=== PATIENT | female | born 1960 | race Caucasian/White ===

== ENCOUNTER → 2019-01-04 13:39 | Outpatient (CLI) | payer OTHER, SELFPAY ==
--- NOTE | 2019-01-04 | DI.RAD.S_ITS ---
PROCEDURE: XR CHEST 2V INDICATIONS: hx of smoking, dyspnea, decreased bs rt TECHNIQUE: 2 views of the chest were acquired. COMPARISON: [facility], , CHEST 1 VIEW, 02/25/2016, 12:22. FINDINGS: Surgical changes and devices: None. Lungs and pleura: Lungs are hyperinflated. Scattered scarring/atelectasis.. No pleural effusions or pneumothorax. Mediastinum: Mediastinal contours are normal. Heart size is normal. Bones and chest wall: No suspicious bony abnormalities. Soft tissues appear unremarkable. IMPRESSION: Hyperinflated lungs in keeping with chronic obstructive physiology. No acute disease. Dictated by: Jairo Torres M.D. on 01/04/2019 at 16:06 Approved by: Jairo Torres M.D. on 01/04/2019 at 16:07
[2019-01-04 14:38] LABS: Urine Amphetamines Negative (Negative); Urine Cocaine Negative (Negative); Urine Morphine/Opi cutoff 2000 Negative (Negative); Urine Tetrahydrocannabinol Negative (Negative)
[2019-01-04 14:39] LABS: Urine Barbiturates Negative (Negative); Urine Benzodiazepines Negative (Negative); Urine MDMA Negative (Negative); Urine Methadone Negative (Negative); Urine Methamphetamines Negative (Negative); Urine Oxycodone Negative (Negative); Urine Phencyclidine Negative (Negative); Urine Tricyclic Antidepressant Negative (Negative)
== END ==
PROVIDERS: PCP Physician Assistant; Visit Provider Internal Medicine
DX: R91.8 Other nonspecific abnormal finding of lung field (principal); R06.00 Dyspnea, unspecified; G89.4 Chronic pain syndrome; Z87.891 Personal history of nicotine dependence
CPT/HCPCS: 71046; 80305

== ENCOUNTER → 2019-03-15 14:36 | Outpatient (CLI) | payer OTHER, SELFPAY ==
--- NOTE | 2019-03-15 | DI.ECHO.S_ITS ---
[place] +---------+ Hospital +---------+ : : [address] : : [place], [place] : : : : [id number] : : : : Phone: [phone]+ Echocardiogram Report + + :Name: JOSÉ MANUEL LEVI Study Date: 03/15/2019 Height: 65 in : :[facility] Weight: 114 lb : : Gender: Female BSA: 1.6 m2 : :: 1960 Age: 58 yrs BP: 140/86 mmHg: :Reason For Study: DYSPNEA : : Performed By: Francisco J Daley : :Referring: CHANDNI BERRY : + + Interpretation Summary Normal sinus rhythm. Normal LV size, wall thickness, wall motion and LV systolic function. EF is 60-65%. Normal chamber sizes. No significant valvular abnormalities. No prior study available for comparison. Procedure: A two-dimensional transthoracic echocardiogram with color flow and Doppler was performed. The study quality was technically adequate. Images from the parasternal window were difficult to obtain and are suboptimal in quality. There is no prior echocardiogram noted for this patient. The patient was in normal sinus rhythm during the exam. Left Ventricle: The left ventricle is normal in size. There is normal left ventricular wall thickness. The ejection fraction is estimated to be 60-65%. There are no focal wall motion abnormalities. Diastolic function could not be accurately assessed due to contradictory data. Right Ventricle: The right ventricle is normal in size and function. Atria: Both atria are normal in size. The interatrial septum is intact with no evidence for an atrial septal defect. Mitral Valve: The mitral valve is normal in structure and function. There is trace mitral regurgitation. Aortic Valve: The aortic valve is trileaflet. No aortic regurgitation is present. Tricuspid Valve: The tricuspid valve is normal in structure and function. There is trace tricuspid regurgitation. The right ventricular systolic pressure is estimated to be at least 24 mmHg based on an estimated right atrial pressure of 3 mm Hg. Pulmonic Valve: The pulmonic valve is not well visualized. There is trace pulmonic regurgitation. Great Vessels: The aortic root is normal size. The dimensions of the ascending aorta are normal. The pulmonary artery is normal size. Pericardium/ Pleura There is no pericardial effusion. There is no pleural effusion. MMode/2D Measurements & Calculations LVIDd: 3.2 cm LVOT diam: 2.0 cm LVIDs: 2.2 cm Ao root diam: 3.2 cm FS: 29.4 % Aortic Jxn: 2.3 cm EPSS: 0.17 cm asc Aorta Diam: 3.1 cm IVSd: 0.75 cm Ao Arch Diam (Prox Trans): 2.8 cm LVPWd: 0.82 cm LV yeager. diameter/BSA (cm/m^2): 2.0 LV sys. diameter/BSA (cm/m^2): 1.4 LA dimension: 3.2 cm RA long axis: 3.9 cm LA A2 area: 17.9 cm2 RA area: 11.0 cm2 LA A4 area: 16.7 cm2 RA vol: 26.0 ml LA length (vol): 4.7 cm RA : 16.7 ml/m2 LA vol: 53.5 ml IVC diam: 1.9 cm LA vol index: 34.4 ml/m2 Doppler Measurements & Calculations Ao V2 max: 134.3 cm/sec LVOT Max Will: 116.7 cm/sec Ao V2 mean: 104.3 cm/sec LV V1 max P.4 mmHg Ao max P.2 mmHg LV V1 VTI: 24.6 cm Ao mean P.6 mmHg JAY(I,D): 2.7 cm2 Ao V2 VTI: 30.1 cm JAY(V,D): 2.8 cm2 sev ratio: 0.82 JAY indexed to BSA (cm^2/m^2): 1.7 MV E max will: 85.6 cm/sec TR max will: 227.4 cm/sec MV A max will: 66.2 cm/sec TR max P.7 mmHg MV E/A: 1.3 PA V2 max: 82.2 cm/sec Med Peak E' Will: 5.7 cm/sec PA V2 mean: 59.4 cm/sec E/E' med: 15.1 PA mean P.5 mmHg Lat Peak E' Will: 9.0 cm/sec PA pr(Accel): 36.6 mmHg E/E' lat: 9.5 PA Accel Time: 0.11 sec E/e' average: 12.3 MV dec time: 0.15 sec SV(LVOT): 80.5 ml Electronically signed by: Vee Patel M.D. on Reading Physician:03/15/2019 10:21 PM
== END ==
PROVIDERS: PCP Internal Medicine; Visit Provider Internal Medicine
DX: R06.09 Other forms of dyspnea (principal)
CPT/HCPCS: 93306

== ENCOUNTER → 2020-06-25 19:19 | Outpatient (ROUT) | payer OTHER, SELFPAY ==
[2020-06-25 20:09] LABS: Add Manual Diff / Slide Review NO; Basophils Absolute Auto 100 /uL (0-100); Basophils Percent Auto 0.8 % (0-2); Eosinophils Absolute Auto 100 /uL (0-450); Eosinophils Percent Auto 1.2 % (2-4); Hemoglobin 14.7 g/dL (12.0-16.0); Lymphocytes Absolute Auto 1400 /uL (1100-4500); Lymphocytes Percent Auto 16.9 % (25-40); Mean Corpuscular HGB Conc 33.5 % (30-36); Mean Corpuscular Hemoglobin 33.1 PG (26-34); Mean Corpuscular Volume 98.8 fL (80-100); Monocytes Absolute Auto 700 /uL (0-900); Monocytes Percent Auto 8.1 % (3-14); Neutrophils Absolute Auto 6000 /uL (1500-7000); Platelet Count 352 X10^3/uL (150-400); Red Blood Cell Count 4.45 X10^6/uL (4.0-5.2); Red Cell Distribution Width 13.1 % (11.6-14.8); White Blood Cell Count 8.3 X10^3/uL (4.5-11.0)
[2020-06-25 20:17] LABS: HEMOLYSIS < 15 (0-50); Iron 75 ug/dL (37-170)
[2020-06-25 20:21] LABS: Alanine Aminotransferase 28 IU/L (<35); Albumin 4.5 g/dL (3.5-5.0); Albumin Globulin Ratio 1.2 (1.0-2.8); Alkaline Phosphatase 93 U/L (38-126); Aspartate Aminotransferase 36 IU/L (14-36); BUN Creatinine Ratio 43.8 (6-22); Bilirubin Total 0.4 mg/dL (0.2-1.3); Blood Urea Nitrogen 28 mg/dL (7-17); Calcium 9.9 mg/dL (8.4-10.2); Carbon Dioxide 31 mmol/L (22-32); Chloride 105 mmol/L (98-107); Cholesterol 238 mg/dL (140-199); Estimated Glomerular Filt Rate > 60.0 mL/min (>60); Globulin 3.8 g/dL (1.7-4.1); Glucose 96 mg/dL (80-110); HEMOLYSIS < 15 (0-50); Potassium 4.3 mmol/L (3.4-5.1); Sodium 140 mmol/L (137-145); Total Protein 8.3 g/dL (6.3-8.2); Triglycerides 60 mg/dL (35-150)
[2020-06-25 20:30] LABS: HDL Cholesterol 121 mg/dL (40-60); LDL Cholesterol Calculated 105 mg/dL (<100); Percent Iron Saturation 20 % (15-50); Total Iron Binding Capacity 369 ug/dL (265-497); Transferrin 285 mg/dL (206-381)
[2020-06-25 20:54] LABS: Ferritin 70 ng/mL (11-264)
[2020-06-26 14:48] LABS: Vitamin D 25 Hydroxy (D3) 38.3 ng/mL (30.0-100.0)
== END ==
PROVIDERS: PCP Internal Medicine; Visit Provider Physician Assistant
DX: I10 Essential (primary) hypertension (principal); J44.9 Chronic obstructive pulmonary disease, unspecified; F11.90 Opioid use, unspecified, uncomplicated; K51.90 Ulcerative colitis, unspecified, without complications; G47.00 Insomnia, unspecified; D50.9 Iron deficiency anemia, unspecified; E78.2 Mixed hyperlipidemia; E55.9 Vitamin D deficiency, unspecified
CPT/HCPCS: 80053; 80061; 82306; 82728; 83540; 83550; 85025

== ENCOUNTER 2020-11-30 12:24 | Emergency (ER) | payer OTHER, SELFPAY ==
[2020-11-30] VITALS (95 sets, daily range): BP systolic 75–114; BP diastolic 50–69; PULSE 73–98; RESP 10–39; TEMP 36.6–37; O2SAT 80–100
--- NOTE | 2020-11-30 12:46 | DI.RAD.S_ITS ---
PROCEDURE: XR CHEST 1V INDICATIONS: suspected sepsis TECHNIQUE: One view of the chest was acquired. COMPARISON: [facility], CR, CHEST 1 VIEW, 02/25/2016, 12:22. [facility], CT, CHEST ANGIO-PE, 05/10/2011, 20:50. [facility], CR, XR CHEST 2V, 01/04/2019, 13:59. FINDINGS: Surgical changes and devices: None. Lungs and pleura: Lungs are hyperinflated and lucent, consistent with emphysema. Lungs are clear. No pleural effusions or pneumothorax. Mediastinum: Mediastinal contours appear normal. Heart size is normal. Bones and chest wall: No suspicious bony lesions. Overlying soft tissues appear unremarkable. IMPRESSION: No acute cardiopulmonary disease. Emphysema. Dictated by: Heather Garvey M.D. on 11/30/2020 at 13:13 Approved by: Heather Garvey M.D. on 11/30/2020 at 13:15
--- NOTE | 2020-11-30 12:53 | ED.FEVER ---
HPI - Fever General Chief Complaint: Fever Stated Complaint: Fever, Confussion Time Seen by Provider: 11/30/20 12:47 Source: patient and family Mode of arrival: Ambulatory Limitations: altered mental status History of Present Illness HPI Narrative: Patient is a 60-year-old female with history of emphysema, congestive heart failure, hypertension presenting today with increased generalized weakness and fever although afebrile in the emergency department. She has had a slow decline over the last 1 week. She thinks she may have a UTI she states that she does not urinate enough at work. She denies frequency or urgency. She denies any flank pain nausea or vomiting. states that she has had increased confusion and is babbling. She states that she drinks alcohol about 4 glasses of wine daily but has not had anything to drink in 7 days. He denies any prior history of seizures or withdrawal. She found to be hypoxic and hypotensive. She denies any chest pain or shortness of breath. Not sure why we are so concerned with her oxygen level. She states she was a smoker about half 1 and half packs per day for a number of years but has not smoked for about 5. Related Data Home Medications Medication Instructions Recorded Confirmed Trusopt 2 EYE-BOTH DAILY 11/30/20 amlodipine 5 mg tablet 5 mg PO BID 11/30/20 11/30/20 aspirin 81 mg tablet,delayed 81 mg PO DAILY 11/30/20 11/30/20 release bupropion HCl 150 mg tablet,12 hr 150 mg PO BID 11/30/20 11/30/20 sustained-release buspirone 5 mg tablet 5 mg PO DAILY 11/30/20 11/30/20 metoprolol tartrate 25 mg tablet 25 mg PO DAILY 11/30/20 11/30/20 olanzapine 5 mg tablet 5 mg PO BEDTIME 11/30/20 11/30/20 Allergies Allergy/AdvReac Type Severity Reaction Status Date / Time No Known Drug Allergies Allergy Verified 11/30/20 14:49 Review of Systems Review of Systems Narrative: GENERAL: Generalized weakness, fever, fatigue HEENT: Denies sinus pain, ear pain, sore throat, difficulty swallowing, neck pain RESPIRATORY: Denies dyspnea, cough, wheezing, hemoptysis, sputum. CARDIOVASCULAR: Denies chest pain, palpitations, orthopnea, edema GASTROINTESTINAL: Denies nausea, vomiting, abdominal pain, diarrhea, constipation, melena. : See HPI MUSCULOSKELETAL: Denies weakness, joint pain, or bony pain SKIN: No rash, no erythema, no pruritus NEUROLOGIC: Denies weakness, dizziness, headache, numbness, change in speech, confusion PSYCHIATRIC: No concerning psychosocial issues. 12 point review of systems is negative except for those stated above and HPI Patient History Social History Smoking Status: Former smoker Smoking Status: Former smoker alcohol intake frequency: 3 or more drinks per day Substance Use Type: does not use Exam Initial Vital Signs Initial Vital Signs: Vital Signs Temperature 98.6 F 11/30/20 12:35 Pulse Rate 98 H 11/30/20 12:35 Respiratory Rate 24 11/30/20 12:35 Blood Pressure 95/52 L 11/30/20 12:35 Pulse Oximetry 80 L 11/30/20 12:35 GENERAL: Well-appearing 60-year-old female and in no acute distress. HEENT: Head atraumatic,EOMI, pupils reactive, face symmetric, moist mucous membranes CARDIOVASCULAR: Regular rate and rhythm without murmurs, rubs or gallops. RESPIRATORY: Breath sounds equal bilaterally. No wheezing rales. Speaks with out difficulty ABDOMEN: Soft, nontender. Normoactive bowel sounds all 4 quadrants. No guarding or rebound. : No CVA tenderness EXTREMITIES: Normal range of motion, no clubbing or edema. Neurovascularly intact NEUROLOGICAL: Alert and oriented x4.Normal gait and speech. Cranial nerves II through XII grossly intact. Conference Assistant strength equal bilaterally SKIN: Warm, dry, no laceration, no petechiae, no rashes or lesions. Course Orders Ordered: Discontinued Medications Sodium Chloride (Normal Saline 0.9%) 1,000 mls @ 1,000 mls/hr IV BOLUS ONE Stop: 11/30/20 13:45 Last Infusion: 11/30/20 14:34 Dose: 0 mls/hr Documented by: Admin: 11/30/20 12:55 Dose: 1,000 mls/hr Documented by: CLARISSE Ceftriaxone Sodium 1,000 mg/ (Sodium Chloride) 100 mls @ 200 mls/hr IV NOW ONE Stop: 11/30/20 13:43 Last Infusion: 11/30/20 15:16 Dose: 0 mls/hr Documented by: Admin: 11/30/20 14:39 Dose: 200 mls/hr Documented by: MARTHA Sodium Chloride (Normal Saline 0.9%) 1,000 mls @ 1,000 mls/hr IV BOLUS ONE Stop: 11/30/20 15:23 Last Infusion: 11/30/20 15:59 Dose: 0 mls/hr Documented by: Admin: 11/30/20 14:39 Dose: 1,000 mls/hr Documented by: MARTHA Sodium Chloride (Normal Saline 0.9%) 1,000 mls @ 150 mls/hr IV CONT DOROTHY Last Infusion: 11/30/20 23:25 Dose: 0 mls/hr Documented by: Admin: 11/30/20 16:04 Dose: 150 mls/hr Documented by: OJ Piperacillin Sod/Tazobactam (Sod 4.5 gm/ Sodium Chloride) 100 mls @ 200 mls/hr IV NOW ONE Stop: 11/30/20 16:22 Last Infusion: 11/30/20 17:26 Dose: 0 mls/hr Documented by: Admin: 11/30/20 16:37 Dose: 200 mls/hr Documented by: OJ Norepinephrine Bitartrate 4 mg (/ Dextrose) 254 mls @ 30.48 mls/hr IV TITRATE DOROTHY; Protocol Last Admin: 11/30/20 17:41 Dose: Not Given Documented by: HERIBERTO Sodium Chloride (Normal Saline 0.9%) 1,000 mls @ 1,000 mls/hr IV BOLUS ONE Stop: 11/30/20 18:39 Last Infusion: 11/30/20 18:39 Dose: 0 mls/hr Documented by: Admin: 11/30/20 17:50 Dose: 1,000 mls/hr Documented by: OJ Vital Signs Vital signs: Vital Signs - 8 hr 11/30/20 12:35 11/30/20 12:40 11/30/20 12:41 Temperature 98.6 F Pulse Rate 98 H 73 86 Respiratory Rate 24 39 H Blood Pressure 95/52 L 95/52 L Pulse Oximetry 80 L 83 L 80 L 11/30/20 12:45 11/30/20 13:00 11/30/20 13:15 Temperature Pulse Rate 84 79 79 Respiratory Rate 18 12 20 Blood Pressure 101/61 94/62 Pulse Oximetry 99 94 94 11/30/20 13:30 11/30/20 13:45 11/30/20 14:00 Temperature Pulse Rate 79 80 81 Respiratory Rate 21 14 18 Blood Pressure 90/60 92/61 Pulse Oximetry 91 93 92 11/30/20 14:01 11/30/20 14:11 11/30/20 14:15 Temperature Pulse Rate 82 86 Respiratory Rate 19 20 Blood Pressure 83/63 L 93/64 Pulse Oximetry 83 L 97 99 11/30/20 14:44 11/30/20 14:45 11/30/20 14:47 Temperature Pulse Rate 83 82 81 Respiratory Rate 14 15 Blood Pressure 84/57 L 83/55 L 82/54 L Pulse Oximetry 95 98 100 11/30/20 14:50 11/30/20 14:55 11/30/20 15:00 Temperature Pulse Rate 82 81 81 Respiratory Rate 10 L 11 L 11 L Blood Pressure 84/54 L 82/54 L 88/55 L Pulse Oximetry 100 100 100 11/30/20 15:05 11/30/20 15:10 11/30/20 15:15 Temperature Pulse Rate 81 80 81 Respiratory Rate 11 L 13 14 Blood Pressure 85/52 L 87/55 L 88/56 L Pulse Oximetry 100 100 100 11/30/20 15:16 11/30/20 15:20 11/30/20 15:25 Temperature Pulse Rate 80 80 80 Respiratory Rate 18 21 20 Blood Pressure 87/59 L 90/60 89/50 L Pulse Oximetry 100 100 100 11/30/20 15:30 11/30/20 15:31 11/30/20 15:35 Temperature Pulse Rate 81 81 80 Respiratory Rate 17 17 19 Blood Pressure 89/54 L 84/58 L Pulse Oximetry 100 100 100 11/30/20 15:45 11/30/20 15:46 11/30/20 15:50 Temperature Pulse Rate 82 82 82 Respiratory Rate 16 17 22 Blood Pressure 80/55 L 81/53 L Pulse Oximetry 99 99 98 11/30/20 15:55 11/30/20 16:00 11/30/20 16:05 Temperature Pulse Rate 80 80 86 Respiratory Rate 18 17 17 Blood Pressure 94/57 L 92/59 L 90/55 L Pulse Oximetry 100 99 98 11/30/20 16:09 11/30/20 16:11 11/30/20 16:15 Temperature Pulse Rate 86 87 84 Respiratory Rate 18 29 H 36 H Blood Pressure 92/60 86/66 L Pulse Oximetry 97 11/30/20 16:21 11/30/20 16:25 11/30/20 16:30 Temperature Pulse Rate 84 83 83 Respiratory Rate 20 25 H 23 Blood Pressure 86/61 L 95/69 Pulse Oximetry 89 L 94 95 11/30/20 16:40 11/30/20 16:45 11/30/20 16:50 Temperature Pulse Rate 80 80 79 Respiratory Rate 24 16 22 Blood Pressure 86/51 L 80/51 L 75/53 L Pulse Oximetry 96 96 96 11/30/20 16:55 11/30/20 17:00 11/30/20 17:05 Temperature Pulse Rate 76 79 81 Respiratory Rate 14 23 21 Blood Pressure 82/57 L 90/58 L 94/60 Pulse Oximetry 97 96 96 11/30/20 17:10 11/30/20 17:15 11/30/20 17:20 Temperature Pulse Rate 80 87 83 Respiratory Rate 25 H 35 H 32 H Blood Pressure 90/58 L 89/57 L 90/56 L Pulse Oximetry 97 95 94 11/30/20 17:25 11/30/20 17:30 11/30/20 17:35 Temperature Pulse Rate 83 82 82 Respiratory Rate 18 17 20 Blood Pressure 89/52 L 86/53 L 86/56 L Pulse Oximetry 95 95 96 11/30/20 17:40 11/30/20 17:45 11/30/20 17:50 Temperature Pulse Rate 82 84 80 Respiratory Rate 19 28 H 20 Blood Pressure 89/55 L 88/50 L 88/52 L Pulse Oximetry 95 96 95 11/30/20 17:55 11/30/20 18:00 11/30/20 18:05 Temperature Pulse Rate 80 78 77 Respiratory Rate 15 12 11 L Blood Pressure 81/50 L 85/54 L 88/56 L Pulse Oximetry 96 96 96 11/30/20 18:10 11/30/20 18:15 11/30/20 18:20 Temperature Pulse Rate 76 77 77 Respiratory Rate 17 13 14 Blood Pressure 86/56 L 88/57 L 86/56 L Pulse Oximetry 96 96 97 11/30/20 18:25 11/30/20 18:30 11/30/20 18:35 Temperature Pulse Rate 75 77 78 Respiratory Rate 14 17 22 Blood Pressure 86/57 L 87/58 L 89/56 L Pulse Oximetry 97 97 97 11/30/20 18:41 11/30/20 18:45 11/30/20 18:50 Temperature Pulse Rate 85 80 80 Respiratory Rate 29 H 25 H 37 H Blood Pressure 101/58 L 91/52 L 94/58 L Pulse Oximetry 95 96 87 L 11/30/20 18:55 11/30/20 19:00 11/30/20 19:05 Temperature Pulse Rate 73 74 76 Respiratory Rate 13 14 20 Blood Pressure 97/62 97/62 106/65 Pulse Oximetry 94 93 93 11/30/20 19:10 11/30/20 19:15 11/30/20 19:20 Temperature Pulse Rate 76 75 77 Respiratory Rate 20 19 12 Blood Pressure 106/64 102/65 96/63 Pulse Oximetry 92 92 93 11/30/20 19:25 11/30/20 19:30 11/30/20 19:35 Temperature Pulse Rate 76 78 77 Respiratory Rate 12 17 14 Blood Pressure 94/66 91/63 95/66 Pulse Oximetry 93 92 91 11/30/20 19:40 11/30/20 19:46 11/30/20 19:51 Temperature 97.8 F Pulse Rate 79 81 78 Respiratory Rate 20 39 H 25 H Blood Pressure 101/65 86/61 L 99/61 Pulse Oximetry 92 90 L 91 MDM - Fever Lab Data Result diagrams: 11/30/20 12:45 11/30/20 12:45 Labs: Lab Results 11/30/20 11/30/20 11/30/20 Range/Units 12:04 12:40 12:45 WBC 16.1 H (4.5-11.0) X10^3/uL RBC 3.59 L (4.0-5.2) X10^6/uL Hgb 11.5 L (12.0-16.0) g/dL Hct 34.6 L (36-46) % MCV 96.5 (80-100) fL MCH 32.0 (26-34) PG MCHC 33.2 (30-36) % RDW 13.0 (11.6-14.8) % Plt Count 743 H (150-400) X10^3/uL Neut % (Auto) Not Reportable Lymph % (Auto) Not Reportable [place] % (Auto) Not Reportable Eos % (Auto) Not Reportable Baso % (Auto) Not Reportable Lymph # (Auto) Not Reportable [place] # (Auto) Not Reportable Baso # (Auto) Not Reportable Total Counted 100 Seg Neutrophils % 78.0 H (38-70) % Band Neutrophils % 4.0 (3-7) % Lymphocytes % (Manual) 8.0 L (25-45) % Monocytes % (Manual) 5.0 (2-11) % Eosinophils % (Manual) 2.0 (2-4) % Metamyelocytes % 3.0 H (-0) % Neutrophils # (Manual) 02612 H (4892-4308) /uL RBC Morphology Normal morphology Sodium (137-145) mmol/L Potassium (3.4-5.1) mmol/L Chloride (98-107) mmol/L Carbon Dioxide (22-32) mmol/L BUN (7-17) mg/dL Creatinine (0.52-1.04) mg/dL Estimated GFR (>60) mL/min BUN/Creatinine Ratio (6-22) Glucose (80-110) mg/dL Lactate (0.7-2.1) mmol/L Calcium (8.4-10.2) mg/dL Total Bilirubin (0.2-1.3) mg/dL AST (14-36) IU/L ALT (<35) IU/L Alkaline Phosphatase (38-126) U/L Total Creatine Kinase (30-135) U/L CK-MB (CK-2) CK-MB (CK-2) Rel Index Troponin I (0.01-0.034) ng/mL NT-Pro-B Natriuret Pep (<125) pg/mL Total Protein (6.3-8.2) g/dL Albumin (3.5-5.0) g/dL Globulin (1.7-4.1) g/dL Albumin/Globulin Ratio (1.0-2.8) Lipase (23-300) U/L Procalcitonin (<0.5) ng/mL Urine Color Yellow Urine Appearance Slightly cloudy Urine pH 5.0 (4.5-8.0) Ur Specific [place] >=1.030 H (1.000-1.035) Urine Protein Trace H (Negative) Urine Glucose (UA) Negative (Negative) g/dL Urine Ketones Negative (NEGATIVE) Urine Occult Blood Trace-intact (Negative) Urine Nitrate Negative (Negative) Urine Bilirubin Negative (NEGATIVE) Urine Urobilinogen 0.2 (0.2) E.U./dL Ur Leukocyte Esterase 1+ H (NEGATIVE) Urine RBC 0-1/hpf (0-5/HPF) Urine WBC 10-30/hpf H (0-5/HPF) Ur Squamous Epith Cells 0-1 /hpf (0-5/HPF) Amorphous Sediment 1+ Urine Bacteria Moderate (10-30) H (None) Urine Mucus 1+ H (Negative) Ur Culture Indicated? Specimen cultured U Opiates 300ng/mL cut Negative (Negative) Ur Oxycodone Screen Positive H (Negative) Urine Methadone Screen Negative (Negative) Ur Barbiturates Screen Negative (Negative) U Tricyclic Antidepress Negative (Negative) Ur Phencyclidine Scrn Negative (Negative) Ur Amphetamines Screen Negative (Negative) U Methamphetamines Scrn Negative (Negative) Ur MDMA Scrn (Ecstasy) Negative (Negative) U Benzodiazepines Scrn Negative (Negative) Urine Cocaine Screen Negative (Negative) U Marijuana (THC) Screen Negative (Negative) Ethyl Alcohol ( - 10) mg/dL SARS-CoV-2 (PCR) (Negative) 11/30/20 11/30/20 11/30/20 Range/Units 12:45 12:45 12:45 WBC (4.5-11.0) X10^3/uL RBC (4.0-5.2) X10^6/uL Hgb (12.0-16.0) g/dL Hct (36-46) % MCV (80-100) fL MCH (26-34) PG MCHC (30-36) % RDW (11.6-14.8) % Plt Count (150-400) X10^3/uL Neut % (Auto) Lymph % (Auto) [place] % (Auto) Eos % (Auto) Baso % (Auto) Lymph # (Auto) [place] # (Auto) Baso # (Auto) Total Counted Seg Neutrophils % (38-70) % Band Neutrophils % (3-7) % Lymphocytes % (Manual) (25-45) % Monocytes % (Manual) (2-11) % Eosinophils % (Manual) (2-4) % Metamyelocytes % (-0) % Neutrophils # (Manual) (2015-9201) /uL RBC Morphology Sodium 132 L (137-145) mmol/L Potassium 4.0 (3.4-5.1) mmol/L Chloride 95 L (98-107) mmol/L Carbon Dioxide 29 (22-32) mmol/L BUN 46 H (7-17) mg/dL Creatinine 1.64 H (0.52-1.04) mg/dL Estimated GFR 31.8 L (>60) mL/min BUN/Creatinine Ratio 28.0 H (6-22) Glucose 99 (80-110) mg/dL Lactate 1.3 (0.7-2.1) mmol/L Calcium 9.2 (8.4-10.2) mg/dL Total Bilirubin 0.5 (0.2-1.3) mg/dL AST 33 (14-36) IU/L ALT 22 (<35) IU/L Alkaline Phosphatase 123 (38-126) U/L Total Creatine Kinase (30-135) U/L CK-MB (CK-2) CK-MB (CK-2) Rel Index Troponin I (0.01-0.034) ng/mL NT-Pro-B Natriuret Pep (<125) pg/mL Total Protein 7.6 (6.3-8.2) g/dL Albumin 3.6 (3.5-5.0) g/dL Globulin 4.0 (1.7-4.1) g/dL Albumin/Globulin Ratio 0.9 L (1.0-2.8) Lipase 17 L (23-300) U/L Procalcitonin 0.41 (<0.5) ng/mL Urine Color Urine Appearance Urine pH (4.5-8.0) Ur Specific [place] (1.000-1.035) Urine Protein (Negative) Urine Glucose (UA) (Negative) g/dL Urine Ketones (NEGATIVE) Urine Occult Blood (Negative) Urine Nitrate (Negative) Urine Bilirubin (NEGATIVE) Urine Urobilinogen (0.2) E.U./dL Ur Leukocyte Esterase (NEGATIVE) Urine RBC (0-5/HPF) Urine WBC (0-5/HPF) Ur Squamous Epith Cells (0-5/HPF) Amorphous Sediment Urine Bacteria (None) Urine Mucus (Negative) Ur Culture Indicated? U Opiates 300ng/mL cut (Negative) Ur Oxycodone Screen (Negative) Urine Methadone Screen (Negative) Ur Barbiturates Screen (Negative) U Tricyclic Antidepress (Negative) Ur Phencyclidine Scrn (Negative) Ur Amphetamines Screen (Negative) U Methamphetamines Scrn (Negative) Ur MDMA Scrn (Ecstasy) (Negative) U Benzodiazepines Scrn (Negative) Urine Cocaine Screen (Negative) U Marijuana (THC) Screen (Negative) Ethyl Alcohol ( - 10) mg/dL SARS-CoV-2 (PCR) Negative (Negative) 11/30/20 11/30/20 11/30/20 Range/Units 12:45 12:46 12:54 WBC (4.5-11.0) X10^3/uL RBC (4.0-5.2) X10^6/uL Hgb (12.0-16.0) g/dL Hct (36-46) % MCV (80-100) fL MCH (26-34) PG MCHC (30-36) % RDW (11.6-14.8) % Plt Count (150-400) X10^3/uL Neut % (Auto) Lymph % (Auto) [place] % (Auto) Eos % (Auto) Baso % (Auto) Lymph # (Auto) [place] # (Auto) Baso # (Auto) Total Counted Seg Neutrophils % (38-70) % Band Neutrophils % (3-7) % Lymphocytes % (Manual) (25-45) % Monocytes % (Manual) (2-11) % Eosinophils % (Manual) (2-4) % Metamyelocytes % (-0) % Neutrophils # (Manual) (5757-3647) /uL RBC Morphology Sodium (137-145) mmol/L Potassium (3.4-5.1) mmol/L Chloride (98-107) mmol/L Carbon Dioxide (22-32) mmol/L BUN (7-17) mg/dL Creatinine (0.52-1.04) mg/dL Estimated GFR (>60) mL/min BUN/Creatinine Ratio (6-22) Glucose (80-110) mg/dL Lactate (0.7-2.1) mmol/L Calcium (8.4-10.2) mg/dL Total Bilirubin (0.2-1.3) mg/dL AST (14-36) IU/L ALT (<35) IU/L Alkaline Phosphatase (38-126) U/L Total Creatine Kinase (30-135) U/L CK-MB (CK-2) CK-MB (CK-2) Rel Index Troponin I (0.01-0.034) ng/mL NT-Pro-B Natriuret Pep 1050 H (<125) pg/mL Total Protein (6.3-8.2) g/dL Albumin (3.5-5.0) g/dL Globulin (1.7-4.1) g/dL Albumin/Globulin Ratio (1.0-2.8) Lipase (23-300) U/L Procalcitonin (<0.5) ng/mL Urine Color Urine Appearance Urine pH (4.5-8.0) Ur Specific [place] (1.000-1.035) Urine Protein (Negative) Urine Glucose (UA) (Negative) g/dL Urine Ketones (NEGATIVE) Urine Occult Blood (Negative) Urine Nitrate (Negative) Urine Bilirubin (NEGATIVE) Urine Urobilinogen (0.2) E.U./dL Ur Leukocyte Esterase (NEGATIVE) Urine RBC (0-5/HPF) Urine WBC (0-5/HPF) Ur Squamous Epith Cells (0-5/HPF) Amorphous Sediment Urine Bacteria (None) Urine Mucus (Negative) Ur Culture Indicated? U Opiates 300ng/mL cut (Negative) Ur Oxycodone Screen (Negative) Urine Methadone Screen (Negative) Ur Barbiturates Screen (Negative) U Tricyclic Antidepress (Negative) Ur Phencyclidine Scrn (Negative) Ur Amphetamines Screen (Negative) U Methamphetamines Scrn (Negative) Ur MDMA Scrn (Ecstasy) (Negative) U Benzodiazepines Scrn (Negative) Urine Cocaine Screen (Negative) U Marijuana (THC) Screen (Negative) Ethyl Alcohol < 10 ( - 10) mg/dL SARS-CoV-2 (PCR) Negative (Negative) 11/30/20 11/30/20 Range/Units 12:54 16:09 WBC (4.5-11.0) X10^3/uL RBC (4.0-5.2) X10^6/uL Hgb (12.0-16.0) g/dL Hct (36-46) % MCV (80-100) fL MCH (26-34) PG MCHC (30-36) % RDW (11.6-14.8) % Plt Count (150-400) X10^3/uL Neut % (Auto) Lymph % (Auto) [place] % (Auto) Eos % (Auto) Baso % (Auto) Lymph # (Auto) [place] # (Auto) Baso # (Auto) Total Counted Seg Neutrophils % (38-70) % Band Neutrophils % (3-7) % Lymphocytes % (Manual) (25-45) % Monocytes % (Manual) (2-11) % Eosinophils % (Manual) (2-4) % Metamyelocytes % (-0) % Neutrophils # (Manual) (9405-9981) /uL RBC Morphology Sodium (137-145) mmol/L Potassium (3.4-5.1) mmol/L Chloride (98-107) mmol/L Carbon Dioxide (22-32) mmol/L BUN (7-17) mg/dL Creatinine (0.52-1.04) mg/dL Estimated GFR (>60) mL/min BUN/Creatinine Ratio (6-22) Glucose (80-110) mg/dL Lactate 0.8 (0.7-2.1) mmol/L Calcium (8.4-10.2) mg/dL Total Bilirubin (0.2-1.3) mg/dL AST (14-36) IU/L ALT (<35) IU/L Alkaline Phosphatase (38-126) U/L Total Creatine Kinase 57 (30-135) U/L CK-MB (CK-2) TNP CK-MB (CK-2) Rel Index TNP Troponin I < 0.012 (0.01-0.034) ng/mL NT-Pro-B Natriuret Pep (<125) pg/mL Total Protein (6.3-8.2) g/dL Albumin (3.5-5.0) g/dL Globulin (1.7-4.1) g/dL Albumin/Globulin Ratio (1.0-2.8) Lipase (23-300) U/L Procalcitonin (<0.5) ng/mL Urine Color Urine Appearance Urine pH (4.5-8.0) Ur Specific [place] (1.000-1.035) Urine Protein (Negative) Urine Glucose (UA) (Negative) g/dL Urine Ketones (NEGATIVE) Urine Occult Blood (Negative) Urine Nitrate (Negative) Urine Bilirubin (NEGATIVE) Urine Urobilinogen (0.2) E.U./dL Ur Leukocyte Esterase (NEGATIVE) Urine RBC (0-5/HPF) Urine WBC (0-5/HPF) Ur Squamous Epith Cells (0-5/HPF) Amorphous Sediment Urine Bacteria (None) Urine Mucus (Negative) Ur Culture Indicated? U Opiates 300ng/mL cut (Negative) Ur Oxycodone Screen (Negative) Urine Methadone Screen (Negative) Ur Barbiturates Screen (Negative) U Tricyclic Antidepress (Negative) Ur Phencyclidine Scrn (Negative) Ur Amphetamines Screen (Negative) U Methamphetamines Scrn (Negative) Ur MDMA Scrn (Ecstasy) (Negative) U Benzodiazepines Scrn (Negative) Urine Cocaine Screen (Negative) U Marijuana (THC) Screen (Negative) Ethyl Alcohol ( - 10) mg/dL SARS-CoV-2 (PCR) (Negative) Imaging Data Chest x-ray: Radiologist's Impression: PROCEDURE: XR CHEST 1V INDICATIONS: suspected sepsis TECHNIQUE: One view of the chest was acquired. COMPARISON: [facility], CR, CHEST 1 VIEW, 02/25/2016, 12:22. [facility], CT, CHEST ANGIO-PE, 05/10/2011, 20:50. [facility], CR, XR CHEST 2V, 01/04/2019, 13:59. FINDINGS: Surgical changes and devices: None. Lungs and pleura: Lungs are hyperinflated and lucent, consistent with emphysema. Lungs are clear. No pleural effusions or pneumothorax. Mediastinum: Mediastinal contours appear normal. Heart size is normal. Bones and chest wall: No suspicious bony lesions. Overlying soft tissues appear unremarkable. IMPRESSION: No acute cardiopulmonary disease. Emphysema. Dictated by: Heather Garvey M.D. on 11/30/2020 at 13:13 Approved by: Heather Garvey M.D. on 11/30/2020 at 13:15 CT scan - chest: Radiologist's Impression: ADDENDUMThis report includes an Addendum and supersedes previous reports for this exam. PROCEDURE: CT ANGIO CHEST PE PROTOCOL INDICATIONS: hypoxia TECHNIQUE: After the administration of intravenous contrast, 2 mm thick sections acquired from the pulmonary apices to the posterior costophrenic angles. 3-dimensional maximum intensity projection (MIP) coronal and sagittal reformats were then acquired through the thorax. For radiation dose reduction, the following was used: automated exposure control, adjustment of mA and/or kV according to patient size. COMPARISON: [facility], CT, CHEST ANGIO-PE, 05/10/2011, 20:50. [facility], CR, XR CHEST 1V, 11/30/2020, 13:00. FINDINGS: Image quality: Excellent. Pulmonary arteries: Pulmonary arteries are normal in size, and demonstrate no intraluminal filling defects to suggest pulmonary embolism. No acute aortic syndrome. Lungs and pleura: Severe emphysematous change. No acute airspace opacity. No pleural effusions or pneumothorax. Central and peripheral airways are patent. Mediastinum: Heart size is normal, without pericardial effusion. Mild LAD coronary artery calcifications. No mediastinal or hilar adenopathy. Thoracic aorta is normal in caliber and enhancement. Esophagus is normal in caliber, without hiatal hernia. Bones and chest wall: No suspicious bony lesions. Ribs and thoracic spine appear intact throughout. Thyroid gland is unremarkable. No axillary or supraclavicular adenopathy. Abdomen: Visualized upper abdominal solid organs appear normal in the early arterial phase of enhancement. IMPRESSION: 1. No pulmonary embolism. 2. Severe emphysematous change. No acute airspace opacity. 3. No pleural effusion. Dictated by: Oscar Gamboa M.D. on 11/30/2020 at 14:59 Approved by: Oscar Gamboa M.D. on 11/30/2020 at 15:07 ADDENDUM: Suspect subcentimeter low-density right adrenal nodule which appears unchanged compared to 2010. This most likely represents a small benign adrenal adenoma. Dictated by: Oscar Gamboa M.D. on 11/30/2020 at 15:24 Approved by: Oscar Gamboa M.D. on 11/30/2020 at 15:25 Addendum Dictated By:Morris Dewitt Signed By:Addendum Cosigned By:DD/ TD/TT: 11/30/2002/13/1528 PROCEDURE: CT ANGIO CHEST PE PROTOCOL INDICATIONS: hypoxia TECHNIQUE: After the administration of intravenous contrast, 2 mm thick sections acquired from the pulmonary apices to the posterior costophrenic angles. 3-dimensional maximum intensity projection (MIP) coronal and sagittal reformats were then acquired through the thorax. For radiation dose reduction, the following was used: automated exposure control, adjustment of mA and/or kV according to patient size. COMPARISON: [facility], CT, CHEST ANGIO-PE, 05/10/2011, 20:50. [facility], CR, XR CHEST 1V, 11/30/2020, 13:00. FINDINGS: Image quality: Excellent. Pulmonary arteries: Pulmonary arteries are normal in size, and demonstrate no intraluminal filling defects to suggest pulmonary embolism. No acute aortic syndrome. Lungs and pleura: Severe emphysematous change. No acute airspace opacity. No pleural effusions or pneumothorax. Central and peripheral airways are patent. Mediastinum: Heart size is normal, without pericardial effusion. Mild LAD coronary artery calcifications. No mediastinal or hilar adenopathy. Thoracic aorta is normal in caliber and enhancement. Esophagus is normal in caliber, without hiatal hernia. Bones and chest wall: No suspicious bony lesions. Ribs and thoracic spine appear intact throughout. Thyroid gland is unremarkable. No axillary or supraclavicular adenopathy. Abdomen: Visualized upper abdominal solid organs appear normal in the early arterial phase of enhancement. IMPRESSION: 1. No pulmonary embolism. 2. Severe emphysematous change. No acute airspace opacity. 3. No pleural effusion. Dictated by: Oscar Gamboa M.D. on 11/30/2020 at 14:59 Approved by: Oscar Gamboa M.D. on 11/30/2020 at 15:07 ECG Data Interpretation: Normal sinus rhythm rate 81 p.r. interval 134 S [address] changes or T-wave inversions similar to previous kidney she is MDM Narrative Medical decision making narrative: The patient does have a UTI with leukocytosis of 16 but is afebrile. Blood low in the 90s but always maintaining map of 65 or more. Blood pressure improves with IV fluids. She did receive the sepsis bolus amount and more. She has a normal lactic acid minimally elevated procalcitonin. No abdominal pain. CT chest does not show any pulmonary embolism and does confirm severe emphysema. She surprisingly remains well appearing despite persistent hypotension. states that he thinks are normal blood pressure is in the 140s. She is not dizzy or lightheaded. She does have some mild confusion. Not really complaining of pain. No nausea or vomiting. At this time while she is maintaining a map greater than 65 and overall appears well and resistant to central line and start vasopressors. If she clinically is starting to deteriorate then I would recommend vasopressors. Patient receives 1 L of fluids and blood pressure improves to systolic greater than 100. She has been to the restroom multiple times to urinate. Overall appears better and she remains afebrile and not tachycardic. Patient had mild elevation of BNP but is not showing signs or symptoms of acute congestive heart failure and seem to tolerate IV fluids well. 7:[address] Tamayo hospitalist at [facility] graciously accepts patient Discharge Plan Departure Patient Disposition: [facility] Clinical Impression: UTI (urinary tract infection), Sepsis Prescriptions: No Action buspirone 5 mg Tablet 5 mg PO DAILY RF: 0 bupropion HCl 150 mg Tablet Sustained-Release 12 Hr 150 mg PO BID RF: 0 olanzapine 5 mg Tablet 5 mg PO BEDTIME RF: 0 amlodipine 5 mg Tablet 5 mg PO BID RF: 0 aspirin [Aspir-81] 81 mg Tablet,Delayed Release (Dr/Ec) 81 mg PO DAILY RF: 0 metoprolol tartrate 25 mg Tablet 25 mg PO DAILY RF: 0 Trusopt 2 EYE-BOTH DAILY RF: 0 Referrals: Coby Narayan PA-C [Primary Care Provider] -
[2020-11-30] MEDS: SODIUM CHLORIDE 0.9% 1,000 ML 1000 ML IV ×3 (12:55→17:50)
[2020-11-30 12:57] LABS: Bilirubin Urine UA NEGATIVE (NEGATIVE); Color Urine UA YELLOW; Glucose Urine UA NEGATIVE (Negative); Ketones Urine UA NEGATIVE (NEGATIVE); Leukocyte Esterase Urine UA 1+ (NEGATIVE); Nitrite Urine UA NEGATIVE (Negative); Occult Blood Urine UA TRACE-INTACT (Negative); Protein Urine UA TRACE (Negative); Specific Gravity Urine UA >=1.030 (1.000-1.035); Urobilinogen Urine UA 0.2 E.U./dL (0.2)
[2020-11-30 12:58] LABS: Add Manual Diff / Slide Review YES; Hematocrit 34.6 % (36-46); Hemoglobin 11.5 g/dL (12.0-16.0); Mean Corpuscular HGB Conc 33.2 % (30-36); Mean Corpuscular Volume 96.5 fL (80-100); Platelet Count 743 X10^3/uL (150-400); Red Blood Cell Count 3.59 X10^6/uL (4.0-5.2); White Blood Cell Count 16.1 X10^3/uL (4.5-11.0)
[2020-11-30 13:01] LABS: Appearance Urine UA Slightly Cloudy
[2020-11-30 13:03] LABS: RBC Urine 0-1/HPF (0-5/HPF); Squamous Epithelial Cell Urine 0-1 /HPF (0-5/HPF); WBC Urine 10-30/HPF (0-5/HPF)
[2020-11-30 13:04] LABS: Amorphous Sediment Urine 1+; Bacteria Urine Moderate (10-30); Culture Indicated Urine Specimen Cultured; Mucus Urine 1+ (Negative)
--- NOTE | 2020-11-30 13:05 | PC.NURSE ---
Patient's SPO2 was initially 80% on RA when she got into bed with good pleth/wavefrom. She was encouraged to take some deep breaths and placed on O2 2LNC. over the next minute she katherin to 99% on RA. She reports he normal O2 sats with COPD are 88-92% I decreased O2 to 1LNC and she remained at 98% on RA. After 5 minutes I turned off Oxygen. Patient remains anywhere from 92-95% on Room Air.
[2020-11-30 13:06] LABS: Alanine Aminotransferase 22 IU/L (<35); Albumin 3.6 g/dL (3.5-5.0); Albumin Globulin Ratio 0.9 (1.0-2.8); Alkaline Phosphatase 123 U/L (38-126); Aspartate Aminotransferase 33 IU/L (14-36); Bilirubin Total 0.5 mg/dL (0.2-1.3); Blood Urea Nitrogen 46 mg/dL (7-17); Calcium 9.2 mg/dL (8.4-10.2); Carbon Dioxide 29 mmol/L (22-32); Chloride 95 mmol/L (98-107); Estimated Glomerular Filt Rate 31.8 mL/min (>60); Glucose 99 mg/dL (80-110); HEMOLYSIS < 15 (0-50); Lipase 17 U/L (23-300); Sodium 132 mmol/L (137-145); Total Protein 7.6 g/dL (6.3-8.2)
[2020-11-30 13:07] LABS: Lactate (Lactic Acid) 1.3 mmol/L (0.7-2.1)
[2020-11-30 13:09] LABS: COVID19 -Nasal RAPID Negative (Negative)
[2020-11-30 13:19] LABS: Ethanol (ETOH) < 10 mg/dL
[2020-11-30 13:23] LABS: Procalcitonin 0.41 ng/mL (<0.5)
[2020-11-30 13:24] LABS: Neutrophils Absolute Manual 13202 /uL (3000-5900); Total Cells Counted 100
[2020-11-30 13:26] LABS: RBC Morphology Normal Morphology
[2020-11-30 13:28] LABS: Creatine Kinase 57 U/L (30-135); NT-proBNP (BNP-Adult 18+) 1050 pg/mL (<125); Troponin I < 0.012 ng/mL (0.01-0.034)
[2020-11-30 13:48] LABS: COVID19 - ADMIT (NP swab/PCR) Negative (Negative)
[2020-11-30 14:02] LABS: UR Morphine/Opiate cutoff 300 Negative (Negative); Ur Creatinine Normal (Normal); Ur Specific Gravity Normal (Normal); Urine Amphetamines Negative (Negative); Urine Barbiturates Negative (Negative); Urine Benzodiazepines Negative (Negative); Urine Cocaine Negative (Negative); Urine MDMA Negative (Negative); Urine Methadone Negative (Negative); Urine Methamphetamines Negative (Negative); Urine Oxycodone Positive (Negative); Urine Phencyclidine Negative (Negative); Urine Tetrahydrocannabinol Negative (Negative); Urine Tricyclic Antidepressant Negative (Negative); Urine pH Normal (Normal)
--- NOTE | 2020-11-30 14:24 | DI.CT.S_ITS ---
PROCEDURE: CT ANGIO CHEST PE PROTOCOL INDICATIONS: hypoxia TECHNIQUE: After the administration of intravenous contrast, 2 mm thick sections acquired from the pulmonary apices to the posterior costophrenic angles. 3-dimensional maximum intensity projection (MIP) coronal and sagittal reformats were then acquired through the thorax. For radiation dose reduction, the following was used: automated exposure control, adjustment of mA and/or kV according to patient size. COMPARISON: [facility], CT, CHEST ANGIO-PE, 05/10/2011, 20:50. [facility], CR, XR CHEST 1V, 11/30/2020, 13:00. FINDINGS: Image quality: Excellent. Pulmonary arteries: Pulmonary arteries are normal in size, and demonstrate no intraluminal filling defects to suggest pulmonary embolism. No acute aortic syndrome. Lungs and pleura: Severe emphysematous change. No acute airspace opacity. No pleural effusions or pneumothorax. Central and peripheral airways are patent. Mediastinum: Heart size is normal, without pericardial effusion. Mild LAD coronary artery calcifications. No mediastinal or hilar adenopathy. Thoracic aorta is normal in caliber and enhancement. Esophagus is normal in caliber, without hiatal hernia. Bones and chest wall: No suspicious bony lesions. Ribs and thoracic spine appear intact throughout. Thyroid gland is unremarkable. No axillary or supraclavicular adenopathy. Abdomen: Visualized upper abdominal solid organs appear normal in the early arterial phase of enhancement. IMPRESSION: 1. No pulmonary embolism. 2. Severe emphysematous change. No acute airspace opacity. 3. No pleural effusion. Dictated by: Oscar Gamboa M.D. on 11/30/2020 at 14:59 Approved by: Oscar Gamboa M.D. on 11/30/2020 at 15:07
[2020-11-30] MEDS: cefTRIAXone 1,000 MG in SODIUM CHLORIDE 0.9% 100 ML 200 ML IV (14:39)
[2020-11-30] MEDS: SODIUM CHLORIDE 0.9% 1,000 ML 150 ML IV (16:04)
[2020-11-30 16:26] LABS: Lactate (Lactic Acid) 0.8 mmol/L (0.7-2.1)
[2020-11-30] MEDS: PIPERACILLIN/TAZO 4.5 GM in SODIUM CHLORIDE 0.9% 100 ML 200 ML IV (16:37)
== END 2020-11-30 23:20 | disposition short-term general hospital (02) ==
PROVIDERS: Emergency Provider Emergency Medicine; PCP Physician Assistant
DX: N39.0 Urinary tract infection, site not specified (principal); A41.9 Sepsis, unspecified organism; R09.02 Hypoxemia; I95.9 Hypotension, unspecified; R50.9 Fever, unspecified; Z20.822 Contact with and (suspected) exposure to COVID-19
CPT/HCPCS: 36415; 71045; 71275; 80053; 80305; 80320; 81001; 82550; 83605; 83690; 83880; 84145; 84484; 85007; 85025; 87040; 87086; 87635; 93005; 96361; 96365; 96367; 99285; C9803; J0696; J2543

== ENCOUNTER → 2021-01-21 09:12 | Outpatient (CLI) | payer OTHER, SELFPAY ==
[2021-01-21 09:43] LABS: Add Manual Diff / Slide Review NO; Basophils Absolute Auto 100 /uL (0-100); Basophils Percent Auto 1.3 % (0-2); Eosinophils Absolute Auto 500 /uL (0-450); Eosinophils Percent Auto 5.9 % (2-4); Hematocrit 40.8 % (36-46); Hemoglobin 13.4 g/dL (12.0-16.0); Lymphocytes Absolute Auto 1400 /uL (1100-4500); Lymphocytes Percent Auto 15.2 % (25-40); Mean Corpuscular HGB Conc 32.9 % (30-36); Mean Corpuscular Hemoglobin 31.1 PG (26-34); Mean Corpuscular Volume 94.5 fL (80-100); Monocytes Absolute Auto 800 /uL (0-900); Monocytes Percent Auto 8.5 % (3-14); Neutrophils Absolute Auto 6200 /uL (1500-7000); Neutrophils Percent Auto 69.1 % (50-75); Platelet Count 468 X10^3/uL (150-400); Red Blood Cell Count 4.31 X10^6/uL (4.0-5.2); Red Cell Distribution Width 13.6 % (11.6-14.8)
[2021-01-21 09:56] LABS: Alanine Aminotransferase 35 IU/L (<35); Albumin 4.7 g/dL (3.5-5.0); Albumin Globulin Ratio 1.2 (1.0-2.8); Alkaline Phosphatase 87 U/L (38-126); Aspartate Aminotransferase 45 IU/L (14-36); BUN Creatinine Ratio 26.2 (6-22); Bilirubin Total 0.7 mg/dL (0.2-1.3); Blood Urea Nitrogen 22 mg/dL (7-17); Calcium 9.6 mg/dL (8.4-10.2); Carbon Dioxide 27 mmol/L (22-32); Chloride 100 mmol/L (98-107); Cholesterol 216 mg/dL (140-199); Estimated Glomerular Filt Rate > 60.0 mL/min (>60); Globulin 3.8 g/dL (1.7-4.1); Glucose 101 mg/dL (80-110); HDL Cholesterol 109 mg/dL (40-60); HEMOLYSIS < 15 (0-50); LDL Cholesterol Calculated 91 mg/dL (<100); Potassium 4.9 mmol/L (3.4-5.1); Sodium 135 mmol/L (137-145); Total Protein 8.5 g/dL (6.3-8.2); Triglycerides 81 mg/dL (35-150)
[2021-01-21 10:23] LABS: HEMOLYSIS < 15 (0-50); Iron 122 ug/dL (37-170)
[2021-01-21 10:27] LABS: Vitamin D 25 Hydroxy (D3) 28.3 ng/mL (30.0-100.0)
[2021-01-21 10:30] LABS: Ferritin 47 ng/mL (11-264)
[2021-01-21 10:33] LABS: Percent Iron Saturation 35 % (15-50); Total Iron Binding Capacity 353 ug/dL (265-497); Transferrin 317 mg/dL (206-381)
== END ==
PROVIDERS: PCP Physician Assistant; Referring Provider Physician Assistant; Visit Provider Physician Assistant
DX: I10 Essential (primary) hypertension (principal); F33.2 Major depressive disorder, recurrent severe without psychotic features; D50.9 Iron deficiency anemia, unspecified; E78.2 Mixed hyperlipidemia
CPT/HCPCS: 36415; 80053; 80061; 82306; 82728; 83540; 83550; 85025

== ENCOUNTER → 2021-07-22 10:33 | Outpatient (CLI) | payer OTHER, SELFPAY ==
[2021-07-22 13:47] LABS: C-Reactive Protein Quant < 0.5 mg/dL (<1.0)
== END ==
PROVIDERS: PCP Physician Assistant; Referring Provider Internal Medicine Gastroenterology; Visit Provider Internal Medicine Gastroenterology
DX: K51.00 Ulcerative (chronic) pancolitis without complications (principal)
CPT/HCPCS: 36415; 86140

== ENCOUNTER 2022-05-26 15:08 | Emergency (ER) | payer OTHER, SELFPAY ==
[2022-05-26] VITALS (24 sets, daily range): BP systolic 146–184; BP diastolic 82–116; PULSE 93–129; RESP 13–44; TEMP 37.1; O2SAT 81–93
--- NOTE | 2022-05-26 16:09 | DI.RAD.S_ITS ---
PROCEDURE: XR CHEST 1V INDICATIONS: suspected sepsis TECHNIQUE: One view of the chest was acquired. COMPARISON: [facility], CR, XR CHEST 1V, 11/30/2020, 13:00. [facility], CR, XR HIP W PEL IF DONE LT 2V, 05/26/2022, 16:20. [facility], CR, XR CHEST 1 VIEW, 01/31/2022, 10:44. FINDINGS: Surgical changes and devices: None. Lungs and pleura: Lungs are clear, yet hyperexpanded. No pleural effusions or pneumothorax. Mediastinum: The cardiac contours are within normal limits. The aorta demonstrates calcification and tortuosity. Bones and chest wall: No suspicious bony lesions. Mild dextroconvex scoliotic curvature is seen. Overlying soft tissues appear unremarkable. IMPRESSION: No focal infiltrates are seen. Dictated by: Alonso Phillip M.D. on 05/26/2022 at 15:51 Approved by: Alonso Phillip M.D. on 05/26/2022 at 15:52
--- NOTE | 2022-05-26 16:16 | DI.RAD.S_ITS ---
PROCEDURE: XR HIP W PEL IF DONE LT 2V INDICATIONS: recent hip fx, tx to [facility] [place]/ Now ? infection/ drainage TECHNIQUE: AP pelvis with lateral view(s) of the left hip(s). COMPARISON: [facility], CR, XR PELVIS 1 OR 2 VIEWS, 01/31/2022, 10:51. [facility], CR, XR FEMUR 2+ VIEWS LEFT, 01/31/2022, 11:27. FINDINGS: Bones: Prior fracture of the left hip is seen, with plate and screw fixation. No new superimposed fracture can be seen. No dislocation. Degenerative changes are seen, particularly involving the left hip and the visualized lower lumbar spine. Soft tissues: No significant soft tissue abnormality can be seen IMPRESSION: Prior fracture, with fixation hardware, yet without a new fracture identified by plain film. No significant soft tissue abnormality is seen. For further evaluation of the soft tissues, please consider ultrasound versus CT. Dictated by: Alonso Phillip M.D. on 05/26/2022 at 15:50 Approved by: Alonso Phillip M.D. on 05/26/2022 at 15:51
--- NOTE | 2022-05-26 16:30 | PC.NURSE ---
Open incision to lower abdominal/upper groin area, purulent drainage noted.
[2022-05-26] MEDS: SODIUM CHLORIDE 0.9% 1,000 ML 1000 ML IV (17:00)
[2022-05-26 17:09] LABS: Add Manual Diff / Slide Review NO; Basophils Absolute Auto 0 /uL (0-100); Basophils Percent Auto 0.3 % (0-2); Eosinophils Absolute Auto 100 /uL (0-450); Eosinophils Percent Auto 0.3 % (2-4); Hematocrit 37.9 % (36-46); Hemoglobin 12.2 g/dL (12.0-16.0); Lymphocytes Absolute Auto 700 /uL (1100-4500); Lymphocytes Percent Auto 3.9 % (25-40); Mean Corpuscular HGB Conc 32.3 % (30-36); Mean Corpuscular Hemoglobin 26.9 PG (26-34); Mean Corpuscular Volume 83.4 fL (80-100); Monocytes Absolute Auto 800 /uL (0-900); Monocytes Percent Auto 4.5 % (3-14); Neutrophils Absolute Auto 16900 /uL (1500-7000); Platelet Count 685 X10^3/uL (150-400); Red Blood Cell Count 4.55 X10^6/uL (4.0-5.2); Red Cell Distribution Width 16.9 % (11.6-14.8); White Blood Cell Count 18.6 X10^3/uL (4.5-11.0)
--- NOTE | 2022-05-26 17:14 | DI.CT.S_ITS ---
PROCEDURE: CT CHEST ABD PEL W CON INDICATIONS: sepsis/h/o left hip repair, + s/s of infection. TECHNIQUE: After the administration of intravenous contrast, 5 mm thick sections acquired from the lung apices to the symphysis. 2.5 mm thick coronal and sagittal reformats were acquired. Additional 7 mm thick coronal maximum intensity projection (MIP) reformats acquired through the lungs. Optional 10-minute delayed imaging may be performed from the kidneys to the bladder. For radiation dose reduction, the following was used: automated exposure control, adjustment of mA and/or kV according to patient size. COMPARISON: [facility], CR, XR PELVIS 1 OR 2 VIEWS, 01/31/2022, 10:51. [facility], CR, XR HIP W PEL IF DONE LT 2V, 05/26/2022, 16:20. FINDINGS: Chest: Severe emphysema. No acute airspace opacity. No significant pleural abnormality. Normal heart size. No pericardial effusion. Normal caliber thoracic aorta. No thoracic lymphadenopathy. No significant thoracic bone abnormality. Abdomen: Normal CT appearance of the liver, spleen, pancreas, adrenal glands, and kidneys. Gallbladder unremarkable. Nonaneurysmal abdominal aorta. No significant bone abnormality in the abdomen. Pelvis: Postsurgical changes of left acetabulum and left pubic ramus malleable plate and screw fixation. Inflammatory changes and fluid midline anterior to the left pubic ramus hardware. Fluid and tiny locules of air present just anterior to the left iliac wing, nonspecific. IMPRESSION: Fluid and small locules of air anteriorly adjacent to the left iliac wing. Inflammatory changes midline anterior to the pubic symphysis and left pubic ramus hardware. These findings would not be an unexpected finding in the immediate postoperative period. If it is been longer since surgery, then please correlate for possible infectious etiology. Please note that an MRI of this location would be the likely rendered nondiagnostic due to the immediately adjacent metallic hardware. No acute finding otherwise. Dictated by: Sudhir Wilson M.D. on 05/26/2022 at 18:49 Approved by: Sudhir Wilson M.D. on 05/26/2022 at 18:55
[2022-05-26 17:21] LABS: INR 1.2 (0.9-1.3); Prothrombin Time 13.7 SECONDS (10.1-12.7)
[2022-05-26 17:24] LABS: PTT Partial Thromboplastin Tim 29 SECONDS (26-36)
[2022-05-26 17:28] LABS: Lactate (Lactic Acid) 1.6 mmol/L (0.7-2.1)
[2022-05-26] MEDS: OXYCODONE/ACETAMINOPHEN 5/325 TABLET 2 TAB PO ×2 (17:34→22:24)
[2022-05-26 17:56] LABS: BUN Creatinine Ratio 29.3 (6-22); Blood Urea Nitrogen 12 mg/dL (7-17); Carbon Dioxide 27 mmol/L (22-32); Chloride 100 mmol/L (98-107); Estimated Glomerular Filt Rate > 60 mL/min (>60); HEMOLYSIS < 15 (0-50); Potassium 3.7 mmol/L (3.4-5.1); Sodium 137 mmol/L (137-145)
[2022-05-26 17:57] LABS: Alanine Aminotransferase 15 IU/L (<35); Albumin 3.7 g/dL (3.5-5.0); Albumin Globulin Ratio 0.8 (1.0-2.8); Alkaline Phosphatase 151 U/L (38-126); Aspartate Aminotransferase 23 IU/L (14-36); Bilirubin Total 0.3 mg/dL (0.2-1.3); Globulin 4.8 g/dL (1.7-4.1); Glucose 137 mg/dL (80-110); Lipase 38 U/L (23-300); Total Protein 8.5 g/dL (6.3-8.2)
[2022-05-26 18:13] LABS: Procalcitonin 1.34 ng/mL (<0.5)
--- NOTE | 2022-05-26 18:17 | ED.SKABFB ---
HPI - Skin/Abscess/Foreign Bdy General Chief complaint: Skin/Abscess/Foreign Body Stated complaint: old incision/infected/inflamed Time Seen by Provider: 05/26/22 18:06 Source: patient Mode of arrival: Ambulatory Limitations: no limitations History of Present Illness HPI narrative: This is a 61-year-old female with history of emphysema, CHF, hypertension, Crohn disease on immune modulators with left hip fracture repaired [facility] who presents today with signs of infection at her incision site. Patient states she was seen in February 2022 had a broken hip which she described as the acetabular joint actually being from the pelvis, her incision is midline abdomen. She states since then she developed COVID followed by influenza she had been walking with a cane but has begun a little bit more debilitated. She states in the last couple days she is had increasing soreness and redness over the scar there is became an area that is about a palm size redness that was swollen and today opened and drained chicken broth colored liquid that was sort of thicker had some mild odor. She has had fevers on and on in the last week and once this week but states she was testing positive for influenza at that time. She denies chest pain she is had some mild shortness of breath. She is noted to be 88-89% she states that is not totally atypical for her. She states she would multiple lung infections in the hospital. She denies any nausea or vomiting. She has chronic diarrhea secondary to Crohn's disease. No black or bloody stools. She states increasing pain in her hip and with ambulation. She denies numbness or tingling or weakness of her leg but has increasing pain with movement. She is had chronic neuropathic changes in the groin which have not changed. She denies any drug allergies. She states she is had x2 as well as her hip fracture repair denies other surgeries. No tobacco, occasional alcohol but nothing regular. No illicit. Judy is her primary care. Related Data Home Medications Medication Instructions Recorded Confirmed Trusopt 2 EYE-BOTH DAILY 11/30/20 amlodipine 5 mg tablet 5 mg PO BID 11/30/20 11/30/20 aspirin 81 mg tablet,delayed 81 mg PO DAILY 11/30/20 11/30/20 release bupropion HCl 150 mg tablet,12 hr 150 mg PO BID 11/30/20 11/30/20 sustained-release buspirone 5 mg tablet 5 mg PO DAILY 11/30/20 11/30/20 metoprolol tartrate 25 mg tablet 25 mg PO DAILY 11/30/20 11/30/20 olanzapine 5 mg tablet 5 mg PO BEDTIME 11/30/20 11/30/20 Allergies Allergy/AdvReac Type Severity Reaction Status Date / Time No Known Drug Allergies Allergy Verified 05/26/22 16:01 Review of Systems Review of Systems ROS Unobtainable: All systems reviewed & are unremarkable except as noted in HPI and below Patient History Social History Smoking Status: Former smoker Smoking Status: Former smoker alcohol intake frequency: 3 or more drinks per day Substance Use Type: does not use Exam Narrative Exam Narrative: GEN: well nourished, well appearing female, alert and oriented x 3, patient appears to be in mild distress. HEENT: Atraumatic, pupils are equal round reactive to light, extraocular movements are intact, nares are clear. Throat is clear without any exudates, erythema, tonsillar enlargement or uvular deviation HEART: Tachycardic but Regular rate and rhythm without murmur, clicks, rubs. pulses are equal in upper and lower extremities LUNGS:Lungs clear to auscultation, no wheezes, rales, crackles, chest moves symmetrically, positive for tachypnea. No accessory muscle use. ABD:bowel sounds normal, soft, patient is tender has a lower midline incision that is horizontal just above the suprapubic bone, there is erythema, induration no fluctuance but areas erythematous with warmth and erythema extending about 4 cm on either side. Patient is tender over the area. Culture was obtained. No guarding, rebound, rigidity, no masses noted, no hepatosplenomegaly :No CVA tenderness MSCL: Non-tender, no muscle atrophy, muscles strength 5/5 upper and lower extremities, decreased range of motion of the left hip secondary to pain. Patient does have normal flexion extension otherwise and can lift her legs off the bed independently. NEURO:CN 2-12 intact, sensation normal SKIN: see above. Initial Vital Signs Initial Vital Signs: Vital Signs Temperature 98.8 F 05/26/22 16:01 Pulse Rate 129 H 05/26/22 16:01 Respiratory Rate 22 05/26/22 16:01 Blood Pressure 184/106 H 05/26/22 16:01 Pulse Oximetry 90 L 05/26/22 16:01 Oxygen Delivery Method 05/26/22 16:01 Course Orders Ordered: Discontinued Medications Sodium Chloride (Normal Saline 0.9%) 1,000 mls @ 1,000 mls/hr IV BOLUS ONE Stop: 05/26/22 17:08 Last Infusion: 05/26/22 18:15 Dose: 0 mls/hr Documented By: Admin: 05/26/22 17:00 Dose: 1,000 mls/hr Documented By: TY Vancomycin HCl/Dextrose (Vancomycin) 1,500 mg in 300 mls @ 200 mls/hr IV NOW ONE Stop: 05/26/22 19:49 Last Infusion: 05/26/22 22:26 Dose: 0 mls/hr Documented By: Admin: 05/26/22 20:46 Dose: 200 mls/hr Documented By: AT Cefepime HCl 2 gm/ Sodium (Chloride) 100 mls @ 200 mls/hr IV NOW ONE Stop: 05/26/22 18:23 Last Infusion: 05/26/22 19:40 Dose: 0 mls/hr Documented By: Admin: 05/26/22 18:43 Dose: 200 mls/hr Documented By: TY Sodium Chloride (Normal Saline 0.9%) 1,000 mls @ 150 mls/hr IV CONT DOROTHY Ketorolac Tromethamine (Ketorolac 30 Mg/Ml Vial) 15 mg IV NOW ONE Stop: 05/26/22 18:48 Last Admin: 05/26/22 20:47 Dose: 15 mg Documented By: AT Ondansetron HCl (Ondansetron 4 Mg/2 Ml Inj) 4 mg IV NOW PRN PRN Reason: Nausea And Vomiting Ondansetron HCl (Ondansetron 4 Mg Odt) 4 mg SL NOW PRN PRN Reason: Nausea And Vomiting Oxycodone/Acetaminophen (Oxycodone/Acetaminophen 5/325 Tablet) 2 tab PO NOW ONE Stop: 05/26/22 17:17 Last Admin: 05/26/22 17:34 Dose: 2 tab Documented By: [facility] Oxycodone/Acetaminophen (Oxycodone/Acetaminophen 5/325 Tablet) 2 tab PO NOW ONE Stop: 05/26/22 22:14 Last Admin: 05/26/22 22:24 Dose: 2 tab Documented By: AT Consultations Consultation #1: Dr. Larson, orthopedic surgery: patient has had hardware failure, femoral head protrusio and needs to return to [facility] will require subspecialized orthopedic care that we do not have available. Time: 20:30 Consultation #2: , [facility] ED. Time: 21:05 Vital Signs Vital signs: Vital Signs - 8 hr 05/26/22 16:01 05/26/22 16:57 05/26/22 16:57 Temperature 98.8 F Pulse Rate 129 H 117 H Respiratory Rate 22 16 Blood Pressure 184/106 H 146/99 H Pulse Oximetry 90 L Oxygen Delivery Method Room Air 05/26/22 17:00 05/26/22 17:00 05/26/22 17:15 Temperature Pulse Rate 115 H 111 H Respiratory Rate 18 24 Blood Pressure 173/92 H Pulse Oximetry 91 Oxygen Delivery Method Room Air 05/26/22 17:30 05/26/22 17:30 05/26/22 17:45 Temperature Pulse Rate 104 H 106 H Respiratory Rate 21 21 Blood Pressure 170/84 H Pulse Oximetry 92 93 Oxygen Delivery Method 05/26/22 18:00 05/26/22 18:00 05/26/22 18:22 Temperature Pulse Rate 106 H 106 H Respiratory Rate 19 20 Blood Pressure 166/82 H Pulse Oximetry 92 90 L Oxygen Delivery Method Room Air 05/26/22 18:30 05/26/22 18:30 05/26/22 18:45 Temperature Pulse Rate 111 H 101 H Respiratory Rate 29 H 13 Blood Pressure 184/116 H Pulse Oximetry 91 89 L Oxygen Delivery Method Room Air 05/26/22 19:00 05/26/22 19:00 05/26/22 19:15 Temperature Pulse Rate 105 H 107 H Respiratory Rate 16 16 Blood Pressure 162/93 H Pulse Oximetry 90 L 91 Oxygen Delivery Method Room Air 05/26/22 19:30 05/26/22 19:30 05/26/22 19:45 Temperature Pulse Rate 110 H 102 H Respiratory Rate 26 H 23 Blood Pressure 169/87 H Pulse Oximetry 91 90 L Oxygen Delivery Method Room Air 05/26/22 20:00 05/26/22 20:00 Temperature Pulse Rate 101 H Respiratory Rate 19 Blood Pressure 174/99 H Pulse Oximetry 90 L Oxygen Delivery Method Room Air MDM - Skin/Abscess/Foreign Bdy Lab Data Result diagrams: 05/26/22 16:44 05/26/22 16:44 Labs: Lab Results 05/26/22 05/26/22 05/26/22 Range/Units 16:44 16:44 16:44 WBC 18.6 H (4.5-11.0) X10^3/uL RBC 4.55 (4.0-5.2) X10^6/uL Hgb 12.2 (12.0-16.0) g/dL Hct 37.9 (36-46) % MCV 83.4 (80-100) fL MCH 26.9 (26-34) PG MCHC 32.3 (30-36) % RDW 16.9 H (11.6-14.8) % Plt Count 685 H (150-400) X10^3/uL Neut % (Auto) 91.0 H (50-75) % Lymph % (Auto) 3.9 L (25-40) % [place] % (Auto) 4.5 (3-14) % Eos % (Auto) 0.3 L (2-4) % Baso % (Auto) 0.3 (0-2) % Neut # (Auto) 47449 H (2463-1860) /uL Lymph # (Auto) 700 L (9877-5608) /uL [place] # (Auto) 800 (0-900) /uL Eos # (Auto) 100 (0-450) /uL Baso # (Auto) 0 (0-100) /uL PT 13.7 H (10.1-12.7) SECONDS INR 1.2 (0.9-1.3) APTT 29 (26-36) SECONDS Sodium 137 (137-145) mmol/L Potassium 3.7 (3.4-5.1) mmol/L Chloride 100 (98-107) mmol/L Carbon Dioxide 27 (22-32) mmol/L BUN 12 (7-17) mg/dL Creatinine 0.41 L (0.52-1.04) mg/dL Estimated GFR > 60 (>60) mL/min BUN/Creatinine Ratio 29.3 H (6-22) Glucose 137 H (80-110) mg/dL Lactate (0.7-2.1) mmol/L Calcium 9.0 (8.4-10.2) mg/dL Total Bilirubin 0.3 (0.2-1.3) mg/dL AST 23 (14-36) IU/L ALT 15 (<35) IU/L Alkaline Phosphatase 151 H (38-126) U/L Total Creatine Kinase (30-135) U/L CK-MB (CK-2) CK-MB (CK-2) Rel Index Troponin I (0.01-0.034) ng/mL NT-Pro-B Natriuret Pep (<125) pg/mL Total Protein 8.5 H (6.3-8.2) g/dL Albumin 3.7 (3.5-5.0) g/dL Globulin 4.8 H (1.7-4.1) g/dL Albumin/Globulin Ratio 0.8 L (1.0-2.8) Lipase 38 (23-300) U/L Procalcitonin 1.34 H (<0.5) ng/mL SARS-CoV-2 (PCR) (Negative) Influenza A (RT-PCR) (NEGATIVE) Influenza B (RT-PCR) (NEGATIVE) RSV (PCR) (Negative) 05/26/22 05/26/22 05/26/22 Range/Units 16:44 16:44 17:31 WBC (4.5-11.0) X10^3/uL RBC (4.0-5.2) X10^6/uL Hgb (12.0-16.0) g/dL Hct (36-46) % MCV (80-100) fL MCH (26-34) PG MCHC (30-36) % RDW (11.6-14.8) % Plt Count (150-400) X10^3/uL Neut % (Auto) (50-75) % Lymph % (Auto) (25-40) % [place] % (Auto) (3-14) % Eos % (Auto) (2-4) % Baso % (Auto) (0-2) % Neut # (Auto) (5131-9598) /uL Lymph # (Auto) (8491-1981) /uL [place] # (Auto) (0-900) /uL Eos # (Auto) (0-450) /uL Baso # (Auto) (0-100) /uL PT (10.1-12.7) SECONDS INR (0.9-1.3) APTT (26-36) SECONDS Sodium (137-145) mmol/L Potassium (3.4-5.1) mmol/L Chloride (98-107) mmol/L Carbon Dioxide (22-32) mmol/L BUN (7-17) mg/dL Creatinine (0.52-1.04) mg/dL Estimated GFR (>60) mL/min BUN/Creatinine Ratio (6-22) Glucose (80-110) mg/dL Lactate 1.6 (0.7-2.1) mmol/L Calcium (8.4-10.2) mg/dL Total Bilirubin (0.2-1.3) mg/dL AST (14-36) IU/L ALT (<35) IU/L Alkaline Phosphatase (38-126) U/L Total Creatine Kinase 28 L (30-135) U/L CK-MB (CK-2) TNP CK-MB (CK-2) Rel Index TNP Troponin I < 0.012 (0.01-0.034) ng/mL NT-Pro-B Natriuret Pep 397 H (<125) pg/mL Total Protein (6.3-8.2) g/dL Albumin (3.5-5.0) g/dL Globulin (1.7-4.1) g/dL Albumin/Globulin Ratio (1.0-2.8) Lipase (23-300) U/L Procalcitonin (<0.5) ng/mL SARS-CoV-2 (PCR) Negative (Negative) Influenza A (RT-PCR) Flu a negative (NEGATIVE) Influenza B (RT-PCR) Flu b negative (NEGATIVE) RSV (PCR) Negative (Negative) Urine Dip Bedside Urine Glucose Negative Bedside Urine Bilirubin - Negative Bedside Urine Ketone - Negative Urine Specific Exline 1.005 Bedside Urine Occult Blood - Negative Bedside Urine pH 7.5 Bedside Urine Protein - Negative Bedside Urine Urobilinogen - Negative Bedside Urine Nitrite - Negative Bedside Urine Leukocytes - Negative Esterase Imaging Data Chest x-ray: Radiologist's Impression: Close Hip X-Ray (Signed) Alonso Phillip - 05/26/22 Chest X-Ray (Signed) Alonso Phillip - 05/26/22 Chest CTA (Addendum) Oscar Gamboa - 11/30/20 Chest X-Ray (Signed) Oscar Garvey - 11/30/20 Echocardiogram Ultrasound (Signed) Vee Patel - 03/15/19 Chest X-Ray (Signed) Jairo Torres - 01/04/19 Launch?Image [address] [address] XRay Report Signed Patient: Jasmin Swan MR#: [id number] : 1960 Acct:[id number] Age/Sex: 61 / F Date of Service: 05/26/22 Loc: ED Accession Number: [id number] ?? Procedure: XR chest 1V Ordering Provider: Joseph Jameson MD PROCEDURE:? XR CHEST 1V ? INDICATIONS:? suspected sepsis ? TECHNIQUE:? One view of the chest was acquired.? ? COMPARISON:? [facility], CR, XR CHEST 1V, 11/30/2020, 13:00.? [facility], CR, XR HIP W PEL IF DONE LT 2V, 05/26/2022, 16:20.? [facility], CR, XR CHEST 1 VIEW, 01/31/2022, 10:44. ? FINDINGS:? ? Surgical changes and devices:? None.? ? Lungs and pleura:? Lungs are clear, yet hyperexpanded.? No pleural effusions or pneumothorax.? ? Mediastinum:? The cardiac contours are within normal limits. The aorta demonstrates calcification and tortuosity. ? Bones and chest wall:? No suspicious bony lesions.? Mild dextroconvex scoliotic curvature is seen.? Overlying soft tissues appear unremarkable.? IMPRESSION:? No focal infiltrates are seen. ? ? Dictated by: Alonso Phillip M.D. on 05/26/2022 at 15:51 ? ? Approved by: Alonso Phillip M.D. on 05/26/2022 at 15:52?? Extremity x-ray #1: Radiologist's Impression: Jasmin Swan??61??F??1960 ? Allergy/Adv: No Known Drug Allergies (More??) Close Hip X-Ray (Signed) Alonso Phillip - 05/26/22 Chest X-Ray (Signed) Alonso Phillip - 05/26/22 Chest CTA (Addendum) Oscar Gamboa - 11/30/20 Chest X-Ray (Signed) MareNava bowerdavid - 11/30/20 Echocardiogram Ultrasound (Signed) JorgeShona - 03/15/19 Chest X-Ray (Signed) Jairo Torres - 01/04/19 Launch?[address] [address] XRay Report Signed Patient: Jasmin Swan MR#: [id number] : 1960 Acct:[id number] Age/Sex: 61 / F Date of Service: 05/26/22 Loc: ED Accession Number: [id number] ?? Procedure: XR hip w pel if done LT 2V Ordering Provider: Joseph Jameson MD PROCEDURE:? XR HIP W PEL IF DONE LT 2V ? INDICATIONS:? recent hip fx, tx to [facility]/ Now ? infection/ drainage ? TECHNIQUE:? AP pelvis with lateral view(s) of the left hip(s).? ? COMPARISON:? [facility], CR, XR PELVIS 1 OR 2 VIEWS, 01/31/2022, 10:51.? [facility], CR, XR FEMUR 2+ VIEWS LEFT, 01/31/2022, 11:27. ? FINDINGS:? ? Bones:? Prior fracture of the left hip is seen, with plate and screw fixation. ? No new superimposed fracture can be seen.? No dislocation. ? Degenerative changes are seen, particularly involving the left hip and the visualized lower lumbar spine. ? Soft tissues:? No significant soft tissue abnormality can be seen ? ? IMPRESSION:? Prior fracture, with fixation hardware, yet without a new fracture identified by plain film. ? No significant soft tissue abnormality is seen.? For further evaluation of the soft tissues, please consider ultrasound versus CT. ? Dictated by: Alonso Phillip M.D. on 05/26/2022 at 15:50 ? ? Approved by: Alonso Phillip M.D. on 05/26/2022 at 15:51?? ECG Data Attestation: I personally reviewed and interpreted this ECG as follows: Interpretation: Sinus tachycardia rate of 112 UT 120 QRS of 72 and QTC of 466. Q3 no S1 or T3. No ST elevation appreciated. No depression Q-wave in 2 3 AVF , patient has priors with no acute ST changes appreciated MDM Narrative Medical decision making narrative: This is a 61-year-old female who has had significant fracture of her acetabulum from the pelvis according to her. This was in February since then she was slowly improving her incision over her mental pelvis has become red swollen painful and drained about a cup size amount of possibly pleural fluid today. Patient is afebrile but tachycardic, she has a white count of 18, platelets are 685 she is a positive procalcitonin at 1.34, renal function, electrolytes and LFTs are normal except for an alk-phos of 151. Patient does have O2 89-88%. Chest x-ray was read as negative hip x-ray does not show acute change CT abdomen pelvis had been obtained by day shift. No obvious PE but is not an angio study, patient does appear to have some pneumonia. Patient was covered with cefepime and vancomycin, held off on 30 cc/kilos fluid bolus secondary to possible CHF exacerbation. Troponin and BNP were also added on and are negative. Patient was sent back for CT angio to rule out PE as requiring heparing gtt will complicate her care. CT chest/abd/pelvis-chest shows severe emphysema. CT angio does not show pulmonary emboli there is a new spiculated lesion. Patient will require either admission here or transfer back to [facility] dependent on the type of surgical care she is going to require. Spoke with Dr. Larson our local orthopedic surgery and patient requires transfer back, he states appears fixation is failing. Discussed with [facility] Dr. Steven, orthopedic accepts for transfer to [facility] ED, ED to ED transfer. Agree with current course of antibiotics. He notes that patient was in the 80% range with her O2 sat in the outpatient office. Patient and I discussed her imaging and findings today, she is quite upset to be returning to [facility] but does agree. Critical Care Time Critical Care Time Critical Care Time: Yes Total Critical Care Time: 50 Attestation: The high probability of a clinically significant, sudden or life threatening deterioration of the [cardiac, pulm] system(s) required my full and direct attention, intervention and personal management. The aggregate critical care time was [50] minutes. This time is in addition to time spent performing reported procedures but includes the following: [x] Data Review and interpretation [x] Patient assessment and monitoring of vital signs [x] Documentation [x] Medication orders and management Discharge Plan Departure Patient Disposition: [facility] Clinical Impression: Post op infection, Status post hip surgery, Low O2 saturation, Sepsis Prescriptions: No Action buspirone 5 mg Tablet 5 mg PO DAILY bupropion HCl 150 mg Tablet Sustained-Release 12 Hr 150 mg PO BID olanzapine 5 mg Tablet 5 mg PO BEDTIME amlodipine 5 mg Tablet 5 mg PO BID aspirin [Aspir-81] 81 mg Tablet,Delayed Release (Dr/Ec) 81 mg PO DAILY metoprolol tartrate 25 mg Tablet 25 mg PO DAILY Trusopt 2 EYE-BOTH DAILY Referrals: Coby Narayan PA-C [Primary Care Provider] -
[2022-05-26 18:28] LABS: Influenza A - CEPHEID Flu A NEGATIVE (NEGATIVE); Influenza B - CEPHEID Flu B NEGATIVE (NEGATIVE); Respiratory Syncytial Virus Negative (Negative)
[2022-05-26 18:36] LABS: COVID-19 CEPHEID 4-PLEX PCR Negative (Negative)
[2022-05-26] MEDS: CEFEPIME 2 GM in SODIUM CHLORIDE 0.9% 100 ML IV (18:43)
[2022-05-26 19:07] LABS: Creatine Kinase 28 U/L (30-135)
[2022-05-26 19:21] LABS: NT-proBNP (BNP-Adult 18+) 397 pg/mL (<125); Troponin I < 0.012 ng/mL (0.01-0.034)
--- NOTE | 2022-05-26 19:32 | DI.CT.S_ITS ---
PROCEDURE: CT ANGIO CHEST PE PROTOCOL INDICATIONS: tachycardia, ? pE, + infx prosthetic TECHNIQUE: After the administration of intravenous contrast, 2 mm thick sections acquired from the pulmonary apices to the posterior costophrenic angles. 3-dimensional maximum intensity projection (MIP) coronal and sagittal reformats were then acquired through the thorax. For radiation dose reduction, the following was used: automated exposure control, adjustment of mA and/or kV according to patient size. COMPARISON: [facility], CT, CHEST ANGIO-PE, 05/10/2011, 20:50. [facility], CT, CT CHEST ABD PEL W CON, 05/26/2022, 18:06. [facility], CT, CT ANGIO CHEST PE PROTOCOL, 11/30/2020, 14:31. FINDINGS: Image quality: Excellent. Pulmonary arteries: Pulmonary arteries demonstrate no intraluminal filling defects to suggest central pulmonary embolism. Lower Neck: No lymphadenopathy by size criteria. Thyroid: Visualized thyroid demonstrates no discrete nodules. Axillae: No lymphadenopathy by size criteria. Chest Wall: Unremarkable. Bones: Visualized osseous structures demonstrate no suspicious lesions. Lungs and Airways: There are severe centrilobular emphysematous changes bilaterally. Within the right apex, there is an irregular nodule measuring up to 1.3 cm on series 5, image 65 spiculated margins and linear areas of adjacent scarring. The finding is new compared to the 11/30/2020 study. Mild dependent atelectasis is demonstrated within the right middle lobe along the major fissure. The trachea and central airways are patent. Pleura: No pneumothorax or pleural effusions. Heart: Heart size is normal. No pericardial effusion. Thoracic Vessels: The thoracic aorta is normal in size. Mediastinum and Cris: No lymphadenopathy by size criteria. Esophagus: No wall thickening. There is a small hiatal hernia. Abdomen: Visualized upper abdomen demonstrates thickening of the adrenal glands bilaterally which appear similar to the prior studies. IMPRESSION: 1. No evidence of pulmonary embolism. 2. Severe centrilobular emphysematous changes redemonstrated bilaterally. 3. Irregular spiculated right apical nodule may represent a nodular region of scarring but a neoplasm cannot be excluded. The finding is new compared to the 2020 study. Recommend further evaluation with PET-CT. Dictated by: Wally Simmons M.D. on 05/26/2022 at 21:10 Approved by: Wally Simmons M.D. on 05/26/2022 at 21:17
[2022-05-26] MEDS: VANCOMYCIN 1,500 MG/300 ML PIGGYBACK 200 MG IV (20:46)
[2022-05-26] MEDS: KETOROLAC 30 MG/ML VIAL 15 MG IV (20:47)
== END 2022-05-26 22:34 | disposition short-term general hospital (02) ==
PROVIDERS: Emergency Medicine; Emergency Provider Emergency Medicine; PCP Physician Assistant
DX: T81.40XA Infection following a procedure, unspecified, initial encounter (principal); A41.9 Sepsis, unspecified organism; R09.02 Hypoxemia; Z79.899 Other long term (current) drug therapy; Z20.822 Contact with and (suspected) exposure to COVID-19
CPT/HCPCS: 0241U; 36415; 71045; 71260; 71275; 73502; 74177; 80053; 81003; 82550; 83605; 83690; 83880; 84145; 84484; 85025; 85610; 85730; 87040; 87070; 87075; 87205; 93005; 96361; 96365; 96366; 96367; 96375; 99284; 99291; J0692; J1885; Q9967

== ENCOUNTER → 2022-08-28 10:59 | Outpatient (CLI) | payer OTHER, SELFPAY ==
[2022-08-28 12:39] LABS: Erythrocyte Sedimentation Rate 19 MM/HR (0-20)
[2022-08-28 12:56] LABS: C-Reactive Protein Quant 0.5 mg/dL (<1.0)
[2022-08-28 17:57] LABS: Hep C Virus Ab w/Reflex Quant REACTIVE s/c (NEGATIVE)
[2022-09-01 11:55] LABS: Calprotectin, Stool 315 ug/g (0-120)
[2022-09-03 21:03] LABS: HCV Genotype 1b (.); HCV LOG 10 6.923 (.)
== END ==
PROVIDERS: PCP Student in an Organized Health Care Education/Training Program; Referring Provider Internal Medicine; Visit Provider Internal Medicine
DX: K51.00 Ulcerative (chronic) pancolitis without complications (principal); B18.2 Chronic viral hepatitis C
CPT/HCPCS: 36415; 83993; 85651; 86140; 86803; 87522

== ENCOUNTER 2022-09-02 11:02 | Emergency (ER) | payer OTHER, SELFPAY ==
[2022-09-02] VITALS (29 sets, daily range): BP systolic 103–137; BP diastolic 60–88; PULSE 81–101; RESP 11–26; TEMP 37–37.2; O2SAT 90–99; BMI 19.3
--- NOTE | 2022-09-02 11:18 | DI.RAD.S_ITS ---
PROCEDURE: XR CHEST 1V INDICATIONS: suspected sepsis TECHNIQUE: One view of the chest was acquired. COMPARISON: [facility], CR, XR CHEST 1V, 05/26/2022, 16:20. [facility], CR, XR CHEST 1V, 11/30/2020, 13:00. FINDINGS: Surgical changes and devices: None. Lungs and pleura: No dense consolidation or pleural effusions. Few linear areas are likely scarring. Mediastinum: Mediastinal contours appear normal. Heart size is normal. Bones and chest wall: No suspicious bony lesions. Overlying soft tissues appear unremarkable. IMPRESSION: No dense consolidation or pleural effusions. Few linear opacities are probably scarring. Dictated by: Issac Siddiqui M.D. on 09/02/2022 at 12:45 Approved by: Issac Siddiqui M.D. on 09/02/2022 at 12:46
[2022-09-02 11:51] LABS: Amorphous Sediment Urine 1+; Bacteria Urine Few (2-10); Culture Indicated Urine Specimen Cultured; RBC Urine 0-1/HPF (0-5/HPF); WBC Urine 1-5/HPF (0-5/HPF)
--- NOTE | 2022-09-02 11:55 | ED_ITS ---
HPI - Skin/Abscess/Foreign Bdy General Chief complaint: Skin/Abscess/Foreign Body Stated complaint: HX of LT hip infection thinks its back Time Seen by Provider: 09/02/22 11:54 Source: patient Mode of arrival: Ambulatory Limitations: no limitations History of Present Illness HPI narrative: 61-year-old female former smoker on home oxygen usually at about 0.5 L, hypertension, hyperlipidemia, left hip fracture with complications presents with a chief complaint of a few days of increasing weakness and fatigue as well as confusion. She denies any new medications or change in diet. She denies runny nose, sore throat or cough. She is had no chest pain or increased shortness of breath. She admits to nausea but denies any vomiting. She has no diarrhea, constipation or urinary complaints. She does complain of some pain and swelling in her suprapubic region and left lower quadrant that is concerning. Both her and are concerned because this is how she presented prior to her transfer to [facility] in May when she was septic from a deep pelvic abscess and left iliopsoas abscess which required hospitalization and incision and drainage. She had been on moxifloxacin and rifampin Related Data Home Medications Medication Instructions Recorded Confirmed Trusopt 2 EYE-BOTH DAILY 11/30/20 amlodipine 5 mg tablet 5 mg PO BID 11/30/20 11/30/20 aspirin 81 mg tablet,delayed 81 mg PO DAILY 11/30/20 11/30/20 release bupropion HCl 150 mg tablet,12 hr 150 mg PO BID 11/30/20 11/30/20 sustained-release buspirone 5 mg tablet 5 mg PO DAILY 11/30/20 11/30/20 metoprolol tartrate 25 mg tablet 25 mg PO DAILY 11/30/20 11/30/20 olanzapine 5 mg tablet 5 mg PO BEDTIME 11/30/20 11/30/20 Allergies Allergy/AdvReac Type Severity Reaction Status Date / Time No Known Drug Allergies Allergy Verified 09/02/22 11:18 Review of Systems Review of Systems Narrative: GENERAL: See HPI HEENT: Denies sinus pain, ear pain, sore throat, difficulty swallowing, dizziness. RESPIRATORY: Denies dyspnea, cough, wheezing, hemoptysis, sputum. CARDIOVASCULAR: Denies chest pain, palpitations, orthopnea, edema, GASTROINTESTINAL: See HPI : Denies dysuria, frequency, incontinence, hematuria, urinary retention. MUSCULOSKELETAL: denies weakness, joint pain, or bony pain SKIN: Denies rash, skin lesions, or other NEUROLOGIC: Denies weakness, headache, numbness, change in speech, confusion, seizures, incoordination. PSYCHIATRIC: No concerning psychosocial issues. 12 point review of systems is negative except for those stated above Patient History Social History Smoking Status: Former smoker Smoking Status: Former smoker alcohol intake frequency: a few times a week Substance Use Type: does not use Exam Narrative Exam Narrative: GENERAL: [61] year old patient appears stated age. She is sleepy, not confused, easily arousable HEAD: Atraumatic. Normocephalic. EYES: Pupils equal round and reactive. Extraocular motions intact. No scleral icterus. No injection or drainage. ENT: Nose without bleeding, purulent drainage. Throat without erythema, tonsillar hypertrophy or exudate. Airway patent. NECK: Trachea midline. Non tender CARDIOVASCULAR: Regular rate and rhythm without murmurs, gallops, or rubs. RESPIRATORY: Clear to auscultation. Breath sounds equal bilaterally. No wheezes, rales, or rhonchi. GASTROINTESTINAL: Abdomen soft, some suprapubic tenderness, erythema slight warmth EXTREMITIES: No edema or joint tenderness. BACK: Nontender without deformity or crepitance. No flank tenderness. NEURO: AOx3. SKIN: No rash or erythema of visible areas Initial Vital Signs Initial Vital Signs: Vital Signs Temperature 98.6 F 09/02/22 11:08 Pulse Rate 101 H 09/02/22 11:08 Respiratory Rate 22 09/02/22 11:08 Blood Pressure 122/70 09/02/22 11:08 Pulse Oximetry 97 09/02/22 11:08 Oxygen Delivery Method Room Air 09/02/22 11:08 Course Orders Ordered: ED Orders 09/02/22 11:18 XR chest 1V Stat EKG-12 Lead Stat RT Consult Eval and Treat NOW 09/02/22 11:27 Urine Culture Stat Urine Microscopic Stat 09/02/22 11:40 Complete Blood Count AUTO DIFF Stat Comprehensive Metabolic Panel Stat Lactate (Lactic Acid) Stat Lipase Stat PTT Partial Thromboplastin Panda Stat Procalcitonin Stat Prothrombin Time INR Stat Respiratory Panel (Film Array) Stat 09/02/22 12:02 ABG [Arterial Blood Gas] Stat 09/02/22 12:03 CRP [C-Reactive Protein Quant] Stat D Dimer Stat ESR [Erythrocyte Sedimentation Rate] Stat 09/02/22 12:05 Blood Culture Stat 09/02/22 12:26 CT abdomen pelvis w con Stat CT angio chest PE protocol Stat Ondansetron HCl (Ondansetron 4 Mg Odt) 4 mg SL NOW PRN PRN Reason: Nausea And Vomiting Ondansetron HCl (Ondansetron 4 Mg/2 Ml Inj) 4 mg IV NOW PRN PRN Reason: Nausea And Vomiting Discontinued Medications Hydromorphone HCl (Hydromorphone 0.5 Mg Inj) 0.5 mg IV NOW ONE Stop: 09/02/22 16:22 Last Admin: 09/02/22 16:26 Dose: 0.5 mg Documented By: RB Sodium Chloride (Normal Saline 0.9%) 1,000 mls @ 1,000 mls/hr IV BOLUS ONE Stop: 09/02/22 12:17 Last Infusion: 09/02/22 13:22 Dose: 0 mls/hr Documented By: Admin: 09/02/22 12:09 Dose: 1,000 mls/hr Documented By: AT Sodium Chloride (Normal Saline 0.9%) 1,578.51 mls @ 526.17 mls/hr 30 ml/kg infuse over 3 hr (1578.51 ml) IV NOW ONE Stop: 09/02/22 17:17 Last Infusion: 09/02/22 16:18 Dose: 0 mls/hr Documented By: Admin: 09/02/22 14:38 Dose: 526.17 mls/hr Documented By: RB Consultations Consultation #1: [facility] (Tenisha) happy to accept patient. We discussed patient's history and physical, he has already seen the images. Given her hemodynamic stability we sure the opinion that it is in the patient's best interest to hold off on antibiotics for now to allow more accurate cultures. She has been and will remain NPO. COVID swab is negative. I have discussed with patient and who both understand and agree with the diagnosis and plan Vital Signs Vital signs: Vital Signs - 8 hr 09/02/22 11:08 09/02/22 11:24 09/02/22 11:24 Temperature 98.6 F Pulse Rate 101 H 95 H Respiratory Rate 22 Blood Pressure 122/70 133/63 Pulse Oximetry 97 96 Oxygen Delivery Method Room Air Oxygen Flow Rate 09/02/22 11:30 09/02/22 11:30 09/02/22 12:00 Temperature Pulse Rate 94 H Respiratory Rate Blood Pressure 137/70 117/66 Pulse Oximetry 90 L Oxygen Delivery Method Nasal Cannula Oxygen Flow Rate 1 09/02/22 12:00 09/02/22 12:30 09/02/22 12:30 Temperature Pulse Rate 95 H 87 Respiratory Rate 11 L Blood Pressure 110/71 Pulse Oximetry 93 95 Oxygen Delivery Method Nasal Cannula Nasal Cannula Oxygen Flow Rate 1 1 09/02/22 13:00 09/02/22 13:24 09/02/22 13:24 Temperature Pulse Rate 92 H 92 H Respiratory Rate 24 20 Blood Pressure 105/62 Pulse Oximetry 96 99 Oxygen Delivery Method Oxygen Flow Rate 09/02/22 13:30 09/02/22 13:30 09/02/22 13:45 Temperature Pulse Rate 91 H 92 H Respiratory Rate 17 14 Blood Pressure 105/65 Pulse Oximetry 98 97 Oxygen Delivery Method Oxygen Flow Rate 09/02/22 13:45 09/02/22 14:00 09/02/22 14:01 Temperature Pulse Rate 90 89 Respiratory Rate 18 17 Blood Pressure 117/67 Pulse Oximetry 96 96 Oxygen Delivery Method Oxygen Flow Rate 09/02/22 14:01 09/02/22 14:15 09/02/22 14:15 Temperature Pulse Rate 89 Respiratory Rate 17 Blood Pressure 104/69 111/64 Pulse Oximetry 95 Oxygen Delivery Method Oxygen Flow Rate 09/02/22 14:30 09/02/22 14:30 09/02/22 14:45 Temperature Pulse Rate 89 91 H Respiratory Rate 18 Blood Pressure 103/60 Pulse Oximetry 94 93 Oxygen Delivery Method Oxygen Flow Rate 09/02/22 14:45 09/02/22 15:00 09/02/22 15:00 Temperature Pulse Rate 88 Respiratory Rate 20 Blood Pressure 106/60 109/70 Pulse Oximetry 96 Oxygen Delivery Method Oxygen Flow Rate 09/02/22 15:15 09/02/22 15:15 09/02/22 15:30 Temperature Pulse Rate 87 Respiratory Rate Blood Pressure 111/78 108/70 Pulse Oximetry 95 Oxygen Delivery Method Oxygen Flow Rate 09/02/22 15:30 09/02/22 15:45 09/02/22 15:45 Temperature Pulse Rate 87 90 Respiratory Rate 16 14 Blood Pressure 116/73 Pulse Oximetry 96 94 Oxygen Delivery Method Oxygen Flow Rate 09/02/22 16:00 09/02/22 16:00 09/02/22 16:15 Temperature Pulse Rate 91 H 81 Respiratory Rate 21 Blood Pressure 109/74 Pulse Oximetry 94 97 Oxygen Delivery Method Oxygen Flow Rate 09/02/22 16:30 09/02/22 16:45 09/02/22 17:00 Temperature Pulse Rate 87 92 H 86 Respiratory Rate 14 26 H 14 Blood Pressure Pulse Oximetry 96 96 95 Oxygen Delivery Method Oxygen Flow Rate 09/02/22 17:15 Temperature Pulse Rate 88 Respiratory Rate 17 Blood Pressure Pulse Oximetry 94 Oxygen Delivery Method Oxygen Flow Rate MDM - Skin/Abscess/Foreign Bdy Lab Data 09/02/22 11:40 09/02/22 11:40 Labs: Lab Results 09/02/22 09/02/22 09/02/22 Range/Units 11:27 11:40 11:40 WBC 14.8 H (4.5-11.0) X10^3/uL RBC 3.78 L (4.0-5.2) X10^6/uL Hgb 9.6 L (12.0-16.0) g/dL Hct 29.7 L (36-46) % MCV 78.7 L (80-100) fL MCH 25.3 L (26-34) PG MCHC 32.2 (30-36) % RDW 15.5 H (11.6-14.8) % Plt Count 421 H (150-400) X10^3/uL Neut % (Auto) 86.4 H (50-75) % Lymph % (Auto) 2.6 L (25-40) % [place] % (Auto) 10.7 (3-14) % Eos % (Auto) 0.2 L (2-4) % Baso % (Auto) 0.1 (0-2) % Neut # (Auto) 03691 H (0139-2192) /uL Lymph # (Auto) 400 L (7049-7005) /uL [place] # (Auto) 1600 H (0-900) /uL Eos # (Auto) 0 (0-450) /uL Baso # (Auto) 0 (0-100) /uL ESR (0-20) MM/HR PT 12.1 (10.1-12.7) SECONDS INR 1.1 (0.9-1.3) APTT 23 L (26-36) SECONDS D-Dimer (<500) ng/ml ABG pH (7.35-7.45) ABG pCO2 (35-45) mmHg ABG pO2 (80-100) mmHg ABG HCO3 (23-27) mmol/L ABG Total CO2 (23-27) mmol/L ABG O2 Saturation (95-100) % ABG Base Excess (-2-3) mmol/L FiO2 Sodium (137-145) mmol/L Potassium (3.4-5.1) mmol/L Chloride (98-107) mmol/L Carbon Dioxide (22-32) mmol/L BUN (7-17) mg/dL Creatinine (0.52-1.04) mg/dL Estimated GFR (>60) mL/min BUN/Creatinine Ratio (6-22) Glucose (80-110) mg/dL Lactate (0.7-2.1) mmol/L Calcium (8.4-10.2) mg/dL Total Bilirubin (0.2-1.3) mg/dL AST (14-36) IU/L ALT (<35) IU/L Alkaline Phosphatase (38-126) U/L C-Reactive Protein (<1.0) mg/dL Total Protein (6.3-8.2) g/dL Albumin (3.5-5.0) g/dL Globulin (1.7-4.1) g/dL Albumin/Globulin Ratio (1.0-2.8) Lipase (23-300) U/L Procalcitonin (<0.5) ng/mL Urine RBC 0-1/hpf (0-5/HPF) Urine WBC 1-5/hpf (0-5/HPF) Amorphous Sediment 1+ Urine Bacteria Few (2-10) H (None) Ur Culture Indicated? Specimen cultured Chlamy pneumoniae PCR (Not Detect) Adenovirus (PCR) (Not Detect) B. pertussis DNA (PCR) (Not Detecte) B.parapertussis DNA PCR (Not Detecte) Coronavirus OC43 (PCR) (Not Detect) Coronavirus HKU1 (PCR) (Not Detect) Coronavirus 229E (PCR) (Not Detect) SARS-CoV-2 (PCR) (Not Detecte) Coronavirus NL63 (PCR) (Not Detect) Human Metapneumovir PCR (Not Detect) Influenza Type A (PCR) (Not Detect) Influenza Type B (PCR) (Not Detect) M. pneumoniae (PCR) (Not Detect) Parainfluenza 1 (PCR) (Not Detect) Parainfluenza 2 (PCR) (Not Detect) Parainfluenza 3 (PCR) (Not Detect) Parainfluenza 4 (PCR) (Not Detect) RSV (PCR) (Not Detect) Entero/Rhino (PCR) (Not Detect) 09/02/22 09/02/22 09/02/22 Range/Units 11:40 11:40 11:40 WBC (4.5-11.0) X10^3/uL RBC (4.0-5.2) X10^6/uL Hgb (12.0-16.0) g/dL Hct (36-46) % MCV (80-100) fL MCH (26-34) PG MCHC (30-36) % RDW (11.6-14.8) % Plt Count (150-400) X10^3/uL Neut % (Auto) (50-75) % Lymph % (Auto) (25-40) % [place] % (Auto) (3-14) % Eos % (Auto) (2-4) % Baso % (Auto) (0-2) % Neut # (Auto) (0387-4853) /uL Lymph # (Auto) (3702-7053) /uL [place] # (Auto) (0-900) /uL Eos # (Auto) (0-450) /uL Baso # (Auto) (0-100) /uL ESR (0-20) MM/HR PT (10.1-12.7) SECONDS INR (0.9-1.3) APTT (26-36) SECONDS D-Dimer (<500) ng/ml ABG pH (7.35-7.45) ABG pCO2 (35-45) mmHg ABG pO2 (80-100) mmHg ABG HCO3 (23-27) mmol/L ABG Total CO2 (23-27) mmol/L ABG O2 Saturation (95-100) % ABG Base Excess (-2-3) mmol/L FiO2 Sodium 135 L (137-145) mmol/L Potassium 4.8 (3.4-5.1) mmol/L Chloride 102 (98-107) mmol/L Carbon Dioxide 27 (22-32) mmol/L BUN 36 H (7-17) mg/dL Creatinine 0.75 (0.52-1.04) mg/dL Estimated GFR > 60 (>60) mL/min BUN/Creatinine Ratio 48.0 H (6-22) Glucose 100 (80-110) mg/dL Lactate 1.1 (0.7-2.1) mmol/L Calcium 8.5 (8.4-10.2) mg/dL Total Bilirubin 0.3 (0.2-1.3) mg/dL AST 24 (14-36) IU/L ALT 19 (<35) IU/L Alkaline Phosphatase 129 H (38-126) U/L C-Reactive Protein (<1.0) mg/dL Total Protein 7.5 (6.3-8.2) g/dL Albumin 3.4 L (3.5-5.0) g/dL Globulin 4.1 (1.7-4.1) g/dL Albumin/Globulin Ratio 0.8 L (1.0-2.8) Lipase < 10 L (23-300) U/L Procalcitonin 1.25 H (<0.5) ng/mL Urine RBC (0-5/HPF) Urine WBC (0-5/HPF) Amorphous Sediment Urine Bacteria (None) Ur Culture Indicated? Chlamy pneumoniae PCR Not detected (Not Detect) Adenovirus (PCR) Not detected (Not Detect) B. pertussis DNA (PCR) Not detected (Not Detecte) B.parapertussis DNA PCR Not detected (Not Detecte) Coronavirus OC43 (PCR) Not detected (Not Detect) Coronavirus HKU1 (PCR) Not detected (Not Detect) Coronavirus 229E (PCR) Not detected (Not Detect) SARS-CoV-2 (PCR) Not detected (Not Detecte) Coronavirus NL63 (PCR) Not detected (Not Detect) Human Metapneumovir PCR Not detected (Not Detect) Influenza Type A (PCR) Not detected (Not Detect) Influenza Type B (PCR) Not detected (Not Detect) M. pneumoniae (PCR) Not detected (Not Detect) Parainfluenza 1 (PCR) Not detected (Not Detect) Parainfluenza 2 (PCR) Not detected (Not Detect) Parainfluenza 3 (PCR) Not detected (Not Detect) Parainfluenza 4 (PCR) Not detected (Not Detect) RSV (PCR) Not detected (Not Detect) Entero/Rhino (PCR) Not detected (Not Detect) 09/02/22 09/02/22 09/02/22 Range/Units 12:02 12:03 12:03 WBC (4.5-11.0) X10^3/uL RBC (4.0-5.2) X10^6/uL Hgb (12.0-16.0) g/dL Hct (36-46) % MCV (80-100) fL MCH (26-34) PG MCHC (30-36) % RDW (11.6-14.8) % Plt Count (150-400) X10^3/uL Neut % (Auto) (50-75) % Lymph % (Auto) (25-40) % [place] % (Auto) (3-14) % Eos % (Auto) (2-4) % Baso % (Auto) (0-2) % Neut # (Auto) (2368-0774) /uL Lymph # (Auto) (9413-4995) /uL [place] # (Auto) (0-900) /uL Eos # (Auto) (0-450) /uL Baso # (Auto) (0-100) /uL ESR 66 H (0-20) MM/HR PT (10.1-12.7) SECONDS INR (0.9-1.3) APTT (26-36) SECONDS D-Dimer 932 H (<500) ng/ml ABG pH 7.34 L (7.35-7.45) ABG pCO2 51.5 H (35-45) mmHg ABG pO2 73 L (80-100) mmHg ABG HCO3 28 H (23-27) mmol/L ABG Total CO2 29 H (23-27) mmol/L ABG O2 Saturation 93 L (95-100) % ABG Base Excess 2.0 (-2-3) mmol/L FiO2 24 Sodium (137-145) mmol/L Potassium (3.4-5.1) mmol/L Chloride (98-107) mmol/L Carbon Dioxide (22-32) mmol/L BUN (7-17) mg/dL Creatinine (0.52-1.04) mg/dL Estimated GFR (>60) mL/min BUN/Creatinine Ratio (6-22) Glucose (80-110) mg/dL Lactate (0.7-2.1) mmol/L Calcium (8.4-10.2) mg/dL Total Bilirubin (0.2-1.3) mg/dL AST (14-36) IU/L ALT (<35) IU/L Alkaline Phosphatase (38-126) U/L C-Reactive Protein (<1.0) mg/dL Total Protein (6.3-8.2) g/dL Albumin (3.5-5.0) g/dL Globulin (1.7-4.1) g/dL Albumin/Globulin Ratio (1.0-2.8) Lipase (23-300) U/L Procalcitonin (<0.5) ng/mL Urine RBC (0-5/HPF) Urine WBC (0-5/HPF) Amorphous Sediment Urine Bacteria (None) Ur Culture Indicated? Chlamy pneumoniae PCR (Not Detect) Adenovirus (PCR) (Not Detect) B. pertussis DNA (PCR) (Not Detecte) B.parapertussis DNA PCR (Not Detecte) Coronavirus OC43 (PCR) (Not Detect) Coronavirus HKU1 (PCR) (Not Detect) Coronavirus 229E (PCR) (Not Detect) SARS-CoV-2 (PCR) (Not Detecte) Coronavirus NL63 (PCR) (Not Detect) Human Metapneumovir PCR (Not Detect) Influenza Type A (PCR) (Not Detect) Influenza Type B (PCR) (Not Detect) M. pneumoniae (PCR) (Not Detect) Parainfluenza 1 (PCR) (Not Detect) Parainfluenza 2 (PCR) (Not Detect) Parainfluenza 3 (PCR) (Not Detect) Parainfluenza 4 (PCR) (Not Detect) RSV (PCR) (Not Detect) Entero/Rhino (PCR) (Not Detect) 09/02/22 Range/Units 12:03 WBC (4.5-11.0) X10^3/uL RBC (4.0-5.2) X10^6/uL Hgb (12.0-16.0) g/dL Hct (36-46) % MCV (80-100) fL MCH (26-34) PG MCHC (30-36) % RDW (11.6-14.8) % Plt Count (150-400) X10^3/uL Neut % (Auto) (50-75) % Lymph % (Auto) (25-40) % [place] % (Auto) (3-14) % Eos % (Auto) (2-4) % Baso % (Auto) (0-2) % Neut # (Auto) (4215-1599) /uL Lymph # (Auto) (8817-7542) /uL [place] # (Auto) (0-900) /uL Eos # (Auto) (0-450) /uL Baso # (Auto) (0-100) /uL ESR (0-20) MM/HR PT (10.1-12.7) SECONDS INR (0.9-1.3) APTT (26-36) SECONDS D-Dimer (<500) ng/ml ABG pH (7.35-7.45) ABG pCO2 (35-45) mmHg ABG pO2 (80-100) mmHg ABG HCO3 (23-27) mmol/L ABG Total CO2 (23-27) mmol/L ABG O2 Saturation (95-100) % ABG Base Excess (-2-3) mmol/L FiO2 Sodium (137-145) mmol/L Potassium (3.4-5.1) mmol/L Chloride (98-107) mmol/L Carbon Dioxide (22-32) mmol/L BUN (7-17) mg/dL Creatinine (0.52-1.04) mg/dL Estimated GFR (>60) mL/min BUN/Creatinine Ratio (6-22) Glucose (80-110) mg/dL Lactate (0.7-2.1) mmol/L Calcium (8.4-10.2) mg/dL Total Bilirubin (0.2-1.3) mg/dL AST (14-36) IU/L ALT (<35) IU/L Alkaline Phosphatase (38-126) U/L C-Reactive Protein 25.9 H (<1.0) mg/dL Total Protein (6.3-8.2) g/dL Albumin (3.5-5.0) g/dL Globulin (1.7-4.1) g/dL Albumin/Globulin Ratio (1.0-2.8) Lipase (23-300) U/L Procalcitonin (<0.5) ng/mL Urine RBC (0-5/HPF) Urine WBC (0-5/HPF) Amorphous Sediment Urine Bacteria (None) Ur Culture Indicated? Chlamy pneumoniae PCR (Not Detect) Adenovirus (PCR) (Not Detect) B. pertussis DNA (PCR) (Not Detecte) B.parapertussis DNA PCR (Not Detecte) Coronavirus OC43 (PCR) (Not Detect) Coronavirus HKU1 (PCR) (Not Detect) Coronavirus 229E (PCR) (Not Detect) SARS-CoV-2 (PCR) (Not Detecte) Coronavirus NL63 (PCR) (Not Detect) Human Metapneumovir PCR (Not Detect) Influenza Type A (PCR) (Not Detect) Influenza Type B (PCR) (Not Detect) M. pneumoniae (PCR) (Not Detect) Parainfluenza 1 (PCR) (Not Detect) Parainfluenza 2 (PCR) (Not Detect) Parainfluenza 3 (PCR) (Not Detect) Parainfluenza 4 (PCR) (Not Detect) RSV (PCR) (Not Detect) Entero/Rhino (PCR) (Not Detect) Urine Dip Bedside Urine Glucose Negative Bedside Urine Bilirubin - Negative Bedside Urine Ketone - Negative Urine Specific [place] 1.015 Bedside Urine Occult Blood - Negative Bedside Urine pH 6.0 Bedside Urine Protein + 30 Bedside Urine Urobilinogen - Negative Bedside Urine Nitrite - Negative Bedside Urine Leukocytes - Negative Esterase MDM Narrative Medical decision making narrative: 61-year-old female with prior complications stemming from hip and pelvis surgeries presents with 3-4 days of fever, chills and increasing pain. She is hemodynamically stable with elevated white count, left shift, elevated inflammatory markers and procalcitonin with CT of abdomen and pelvis with IV contrast noting suspected infected hardware with multiple rim enhancing fluid collections as largest 6.4 x 5.7 cm. Critical Care Time Critical Care Time Critical Care Time: Yes Total Critical Care Time: 30 Attestation: The high probability of a clinically significant, sudden or life threatening deterioration of the [MSK] system(s) required my full and direct attention, intervention and personal management. The aggregate critical care time was [30] minutes. 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
[2022-09-02 11:56] LABS: Add Manual Diff / Slide Review NO; Basophils Absolute Auto 0 /uL (0-100); Basophils Percent Auto 0.1 % (0-2); Eosinophils Absolute Auto 0 /uL (0-450); Eosinophils Percent Auto 0.2 % (2-4); Hematocrit 29.7 % (36-46); Hemoglobin 9.6 g/dL (12.0-16.0); Lymphocytes Absolute Auto 400 /uL (1100-4500); Lymphocytes Percent Auto 2.6 % (25-40); Mean Corpuscular HGB Conc 32.2 % (30-36); Mean Corpuscular Hemoglobin 25.3 PG (26-34); Mean Corpuscular Volume 78.7 fL (80-100); Monocytes Absolute Auto 1600 /uL (0-900); Monocytes Percent Auto 10.7 % (3-14); Neutrophils Absolute Auto 12800 /uL (1500-7000); Neutrophils Percent Auto 86.4 % (50-75); Platelet Count 421 X10^3/uL (150-400); Red Blood Cell Count 3.78 X10^6/uL (4.0-5.2); Red Cell Distribution Width 15.5 % (11.6-14.8); White Blood Cell Count 14.8 X10^3/uL (4.5-11.0)
[2022-09-02 12:04] LABS: INR 1.1 (0.9-1.3); Prothrombin Time 12.1 SECONDS (10.1-12.7)
[2022-09-02 12:07] LABS: PTT Partial Thromboplastin Tim 23 SECONDS (26-36)
[2022-09-02] MEDS: SODIUM CHLORIDE 0.9% 1,000 ML 1000 ML IV (12:09)
[2022-09-02 12:10] LABS: Alanine Aminotransferase 19 IU/L (<35); Albumin 3.4 g/dL (3.5-5.0); Albumin Globulin Ratio 0.8 (1.0-2.8); Alkaline Phosphatase 129 U/L (38-126); Aspartate Aminotransferase 24 IU/L (14-36); Bilirubin Total 0.3 mg/dL (0.2-1.3); Blood Urea Nitrogen 36 mg/dL (7-17); Calcium 8.5 mg/dL (8.4-10.2); Carbon Dioxide 27 mmol/L (22-32); Chloride 102 mmol/L (98-107); Estimated Glomerular Filt Rate > 60 mL/min (>60); Globulin 4.1 g/dL (1.7-4.1); Glucose 100 mg/dL (80-110); HEMOLYSIS < 15 (0-50); Lactate (Lactic Acid) 1.1 mmol/L (0.7-2.1); Potassium 4.8 mmol/L (3.4-5.1); Sodium 135 mmol/L (137-145); Total Protein 7.5 g/dL (6.3-8.2)
[2022-09-02 12:11] LABS: Fractionated Inspired Oxygen 24; HCO3 ABG 28 mmol/L (23-27); Oxygen Saturation ABG 93 % (95-100); PCO2 ABG 51.5 mmHg (35-45); PO2 ABG 73 mmHg (80-100); TCO2 ABG 29 mmol/L (23-27); pH ABG 7.34 (7.35-7.45)
[2022-09-02 12:12] LABS: Lipase < 10 U/L (23-300)
[2022-09-02 12:14] LABS: D Dimer 932 ng/ml (<500)
[2022-09-02 12:23] LABS: Erythrocyte Sedimentation Rate 66 MM/HR (0-20)
[2022-09-02 12:26] LABS: Procalcitonin 1.25 ng/mL (<0.5)
--- NOTE | 2022-09-02 12:26 | DI.CT.S_ITS ---
PROCEDURE: CT ABDOMEN PELVIS W CON INDICATIONS: septic, altered, pain in left hip with swelling, prior absce TECHNIQUE: After the administration of oral and intravenous contrast, axial sections were acquired from the lung bases to the pubic symphysis. Coronal and sagittal reformats were performed. For radiation dose reduction, the following was used: automated exposure control, adjustment of mA and/or kV according to patient size. COMPARISON:None. FINDINGS: Image quality: Excellent. Lung bases: Advanced destructive emphysema. Heart: No significant findings. ABDOMEN: Liver: Unremarkable. Gallbladder: Unremarkable. Biliary ducts: Intrahepatic biliary dilation. Smooth tapering of the common bile duct as it approaches the ampulla. Pancreas: Unremarkable. Spleen: Unremarkable. Adrenal Glands: Unremarkable. Kidneys and Ureters: Unremarkable. Stomach and Bowel: Stomach, small bowel loops, and colon are unremarkable. Peritoneum: No abnormal intraperitoneal fluid. No free air. Ventral Wall: Small umbilical hernia containing fat. Abdominal Nodes: No retroperitoneal or mesenteric adenopathy by size criteria. Vessels: Aorta and inferior vena cava are normal in size. PELVIS: Pelvic Organs: Unremarkable. Bladder: Unremarkable. Pelvic Nodes: No enlarged lymph nodes. Miscellaneous: No inguinal hernias are seen. Bones: Prior surgical fusion of the left hemipelvis. There is a rim enhancing collection along the surgical hardware fusing the pubic symphysis, measuring approximately 6.4 x 5.7 x 4.3 centimeters (series 12, image 25 and series 13, image 18). Additionally, along the left pelvic sidewall, there is a 3.4 x 1.4 centimeter collection with peripheral calcification but also adjacent air (series 12, image 63 and 59) small hypoattenuating collection within the pelvic muscle anterior to the left pubic bone measuring 1.6 x 1.3 centimeter. IMPRESSION: Prior surgical fusion of the left hemipelvis. Suspected infected hardware, with associated rim enhancing collections as detailed above. The large collection would be amenable to drainage. Intrahepatic but not extrahepatic biliary dilation. Unclear etiology. Correlate with labs. If there is elevated bilirubin/obstructive process, consider MRI/MRCP with contrast. Dictated by: Odilon Abbasi M.D. on 09/02/2022 at 13:34 Approved by: Odilon Abbasi M.D. on 09/02/2022 at 13:41
--- NOTE | 2022-09-02 12:26 | DI.CT.S_ITS ---
PROCEDURE: CT ANGIO CHEST PE PROTOCOL INDICATIONS: SOB, hypoxemia, altered, critical dimer TECHNIQUE: After the administration of intravenous contrast, 2 mm thick sections acquired from the pulmonary apices to the posterior costophrenic angles. 3-dimensional maximum intensity projection (MIP) coronal and sagittal reformats were then acquired through the thorax. For radiation dose reduction, the following was used: automated exposure control, adjustment of mA and/or kV according to patient size. COMPARISON: [facility], CT, CT ANGIO CHEST PE PROTOCOL, 05/26/2022, 20:08. FINDINGS: Image quality: Good Lungs and pleura: Severe emphysema. No new airspace disease. No pleural effusions. Possible nodule in the right upper lung again seen measuring 1.2-1.3 cm (). This was not present in 2020. Other micro nodules are present. Mediastinum, heart, and esophagus: Mildly dilated pulmonary vasculature suggestive of high pulmonary pressures. No acute embolism identified. Possible small hiatal hernia. There are coronary calcifications. No pathologic adenopathy by size criteria. Chest wall and thyroid: Unremarkable Upper abdomen: Small nodule in the left adrenal gland again seen, versus thickening. Bones: No acute or suspicious osseous finding. IMPRESSION: No acute pulmonary embolism. No large area of airspace disease. A possible spiculated nodule is again seen at the right lung apex, not present in 2020. Consider short interval follow-up imaging, possibly with PET-CT. A lung biopsy in this location confers a high risk of pneumothorax given severe emphysema. Dictated by: Issac Siddiqui M.D. on 09/02/2022 at 14:10 Approved by: Issac Siddiqui M.D. on 09/02/2022 at 14:16
[2022-09-02 12:39] LABS: C-Reactive Protein Quant 25.9 mg/dL (<1.0)
[2022-09-02 12:57] LABS: Adenovirus Not Detected (Not Detect); B. parapertussis Not Detected (Not Detecte); Bordetella pertussis Not Detected (Not Detecte); Chlamydophila pneumoniae Not Detected (Not Detect); Coronavirus 229E Not Detected (Not Detect); Coronavirus HKU1 Not Detected (Not Detect); Coronavirus NL 63 Not Detected (Not Detect); Coronavirus OC43 Not Detected (Not Detect); Human Metapneumovirus Not Detected (Not Detect); Human Rhinovirus/Enterovirus Not Detected (Not Detect); Influenza A Not Detected (Not Detect); Influenza B Not Detected (Not Detect); Mycoplasma pneumoniae Not Detected (Not Detect); Parainfluenza Virus 1 Not Detected (Not Detect); Parainfluenza Virus 2 Not Detected (Not Detect); Parainfluenza Virus 3 Not Detected (Not Detect); Parainfluenza Virus 4 Not Detected (Not Detect); Respiratory Syncytial Virus Not Detected (Not Detect); SARS- CoV-2 Not Detected (Not Detecte)
[2022-09-02] MEDS: SODIUM CHLORIDE 0.9% 526.17 ML IV (14:38)
--- NOTE | 2022-09-02 15:12 | PC.NURSE ---
patient has 2nd IV ordered. This RN attempted three times once in left hand, once in left wrist and left AC. All three attempts had immediate blood return but ultimately collapsed. RN Lexii Mcfarland attempted on the right arm with the same result. Second IV on hold at this time.
[2022-09-02] MEDS: HYDROMORPHONE 0.5 MG INJ IV (16:26)
== END 2022-09-02 16:10 | disposition short-term general hospital (02) ==
PROVIDERS: Emergency Provider Emergency Medicine; PCP Student in an Organized Health Care Education/Training Program
DX: T84.7XXA Infection and inflammatory reaction due to other internal orthopedic prosthetic devices, implants and grafts, initial encounter (principal); A41.9 Sepsis, unspecified organism; R11.0 Nausea; R79.89 Other specified abnormal findings of blood chemistry; Z20.822 Contact with and (suspected) exposure to COVID-19
CPT/HCPCS: 36415; 36600; 71045; 71275; 74177; 80053; 81003; 81015; 82805; 83605; 83690; 84145; 85025; 85379; 85610; 85651; 85730; 86140; 87040; 87086; 87633; 93005; 96361; 96374; 99285; 99291; J1170; Q9967

== ENCOUNTER → 2022-09-23 14:00 | Outpatient (CLI) | payer OTHER, SELFPAY ==
[2022-09-23 19:24] LABS: Add Manual Diff / Slide Review NO; Basophils Absolute Auto 100 /uL (0-100); Basophils Percent Auto 0.9 % (0-2); Eosinophils Absolute Auto 400 /uL (0-450); Eosinophils Percent Auto 3.8 % (2-4); Hematocrit 30.7 % (36-46); Hemoglobin 10.1 g/dL (12.0-16.0); Lymphocytes Absolute Auto 700 /uL (1100-4500); Mean Corpuscular HGB Conc 32.8 % (30-36); Mean Corpuscular Hemoglobin 28.2 PG (26-34); Monocytes Absolute Auto 1100 /uL (0-900); Monocytes Percent Auto 11.4 % (3-14); Neutrophils Absolute Auto 7500 /uL (1500-7000); Neutrophils Percent Auto 76.9 % (50-75); Platelet Count 583 X10^3/uL (150-400); Red Blood Cell Count 3.57 X10^6/uL (4.0-5.2); Red Cell Distribution Width 19.1 % (11.6-14.8); White Blood Cell Count 9.7 X10^3/uL (4.5-11.0)
[2022-09-23 19:34] LABS: Alanine Aminotransferase 21 IU/L (<35); Albumin 3.9 g/dL (3.5-5.0); Alkaline Phosphatase 136 U/L (38-126); Aspartate Aminotransferase 27 IU/L (14-36); BUN Creatinine Ratio 32.1 (6-22); Bilirubin Total 0.3 mg/dL (0.2-1.3); Blood Urea Nitrogen 25 mg/dL (7-17); Calcium 8.9 mg/dL (8.4-10.2); Carbon Dioxide 33 mmol/L (22-32); Chloride 95 mmol/L (98-107); Estimated Glomerular Filt Rate > 60 mL/min (>60); Globulin 3.8 g/dL (1.7-4.1); Glucose 120 mg/dL (80-110); HEMOLYSIS < 15 (0-50); Potassium 4.2 mmol/L (3.4-5.1); Sodium 138 mmol/L (137-145); Total Protein 7.7 g/dL (6.3-8.2)
== END ==
PROVIDERS: PCP Student in an Organized Health Care Education/Training Program; Visit Provider Orthopaedic Surgery Orthopaedic Trauma
DX: A04.71 Enterocolitis due to Clostridium difficile, recurrent (principal)
CPT/HCPCS: 80053; 85025

== ENCOUNTER → 2022-09-30 13:54 | Outpatient (CLI) | payer OTHER, SELFPAY ==
[2022-09-30 19:53] LABS: Add Manual Diff / Slide Review NO; Basophils Absolute Auto 100 /uL (0-100); Basophils Percent Auto 0.8 % (0-2); Eosinophils Absolute Auto 400 /uL (0-450); Eosinophils Percent Auto 4.8 % (2-4); Hematocrit 31.5 % (36-46); Hemoglobin 10.3 g/dL (12.0-16.0); Lymphocytes Absolute Auto 600 /uL (1100-4500); Lymphocytes Percent Auto 7.3 % (25-40); Mean Corpuscular HGB Conc 32.7 % (30-36); Mean Corpuscular Hemoglobin 28.3 PG (26-34); Mean Corpuscular Volume 86.3 fL (80-100); Monocytes Absolute Auto 900 /uL (0-900); Monocytes Percent Auto 10.9 % (3-14); Neutrophils Absolute Auto 6200 /uL (1500-7000); Neutrophils Percent Auto 76.2 % (50-75); Platelet Count 519 X10^3/uL (150-400); Red Blood Cell Count 3.65 X10^6/uL (4.0-5.2); White Blood Cell Count 8.1 X10^3/uL (4.5-11.0)
[2022-09-30 20:02] LABS: Alanine Aminotransferase 16 IU/L (<35); Albumin 3.8 g/dL (3.5-5.0); Alkaline Phosphatase 111 U/L (38-126); Aspartate Aminotransferase 24 IU/L (14-36); BUN Creatinine Ratio 41.7 (6-22); Bilirubin Total 0.2 mg/dL (0.2-1.3); Blood Urea Nitrogen 25 mg/dL (7-17); Calcium 9.1 mg/dL (8.4-10.2); Carbon Dioxide 36 mmol/L (22-32); Chloride 97 mmol/L (98-107); Estimated Glomerular Filt Rate > 60 mL/min (>60); Glucose 91 mg/dL (80-110); HEMOLYSIS < 15 (0-50); Potassium 4.4 mmol/L (3.4-5.1); Sodium 137 mmol/L (137-145); Total Protein 7.8 g/dL (6.3-8.2)
== END ==
PROVIDERS: PCP Student in an Organized Health Care Education/Training Program; Visit Provider Orthopaedic Surgery Orthopaedic Trauma
DX: A04.71 Enterocolitis due to Clostridium difficile, recurrent (principal)
CPT/HCPCS: 80053; 85025

== ENCOUNTER → 2022-10-07 13:35 | Outpatient (CLI) | payer OTHER, SELFPAY ==
[2022-10-07 20:27] LABS: Alanine Aminotransferase 15 IU/L (<35); Albumin 3.7 g/dL (3.5-5.0); Alkaline Phosphatase 107 U/L (38-126); Aspartate Aminotransferase 23 IU/L (14-36); BUN Creatinine Ratio 27.6 (6-22); Bilirubin Total 0.2 mg/dL (0.2-1.3); Blood Urea Nitrogen 16 mg/dL (7-17); Calcium 8.6 mg/dL (8.4-10.2); Carbon Dioxide 33 mmol/L (22-32); Chloride 96 mmol/L (98-107); Estimated Glomerular Filt Rate > 60 mL/min (>60); Globulin 3.7 g/dL (1.7-4.1); Glucose 113 mg/dL (80-110); HEMOLYSIS < 15 (0-50); Potassium 4.3 mmol/L (3.4-5.1); Sodium 136 mmol/L (137-145); Total Protein 7.4 g/dL (6.3-8.2)
[2022-10-07 20:28] LABS: Add Manual Diff / Slide Review NO; Basophils Absolute Auto 0 /uL (0-100); Basophils Percent Auto 0.6 % (0-2); Eosinophils Absolute Auto 200 /uL (0-450); Eosinophils Percent Auto 3.2 % (2-4); Hematocrit 31.9 % (36-46); Hemoglobin 10.2 g/dL (12.0-16.0); Lymphocytes Absolute Auto 700 /uL (1100-4500); Lymphocytes Percent Auto 10.8 % (25-40); Mean Corpuscular HGB Conc 31.9 % (30-36); Mean Corpuscular Hemoglobin 27.5 PG (26-34); Mean Corpuscular Volume 86.2 fL (80-100); Monocytes Absolute Auto 900 /uL (0-900); Monocytes Percent Auto 13.1 % (3-14); Neutrophils Absolute Auto 4700 /uL (1500-7000); Neutrophils Percent Auto 72.3 % (50-75); Platelet Count 422 X10^3/uL (150-400); Red Cell Distribution Width 19.7 % (11.6-14.8); White Blood Cell Count 6.5 X10^3/uL (4.5-11.0)
== END ==
PROVIDERS: PCP Student in an Organized Health Care Education/Training Program; Visit Provider Orthopaedic Surgery Orthopaedic Trauma
DX: A04.71 Enterocolitis due to Clostridium difficile, recurrent (principal)
CPT/HCPCS: 80053; 85025

== ENCOUNTER → 2022-10-14 13:59 | Outpatient (CLI) | payer OTHER, SELFPAY ==
[2022-10-14 20:35] LABS: Add Manual Diff / Slide Review NO; Basophils Absolute Auto 100 /uL (0-100); Eosinophils Absolute Auto 300 /uL (0-450); Eosinophils Percent Auto 4.8 % (2-4); Hematocrit 33.1 % (36-46); Hemoglobin 10.4 g/dL (12.0-16.0); Lymphocytes Absolute Auto 700 /uL (1100-4500); Lymphocytes Percent Auto 11.1 % (25-40); Mean Corpuscular HGB Conc 31.3 % (30-36); Mean Corpuscular Volume 86.2 fL (80-100); Monocytes Absolute Auto 800 /uL (0-900); Monocytes Percent Auto 13.7 % (3-14); Neutrophils Absolute Auto 4300 /uL (1500-7000); Neutrophils Percent Auto 69.4 % (50-75); Platelet Count 502 X10^3/uL (150-400); Red Blood Cell Count 3.84 X10^6/uL (4.0-5.2); Red Cell Distribution Width 19.2 % (11.6-14.8); White Blood Cell Count 6.2 X10^3/uL (4.5-11.0)
[2022-10-14 20:36] LABS: Alanine Aminotransferase 16 IU/L (<35); Albumin 3.7 g/dL (3.5-5.0); Alkaline Phosphatase 112 U/L (38-126); Aspartate Aminotransferase 24 IU/L (14-36); BUN Creatinine Ratio 22.2 (6-22); Bilirubin Total 0.3 mg/dL (0.2-1.3); Blood Urea Nitrogen 14 mg/dL (7-17); Calcium 8.9 mg/dL (8.4-10.2); Carbon Dioxide 35 mmol/L (22-32); Chloride 97 mmol/L (98-107); Estimated Glomerular Filt Rate > 60 mL/min (>60); Globulin 3.7 g/dL (1.7-4.1); Glucose 90 mg/dL (80-110); HEMOLYSIS < 15 (0-50); Potassium 4.1 mmol/L (3.4-5.1); Sodium 138 mmol/L (137-145); Total Protein 7.4 g/dL (6.3-8.2)
== END ==
PROVIDERS: PCP Student in an Organized Health Care Education/Training Program; Visit Provider Orthopaedic Surgery Orthopaedic Trauma
DX: A04.71 Enterocolitis due to Clostridium difficile, recurrent (principal)
CPT/HCPCS: 80053; 85025

== ENCOUNTER → 2022-11-04 14:30 | Outpatient (CLI) | payer OTHER, SELFPAY ==
[2022-11-04 19:41] LABS: Add Manual Diff / Slide Review NO; Basophils Absolute Auto 100 /uL (0-100); Basophils Percent Auto 0.8 % (0-2); Eosinophils Absolute Auto 100 /uL (0-450); Eosinophils Percent Auto 1.1 % (2-4); Hematocrit 36.1 % (36-46); Hemoglobin 11.5 g/dL (12.0-16.0); Lymphocytes Absolute Auto 900 /uL (1100-4500); Lymphocytes Percent Auto 10.3 % (25-40); Mean Corpuscular HGB Conc 31.8 % (30-36); Mean Corpuscular Volume 81.8 fL (80-100); Monocytes Absolute Auto 1000 /uL (0-900); Monocytes Percent Auto 11.9 % (3-14); Neutrophils Absolute Auto 6300 /uL (1500-7000); Neutrophils Percent Auto 75.9 % (50-75); Platelet Count 630 X10^3/uL (150-400); Red Blood Cell Count 4.41 X10^6/uL (4.0-5.2); Red Cell Distribution Width 18.1 % (11.6-14.8); White Blood Cell Count 8.3 X10^3/uL (4.5-11.0)
[2022-11-04 20:03] LABS: Alanine Aminotransferase 18 IU/L (<35); Alkaline Phosphatase 110 U/L (38-126); Aspartate Aminotransferase 46 IU/L (14-36); BUN Creatinine Ratio 26.7 (6-22); Bilirubin Total 0.7 mg/dL (0.2-1.3); Blood Urea Nitrogen 12 mg/dL (7-17); Calcium 9.4 mg/dL (8.4-10.2); Carbon Dioxide 31 mmol/L (22-32); Chloride 98 mmol/L (98-107); Estimated Glomerular Filt Rate > 60 mL/min (>60); Globulin 4.2 g/dL (1.7-4.1); Glucose 105 mg/dL (80-110); Sodium 139 mmol/L (137-145); Total Protein 8.2 g/dL (6.3-8.2)
[2022-11-04 20:09] LABS: HEMOLYSIS 104 (0-50); Potassium 4.6 mmol/L (3.4-5.1)
== END ==
PROVIDERS: PCP Student in an Organized Health Care Education/Training Program; Visit Provider Orthopaedic Surgery Orthopaedic Trauma
DX: A04.71 Enterocolitis due to Clostridium difficile, recurrent (principal)
CPT/HCPCS: 80053; 85025

== ENCOUNTER → 2022-11-11 10:55 | Outpatient (CLI) | payer OTHER, SELFPAY ==
[2022-11-11 19:11] LABS: Add Manual Diff / Slide Review NO; Basophils Absolute Auto 100 /uL (0-100); Basophils Percent Auto 0.4 % (0-2); Eosinophils Absolute Auto 100 /uL (0-450); Eosinophils Percent Auto 0.8 % (2-4); Hematocrit 34.6 % (36-46); Lymphocytes Absolute Auto 700 /uL (1100-4500); Lymphocytes Percent Auto 5.2 % (25-40); Mean Corpuscular HGB Conc 31.8 % (30-36); Mean Corpuscular Hemoglobin 26.6 PG (26-34); Mean Corpuscular Volume 83.8 fL (80-100); Monocytes Absolute Auto 1100 /uL (0-900); Monocytes Percent Auto 8.4 % (3-14); Neutrophils Absolute Auto 11400 /uL (1500-7000); Neutrophils Percent Auto 85.2 % (50-75); Platelet Count 534 X10^3/uL (150-400); Red Blood Cell Count 4.12 X10^6/uL (4.0-5.2); Red Cell Distribution Width 18.3 % (11.6-14.8); White Blood Cell Count 13.4 X10^3/uL (4.5-11.0)
[2022-11-11 19:26] LABS: Alanine Aminotransferase 19 IU/L (<35); Albumin 3.7 g/dL (3.5-5.0); Alkaline Phosphatase 113 U/L (38-126); Aspartate Aminotransferase 28 IU/L (14-36); BUN Creatinine Ratio 22.8 (6-22); Bilirubin Total 0.2 mg/dL (0.2-1.3); Blood Urea Nitrogen 13 mg/dL (7-17); Calcium 9.2 mg/dL (8.4-10.2); Carbon Dioxide 33 mmol/L (22-32); Chloride 95 mmol/L (98-107); Estimated Glomerular Filt Rate > 60 mL/min (>60); Globulin 3.7 g/dL (1.7-4.1); Glucose 160 mg/dL (80-110); HEMOLYSIS < 15 (0-50); Potassium 3.7 mmol/L (3.4-5.1); Sodium 137 mmol/L (137-145); Total Protein 7.4 g/dL (6.3-8.2)
== END ==
PROVIDERS: PCP Student in an Organized Health Care Education/Training Program; Visit Provider Orthopaedic Surgery Orthopaedic Trauma
DX: A04.71 Enterocolitis due to Clostridium difficile, recurrent (principal)
CPT/HCPCS: 80053; 85025

== ENCOUNTER → 2022-11-18 15:15 | Outpatient (CLI) | payer OTHER, SELFPAY ==
[2022-11-18 20:05] LABS: Add Manual Diff / Slide Review NO; Basophils Absolute Auto 0 /uL (0-100); Basophils Percent Auto 0.3 % (0-2); Eosinophils Absolute Auto 400 /uL (0-450); Eosinophils Percent Auto 7.2 % (2-4); Hematocrit 34.7 % (36-46); Hemoglobin 10.8 g/dL (12.0-16.0); Lymphocytes Absolute Auto 1100 /uL (1100-4500); Lymphocytes Percent Auto 19.1 % (25-40); Mean Corpuscular HGB Conc 31.2 % (30-36); Mean Corpuscular Hemoglobin 25.5 PG (26-34); Mean Corpuscular Volume 81.7 fL (80-100); Monocytes Absolute Auto 900 /uL (0-900); Monocytes Percent Auto 15.9 % (3-14); Neutrophils Absolute Auto 3400 /uL (1500-7000); Neutrophils Percent Auto 57.5 % (50-75); Platelet Count 620 X10^3/uL (150-400); Red Blood Cell Count 4.24 X10^6/uL (4.0-5.2); Red Cell Distribution Width 17.8 % (11.6-14.8); White Blood Cell Count 5.9 X10^3/uL (4.5-11.0)
[2022-11-18 20:13] LABS: Alanine Aminotransferase 15 IU/L (<35); Albumin 3.6 g/dL (3.5-5.0); Albumin Globulin Ratio 0.9 (1.0-2.8); Alkaline Phosphatase 104 U/L (38-126); Aspartate Aminotransferase 27 IU/L (14-36); BUN Creatinine Ratio 27.7 (6-22); Bilirubin Total 0.3 mg/dL (0.2-1.3); Blood Urea Nitrogen 18 mg/dL (7-17); Carbon Dioxide 30 mmol/L (22-32); Chloride 98 mmol/L (98-107); Estimated Glomerular Filt Rate > 60 mL/min (>60); Glucose 89 mg/dL (80-110); HEMOLYSIS < 15 (0-50); Potassium 4.9 mmol/L (3.4-5.1); Sodium 137 mmol/L (137-145); Total Protein 7.6 g/dL (6.3-8.2)
== END ==
PROVIDERS: PCP Student in an Organized Health Care Education/Training Program; Visit Provider Orthopaedic Surgery Orthopaedic Trauma
DX: A04.71 Enterocolitis due to Clostridium difficile, recurrent (principal)
CPT/HCPCS: 80053; 85025

== ENCOUNTER → 2022-11-24 10:15 | Outpatient (CLI) | payer OTHER, SELFPAY ==
[2022-11-24 19:54] LABS: Add Manual Diff / Slide Review NO; Basophils Absolute Auto 100 /uL (0-100); Eosinophils Absolute Auto 200 /uL (0-450); Hematocrit 39.5 % (36-46); Hemoglobin 12.6 g/dL (12.0-16.0); Lymphocytes Absolute Auto 1100 /uL (1100-4500); Lymphocytes Percent Auto 13.1 % (25-40); Mean Corpuscular HGB Conc 31.9 % (30-36); Mean Corpuscular Hemoglobin 25.9 PG (26-34); Mean Corpuscular Volume 81.2 fL (80-100); Monocytes Absolute Auto 900 /uL (0-900); Monocytes Percent Auto 10.9 % (3-14); Neutrophils Absolute Auto 6100 /uL (1500-7000); Platelet Count 565 X10^3/uL (150-400); Red Blood Cell Count 4.86 X10^6/uL (4.0-5.2); Red Cell Distribution Width 17.5 % (11.6-14.8); White Blood Cell Count 8.3 X10^3/uL (4.5-11.0)
[2022-11-24 20:11] LABS: Alanine Aminotransferase 21 IU/L (<35); Albumin Globulin Ratio 0.9 (1.0-2.8); Alkaline Phosphatase 104 U/L (38-126); Aspartate Aminotransferase 29 IU/L (14-36); BUN Creatinine Ratio 27.8 (6-22); Bilirubin Total 0.3 mg/dL (0.2-1.3); Blood Urea Nitrogen 15 mg/dL (7-17); Calcium 9.4 mg/dL (8.4-10.2); Carbon Dioxide 28 mmol/L (22-32); Chloride 100 mmol/L (98-107); Estimated Glomerular Filt Rate > 60 mL/min (>60); Globulin 4.4 g/dL (1.7-4.1); Glucose 113 mg/dL (80-110); HEMOLYSIS < 15 (0-50); Potassium 4.3 mmol/L (3.4-5.1); Sodium 138 mmol/L (137-145); Total Protein 8.4 g/dL (6.3-8.2)
== END ==
PROVIDERS: PCP Student in an Organized Health Care Education/Training Program; Visit Provider Orthopaedic Surgery Orthopaedic Trauma
DX: A04.71 Enterocolitis due to Clostridium difficile, recurrent (principal)
CPT/HCPCS: 80053; 85025

== ENCOUNTER → 2022-12-04 15:29 | Outpatient (CLI) | payer OTHER, SELFPAY ==
[2022-12-04 20:09] LABS: Add Manual Diff / Slide Review NO; Basophils Absolute Auto 100 /uL (0-100); Basophils Percent Auto 1.2 % (0-2); Eosinophils Absolute Auto 500 /uL (0-450); Eosinophils Percent Auto 6.3 % (2-4); Hematocrit 33.5 % (36-46); Hemoglobin 10.4 g/dL (12.0-16.0); Lymphocytes Absolute Auto 800 /uL (1100-4500); Lymphocytes Percent Auto 8.9 % (25-40); Mean Corpuscular Hemoglobin 25.4 PG (26-34); Mean Corpuscular Volume 81.8 fL (80-100); Monocytes Absolute Auto 1000 /uL (0-900); Monocytes Percent Auto 12.1 % (3-14); Neutrophils Absolute Auto 6100 /uL (1500-7000); Neutrophils Percent Auto 71.5 % (50-75); Platelet Count 509 X10^3/uL (150-400); Red Cell Distribution Width 16.5 % (11.6-14.8); White Blood Cell Count 8.5 X10^3/uL (4.5-11.0)
[2022-12-04 20:29] LABS: Alanine Aminotransferase 17 IU/L (<35); Albumin 3.5 g/dL (3.5-5.0); Albumin Globulin Ratio 0.9 (1.0-2.8); Alkaline Phosphatase 129 U/L (38-126); Aspartate Aminotransferase 23 IU/L (14-36); BUN Creatinine Ratio 36.4 (6-22); Bilirubin Total 0.2 mg/dL (0.2-1.3); Blood Urea Nitrogen 20 mg/dL (7-17); Calcium 8.9 mg/dL (8.4-10.2); Carbon Dioxide 30 mmol/L (22-32); Chloride 100 mmol/L (98-107); Estimated Glomerular Filt Rate > 60 mL/min (>60); Globulin 3.7 g/dL (1.7-4.1); Glucose 123 mg/dL (80-110); HEMOLYSIS < 15 (0-50); Potassium 3.9 mmol/L (3.4-5.1); Sodium 137 mmol/L (137-145); Total Protein 7.2 g/dL (6.3-8.2)
== END ==
PROVIDERS: PCP Student in an Organized Health Care Education/Training Program; Visit Provider Orthopaedic Surgery Orthopaedic Trauma
DX: A04.71 Enterocolitis due to Clostridium difficile, recurrent (principal)
CPT/HCPCS: 80053; 85025

== ENCOUNTER 2023-02-05 09:20 | Emergency (ER) | payer OTHER, SELFPAY ==
[2023-02-05 09:30] VITALS: BP 113/57; PULSE 98; RESP 15; TEMP 37.1; O2SAT 94
--- NOTE | 2023-02-05 09:40 | ED_ITS ---
HPI - General Adult General Chief complaint: GI Bleed Stated complaint: sent by to get labs Time Seen by Provider: 02/05/23 09:22 Source: patient Mode of arrival: Wheelchair Limitations: no limitations History of Present Illness HPI narrative: 62-year-old female. Has a history of Crohn's disease. Is not currently on any of her Crohn's medications. One year ago had a fracture of her hip. Underwent multiple surgeries. Had subsequent infections. She is now currently being treated for C diff. She is on fidaxomicin. She is here because she is continued to have diarrhea and over the past 24 hours has had some blood in her stool. No fevers. No change in any abdominal symptoms. Related Data Home Medications Medication Instructions Recorded Confirmed Trusopt 2 EYE-BOTH DAILY 11/30/20 amlodipine 5 mg tablet 5 mg PO BID 11/30/20 11/30/20 aspirin 81 mg tablet,delayed 81 mg PO DAILY 11/30/20 11/30/20 release bupropion HCl 150 mg tablet,12 hr 150 mg PO BID 11/30/20 11/30/20 sustained-release buspirone 5 mg tablet 5 mg PO DAILY 11/30/20 11/30/20 metoprolol tartrate 25 mg tablet 25 mg PO DAILY 11/30/20 11/30/20 olanzapine 5 mg tablet 5 mg PO BEDTIME 11/30/20 11/30/20 Allergies Allergy/AdvReac Type Severity Reaction Status Date / Time No Known Drug Allergies Allergy Verified 02/05/23 09:40 Review of Systems Constitutional Constitutional: Reports system reviewed and no additional complaints, except as documented Gastrointestinal Gastrointestinal: Reports system reviewed and no additional complaints, except as documented Genitourinary Genitourinary: Reports system reviewed and no additional complaints, except as documented Integumentary/Breasts Skin/Breast: Reports system reviewed and no additional complaints, except as documented Hematologic/Lymphatic On Anticoagulants: No Patient History Social History Smoking Status: Former smoker Smoking Status: Former smoker alcohol intake frequency: a few times a week Substance Use Type: does not use Exam Initial Vital Signs Initial Vital Signs: Vital Signs Temperature 98.8 F 02/05/23 09:30 Pulse Rate 98 H 02/05/23 09:30 Respiratory Rate 15 09/14/23 09:30 Blood Pressure 113/57 L 02/05/23 09:30 Pulse Oximetry 94 02/05/23 09:30 Oxygen Delivery Method Room Air 02/05/23 09:30 [facility] Head: normal to inspection and normocephalic Resp Effort & Inspection: normal respiratory effort Cardio Rate: regular rate GI Inspection: non-distended Skin General: no rashes or lesions noted Neuro General: patient alert and patient awake Course Orders Ordered: ED Orders 02/05/23 09:48 BMP [Basic Metabolic Panel] Stat CBC Auto Diff [Complete Blood Count AUTO DIFF] Stat CRP [C-Reactive Protein Quant] Stat Vital Signs Vital signs: Vital Signs - 8 hr 02/05/23 09:30 Temperature 98.8 F Pulse Rate 98 H Respiratory Rate 15 Blood Pressure 113/57 L Pulse Oximetry 94 Oxygen Delivery Method Room Air Medical Decision Making Lab Data Lab results reviewed: Yes I reviewed the patient's lab results. 02/05/23 09:48 02/05/23 09:48 Labs: Lab Results 02/05/23 02/05/23 Range/Units 09:48 09:48 WBC 10.7 (4.5-11.0) X10^3/uL RBC 3.69 L (4.0-5.2) X10^6/uL Hgb 8.9 L (12.0-16.0) g/dL Hct 29.1 L (36-46) % MCV 78.9 L (80-100) fL MCH 24.1 L (26-34) PG MCHC 30.6 (30-36) % RDW 18.8 H (11.6-14.8) % Plt Count 525 H (150-400) X10^3/uL Neut % (Auto) 80.2 H (50-75) % Lymph % (Auto) 7.5 L (25-40) % Harnett % (Auto) 8.5 (3-14) % Eos % (Auto) 3.3 (2-4) % Baso % (Auto) 0.5 (0-2) % Neut # (Auto) 8600 H (9165-3175) /uL Lymph # (Auto) 800 L (9845-6179) /uL [place]ett # (Auto) 900 (0-900) /uL Eos # (Auto) 300 (0-450) /uL Baso # (Auto) 100 (0-100) /uL Sodium 137 (137-145) mmol/L Potassium 3.7 (3.4-5.1) mmol/L Chloride 99 (98-107) mmol/L Carbon Dioxide 30 (22-32) mmol/L BUN 13 (7-17) mg/dL Creatinine 0.57 (0.52-1.04) mg/dL Estimated GFR > 60 (>60) mL/min BUN/Creatinine Ratio 22.8 H (6-22) Glucose 106 (80-110) mg/dL Calcium 8.2 L (8.4-10.2) mg/dL C-Reactive Protein 8.3 H (<1.0) mg/dL MDM Narrative Medical decision making narrative: Patient has a benign exam. No fevers. Not anemic. Not tachycardic. Not hypotensive. Sodium is unremarkable. Has had a longstanding history of both C diff and also Crohn's disease. She is not on any immune modulating medicines because of the C diff. She is on antibiotics for the C diff. She has a follow- up tomorrow already scheduled with infectious disease. No further workup required here in the emergency department. I did discuss this with her. No indication for radiologic studies. She should follow-up with both the GI doctors and her infectious disease doctors. Discharge Plan Departure Patient Disposition: Home Clinical Impression: GI bleeding Instructions: Gastrointestinal Bleeding Activity Restrictions/Additional Instructions: I did recommend that you continue to take all of your medications as directed and to keep all of your scheduled medical appointments. Prescriptions: No Action buspirone 5 mg Tablet 5 mg PO DAILY bupropion HCl 150 mg Tablet Sustained-Release 12 Hr 150 mg PO BID olanzapine 5 mg Tablet 5 mg PO BEDTIME amlodipine 5 mg Tablet 5 mg PO BID aspirin [Aspir-81] 81 mg Tablet,Delayed Release (Dr/Ec) 81 mg PO DAILY metoprolol tartrate 25 mg Tablet 25 mg PO DAILY Trusopt 2 EYE-BOTH DAILY Referrals: Bessie Lindsay PA-C [Primary Care Provider] - Stand Alone Forms: Patient Portal/API
--- NOTE | 2023-02-05 09:46 | PC.NURSE ---
history of cdiff. states she is here for blood work. reports she now has blood in her stool.
[2023-02-05 09:56] LABS: Add Manual Diff / Slide Review NO; Basophils Absolute Auto 100 /uL (0-100); Basophils Percent Auto 0.5 % (0-2); Eosinophils Absolute Auto 300 /uL (0-450); Eosinophils Percent Auto 3.3 % (2-4); Hematocrit 29.1 % (36-46); Hemoglobin 8.9 g/dL (12.0-16.0); Lymphocytes Absolute Auto 800 /uL (1100-4500); Lymphocytes Percent Auto 7.5 % (25-40); Mean Corpuscular HGB Conc 30.6 % (30-36); Mean Corpuscular Hemoglobin 24.1 PG (26-34); Mean Corpuscular Volume 78.9 fL (80-100); Monocytes Absolute Auto 900 /uL (0-900); Monocytes Percent Auto 8.5 % (3-14); Neutrophils Absolute Auto 8600 /uL (1500-7000); Neutrophils Percent Auto 80.2 % (50-75); Platelet Count 525 X10^3/uL (150-400); Red Blood Cell Count 3.69 X10^6/uL (4.0-5.2); Red Cell Distribution Width 18.8 % (11.6-14.8); White Blood Cell Count 10.7 X10^3/uL (4.5-11.0)
[2023-02-05 10:11] LABS: BUN Creatinine Ratio 22.8 (6-22); Blood Urea Nitrogen 13 mg/dL (7-17); C-Reactive Protein Quant 8.3 mg/dL (<1.0); Calcium 8.2 mg/dL (8.4-10.2); Carbon Dioxide 30 mmol/L (22-32); Chloride 99 mmol/L (98-107); Estimated Glomerular Filt Rate > 60 mL/min (>60); Glucose 106 mg/dL (80-110); HEMOLYSIS < 15 (0-50); Potassium 3.7 mmol/L (3.4-5.1); Sodium 137 mmol/L (137-145)
[2023-02-05 11:02] VITALS: BP 122/70; PULSE 90; RESP 18; O2SAT 97
== END 2023-02-05 11:18 | disposition home or self-care (01) ==
PROVIDERS: Emergency Provider Emergency Medicine; PCP Student in an Organized Health Care Education/Training Program
DX: K92.2 Gastrointestinal hemorrhage, unspecified (principal)
CPT/HCPCS: 36415; 80048; 85025; 86140; 99281; 99283

== ENCOUNTER 2023-03-06 08:39 | Inpatient (IN) | payer OTHER, MEDICAID, SELFPAY ==
[2023-03-06] VITALS (29 sets, daily range): BP systolic 116–167; BP diastolic 75–92; PULSE 78–148; RESP 10–38; TEMP 36.6–36.7; O2SAT 87–99; BMI 19.3; BMI 21.1
--- NOTE | 2023-03-06 08:42 | ED.GENADULT ---
HPI - General Adult <Holger Guzmán DO - Last Filed: 03/07/23 06:42> General Chief complaint: Nausea/Vomiting/Diarrhea Stated complaint: can't keep meds or food down/fever/D Time Seen by Provider: 03/06/23 08:42 History of Present Illness HPI narrative: 62F former smoker with history of colitis presents with N/V and severe abdominal pain for the past few days. She has been unable to keep her medications down. She has no fever or chills. She states her abdominal pain is worse when she moves and improves with rest. She had been chronically using opioids for 6-8 years and stopped taking them about 3 or 4 days ago as well. She is become a bit dizzy, weak and fatigued. She feels a bit shaky and generally unwell Related Data Home Medications Medication Instructions Recorded Confirmed amlodipine 5 mg tablet 5 mg PO BID 11/30/20 03/06/23 bupropion HCl 150 mg tablet,12 hr 150 mg PO BID 11/30/20 03/06/23 sustained-release buspirone 5 mg tablet 5 mg PO DAILY 11/30/20 03/06/23 metoprolol tartrate 25 mg tablet 25 mg PO DAILY 11/30/20 03/06/23 olanzapine 5 mg tablet 5 mg PO BEDTIME 11/30/20 03/06/23 duloxetine 60 mg capsule,delayed 120 mg PO DAILY 03/06/23 03/06/23 release mesalamine 800 mg tablet,delayed 800 mg PO BID 03/06/23 03/06/23 release penicillin V potassium 500 mg 500 mg PO BID 03/06/23 03/06/23 tablet trazodone 50 mg tablet 100 mg PO BEDTIME 03/06/23 03/06/23 Allergies Allergy/AdvReac Type Severity Reaction Status Date / Time No Known Drug Allergies Allergy Verified 02/05/23 09:40 Review of Systems <DO Jeff Vizcaino Last Filed: 03/07/23 06:42> Review of Systems Narrative: GENERAL: Denies chills, fatigue, malaise, fever, sweats. HEENT: Denies sinus pain, ear pain, sore throat, difficulty swallowing, dizziness. RESPIRATORY: Denies dyspnea, cough, wheezing, hemoptysis, sputum. CARDIOVASCULAR: Denies chest pain, palpitations, orthopnea, edema, GASTROINTESTINAL: See HPI : Denies dysuria, frequency, incontinence, hematuria, urinary retention. MUSCULOSKELETAL: denies weakness, joint pain, or bony pain SKIN: Denies rash, skin lesions, or other NEUROLOGIC: Denies weakness, headache, numbness, change in speech, confusion, seizures, incoordination. PSYCHIATRIC: No concerning psychosocial issues. 12 point review of systems is negative except for those stated above Patient History <Holger Guzmán DO - Last Filed: 03/07/23 06:42> Medical History Colitis Symptomatic anemia Anemia C. difficile colitis Social History household members: spouse Smoking Status: Former smoker alcohol intake: current Smoking Status: Former smoker alcohol intake frequency: a few times a week Substance Use Type: does not use Exam <DO Jeff Vizcaino Last Filed: 03/07/23 06:42> Narrative Exam Narrative: GENERAL: [62] year old patient appears stated age. Well-developed patient, in mild distress. Holding an emesis bag HEAD: Atraumatic. Normocephalic. EYES: Pupils equal round and reactive. Extraocular motions intact. No scleral icterus. No injection or drainage. ENT: Nose without bleeding, purulent drainage. Throat without erythema, tonsillar hypertrophy or exudate. Airway patent. NECK: Trachea midline. Non tender CARDIOVASCULAR: Regular rate and rhythm without murmurs, gallops, or rubs. RESPIRATORY: Clear to auscultation. Breath sounds equal bilaterally. No wheezes, rales, or rhonchi. GASTROINTESTINAL: Abdomen soft, non-tender, nondistended. EXTREMITIES: No edema or joint tenderness. BACK: Nontender without deformity or crepitance. No flank tenderness. NEURO: AOx3. SKIN: No rash or erythema of visible areas Initial Vital Signs Initial Vital Signs: Vital Signs Temperature 98.1 F 03/06/23 08:50 Pulse Rate 120 H 03/06/23 08:50 Respiratory Rate 17 03/06/23 08:50 Blood Pressure 152/76 H 03/06/23 08:50 Pulse Oximetry 88 L 03/06/23 08:50 Oxygen Delivery Method Room Air 03/06/23 08:50 <Pedro Moise DO - Last Filed: 03/06/23 19:14> Initial Vital Signs Initial Vital Signs: Vital Signs Temperature 98.1 F 03/06/23 08:50 Pulse Rate 120 H 03/06/23 08:50 Respiratory Rate 17 03/06/23 08:50 Blood Pressure 152/76 H 03/06/23 08:50 Pulse Oximetry 88 L 03/06/23 08:50 Oxygen Delivery Method Room Air 03/06/23 08:50 Course <Holger Guzmán DO - Last Filed: 03/07/23 06:42> Orders Ordered: ED Orders 03/07/23 07:30 Basic Metabolic Panel DAILY Acetaminophen (Acetaminophen 325 Mg Tablet) 650 mg PO Q6H PRN PRN Reason: Fever/Mild Pain (1-3) Last Admin: 03/06/23 21:56 Dose: 650 mg Documented By: GIL Albuterol (Albuterol 2.5 Mg/3 Ml Neb (Adult)) 2.5 mg INH [id number] PRN PRN Reason: Dyspnea Amlodipine Besylate (Amlodipine 5 Mg Tablet) 5 mg PO BID [facility] Last Admin: 03/06/23 21:56 Dose: 5 mg Documented By: GIL Aspirin (Aspirin Ec 81 Mg Tablet) 81 mg PO DAILY [facility] Bupropion HCl (Bupropion Sr 150 Mg Tab) 150 mg PO BID [facility] Last Admin: 03/06/23 21:55 Dose: 150 mg Documented By: GIL Buspirone HCl (Buspirone 5 Mg Tablet) 5 mg PO DAILY [facility] Calcium Carbonate (Calcium Carbonate 500 Mg Tab) 1,000 mg PO Q4HR PRN PRN Reason: Dyspepsia Hydromorphone HCl (Hydromorphone 0.5 Mg Inj) 0.5 mg IV Q2H PRN PRN Reason: Pain, Severe (7-10) Dextrose/Sodium Chloride (Dextrose 5%-0.9% Ns) 1,000 mls @ 100 mls/hr IV CONT [facility] Last Admin: 03/07/23 06:32 Dose: 100 mls/hr Documented By: Infusion: 03/07/23 06:32 Dose: Infused Documented By: Admin: 03/06/23 20:44 Dose: 100 mls/hr Documented By: LIVE Metoclopramide HCl (Metoclopramide 10 Mg/2 Ml Inj) 10 mg IV Q6HR PRN PRN Reason: Nausea And Vomiting Metoprolol Tartrate (Metoprolol Ir 25 Mg Tablet) 25 mg PO DAILY [facility] Naloxone HCl (Naloxone 0.4 Mg/Ml Vial) 0.2 mg IV Q2MIN PRN PRN Reason: Opiate Reversal Olanzapine (Olanzapine 2.5 Mg Tablet) 5 mg PO BEDTIME [facility] Last Admin: 03/06/23 21:55 Dose: 5 mg Documented By: GIL Ondansetron HCl (Ondansetron 4 Mg Odt) 4 mg PO Q4HR PRN PRN Reason: Nausea And Vomiting Ondansetron HCl (Ondansetron 4 Mg/2 Ml Inj) 4 mg IV Q4HR [facility] Last Admin: 03/07/23 05:42 Dose: Not Given Documented By: Admin: 03/07/23 00:35 Dose: Not Given Documented By: Admin: 03/06/23 21:56 Dose: 4 mg Documented By: GIL Oxycodone HCl (Oxycodone Ir 5 Mg Tablet) 5 mg PO Q3H PRN PRN Reason: Pain, Moderate (4-6) Pantoprazole Sodium (Pantoprazole 40 Mg Vial) 40 mg IV BID [facility] Last Admin: 03/06/23 21:55 Dose: 40 mg Documented By: GIL Trazodone HCl (Trazodone 50 Mg Tablet) 100 mg PO BEDTIME [facility] Last Admin: 03/06/23 21:56 Dose: 100 mg Documented By: GIL Discontinued Medications Sodium Chloride (Normal Saline 0.9%) 1,000 mls @ 1,000 mls/hr IV BOLUS ONE Stop: 03/06/23 09:46 Last Infusion: 03/06/23 11:08 Dose: Infused Documented By: ИРИНА Admin: 03/06/23 09:12 Dose: 1,000 mls/hr Documented By: RB POTASSIUM CHLORIDE IN WATER (Potassium Cl 10 Meq/100 Ml Joanne) 10 meq in 100 mls @ 100 mls/hr IV Q1H [facility] Stop: 03/06/23 19:44 Last Admin: 03/06/23 22:56 Dose: Not Given Documented By: Admin: 03/06/23 22:56 Dose: Not Given Documented By: Admin: 03/06/23 22:56 Dose: Not Given Documented By: Admin: 03/06/23 22:56 Dose: Not Given Documented By: Admin: 03/06/23 22:56 Dose: Not Given Documented By: Admin: 03/06/23 22:55 Dose: Not Given Documented By: Infusion: 03/06/23 20:10 Dose: Infused Documented By: Admin: 03/06/23 18:29 Dose: 50 mls/hr Documented By: Infusion: 03/06/23 13:46 Dose: Infused Documented By: Admin: 03/06/23 11:52 Dose: 100 mls/hr Documented By: ИРИНА Sodium Chloride (Normal Saline 0.9%) 1,000 mls @ 100 mls/hr IV CONT DOROTHY Last Infusion: 03/06/23 17:02 Dose: Infused Documented By: Infusion: 03/06/23 16:00 Dose: 500 mls/hr Documented By: Admin: 03/06/23 12:13 Dose: 100 mls/hr Documented By: ИРИНА Sodium Chloride (Normal Saline 0.9%) 1,000 mls @ 1,000 mls/hr IV BOLUS ONE Stop: 03/06/23 19:25 Last Admin: 03/06/23 18:30 Dose: 1,000 mls/hr Documented By: EVAN POTASSIUM CHLORIDE IN WATER (Potassium Cl 10 Meq/100 Ml Joanne) 10 meq in 100 mls @ 100 mls/hr IV Q1H DOROTHY Stop: 03/06/23 23:29 Last Infusion: 03/07/23 01:02 Dose: Infused Documented By: Admin: 03/06/23 23:56 Dose: 100 mls/hr Documented By: Infusion: 03/06/23 23:56 Dose: Infused Documented By: Admin: 03/06/23 23:00 Dose: 100 mls/hr Documented By: Infusion: 03/06/23 23:00 Dose: Infused Documented By: Admin: 03/06/23 22:02 Dose: 100 mls/hr Documented By: Infusion: 03/06/23 21:47 Dose: Infused Documented By: Admin: 03/06/23 20:44 Dose: 100 mls/hr Documented By: LIVE Ondansetron HCl (Ondansetron 4 Mg/2 Ml Inj) 4 mg IV NOW ONE Stop: 03/06/23 08:48 Last Admin: 03/06/23 09:12 Dose: 4 mg Documented By: LORRIE Pantoprazole Sodium (Pantoprazole 40 Mg Vial) 40 mg IV NOW ONE Stop: 03/06/23 08:48 Last Admin: 03/06/23 09:12 Dose: 40 mg Documented By: RB Potassium Chloride (Potassium Chloride 20 Meq/15 Ml Udc) 40 meq PO NOW ONE Stop: 03/06/23 14:37 Last Admin: 03/06/23 14:50 Dose: 40 meq Documented By: EVAN Potassium Chloride (Potassium Chloride 20 Meq Tab) 40 meq PO NOW ONE Stop: 03/06/23 14:37 Last Admin: 03/06/23 14:50 Dose: 40 meq Documented By: EVAN Vital Signs Vital signs: Vital Signs - 8 hr 03/06/23 11:30 03/06/23 11:30 03/06/23 12:02 Pulse Rate 109 H 78 Respiratory Rate 15 Blood Pressure 140/75 Pulse Oximetry 96 99 03/06/23 12:03 03/06/23 12:03 03/06/23 12:30 Pulse Rate 102 H Respiratory Rate 16 Blood Pressure 152/76 H 143/85 H Pulse Oximetry 97 03/06/23 12:30 03/06/23 13:00 03/06/23 13:00 Pulse Rate 106 H 148 H Respiratory Rate 10 L 13 Blood Pressure 137/91 H Pulse Oximetry 96 96 03/06/23 13:30 03/06/23 13:30 03/06/23 14:00 Pulse Rate 106 H Respiratory Rate 15 Blood Pressure 150/88 H 146/88 H Pulse Oximetry 96 03/06/23 14:00 03/06/23 14:30 03/06/23 14:30 Pulse Rate 108 H 108 H Respiratory Rate 13 13 Blood Pressure 134/79 Pulse Oximetry 95 96 03/06/23 15:00 03/06/23 15:00 03/06/23 15:30 Pulse Rate 110 H Respiratory Rate 17 Blood Pressure 116/84 166/81 H Pulse Oximetry 96 03/06/23 15:30 03/06/23 16:00 03/06/23 16:00 Pulse Rate 108 H 104 H Respiratory Rate 14 12 Blood Pressure 150/84 H Pulse Oximetry 97 97 03/06/23 16:30 03/06/23 16:30 Pulse Rate 108 H Respiratory Rate 19 Blood Pressure 132/76 Pulse Oximetry 96 <DO Jeff Sprague Filed: 03/06/23 19:14> Orders Ordered: ED Orders 03/07/23 07:30 Basic Metabolic Panel DAILY Acetaminophen (Acetaminophen 325 Mg Tablet) 650 mg PO Q6H PRN PRN Reason: Fever/Mild Pain (1-3) Last Admin: 03/06/23 21:56 Dose: 650 mg Documented By: CM Albuterol (Albuterol 2.5 Mg/3 Ml Neb (Adult)) 2.5 mg INH [id number] PRN PRN Reason: Dyspnea Amlodipine Besylate (Amlodipine 5 Mg Tablet) 5 mg PO BID [facility] Last Admin: 03/06/23 21:56 Dose: 5 mg Documented By: GIL Aspirin (Aspirin Ec 81 Mg Tablet) 81 mg PO DAILY [facility] Bupropion HCl (Bupropion Sr 150 Mg Tab) 150 mg PO BID [facility] Last Admin: 03/06/23 21:55 Dose: 150 mg Documented By: GIL Buspirone HCl (Buspirone 5 Mg Tablet) 5 mg PO DAILY [facility] Calcium Carbonate (Calcium Carbonate 500 Mg Tab) 1,000 mg PO Q4HR PRN PRN Reason: Dyspepsia Hydromorphone HCl (Hydromorphone 0.5 Mg Inj) 0.5 mg IV Q2H PRN PRN Reason: Pain, Severe (7-10) Dextrose/Sodium Chloride (Dextrose 5%-0.9% Ns) 1,000 mls @ 100 mls/hr IV CONT [facility] Last Admin: 03/07/23 06:32 Dose: 100 mls/hr Documented By: Infusion: 03/07/23 06:32 Dose: Infused Documented By: Admin: 03/06/23 20:44 Dose: 100 mls/hr Documented By: LIVE Metoclopramide HCl (Metoclopramide 10 Mg/2 Ml Inj) 10 mg IV Q6HR PRN PRN Reason: Nausea And Vomiting Metoprolol Tartrate (Metoprolol Ir 25 Mg Tablet) 25 mg PO DAILY [facility] Naloxone HCl (Naloxone 0.4 Mg/Ml Vial) 0.2 mg IV Q2MIN PRN PRN Reason: Opiate Reversal Olanzapine (Olanzapine 2.5 Mg Tablet) 5 mg PO BEDTIME [facility] Last Admin: 03/06/23 21:55 Dose: 5 mg Documented By: GIL Ondansetron HCl (Ondansetron 4 Mg Odt) 4 mg PO Q4HR PRN PRN Reason: Nausea And Vomiting Ondansetron HCl (Ondansetron 4 Mg/2 Ml Inj) 4 mg IV Q4HR [facility] Last Admin: 03/07/23 05:42 Dose: Not Given Documented By: Admin: 03/07/23 00:35 Dose: Not Given Documented By: Admin: 03/06/23 21:56 Dose: 4 mg Documented By: GIL Oxycodone HCl (Oxycodone Ir 5 Mg Tablet) 5 mg PO Q3H PRN PRN Reason: Pain, Moderate (4-6) Pantoprazole Sodium (Pantoprazole 40 Mg Vial) 40 mg IV BID [facility] Last Admin: 03/06/23 21:55 Dose: 40 mg Documented By: GIL Trazodone HCl (Trazodone 50 Mg Tablet) 100 mg PO BEDTIME [facility] Last Admin: 03/06/23 21:56 Dose: 100 mg Documented By: GIL Discontinued Medications Sodium Chloride (Normal Saline 0.9%) 1,000 mls @ 1,000 mls/hr IV BOLUS ONE Stop: 03/06/23 09:46 Last Infusion: 03/06/23 11:08 Dose: Infused Documented By: ИРИНА Admin: 03/06/23 09:12 Dose: 1,000 mls/hr Documented By: LORRIE POTASSIUM CHLORIDE IN WATER (Potassium Cl 10 Meq/100 Ml Joanne) 10 meq in 100 mls @ 100 mls/hr IV Q1H [facility] Stop: 03/06/23 19:44 Last Admin: 03/06/23 22:56 Dose: Not Given Documented By: Admin: 03/06/23 22:56 Dose: Not Given Documented By: Admin: 03/06/23 22:56 Dose: Not Given Documented By: Admin: 03/06/23 22:56 Dose: Not Given Documented By: Admin: 03/06/23 22:56 Dose: Not Given Documented By: Admin: 03/06/23 22:55 Dose: Not Given Documented By: Infusion: 03/06/23 20:10 Dose: Infused Documented By: Admin: 03/06/23 18:29 Dose: 50 mls/hr Documented By: Infusion: 03/06/23 13:46 Dose: Infused Documented By: Admin: 03/06/23 11:52 Dose: 100 mls/hr Documented By: ИРИНА Sodium Chloride (Normal Saline 0.9%) 1,000 mls @ 100 mls/hr IV CONT DOROTHY Last Infusion: 03/06/23 17:02 Dose: Infused Documented By: Infusion: 03/06/23 16:00 Dose: 500 mls/hr Documented By: Admin: 03/06/23 12:13 Dose: 100 mls/hr Documented By: ИРИНА Sodium Chloride (Normal Saline 0.9%) 1,000 mls @ 1,000 mls/hr IV BOLUS ONE Stop: 03/06/23 19:25 Last Admin: 03/06/23 18:30 Dose: 1,000 mls/hr Documented By: EVAN POTASSIUM CHLORIDE IN WATER (Potassium Cl 10 Meq/100 Ml Joanne) 10 meq in 100 mls @ 100 mls/hr IV Q1H DOROTHY Stop: 03/06/23 23:29 Last Infusion: 03/07/23 01:02 Dose: Infused Documented By: Admin: 03/06/23 23:56 Dose: 100 mls/hr Documented By: Infusion: 03/06/23 23:56 Dose: Infused Documented By: Admin: 03/06/23 23:00 Dose: 100 mls/hr Documented By: Infusion: 03/06/23 23:00 Dose: Infused Documented By: Admin: 03/06/23 22:02 Dose: 100 mls/hr Documented By: Infusion: 03/06/23 21:47 Dose: Infused Documented By: Admin: 03/06/23 20:44 Dose: 100 mls/hr Documented By: LIVE Ondansetron HCl (Ondansetron 4 Mg/2 Ml Inj) 4 mg IV NOW ONE Stop: 03/06/23 08:48 Last Admin: 03/06/23 09:12 Dose: 4 mg Documented By: LORRIE Pantoprazole Sodium (Pantoprazole 40 Mg Vial) 40 mg IV NOW ONE Stop: 03/06/23 08:48 Last Admin: 03/06/23 09:12 Dose: 40 mg Documented By: RB Potassium Chloride (Potassium Chloride 20 Meq/15 Ml Udc) 40 meq PO NOW ONE Stop: 03/06/23 14:37 Last Admin: 03/06/23 14:50 Dose: 40 meq Documented By: EVAN Potassium Chloride (Potassium Chloride 20 Meq Tab) 40 meq PO NOW ONE Stop: 03/06/23 14:37 Last Admin: 03/06/23 14:50 Dose: 40 meq Documented By: EVAN Vital Signs Vital signs: Vital Signs - 8 hr 03/06/23 11:30 03/06/23 11:30 03/06/23 12:02 Pulse Rate 109 H 78 Respiratory Rate 15 Blood Pressure 140/75 Pulse Oximetry 96 99 03/06/23 12:03 03/06/23 12:03 03/06/23 12:30 Pulse Rate 102 H Respiratory Rate 16 Blood Pressure 152/76 H 143/85 H Pulse Oximetry 97 03/06/23 12:30 03/06/23 13:00 03/06/23 13:00 Pulse Rate 106 H 148 H Respiratory Rate 10 L 13 Blood Pressure 137/91 H Pulse Oximetry 96 96 03/06/23 13:30 03/06/23 13:30 03/06/23 14:00 Pulse Rate 106 H Respiratory Rate 15 Blood Pressure 150/88 H 146/88 H Pulse Oximetry 96 03/06/23 14:00 03/06/23 14:30 03/06/23 14:30 Pulse Rate 108 H 108 H Respiratory Rate 13 13 Blood Pressure 134/79 Pulse Oximetry 95 96 03/06/23 15:00 03/06/23 15:00 03/06/23 15:30 Pulse Rate 110 H Respiratory Rate 17 Blood Pressure 116/84 166/81 H Pulse Oximetry 96 03/06/23 15:30 03/06/23 16:00 03/06/23 16:00 Pulse Rate 108 H 104 H Respiratory Rate 14 12 Blood Pressure 150/84 H Pulse Oximetry 97 97 03/06/23 16:30 03/06/23 16:30 Pulse Rate 108 H Respiratory Rate 19 Blood Pressure 132/76 Pulse Oximetry 96 Medical Decision Making <Holger Guzmán, - Last Filed: 03/07/23 06:42> Lab Data 03/06/23 09:00 03/06/23 16:22 Labs: Lab Results 03/06/23 03/06/23 03/06/23 Range/Units 09:00 09:10 16:22 WBC 9.7 (4.5-11.0) X10^3/uL RBC 4.48 (4.0-5.2) X10^6/uL Hgb 10.8 L (12.0-16.0) g/dL Hct 33.9 L (36-46) % MCV 75.7 L (80-100) fL MCH 24.1 L (26-34) PG MCHC 31.8 (30-36) % RDW 20.5 H (11.6-14.8) % Plt Count 878 H (150-400) X10^3/uL Neut % (Auto) 84.4 H (50-75) % Lymph % (Auto) 8.8 L (25-40) % Murray % (Auto) 6.6 (3-14) % Eos % (Auto) 0.0 L (2-4) % Baso % (Auto) 0.2 (0-2) % Neut # (Auto) 8200 H (1520-8023) /uL Lymph # (Auto) 900 L (0747-4472) /uL Murray # (Auto) 600 (0-900) /uL Eos # (Auto) 0 (0-450) /uL Baso # (Auto) 0 (0-100) /uL Platelet Estimate RBC Morphology Normal morphology Sodium 133 L 136 L (137-145) mmol/L Potassium 2.3 L* 2.9 L (3.4-5.1) mmol/L Chloride 97 L 105 (98-107) mmol/L Carbon Dioxide 31 30 (22-32) mmol/L BUN 16 13 (7-17) mg/dL Creatinine 0.45 L 0.47 L (0.52-1.04) mg/dL Estimated GFR > 60 > 60 (>60) mL/min BUN/Creatinine Ratio 35.6 H 27.7 H (6-22) Glucose 100 105 (80-110) mg/dL Lactate 1.6 (0.7-2.1) mmol/L Calcium 7.9 L 6.8 L (8.4-10.2) mg/dL Magnesium 1.9 (1.6-2.3) mg/dL Total Bilirubin 0.3 (0.2-1.3) mg/dL AST 221 H (14-36) IU/L ALT 57 H (<35) IU/L Alkaline Phosphatase 206 H (38-126) U/L Total Protein 6.3 (6.3-8.2) g/dL Albumin 2.5 L (3.5-5.0) g/dL Globulin 3.8 (1.7-4.1) g/dL Albumin/Globulin Ratio 0.7 L (1.0-2.8) Lipase 13 L (23-300) U/L SARS-CoV-2 (PCR) Negative (Negative) Influenza A (RT-PCR) Flu a negative (NEGATIVE) Influenza B (RT-PCR) Flu b negative (NEGATIVE) RSV (PCR) Negative (Negative) MDM Narrative Medical decision making narrative: [62] year old patient presents with nausea vomiting and abdominal pain Multiple etiologies for patient's symptoms considered including, but not limited to: [] Bowel obstruction versus other Prior Charts reviewed in our EMR Primary Historian: patient Labs reviewed and interpreted by myself: Critically low potassium improve somewhat after replacement, low calcium. Patient did briefly become tachycardic after the 1st round of K rider. It was stopped, replaced with oral instead, more fluids given and returned to K rider a few hours later at half the rate which she tolerated well. Imaging reviewed: Imaging shows mild inflammatory change, possible colitis Consultations: discussed with hospitalist Dr Moise: Received turned over. Review patient's history and physical and workup up to this point. Patient has remained hypokalemic and has not tolerated sufficient amount of oral intake for discharge home. I did discuss the case with Dr. Bergman hospitalist on-call who will admit for further evaluation and treatment. <Pedro Moise, DO - Last Filed: 03/06/23 19:14> Lab Data Labs: Lab Results 03/06/23 03/06/23 03/06/23 Range/Units 09:00 09:10 16:22 WBC 9.7 (4.5-11.0) X10^3/uL RBC 4.48 (4.0-5.2) X10^6/uL Hgb 10.8 L (12.0-16.0) g/dL Hct 33.9 L (36-46) % MCV 75.7 L (80-100) fL MCH 24.1 L (26-34) PG MCHC 31.8 (30-36) % RDW 20.5 H (11.6-14.8) % Plt Count 878 H (150-400) X10^3/uL Neut % (Auto) 84.4 H (50-75) % Lymph % (Auto) 8.8 L (25-40) % Murray % (Auto) 6.6 (3-14) % Eos % (Auto) 0.0 L (2-4) % Baso % (Auto) 0.2 (0-2) % Neut # (Auto) 8200 H (5362-5837) /uL Lymph # (Auto) 900 L (9117-0583) /uL Murray # (Auto) 600 (0-900) /uL Eos # (Auto) 0 (0-450) /uL Baso # (Auto) 0 (0-100) /uL Platelet Estimate RBC Morphology Normal morphology Sodium 133 L 136 L (137-145) mmol/L Potassium 2.3 L* 2.9 L (3.4-5.1) mmol/L Chloride 97 L 105 (98-107) mmol/L Carbon Dioxide 31 30 (22-32) mmol/L BUN 16 13 (7-17) mg/dL Creatinine 0.45 L 0.47 L (0.52-1.04) mg/dL Estimated GFR > 60 > 60 (>60) mL/min BUN/Creatinine Ratio 35.6 H 27.7 H (6-22) Glucose 100 105 (80-110) mg/dL Lactate 1.6 (0.7-2.1) mmol/L Calcium 7.9 L 6.8 L (8.4-10.2) mg/dL Magnesium 1.9 (1.6-2.3) mg/dL Total Bilirubin 0.3 (0.2-1.3) mg/dL AST 221 H (14-36) IU/L ALT 57 H (<35) IU/L Alkaline Phosphatase 206 H (38-126) U/L Total Protein 6.3 (6.3-8.2) g/dL Albumin 2.5 L (3.5-5.0) g/dL Globulin 3.8 (1.7-4.1) g/dL Albumin/Globulin Ratio 0.7 L (1.0-2.8) Lipase 13 L (23-300) U/L SARS-CoV-2 (PCR) Negative (Negative) Influenza A (RT-PCR) Flu a negative (NEGATIVE) Influenza B (RT-PCR) Flu b negative (NEGATIVE) RSV (PCR) Negative (Negative) MDM Narrative Medical decision making narrative: [62] year old patient presents with nausea vomiting and abdominal pain Multiple etiologies for patient's symptoms considered including, but not limited to: [] Bowel obstruction versus other Prior Charts reviewed in our EMR Primary Historian: patient Labs reviewed and interpreted by myself: Critically low potassium improve somewhat after replacement, low calcium, Imaging reviewed: Imaging shows mild inflammatory change, possible colitis Consultations: discussed with hospitalist Dr Moise: Received turned over. Review patient's history and physical and workup up to this point. Patient has remained hypokalemic and has not tolerated sufficient amount of oral intake for discharge home. I did discuss the case with Dr. Bergman hospitalist on-call who will admit for further evaluation and treatment. Discharge Plan Departure Patient Disposition: Admitted as Observation Clinical Impression: Nausea and vomiting, Hypokalemia, Abdominal pain Admit Date/Time: 03/06/23 19:14 Admit Provider: Fidel Bergman
--- NOTE | 2023-03-06 08:48 | DI.RAD.S_ITS ---
PROCEDURE: XR ACUTE ABDOMEN SERIES INDICATIONS: Abdominal pain, N/V TECHNIQUE: One view chest and two views of the abdomen were acquired. COMPARISON: [facility], CR, XR CHEST 1V, 09/02/2022, 11:45. FINDINGS: Surgical changes and devices: None. Chest: Linear areas of likely scarring are stable compared to prior. No focal pulmonary consolidations. Heart size is normal. No pleural effusions. No pneumoperitoneum. Abdomen: Bowel gas pattern is normal. No suspicious calcifications. Visualized solid organ contours appear normal. Bones: No suspicious bony lesions. Left pelvic fixation hardware in place. IMPRESSION: No acute radiographic findings within the chest or abdomen. Dictated by: Davi Lucas M.D. on 03/06/2023 at 9:51 Approved by: Davi Lucas M.D. on 03/06/2023 at 9:53
[2023-03-06 09:12] LABS: Add Manual Diff / Slide Review NO; Basophils Absolute Auto 0 /uL (0-100); Basophils Percent Auto 0.2 % (0-2); Eosinophils Absolute Auto 0 /uL (0-450); Hematocrit 33.9 % (36-46); Hemoglobin 10.8 g/dL (12.0-16.0); Lymphocytes Absolute Auto 900 /uL (1100-4500); Lymphocytes Percent Auto 8.8 % (25-40); Mean Corpuscular HGB Conc 31.8 % (30-36); Mean Corpuscular Hemoglobin 24.1 PG (26-34); Mean Corpuscular Volume 75.7 fL (80-100); Monocytes Absolute Auto 600 /uL (0-900); Monocytes Percent Auto 6.6 % (3-14); Neutrophils Absolute Auto 8200 /uL (1500-7000); Neutrophils Percent Auto 84.4 % (50-75); Platelet Count 878 X10^3/uL (150-400); Red Blood Cell Count 4.48 X10^6/uL (4.0-5.2); Red Cell Distribution Width 20.5 % (11.6-14.8); White Blood Cell Count 9.7 X10^3/uL (4.5-11.0)
[2023-03-06] MEDS: SODIUM CHLORIDE 0.9% 1,000 ML 1000 ML IV ×2 (09:12→18:30)
[2023-03-06] MEDS: PANTOPRAZOLE 40 MG VIAL IV ×2 (09:12→21:55)
[2023-03-06] MEDS: ONDANSETRON 4 MG/2 ML INJ IV ×2 (09:12→21:56)
--- NOTE | 2023-03-06 09:21 | PC.NURSE ---
Patient left department with x-ray tech.
[2023-03-06 09:50] LABS: Influenza A - CEPHEID Flu A NEGATIVE (NEGATIVE); Influenza B - CEPHEID Flu B NEGATIVE (NEGATIVE); Respiratory Syncytial Virus Negative (Negative)
[2023-03-06 09:59] LABS: RBC Morphology Normal Morphology
[2023-03-06 11:03] LABS: Alanine Aminotransferase 57 IU/L (<35); Albumin 2.5 g/dL (3.5-5.0); Albumin Globulin Ratio 0.7 (1.0-2.8); Alkaline Phosphatase 206 U/L (38-126); Aspartate Aminotransferase 221 IU/L (14-36); BUN Creatinine Ratio 35.6 (6-22); Bilirubin Total 0.3 mg/dL (0.2-1.3); Blood Urea Nitrogen 16 mg/dL (7-17); Calcium 7.9 mg/dL (8.4-10.2); Carbon Dioxide 31 mmol/L (22-32); Chloride 97 mmol/L (98-107); Estimated Glomerular Filt Rate > 60 mL/min (>60); Globulin 3.8 g/dL (1.7-4.1); Glucose 100 mg/dL (80-110); HEMOLYSIS < 15 (0-50); Lipase 13 U/L (23-300); Magnesium 1.9 mg/dL (1.6-2.3); Sodium 133 mmol/L (137-145); Total Protein 6.3 g/dL (6.3-8.2)
[2023-03-06 11:26] LABS: Potassium 2.3 mmol/L (3.4-5.1)
[2023-03-06 11:37] LABS: COVID-19 CEPHEID 4-PLEX PCR Negative (Negative)
--- NOTE | 2023-03-06 11:42 | DI.CT.S_ITS ---
PROCEDURE: CT ABDOMEN PELVIS W CON INDICATIONS: N/V, abdominal pain TECHNIQUE: After the administration of intravenous contrast, axial sections acquired from the lung bases to the pubic symphysis. Coronal and sagittal reformats were performed. For radiation dose reduction, the following was used: automated exposure control, adjustment of mA and/or kV according to patient size. COMPARISON: [facility], CT, CT ABDOMEN PELVIS W CON, 09/02/2022, 13:04. FINDINGS: Image quality: Excellent. Lung bases: Emphysematous changes of the lung bases. Heart: No significant findings. ABDOMEN: Liver: Unremarkable. Gallbladder: Unremarkable. Biliary ducts: Unremarkable. Pancreas: Unremarkable. Spleen: Unremarkable. Adrenal Glands: Stable 1.4 cm right adrenal nodule. Kidneys and Ureters: Unremarkable. Stomach and Bowel: The colon is decompressed. There may be mild diffuse colon wall thickening versus decompression. Peritoneum: No abnormal intraperitoneal fluid. No free air. Ventral Wall: No hernias. Abdominal Nodes: No retroperitoneal or mesenteric adenopathy by size criteria. Vessels: Aorta and inferior vena cava are normal in size. Atherosclerotic vascular calcifications. PELVIS: Pelvic Organs: Unremarkable. Bladder: Unremarkable. Pelvic Nodes: No enlarged lymph nodes. Miscellaneous: Small free fluid within the right aspect of the pelvis with a coarse calcification measuring 9 mm. The calcification is stable compared to prior, however there is mildly increased fluid. Small presacral edema/fluid. Fluid collection within the soft tissues anterior to the pubic bone has resolved. Bones: Pelvic fixation hardware in place. Decreased osseous mineralization. Multilevel degenerative changes of the spine. IMPRESSION: 1. Mild diffuse colonic wall thickening versus decompression, recommend correlation for colitis. 2. Small fluid within the right aspect of the pelvis with a coarse calcification. The calcification is stable compared to prior, however the fluid is increased. This is of unclear etiology or clinical significance. 3. Fluid collection within the soft tissues anterior to the pubic bone has resolved. 4. Emphysematous changes of the lung bases. 5. Stable 1.4 cm indeterminate right adrenal nodule. Dictated by: Davi Lucas M.D. on 03/06/2023 at 12:20 Approved by: Davi Lucas M.D. on 03/06/2023 at 12:29
[2023-03-06] MEDS: POTASSIUM CHLORIDE IN WATER 10 MEQ/100 ML PIGGYBACK 100 MEQ IV ×5 (11:52→23:56)
[2023-03-06 11:58] LABS: Lactate (Lactic Acid) 1.6 mmol/L (0.7-2.1)
[2023-03-06] MEDS: SODIUM CHLORIDE 0.9% 1,000 ML 100 ML IV (12:13)
--- NOTE | 2023-03-06 13:47 | PC.NURSE ---
Pt became tachy in the 150's after 75ml of K-rider, gtt stopped, provider notified, EKG repeated. After about 5min of no K+, heart rate back down to low 100's, Pt now doing PO challenge, if pt able to keep fluids and crackers down will consider PO K+.
[2023-03-06] MEDS: POTASSIUM CHLORIDE 20 MEQ/15 ML UDC 40 MEQ PO (14:50)
[2023-03-06] MEDS: POTASSIUM CHLORIDE 20 MEQ TAB 40 MEQ PO (14:50)
[2023-03-06 16:47] LABS: BUN Creatinine Ratio 27.7 (6-22); Blood Urea Nitrogen 13 mg/dL (7-17); Calcium 6.8 mg/dL (8.4-10.2); Carbon Dioxide 30 mmol/L (22-32); Chloride 105 mmol/L (98-107); Estimated Glomerular Filt Rate > 60 mL/min (>60); Glucose 105 mg/dL (80-110); HEMOLYSIS < 15 (0-50); Potassium 2.9 mmol/L (3.4-5.1); Sodium 136 mmol/L (137-145)
[2023-03-06] MEDS: POTASSIUM CHLORIDE IN WATER 10 MEQ/100 ML PIGGYBACK 50 MEQ IV (18:29)
[2023-03-06] MEDS: DEXTROSE 5%-0.9% NS 1,000 ML 100 ML IV (20:44)
--- NOTE | 2023-03-06 21:01 | PM.HP.1 ---
History of Present Illness History of Present Illness Chief complaint: can't keep meds or food down/fever/D Narrative: 62F with history of hypertension, CHF, COPD, ex-smoker, Crohn's disease previously on immunomodulators presented to the ER with several days of nausea vomiting, abdominal pain and diarrhea in the last 8 months. Unable to keep up her medications down in the last several days and lost few pounds. Feels quite dehydrated, dizzy, weak and fatigues. Her abdominal pain is in the lower quadrants, waning and waxing, not relieved by bowel movement, aggravated by movement. Denies any fever, shortness of breath, chest pain, hematemesis or melena. 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 She had been chronically using opioids for 6-8 years and stopped taking them about 3 or 4 days ago as well. [facility] Medical History Colitis Symptomatic anemia Anemia C. difficile colitis Social History household members: spouse Smoking Status: Former smoker alcohol intake: current Meds Home Medications and Allergies Home Medications Medication Instructions Recorded Confirmed Type amlodipine 5 mg tablet 5 mg PO BID 11/30/20 03/06/23 History aspirin 81 mg tablet,delayed 81 mg PO DAILY 11/30/20 03/06/23 History release bupropion HCl 150 mg tablet,12 hr 150 mg PO BID 11/30/20 03/06/23 History sustained-release buspirone 5 mg tablet 5 mg PO DAILY 11/30/20 03/06/23 History metoprolol tartrate 25 mg tablet 25 mg PO DAILY 11/30/20 03/06/23 History olanzapine 5 mg tablet 5 mg PO BEDTIME 11/30/20 03/06/23 History Allergies Allergy/AdvReac Type Severity Reaction Status Date / Time No Known Drug Allergies Allergy Verified 02/05/23 09:40 Review of Systems Review of Systems ROS: Yes All systems reviewed with the patient and are negative except as otherwise documented Constitutional Constitutional: Reports as per HPI and Reports system reviewed and no additional complaints, except as documented Eyes Eyes: Reports as per HPI and Reports system reviewed and no additional complaints, except as documented ENT Ears, Nose, Mouth, and Throat: Yes as per HPI and Yes system reviewed and no additional complaints, except as documented Cardiovascular Cardiovascular: Reports system reviewed and no additional complaints, except as documented Respiratory Respiratory: Reports system reviewed and no additional complaints, except as documented Gastrointestinal Gastrointestinal: Reports system reviewed and no additional complaints, except as documented Genitourinary Genitourinary: Reports system reviewed and no additional complaints, except as documented Musculoskeletal Musculoskeletal: Reports system reviewed and no additional complaints, except as documented, Reports abnormal gait and Reports numbness Neurologic Neurologic: Reports system reviewed and no additional complaints, except as documented, Reports abnormal gait, Reports confusion and Reports numbness Psychiatric Psychiatric: Reports system reviewed and no additional complaints, except as documented and Reports confusion Exam Vital Signs (past 8 hours): - 03/06/23 13:30 03/06/23 13:30 03/06/23 14:00 Temperature Pulse Rate 106 H Respiratory Rate 15 Blood Pressure 150/88 H 146/88 H Pulse Oximetry 96 Oxygen Flow Rate 03/06/23 14:00 03/06/23 14:30 03/06/23 14:30 Temperature Pulse Rate 108 H 108 H Respiratory Rate 13 13 Blood Pressure 134/79 Pulse Oximetry 95 96 Oxygen Flow Rate 03/06/23 15:00 03/06/23 15:00 03/06/23 15:30 Temperature Pulse Rate 110 H Respiratory Rate 17 Blood Pressure 116/84 166/81 H Pulse Oximetry 96 Oxygen Flow Rate 03/06/23 15:30 03/06/23 16:00 03/06/23 16:00 Temperature Pulse Rate 108 H 104 H Respiratory Rate 14 12 Blood Pressure 150/84 H Pulse Oximetry 97 97 Oxygen Flow Rate 03/06/23 16:30 03/06/23 16:30 03/06/23 17:00 Temperature Pulse Rate 108 H Respiratory Rate 19 Blood Pressure 132/76 151/92 H Pulse Oximetry 96 Oxygen Flow Rate 03/06/23 17:00 03/06/23 17:30 03/06/23 17:30 Temperature Pulse Rate 106 H 109 H Respiratory Rate 17 18 Blood Pressure 151/83 H Pulse Oximetry 97 95 Oxygen Flow Rate 03/06/23 18:00 03/06/23 18:00 03/06/23 18:30 Temperature Pulse Rate 109 H 108 H Respiratory Rate 15 13 Blood Pressure 152/76 H Pulse Oximetry 95 96 Oxygen Flow Rate 03/06/23 18:30 03/06/23 19:00 03/06/23 19:00 Temperature Pulse Rate 103 H Respiratory Rate 14 Blood Pressure 124/88 167/86 H Pulse Oximetry 97 Oxygen Flow Rate 03/06/23 19:30 03/06/23 19:30 03/06/23 20:10 Temperature 97.8 F Pulse Rate 105 H 111 H Respiratory Rate 23 18 Blood Pressure 129/88 140/84 Pulse Oximetry 96 97 Oxygen Flow Rate 3 Oxygen Delivery Method Nasal Cannula Oxygen Flow Rate 3 Const General: cooperative, comfortable and well developed Orientation: alert and oriented x3 [facility] Head: normal to inspection, normocephalic and atraumatic Face and sinus: normal facial exam Mouth: oral mucosae normal and moist mucous membranes Throat: posterior oropharynx normal Eyes General: appearance normal, both eyes and all related structures Pupils: PERRL EOM: EOM intact bilaterally Neck Neck: normal visual inspection and full ROM Chest Chest: normal inspection of the chest Resp Effort & Inspection: normal respiratory effort and able to speak in complete sentences Auscultation: clear to auscultation bilaterally Cardio Palpation: normal PMI Rate: regular rate Rhythm: regular rhythm Heart Sounds: S1 normal and S2 normal GI Inspection: normal to inspection Palpation: soft and no hepatosplenomegaly Auscultation: normal bowel sounds Skin General: no rashes or lesions noted Lesions: no lesions Rashes: no rashes Trauma: no lacerations or abrasions Neuro General: patient alert, patient awake, patient oriented x3 and no focal motor deficits Cranial Nerves: CN's II-XI intact bilaterally Cognition: normal cognition Speech: speech normal Gait: normal gait Motor: muscle tone normal throughout Sensory Exam: no sensory deficits noted Extrem General: full ROM and no calf tenderness Psych Appearance: grossly normal Mental Status: mental status grossly normal Speech and Movement: speech and movement normal Objective Labs 03/06/23 09:00 03/06/23 16:22 Labs: Laboratory Results - last 24 hr 03/06/23 03/06/23 03/06/23 09:00 09:10 16:22 WBC 9.7 RBC 4.48 Hgb 10.8 L Hct 33.9 L MCV 75.7 L MCH 24.1 L MCHC 31.8 RDW 20.5 H Plt Count 878 H Neut % (Auto) 84.4 H Lymph % (Auto) 8.8 L [place] % (Auto) 6.6 Eos % (Auto) 0.0 L Baso % (Auto) 0.2 Neut # (Auto) 8200 H Lymph # (Auto) 900 L [place] # (Auto) 600 Eos # (Auto) 0 Baso # (Auto) 0 Platelet Estimate RBC Morphology Normal morphology Sodium 133 L 136 L Potassium 2.3 L* 2.9 L Chloride 97 L 105 Carbon Dioxide 31 30 BUN 16 13 Creatinine 0.45 L 0.47 L Estimated GFR > 60 > 60 BUN/Creatinine Ratio 35.6 H 27.7 H Glucose 100 105 Lactate 1.6 Calcium 7.9 L 6.8 L Magnesium 1.9 Total Bilirubin 0.3 AST 221 H ALT 57 H Alkaline Phosphatase 206 H Total Protein 6.3 Albumin 2.5 L Globulin 3.8 Albumin/Globulin Ratio 0.7 L Lipase 13 L SARS-CoV-2 (PCR) Negative Influenza A (RT-PCR) Flu a negative Influenza B (RT-PCR) Flu b negative RSV (PCR) Negative Assessment & Plan Assessment and plan (1) Hypokalemia: Status: Acute Plan: Replace and monitor Daily BMP Telemetry Send ionized calcium and replace accordingly (2) Nausea and vomiting: Status: Acute Plan: Antiemetics as needed IV fluids Start liquid diet and advance as tolerated Check for C. difficile infection Consider gastroenterology consult for possible Crohn's flare in the morning (3) Dehydration: Status: Acute Plan: IV fluids (4) Hypertension: Status: Acute Plan: Restart her amlodipine and metoprolol Monitor her blood pressure closely Avoid hypotension (5) CHF (congestive heart failure): Status: Acute Plan: Restart metoprolol and aspirin (6) COPD (chronic obstructive pulmonary disease): Status: Acute Plan: Albuterol as needed Time Spent With Patient Time with patient: 50 to 69 minutes with 50% spent counseling/coordinating care Quality VTE Deep Vein Thrombosis/Pulmonary Embolism Present on Admission: No MIPS - Admit I confirm the patient?s Advance Care Plan is present, Code status is documented, Surrogate decision maker is in patient?s record [If Yes, STOP here]: Yes MIPS - Meds 'Current medications' to include all prescriptions, [id number] products, herbals, cannabis/cannabidiol products, and vitamin/mineral/dietary (nutritional) supplements. I have utilized all available resources to obtain, update, or review the patient?s current medications. [If Yes, STOP here]: Yes
[2023-03-06] MEDS: buPROPion SR 150 MG TAB PO (21:55)
[2023-03-06] MEDS: OLANZapine 2.5 MG TABLET 5 MG PO (21:55)
[2023-03-06] MEDS: TRAZODONE 50 MG TABLET 100 MG PO (21:56)
[2023-03-06] MEDS: AMLODIPINE 5 MG TABLET PO (21:56)
[2023-03-06] MEDS: ACETAMINOPHEN 325 MG TABLET 650 MG PO (21:56)
--- NOTE | 2023-03-06 23:34 | PC.WOUNDPHOT ---
^ 2 open areas in between buttocks, unclear if d/t pressure or excoriation from fecal & urinary incontinence ^ R hip
--- NOTE | 2023-03-07 00:36 | PC.ADMIT ---
[email or web address] [email or web address] Admission Note: The patient,Jasmin Swan,62 y/o, was given written information regarding hospital policies, unit procedures and contact persons. Patient's smoking status: Former smoker. Vital Signs - 8 hr 03/06/23 17:00 03/06/23 17:00 03/06/23 17:30 Temperature Pulse Rate 106 H Respiratory Rate 17 Blood Pressure 151/92 H 151/83 H Pulse Oximetry 97 Oxygen Delivery Method Oxygen Flow Rate 03/06/23 17:30 03/06/23 18:00 03/06/23 18:00 Temperature Pulse Rate 109 H 109 H Respiratory Rate 18 15 Blood Pressure 152/76 H Pulse Oximetry 95 95 Oxygen Delivery Method Oxygen Flow Rate 03/06/23 18:30 03/06/23 18:30 03/06/23 19:00 Temperature Pulse Rate 108 H Respiratory Rate 13 Blood Pressure 124/88 167/86 H Pulse Oximetry 96 Oxygen Delivery Method Oxygen Flow Rate 03/06/23 19:00 03/06/23 19:30 03/06/23 19:30 Temperature Pulse Rate 103 H 105 H Respiratory Rate 14 23 Blood Pressure 129/88 Pulse Oximetry 97 96 Oxygen Delivery Method Oxygen Flow Rate 03/06/23 20:10 03/06/23 20:10 Temperature 97.8 F Pulse Rate 111 H Respiratory Rate 18 Blood Pressure 140/84 Pulse Oximetry 97 Oxygen Delivery Method Nasal Cannula Oxygen Flow Rate 3 Patient arrived onto the floor from ED @ approximately 2009. Patient is AxOx4, tachycardic (111), BP elevated (140/84), O2 sats were 81% on RA, placed back on 1L NC and O2 sats went back up to 96%. Patient denies SOB, chest pain, has mild nausea, and mild headache. Medications given as ordered w/ good effect. IV Potassium infusing. Patient has redness and excoriation all over gi-area and coccyx, with 2 open areas in between buttocks and 1 open area in between legs. Patient states that she is incontinent w/ urine and stool. Barrier cream applied, brief changed, Q2 turns in place. Patient is resting comfortably in bed, fall precautions in place, educated use of call-light, patient verbalized understanding.
[2023-03-07 01:47] VITALS: BP 120/72; PULSE 111; RESP 16; TEMP 36.2; O2SAT 91
[2023-03-07 05:03] VITALS: BP 106/70; PULSE 64; RESP 16; TEMP 35.8; O2SAT 100
[2023-03-07] MEDS: DEXTROSE 5%-0.9% NS 1,000 ML 100 ML IV (06:32)
[2023-03-07 06:54] LABS: Clostridium Difficile Tox PCR Negative for C. diff (Negative)
[2023-03-07 06:57] LABS: Appearance Urine UA CLEAR; Bilirubin Urine UA NEGATIVE (NEGATIVE); Color Urine UA YELLOW; Glucose Urine UA NEGATIVE (Negative); Ketones Urine UA NEGATIVE (NEGATIVE); Leukocyte Esterase Urine UA 2+ (NEGATIVE); Nitrite Urine UA NEGATIVE (Negative); Occult Blood Urine UA 3+ (Negative); Protein Urine UA TRACE (Negative); Specific Gravity Urine UA 1.015 (1.000-1.035); Urobilinogen Urine UA 0.2 E.U./dL (0.2)
[2023-03-07 07:15] LABS: pH Urine UA 6.5 (4.5-8.0)
[2023-03-07 07:41] LABS: Bacteria Urine Moderate (10-30); RBC Urine >100/HPF (0-5/HPF); WBC Urine >100/HPF (0-5/HPF)
[2023-03-07 07:42] LABS: Squamous Epithelial Cell Urine None Seen (0-5/HPF)
[2023-03-07 07:43] LABS: Culture Indicated Urine Specimen Cultured
[2023-03-07 09:00] VITALS: BP 120/66; PULSE 108; RESP 16; TEMP 36.6; O2SAT 96
[2023-03-07] MEDS: AMLODIPINE 5 MG TABLET PO ×2 (09:02→20:48)
[2023-03-07] MEDS: BUSPIRONE 5 MG TABLET PO (09:02)
[2023-03-07] MEDS: buPROPion SR 150 MG TAB PO ×2 (09:02→20:48)
[2023-03-07] MEDS: METOPROLOL IR 25 MG TABLET PO (09:03)
[2023-03-07] MEDS: PANTOPRAZOLE 40 MG VIAL IV ×2 (09:03→20:48)
[2023-03-07] MEDS: ONDANSETRON 4 MG/2 ML INJ IV ×3 (09:03→16:47)
[2023-03-07] MEDS: ASPIRIN EC 81 MG TABLET PO (09:07)
[2023-03-07 09:08] VITALS: BP 129/75; PULSE 111; O2SAT 97
[2023-03-07] MEDS: cefTRIAXone 1,000 MG in SODIUM CHLORIDE 0.9% 100 ML 200 MG IV (09:35)
[2023-03-07 10:47] LABS: BUN Creatinine Ratio 22.7 (6-22); Blood Urea Nitrogen 10 mg/dL (7-17); Calcium 7.2 mg/dL (8.4-10.2); Carbon Dioxide 25 mmol/L (22-32); Chloride 110 mmol/L (98-107); Estimated Glomerular Filt Rate > 60 mL/min (>60); Glucose 207 mg/dL (80-110); HEMOLYSIS < 15 (0-50); Potassium 3.6 mmol/L (3.4-5.1); Sodium 139 mmol/L (137-145)
[2023-03-07 14:51] VITALS: BP 118/66; PULSE 89; RESP 16; TEMP 36.4; O2SAT 90
--- NOTE | 2023-03-07 15:16 | P.PN_ITS ---
Subjective Subjective Interval history: 62F with history of hypertension, CHFpEF, COPD, ex-smoker, Crohn's disease previously on immunomodulators presented to the ER with several days of nausea vomiting, abdominal pain and diarrhea in the last 8 months. Reports about 8 episodes of diarrhea daily, occasionally bloody. She has had a few days of nausea and vomiting as well. UA was grossly positive, added ceftriaxone today. C. diff testing was negative. Exam Vital Signs (past 8 hours): - 03/07/23 08:00 03/07/23 09:00 03/07/23 09:08 Temperature 97.8 F Pulse Rate 108 H 111 H Respiratory Rate 16 Blood Pressure 120/66 129/75 Pulse Oximetry 96 97 Oxygen Delivery Method Nasal Cannula Oxygen Flow Rate 2 2 03/07/23 11:00 03/07/23 14:51 Temperature 97.5 F L Pulse Rate 89 Respiratory Rate 16 Blood Pressure 118/66 Pulse Oximetry 90 L Oxygen Delivery Method Room Air Nasal Cannula Oxygen Flow Rate 0 Oxygen Delivery Method Room Air,Nasal Cannula Oxygen Flow Rate 0 Narrative Exam Narrative: Gen: ill appearing female, pale, mildly lethargic CV: RRR no m/r/g Ext: 1-2+ edema bilateral LE Abd: Soft non-distended, b/l lower quadrant mild tenderness Neuro: alert, no focal deficits. Objective Labs 03/06/23 09:00 03/07/23 09:00 Labs: Laboratory Results - last 24 hr 03/06/23 03/07/23 03/07/23 16:22 05:40 06:34 Sodium 136 L Potassium 2.9 L Chloride 105 Carbon Dioxide 30 BUN 13 Creatinine 0.47 L Estimated GFR > 60 BUN/Creatinine Ratio 27.7 H Glucose 105 Calcium 6.8 L Urine Color Yellow Urine Appearance Clear Urine pH 6.5 Ur Specific [place] 1.015 Urine Protein Trace H Urine Glucose (UA) Negative Urine Ketones Negative Urine Occult Blood 3+ H Urine Nitrate Negative Urine Bilirubin Negative Urine Urobilinogen 0.2 Ur Leukocyte Esterase 2+ H Urine RBC >100/hpf H Urine WBC >100/hpf H Ur Squamous Epith Cells None seen Urine Bacteria Moderate (10-30) H Ur Culture Indicated? Specimen cultured C. difficile Tox (PCR) Negative for c. diff 03/07/23 09:00 Sodium 139 Potassium 3.6 Chloride 110 H Carbon Dioxide 25 BUN 10 Creatinine 0.44 L Estimated GFR > 60 BUN/Creatinine Ratio 22.7 H Glucose 207 H D Calcium 7.2 L Urine Color Urine Appearance Urine pH Ur Specific [place] Urine Protein Urine Glucose (UA) Urine Ketones Urine Occult Blood Urine Nitrate Urine Bilirubin Urine Urobilinogen Ur Leukocyte Esterase Urine RBC Urine WBC Ur Squamous Epith Cells Urine Bacteria Ur Culture Indicated? C. difficile Tox (PCR) [facility] Medical History Colitis Symptomatic anemia Anemia C. difficile colitis Social History household members: spouse Smoking Status: Former smoker alcohol intake: current Assessment & Plan Assessment & Plan narrative: 1) acute cystitis with hematuria - started ceftriaxone 1g q24 hr, UA with >100 WBC and RBC. Possible n/v are related to acute cystitis 2) Possible crohn's flare - c. diff testing negative. has recent complex treatment for C. diff with 2 months of antibiotics. - previously on immunomodulator therapy, did discuss with [facility] GI physician substation designer. Recommended for treatment with steroids. Can add flagyl too if concern for possible infectious etiologies. Will do so for now. 3) HTN - BP normotensive today on home medications so will continue amlodipine and metoprolol 4) CHFpEF - stop additional IV fluids today. Consider diuresis depending on progress 5) COPD (chronic obstructive pulmonary disease) without exacerbation but with possible chronic hypoxic respiratory failure - albuterol prn - patient and spouse report possible need for home oxygen. Will see oxygenation requirements after 6. Hypokalemia, acute, present on admission - secondary to GI losses. Improved with repletion. - continue antiemetic therapy with zofran 7. Hyperglycemia - check A1c, Glucose 207 on AM labs but on D5 infusion. Code: Full, surrogate is patient's spouse. DVT: hold given reports of bloody diarrhea for now, restart tomorrow if h/h stable. Quality VTE Deep Vein Thrombosis/Pulmonary Embolism Present on Admission: No
--- NOTE | 2023-03-07 15:40 | CM.DANOTE ---
DCP Assessment Note: Patient is a 62yo F here following COPD/CHF/hypertension/hypokalemia/nausea and vomiting/dehydration/Crohn's disease. PCP Chet Staples and [place] BUSINESS TEAM LEADER reviewed EMR. Per provider, it is unclear at this time patient's medical d/c needs. d/c planning needs will continue to unfold with time. BUSINESS TEAM LEADER entered room and introduced self and role. Patient accompanied by spouse at bedside. Primary participant in d/c planning conversation was spouse Meseret ([phone]) as patient reported that she felt too weak to talk much but was nodding in agreement at spouses report. Patient and spouse live on [place] with their dog. Patient has a hx of hip fracture in Feb 13. It has been infected since? Has been unable to walk and has been working on trying to get back to where she was at baseline before break. Patient was told to not take her Crohn's disease medicine due to it's interaction with her antibiotic? Has been off it for about a year. DME: wheelchair, walkersx2, shower seat, grab bars, and o2. Patient spouse inquired about eval for portable o2. BUSINESS TEAM LEADER updated RN about respiratory concerns, she reported she would inquire about it to provider. Patient reports she has a GI appt this Thursday. Patient reports they did not tell her how long she would be here for. Plan: pending results and medical treatment plan. Likely home with spouse to transport when stable. CM team will continue to follow closely for needs. LYNN Tam Discharge Planning/Care Management CM Discharge Assessment Start: 03/07/23 15:37 Freq: Status: Active Protocol: Document 03/07/23 15:37 (Rec: 03/07/23 15:40 [id number]) Discharge Planning Assessment Assigned Physician Compensation Analyst LYNN Palacio DPOA/Assigned Designee Name Meseret Swan (spouse) Contact Information [phone] Advance Directives? No History Provided By Patient,Medical Record Prior Living Arrangements House Household Members spouse Type of transporation used prior to Relies on Others admit Independent with ADL's No Is patient alert and oriented? Yes Needs Assistance With Grooming,Meal Prep,Managing Medications,Home Chores / Shopping DME Already Rented / Owned Bath Bench,Wheelchair,FWW / Walker,Oxygen,Crutches Comment has O2 at home but inquired about new eval for a portable oxygen tank Discharge Plan Home Transportation Arrangement likely spouse in POV Whiteboard Updated in Patient Room with Yes name and ext. # of Physician Compensation Analyst Review Status In Process Next Review Type Continued Stay Review
[2023-03-07] MEDS: predniSONE 20 MG TABLET 40 MG PO (16:45)
[2023-03-07] MEDS: metroNIDAZOLE 500 MG/100 ML PIGGYBACK 100 MG IV ×2 (16:46→23:36)
[2023-03-07] MEDS: ACETAMINOPHEN 325 MG TABLET 650 MG PO (16:47)
--- NOTE | 2023-03-07 17:24 | PC.NURSE ---
Pt A&Ox4; on intermittent 1L O2 NC when sustained SpO2 <90%/RA, (satting 88-92% RA, 94-97% 1L NC throughout shift). SpO2 goal sustained >=90%, per Dr. De León. Incontinent of urine and stool: liquid/loose red stools with green/mucus streaks x5. Perianal area, between buttocks, and upper inner thighs macerated and sore, zinc barrier cream continuously reapplied at patient repositioned with each linen change. Clear liquid diet tolerated well, general diet at dinner. Left hip/leg pain managed with Tylenol.
[2023-03-07 20:17] VITALS: BP 130/78; PULSE 92; RESP 16; TEMP 36.4; O2SAT 94
[2023-03-07] MEDS: TRAZODONE 50 MG TABLET 100 MG PO (20:48)
[2023-03-07] MEDS: OLANZapine 2.5 MG TABLET 5 MG PO (20:48)
[2023-03-07] MEDS: SODIUM CHLORIDE 0.9% FLUSH 10 ML IV (20:48)
[2023-03-08] VITALS (7 sets, daily range): BP systolic 107–133; BP diastolic 70–81; PULSE 90–101; RESP 16–18; TEMP 36.1–36.6; O2SAT 93–95
[2023-03-08 05:29] LABS: Add Manual Diff / Slide Review NO; Basophils Absolute Auto 0 /uL (0-100); Basophils Percent Auto 0.1 % (0-2); Eosinophils Absolute Auto 0 /uL (0-450); Hematocrit 31.6 % (36-46); Hemoglobin 9.8 g/dL (12.0-16.0); Lymphocytes Absolute Auto 800 /uL (1100-4500); Lymphocytes Percent Auto 11.9 % (25-40); Mean Corpuscular HGB Conc 31.2 % (30-36); Mean Corpuscular Volume 76.9 fL (80-100); Monocytes Absolute Auto 200 /uL (0-900); Monocytes Percent Auto 2.6 % (3-14); Neutrophils Absolute Auto 5600 /uL (1500-7000); Neutrophils Percent Auto 85.4 % (50-75); Platelet Count 666 X10^3/uL (150-400); Red Cell Distribution Width 21.4 % (11.6-14.8); White Blood Cell Count 6.5 X10^3/uL (4.5-11.0)
[2023-03-08 05:36] LABS: Hemoglobin A1C% w Est Avg Glu 5.4 % (4.0-6.0)
[2023-03-08 05:38] LABS: Alanine Aminotransferase 32 IU/L (<35); Albumin Globulin Ratio 0.6 (1.0-2.8); Alkaline Phosphatase 161 U/L (38-126); Aspartate Aminotransferase 37 IU/L (14-36); BUN Creatinine Ratio 19.5 (6-22); Bilirubin Total 0.1 mg/dL (0.2-1.3); Blood Urea Nitrogen 8 mg/dL (7-17); Carbon Dioxide 27 mmol/L (22-32); Chloride 107 mmol/L (98-107); Estimated Glomerular Filt Rate > 60 mL/min (>60); Globulin 3.1 g/dL (1.7-4.1); Glucose 131 mg/dL (80-110); HEMOLYSIS < 15 (0-50); Magnesium 1.8 mg/dL (1.6-2.3); Potassium 3.2 mmol/L (3.4-5.1); Sodium 140 mmol/L (137-145); Total Protein 5.1 g/dL (6.3-8.2)
[2023-03-08 05:56] LABS: Anisocytosis 1+; Target Cells 1+
[2023-03-08] MEDS: ONDANSETRON 4 MG/2 ML INJ IV ×2 (07:45→21:16)
[2023-03-08] MEDS: metroNIDAZOLE 500 MG/100 ML PIGGYBACK 100 MG IV ×2 (07:46→15:37)
[2023-03-08] MEDS: BUSPIRONE 5 MG TABLET PO (09:19)
[2023-03-08] MEDS: predniSONE 20 MG TABLET 40 MG PO (09:19)
[2023-03-08] MEDS: METOPROLOL IR 25 MG TABLET PO (09:19)
[2023-03-08] MEDS: buPROPion SR 150 MG TAB PO ×2 (09:20→20:19)
[2023-03-08] MEDS: cefTRIAXone 1,000 MG in SODIUM CHLORIDE 0.9% 100 ML 200 MG IV (09:21)
[2023-03-08] MEDS: PANTOPRAZOLE 40 MG VIAL IV ×2 (09:21→20:19)
[2023-03-08] MEDS: POTASSIUM CHLORIDE 20 MEQ TAB 40 MEQ PO ×2 (10:03→13:36)
[2023-03-08] MEDS: SODIUM CHLORIDE 0.9% FLUSH 10 ML IV ×2 (10:04→20:19)
--- NOTE | 2023-03-08 10:32 | P.PN_ITS ---
Subjective Subjective Interval history: 62F with history of hypertension, CHFpEF, COPD, ex-smoker, Crohn's disease previously on immunomodulators presented to the ER with several days of nausea vomiting, abdominal pain and diarrhea in the last 8 months. Admitted with possible UTI and crohn's flare in the setting of holding medications due to months long treatment for C. diff. She reports mild improvement today. Still with b/l LQ abdominal pain. Exam Vital Signs (past 8 hours): - 03/08/23 05:02 03/08/23 07:00 03/08/23 08:03 Temperature 97.3 F L 97.0 F L Pulse Rate 94 H 101 H Respiratory Rate 17 16 Blood Pressure 122/75 107/76 Pulse Oximetry 93 93 Oxygen Delivery Method Nasal Cannula Oxygen Flow Rate 1 Oxygen Delivery Method Nasal Cannula Oxygen Flow Rate 1 Narrative Exam Narrative: Gen: ill appearing female, pale, mildly lethargic CV: RRR no m/r/g Ext: 1-2+ edema bilateral LE Abd: Soft non-distended, b/l lower quadrant mild tenderness Neuro: alert, no focal deficits. Objective Labs 03/08/23 04:45 03/08/23 04:45 Labs: Laboratory Results - last 24 hr 03/07/23 03/08/23 09:00 04:45 WBC 6.5 RBC 4.10 Hgb 9.8 L Hct 31.6 L MCV 76.9 L MCH 24.0 L MCHC 31.2 RDW 21.4 H Plt Count 666 H Neut % (Auto) 85.4 H Lymph % (Auto) 11.9 L [place] % (Auto) 2.6 L Eos % (Auto) 0.0 L Baso % (Auto) 0.1 Neut # (Auto) 5600 Lymph # (Auto) 800 L [place] # (Auto) 200 Eos # (Auto) 0 Baso # (Auto) 0 RBC Morphology See below Anisocytosis 1+ H Target Cells 1+ H Sodium 139 140 Potassium 3.6 3.2 L Chloride 110 H 107 Carbon Dioxide 25 27 BUN 10 8 Creatinine 0.44 L 0.41 L Estimated GFR > 60 > 60 BUN/Creatinine Ratio 22.7 H 19.5 Glucose 207 H D 131 H Hemoglobin A1c 5.4 Calcium 7.2 L 7.0 L Magnesium 1.8 Total Bilirubin 0.1 L AST 37 H ALT 32 Alkaline Phosphatase 161 H Total Protein 5.1 L Albumin 2.0 L Globulin 3.1 Albumin/Globulin Ratio 0.6 L PFSH Medical History Colitis Symptomatic anemia Anemia C. difficile colitis Social History household members: spouse Smoking Status: Former smoker alcohol intake: current Assessment & Plan Assessment & Plan narrative: 1) acute cystitis with hematuria - started ceftriaxone 1g q24 hr, UA with >100 WBC and RBC. Possible n/v are related to acute cystitis. Cultures with 2x GNB. 2) Possible crohn's flare - c. diff testing negative. has recent complex treatment for C. diff with 2 months of antibiotics. - previously on immunomodulator therapy, did discuss with [facility] GI physician unified communications engineer. Recommended for treatment with steroids. Can add flagyl too if concern for possible infectious etiologies. Will do so for now. 3) HTN - BP normotensive today on home medications so will continue amlodipine and metoprolol 4) CHFpEF - stoped additional IV fluids, some improvement in LE edema today will not additionally diurese for now. Continue to reassess. 5) COPD (chronic obstructive pulmonary disease) without exacerbation but with possible chronic hypoxic respiratory failure - albuterol prn - patient and spouse report possible need for home oxygen. Will see oxygenation requirements after above therapies prior to discharge home. - currently on 1L O2, seems to be self diuresing, no wheezing, will continue to monitor than aggressively treat. 6. Hypokalemia, acute, present on admission - secondary to GI losses. Improved with repletion. - continue antiemetic therapy with zofran 7. Hyperglycemia. resolved - checked A1c which was 5.4%, Glucose 207 on AM labs but on D5 infusion at the time. Code: Full, surrogate is patient's spouse. DVT: ordered Lovenox Dispo: likely ready in 1-2 days, ordered PT/OT today to see if SNF required. Quality VTE Deep Vein Thrombosis/Pulmonary Embolism Present on Admission: No
[2023-03-08] MEDS: METOCLOPRAMIDE 10 MG/2 ML INJ IV ×2 (11:23→19:28)
--- NOTE | 2023-03-08 13:27 | CM.DPC ---
Addendum entered by Di Atkinson R.N. 03/08/23 14:41: It is not clear if [facility] will accept patient's insurance, since it is a managed Medicaid plan, will need to follow up tomorrow before any referrals are sent. There is a possibility that [facility] may potentially obtain a one time agreement with patient's insurance, but not yet confirmed. Original Note: DCP Cont: Met with patient and spouse, Meseret, at bedside. Patient is on oxygen, had worked with P.T, notes pending. Confirmed that she resides on [place] with spouse. Spouse concerned if he can manage if she continues with loose stools. Mentioned long-term, but he indicated that patient now has Medicaid. He gave this [employer] Approver patient's insurance cards, copied them. One is [employer], secondary is Medicaid. Placed in folder for scanning, and updated Admission change group. Let him and patient know that the challenge to long-term, if she needs it, is insurance, may be challenging to find a facility that accepts this managed Medicaid, only possible option could be [facility]. Spouse is prepared to take her home, but stools are her barrier. She is being treated here at the hospital for this. Other option is [facility], can also consider this. Patient indicated, she did not do well with therapy due to her nausea. P: DCP to continue to follow. She will continue to work with P.T. Confirmed that patient 'does have limited mobility at her baseline, has a wheel-chair. May also need home oxygen. Plan most likely will be home, can consider [facility]. Di Atkinson RN/Vocational Counselor
[2023-03-08] MEDS: ACETAMINOPHEN 325 MG TABLET 650 MG PO (13:35)
[2023-03-08] MEDS: ONDANSETRON 4 MG ODT PO ×2 (13:35→17:30)
--- NOTE | 2023-03-08 15:03 | PT.IIE ---
Current Diagnoses Dehydration (03/06/23) Hypokalemia (03/06/23) Essential (primary) hypertension (03/06/23) Heart failure, unspecified (03/06/23) Chronic obstructive pulmonary disease, unspecified (03/06/23) Nausea with vomiting, unspecified (03/06/23) Medical History (Last Reviewed 03/06/23 @ 21:09 by Fidel Bergman MD) Anemia C. difficile colitis Colitis Symptomatic anemia Physical Therapy Inpatient Evaluation/Re-Eval M1 PT/OT-IP Prior Functional Status Start: 03/08/23 14:29 Freq: NEEDED Status: Active Protocol: Document 03/08/23 14:30 AMB (Rec: 03/08/23 15:02 AMB [id number]) Medical Review Prior Functional Status Mobility and Gait Prior to 2 months ago, pt could walk in the community. Then had C-diff infection with multiple hospital stays and lots of IV antibiotics and has been using a wheelchair, spending most of her time in bed since that time. Lives with her on [place]. Social History Household Members spouse Living Arrangements House Number of Floors (Floors) One Floor Home Environment Walk in Shower Home Equipment Front Wheel Walker,Manual Wheelchair,Shower Seat with Backrest Employment Status Retired Additional Social History Comment lives on [place] with M2 PT-IP Current Condition Start: 03/08/23 14:29 Freq: NEEDED Status: Active Protocol: Document 03/08/23 14:30 AMB (Rec: 03/08/23 15:02 AMB [id number]) Physical Therapy Current Condition Current Condition Evaluation Date 03/08/23 Treatment Diagnosis Crohn's flare, reduced mobility Onset Date 03/06/23 M3 PT-IP Subjective Start: 03/08/23 14:29 Freq: NEEDED Status: Active Protocol: Document 03/08/23 14:30 AMB (Rec: 03/08/23 15:02 AMB [id number]) Subjective Physical Therapy Visit Type Type Initial Evaluation Visit Start Time 11:15 Visit Stop Time 12:00 Total Visit Minutes 45 Physical Therapy Visit Comments Patient Comments Pt with significant nausea, went into pt room first at 10: 30 to get history but pt declined treatment at that time. Came back in after nurse gave IV meds for nausea. Therapy Pain Assessment Pain When Pain Assessed At Rest M4 PT-IP Mobility and Gait Start: 03/08/23 14:29 Freq: NEEDED Status: Active Protocol: Document 03/08/23 14:30 AMB (Rec: 03/08/23 15:02 AMB [id number]) PT-Bed Mobility Assessment Rolling Level of Assist Moderate Assistance,2 Person Assistance Supine to Sit Supine to Sit Moderate Assistance,1 Person Assistance,Head of Bed Elevated,Bedrails Sit to Supine Sit to Supine Moderate Assistance,2 Person Assistance,Head of Bed Elevated,Bedrails PT-Transfer Assessment Comments Mobility Comments Jasmin was able to roll and scoot in bed with ModA with RN and PT. She was sitting up somewhat on the side of the bed but asked to lay back down as it was just too much. She states she will try again tomorrow. M5 PT-IP Objective Assessments Start: 03/08/23 14:29 Freq: NEEDED Status: Active Protocol: Document 03/08/23 14:30 AMB (Rec: 03/08/23 15:02 AMB [id number]) Orientation Orientation/Cognition Level of Alertness Alert Gross Range of Motion Lower Extremity ROM Assessment Bilaterally Impaired Impairments ankles barely dorsiflex to neutral Strength Lower Extremity Strength Assessment Bilaterally Impaired Hip 2 Knee 3 Ankle 3 Comments Strength Comments Jasmin has been practically bed bound for the past 2 months and has a difficult time moving her legs in the bed to perform bed mobility. M6 PT-IP Treatment Start: 03/08/23 14:29 Freq: NEEDED Status: Active Protocol: Document 03/08/23 14:30 AMB (Rec: 03/08/23 15:02 AMB [id number]) Physical Therapy Treatment Exercises Exercises Ankle Pumps,Gluteal Sets,Quad Sets,Heel Slides,Short Arc Quads Other Treatments Other Treatment Performed Discussed bed exercises, short duration multiple times per day for now M7 PT-IP Assessment and Plan Start: 03/08/23 14:29 Freq: NEEDED Status: Active Protocol: Document 03/08/23 14:30 AMB (Rec: 03/08/23 15:02 AMB [id number]) PT Summary Assessment and Plan Potential Rehabilitation Potential Good Status of Condition at Evaluation Evolving Summary Impairments Pain,ROM,Strength,Balance,Bed Mobility,Gait,Activity Tolerance Assessment Summary Jasmin was previously corina to ambulate but had C-diff for the past two months in the context of chronic Crohn's. She is now assessed as having a Crohn's flare. She does have some skin breakdown as she has been incontinent. She has been mostly bed bound and has significant weakness in her core and LE, to the point that she was not able to get out of bed with PT today ( compounded by her nausea). If her weakness continues she would very much benefit from SNF stay to get her closer to her (2 months ago) PLOF of being able to walk in the community. We do realize this may be a challenge with her insurance and her observation status, but considering she went from walking to being bed bound in 2 months it would be worth it. Goals Bed Mobility Goal Contact Guard Assistance Transfer Goal Contact Guard Assistance Gait Goal Contact Guard Assistance Gait Distance 100 Days to Meet Goals 7 Frequency of Treatment Frequency Of Treatment Once a Day Treatment Plan Physical Therapy Treatment Plan Bed Mobility Training,Transfer Training,Gait Training, Therapeutic Exercise,Balance Retraining,Neuromuscular Re-ed Recommendations To Nursing Amount of Assist Needed 2 Person Assist Discharge Recommendations PT Discharge Recommendations SNF Rehab Transportation Needs at Discharge Wheelchair/Cabulance
--- NOTE | 2023-03-08 16:59 | PC.NURSE ---
Day shift: Pt's skin in groin area continues to be red, raw and very tender with 2 pencil eraser-sized open wounds on buttocks. Changed and turned patient every 2 hours - patient is incontinent of urine and stool. Patient continues to have green-tinged diarrhea with each brief change. Notified MD De León of skin condition on R hip and periarea. MD De León said no rectal tube due to patient's fragile colon and risk of perforation. Continued to change patient every 2 hours and apply barrier cream with powder. Pt continues to have nausea that is reduced with reglan and zofran. No emesis. Will continue to monitor.
[2023-03-08] MEDS: AMLODIPINE 5 MG TABLET PO (20:19)
[2023-03-08] MEDS: OLANZapine 2.5 MG TABLET 5 MG PO (20:19)
[2023-03-08] MEDS: TRAZODONE 50 MG TABLET 100 MG PO (20:19)
[2023-03-09] VITALS (7 sets, daily range): BP systolic 104–134; BP diastolic 63–85; PULSE 93–114; RESP 16–23; TEMP 36.1–36.7; O2SAT 91–95
[2023-03-09] MEDS: metroNIDAZOLE 500 MG/100 ML PIGGYBACK 100 MG IV ×3 (00:50→17:07)
[2023-03-09 04:51] LABS: Add Manual Diff / Slide Review NO; Basophils Absolute Auto 0 /uL (0-100); Basophils Percent Auto 0.1 % (0-2); Eosinophils Absolute Auto 0 /uL (0-450); Hematocrit 31.1 % (36-46); Hemoglobin 9.7 g/dL (12.0-16.0); Lymphocytes Absolute Auto 1000 /uL (1100-4500); Lymphocytes Percent Auto 9.4 % (25-40); Mean Corpuscular HGB Conc 31.2 % (30-36); Mean Corpuscular Hemoglobin 24.1 PG (26-34); Mean Corpuscular Volume 77.2 fL (80-100); Monocytes Absolute Auto 600 /uL (0-900); Monocytes Percent Auto 5.7 % (3-14); Neutrophils Absolute Auto 8700 /uL (1500-7000); Neutrophils Percent Auto 84.8 % (50-75); Platelet Count 686 X10^3/uL (150-400); Red Blood Cell Count 4.03 X10^6/uL (4.0-5.2); Red Cell Distribution Width 21.1 % (11.6-14.8); White Blood Cell Count 10.2 X10^3/uL (4.5-11.0)
[2023-03-09 05:25] LABS: Alanine Aminotransferase 24 IU/L (<35); Albumin Globulin Ratio 0.6 (1.0-2.8); Alkaline Phosphatase 160 U/L (38-126); Aspartate Aminotransferase 23 IU/L (14-36); BUN Creatinine Ratio 24.4 (6-22); Bilirubin Total 0.1 mg/dL (0.2-1.3); Blood Urea Nitrogen 11 mg/dL (7-17); Calcium 7.6 mg/dL (8.4-10.2); Carbon Dioxide 31 mmol/L (22-32); Chloride 111 mmol/L (98-107); Estimated Glomerular Filt Rate > 60 mL/min (>60); Globulin 3.1 g/dL (1.7-4.1); Glucose 113 mg/dL (80-110); HEMOLYSIS < 15 (0-50); Magnesium 1.9 mg/dL (1.6-2.3); Potassium 3.6 mmol/L (3.4-5.1); Sodium 141 mmol/L (137-145); Total Protein 5.1 g/dL (6.3-8.2)
[2023-03-09 07:00] LABS: Anisocytosis 1+
[2023-03-09] MEDS: cefTRIAXone 1,000 MG in SODIUM CHLORIDE 0.9% 100 ML 200 MG IV (08:29)
[2023-03-09] MEDS: ASPIRIN EC 81 MG TABLET PO (08:29)
[2023-03-09] MEDS: buPROPion SR 150 MG TAB PO ×2 (08:29→21:27)
[2023-03-09] MEDS: AMLODIPINE 5 MG TABLET PO ×2 (08:29→21:27)
[2023-03-09] MEDS: BUSPIRONE 5 MG TABLET PO (08:29)
[2023-03-09] MEDS: METOPROLOL IR 25 MG TABLET PO (08:30)
[2023-03-09] MEDS: SODIUM CHLORIDE 0.9% FLUSH 10 ML IV ×2 (08:30→21:31)
[2023-03-09] MEDS: ONDANSETRON 4 MG/2 ML INJ IV (08:30)
[2023-03-09] MEDS: PANTOPRAZOLE 40 MG VIAL IV (08:30)
[2023-03-09] MEDS: ENOXAPARIN 40 MG/0.4 ML SYRINGE SUBCUT (08:30)
[2023-03-09] MEDS: predniSONE 20 MG TABLET 40 MG PO (08:40)
--- NOTE | 2023-03-09 10:46 | P.PN_ITS ---
Subjective Subjective Interval history: 62F with history of hypertension, CHFpEF, COPD, ex-smoker, Crohn's disease previously on immunomodulators presented to the ER with several days of nausea vomiting, abdominal pain and diarrhea in the last 8 months. Admitted with possible UTI and crohn's flare in the setting of holding medications due to months long treatment for C. diff. She reports mild improvement today. Still with b/l LQ abdominal pain. Exam Vital Signs (past 8 hours): - 03/09/23 04:37 03/09/23 07:53 03/09/23 08:00 Temperature 97.6 F 98.0 F Pulse Rate 99 H 110 H 114 H Respiratory Rate 18 16 Blood Pressure 133/79 134/85 Pulse Oximetry 95 92 91 Oxygen Delivery Method Nasal Cannula Oxygen Flow Rate 0.5 0.5 0 Oxygen Delivery Method Nasal Cannula Oxygen Flow Rate 0 Narrative Exam Narrative: Gen: ill appearing female, pale, mildly lethargic CV: RRR no m/r/g Ext: 1-2+ edema bilateral LE Abd: Soft non-distended, b/l lower quadrant mild tenderness Neuro: alert, no focal deficits. Objective Labs 03/09/23 04:40 03/09/23 04:40 Labs: Laboratory Results - last 24 hr 03/09/23 04:40 WBC 10.2 D RBC 4.03 Hgb 9.7 L Hct 31.1 L MCV 77.2 L MCH 24.1 L MCHC 31.2 RDW 21.1 H Plt Count 686 H Neut % (Auto) 84.8 H Lymph % (Auto) 9.4 L [place] % (Auto) 5.7 Eos % (Auto) 0.0 L Baso % (Auto) 0.1 Neut # (Auto) 8700 H Lymph # (Auto) 1000 L [place] # (Auto) 600 Eos # (Auto) 0 Baso # (Auto) 0 RBC Morphology See below Anisocytosis 1+ H Sodium 141 Potassium 3.6 Chloride 111 H Carbon Dioxide 31 BUN 11 Creatinine 0.45 L Estimated GFR > 60 BUN/Creatinine Ratio 24.4 H Glucose 113 H Calcium 7.6 L Magnesium 1.9 Total Bilirubin 0.1 L AST 23 ALT 24 Alkaline Phosphatase 160 H Total Protein 5.1 L Albumin 2.0 L Globulin 3.1 Albumin/Globulin Ratio 0.6 L COUNTS INCLUDE 234 BEDS AT THE [facility] Medical History Colitis Symptomatic anemia Anemia C. difficile colitis Social History household members: spouse Smoking Status: Former smoker alcohol intake: current Assessment & Plan Assessment & Plan narrative: 1) acute cystitis with hematuria - started ceftriaxone 1g q24 hr, UA with >100 WBC and RBC. Continue treatment for complicated UTI x7 days. Possible n/v are related to acute cystitis. Cultures with 2x GNB. 2) Crohn's flare - c. diff testing negative. has recent complex treatment for C. diff with 2 months of antibiotics. - previously on immunomodulator therapy, did discuss with [facility] GI physician sail repair person. Recommended for treatment with steroids. Added flagyl for 7 days as well based on recommendations. Will continue today. - does appear # of bowel movement per day have improved, but continues to have pain. 3) HTN - BP normotensive today on home medications so will continue amlodipine and metoprolol 4) CHFpEF - stoped additional IV fluids, some improvement in LE edema today will not additionally diurese for now. Continue to reassess. 5) COPD (chronic obstructive pulmonary disease) without exacerbation but with possible chronic hypoxic respiratory failure - albuterol prn - patient and spouse report possible need for home oxygen. Will see oxygenation requirements after above therapies prior to discharge home. - currently on 1L O2, seems to be self diuresing, no wheezing, will continue to monitor rather than aggressively treat. 6. Hypokalemia, acute, present on admission - secondary to GI losses. Improved with repletion. - continue antiemetic therapy with zofran 7. Hyperglycemia. resolved - checked A1c which was 5.4%, Glucose 207 on AM labs but on D5 infusion at the time. Code: Full, surrogate is patient's spouse. DVT: ordered Lovenox Dispo: likely ready in a couple of days depending on GI symptoms, PT/OT recommended SNF. Quality VTE Deep Vein Thrombosis/Pulmonary Embolism Present on Admission: No
--- NOTE | 2023-03-09 12:47 | PT.IPTN ---
Current Diagnoses Dehydration (03/06/23) Hypokalemia (03/06/23) Essential (primary) hypertension (03/06/23) Heart failure, unspecified (03/06/23) Chronic obstructive pulmonary disease, unspecified (03/06/23) Nausea with vomiting, unspecified (03/06/23) Physical Therapy Treatment Note M2 PT-IP Current Condition Start: 03/08/23 14:29 Freq: NEEDED Status: Active Protocol: Document 03/08/23 14:30 AMB (Rec: 03/08/23 15:02 AMB [id number]) Physical Therapy Current Condition Current Condition Evaluation Date 03/08/23 Treatment Diagnosis Crohn's flare, reduced mobility Onset Date 03/06/23 M3 PT-IP Subjective Start: 03/08/23 14:29 Freq: NEEDED Status: Active Protocol: Document 03/09/23 12:47 AW (Rec: 03/09/23 13:50 AW [id number]) Subjective Physical Therapy Visit Type Type Treatment Note Visit Start Time 12:17 Visit Stop Time 12:47 Total Visit Minutes 30 Notes Co-tx with OT secondary to documented need for 2 person assist. Number of DRILL GRINDER Visits 0 Physical Therapy Visit Comments Patient Comments Pt states she gets anxious interacting with medical care, feels as if it's hard to breathe when PT and OT arrive to work with her. Patient Goals Pt feels she would benefit from extended rehab, perhaps at SNF. Therapy Pain Assessment Pain When Pain Assessed At Rest Pain Present Pain Present Pain Reported M4 PT-IP Mobility and Gait Start: 03/08/23 14:29 Freq: NEEDED Status: Active Protocol: Document 03/09/23 12:47 AW (Rec: 03/09/23 13:50 AW [id number]) PT-Bed Mobility Assessment Supine to Sit Supine to Sit Moderate Assistance,1 Person Assistance,Head of Bed Elevated,Bedrails Scooting Scooting to Edge of Bed Moderate Assistance PT-Transfer Assessment Sit to and From Stand Sit to and from Stand Minimal Assistance,1 Person Assistance,Use of Upper Extremities Equipment Transfer Assistive Device Front Wheeled Walker Orthotic/Prosthetic Devices or Brace: No Transfers Transfer Destination Chair Transfer Technique Stand Step Pivot Transfer Ability Level of Assist Minimal Assistance,1 Person Assistance,Use of Upper Extremities Comments Mobility Comments Jasmin reports generalized pain ~5/10 as PT and OT arrive . BP 119/80 HR 104 SpO2 92% on 1L/min O2. Pt appears tachypneic and certainly uses accessory muscles excessively for breathing. She is not feeling nauseated today and is willing to attempt transfer to chair for lunch. Pt needs mod A to transition to sitting EOB but she initiates well and has good sitting balance once turned toward EOB with feet on floor. HR 110. Pt stands to FWW with min assist and transfers slowly, methodically to bedside chair with min assist x 1. She notes discomfort to her perineal region in sitting. Pt stands again with min assist while PT places waffle cushion on chair. Pt notes improved comfort and is willing to sit up for lunch. Gait Assessment Comments Gait Comments Unable to progress to functional gait today secondary to weakness and fatigue. Pt does have significant limb length discrepancy with LLE shorter. Pt tends to step on toes with LLE to compensate. PT-Balance Assessment Sitting Balance and Reactions Static Sitting Balance Ability Good Dynamic Sitting Balance Ability Good Standing Balance and Reactions Static Standing Balance Ability Good Dynamic Standing Balance Ability Fair Device Used FWW M5 PT-IP Objective Assessments Start: 03/08/23 14:29 Freq: NEEDED Status: Active Protocol: Document 03/08/23 14:30 AMB (Rec: 03/08/23 15:02 AMB [id number]) Orientation Orientation/Cognition Level of Alertness Alert Gross Range of Motion Lower Extremity ROM Assessment Bilaterally Impaired Impairments ankles barely dorsiflex to neutral Strength Lower Extremity Strength Assessment Bilaterally Impaired Hip 2 Knee 3 Ankle 3 Comments Strength Comments Jasmin has been practically bed bound for the past 2 months and has a difficult time moving her legs in the bed to perform bed mobility. M6 PT-IP Treatment Start: 03/08/23 14:29 Freq: NEEDED Status: Active Protocol: Document 03/09/23 12:47 AW (Rec: 03/09/23 13:50 AW [id number]) Physical Therapy Treatment Other Treatments Other Treatment Performed Reinforced supine exercises, pt to perform independently. M7 PT-IP Assessment and Plan Start: 03/08/23 14:29 Freq: NEEDED Status: Active Protocol: Document 03/09/23 12:47 AW (Rec: 03/09/23 13:50 AW [id number]) PT Summary Assessment and Plan Potential Rehabilitation Potential Good Summary Impairments Pain,ROM,Strength,Balance,Bed Mobility,Gait,Activity Tolerance Progress Towards Goals Progressing Toward Goals,Slow Progress due to Medical Issues ,Slow Progress due to Activity Tolerance Assessment Summary Jasmin better tolerated activity with less assistance today. She continues to require mod assist for bed mobility and min assist for transfers with FWW. Pt and her spouse detail a complicated orthopedic history with pt undergoing what sounds like a left hip hemiarthroplasty at [facility] in January 2022 following a fall. She has had at least three I&D's and/or revisions since that time but was ambulating independently in the community a few months ago. Of note, pt has significant limb length discrepancy and tends to step on toes with LLE. Pt would certainly benefit from continued rehab at discharge. PT recommends SNF for daily rehab activities in a 24/ supervised setting to assist with this pt's functional recovery. Goals Bed Mobility Goal Contact Guard Assistance Transfer Goal Contact Guard Assistance Gait Goal Contact Guard Assistance Gait Distance 100 Days to Meet Goals 7 Frequency of Treatment Frequency Of Treatment Once a Day Treatment Plan Physical Therapy Treatment Plan Bed Mobility Training,Transfer Training,Gait Training, Therapeutic Exercise,Balance Retraining,Neuromuscular Re-ed Other Recommendations and Next Treatment progress to gait with FWW as Focus tolerated Recommendations To Nursing Amount of Assist Needed 1 Person Assist Discharge Recommendations PT Discharge Recommendations SNF Rehab Transportation Needs at Discharge Wheelchair/Cabulance
--- NOTE | 2023-03-09 12:48 | OT.IP.EVAL ---
Current Diagnoses Dehydration (03/06/23) Hypokalemia (03/06/23) Essential (primary) hypertension (03/06/23) Heart failure, unspecified (03/06/23) Chronic obstructive pulmonary disease, unspecified (03/06/23) Nausea with vomiting, unspecified (03/06/23) Past Medical History (Last Reviewed 03/06/23 @ 21:09 by Fidel Bergman MD) Anemia C. difficile colitis Colitis Symptomatic anemia Occupational Therapy Inpatient Evaluation/Re-Eval M1 PT/OT-IP Prior Functional Status Start: 03/08/23 14:29 Freq: NEEDED Status: Active Protocol: Document 03/09/23 14:13 CGR (Rec: 03/09/23 14:48 CGR [id number]) Medical Review Prior Functional Status Medical History Reviewed Yes Communication Pt is an effective verbal communicator Mobility and Gait Prior to 2 months ago, pt could walk in the community. Pt had failed L hip/pelvis sx in Jan 2022 with multiple washouts. Then had C-diff infection with multiple hospital stays and lots of IV antibiotics and has been using a wheelchair, spending most of her time in bed since that time. Lives with her [place]. Activities of Daily Living and IADL's Pt states that she gets help from her with LB dressing and shower transfers. Social History Household Members spouse Living Arrangements House Number of Floors (Floors) One Floor Number of Stairs To Enter/Railing? no steps to enter Home Environment Standard Height Toilet,Walk in Shower Home Equipment Front Wheel Walker,Four Wheel Walker,Manual Wheelchair, Bedside Commode,Shower Seat with Backrest,Hand Held Shower ,Grab Bars Near Toilet,Grab Bars In Shower Employment Status Retired Additional Social History Comment lives on [place] with . They have a flat bed and pt has home o2 for anxiety. M2 OT-IP Current Condition Start: 03/09/23 14:12 Freq: Status: Active Protocol: Document 03/09/23 14:13 CGR (Rec: 03/09/23 14:48 CGR [id number]) Occupational Therapy Current Condition Current Condition Evaluation Date 03/09/23 Treatment Diagnosis acute cystitis with hematuria Diagnosis Onset Date 03/06/23 M3 OT- IP Subjective and Pain Start: 03/09/23 14:12 Freq: Status: Active Protocol: Document 03/09/23 14:13 CGR (Rec: 03/09/23 14:48 CGR [id number]) OT- Subjective Occupational Therapy Visit Type Type Initial Evaluation Visit Start Time 12:17 Visit Stop Time 12:48 Total Visit Minutes 31 Notes co-treat with P.T. OT Pain Assessment Pain When Pain Assessed At Rest Pain Present Pain Present Pain Reported Location Generalized Intensity 5 Scale Used Numeric (0 - 10) Management Techniques Distraction,Modification of Treatment,Re-positioning M4 OT- IP ADL's Start: 03/09/23 14:12 Freq: Status: Active Protocol: Document 03/09/23 14:13 CGR (Rec: 03/09/23 14:48 CGR [id number]) OT [id number] General Evaluation Self-Feeding Ability Independent Comments OT Self-Feeding Comments lunch at end of session OT ADL-Grooming Comments OT Grooming Comments not performed, pt requested to have lunch OT ADL-Oral Care Comments Oral Care Comments not performed, pt requested to have lunch OT ADL-Dressing General Eval Lower Body Dressing Ability Total Assistance Areas Needing Assistance Socks Comments OT Dressing Comments Pt states she has been getting help with socks recently OT ADL-Toileting Comments OT Toileting Comments not performed OT ADL-Bathing Comments OT Bathing Comments not performed M5 OT- IP IADL's Start: 03/09/23 14:12 Freq: Status: Active Protocol: Document 03/09/23 14:13 CGR (Rec: 03/09/23 14:48 CGR [id number]) OT-Instrumental Activities of Daily Living Deficits IADL Deficits Identified No Deficits Home Safety Awareness Awareness of Need for Assistance at Home Good Awareness Ability to Problem Solve Emergency Able to Problem Solve Situations Medication Management Medication Management No Deficits Identified Money Management Money Management No Deficits Identified Meal Preparation Meal Preparation Caregiver Provides Assist Grass Farmer Grass Farmer Caregiver Provides Assist Driving Driving Comments Pt's spouse does the driving. M6 OT- IP Functional Cognition Start: 03/09/23 14:12 Freq: Status: Active Protocol: Document 03/09/23 14:13 CGR (Rec: 03/09/23 14:48 CGR [id number]) Cognitive Factors Limiting Selfcare Function Cognitive Ability Level of Alertness Alert Patient Orientation Name,Age,Birthday,Month,Year, Day of Week,Place,Situation Attention Span Ability Capable of Focused Attention, Capable of Sustained Attention Ability to Follow Commands Able to Follow One Step Commands with Increased Time, Able to Follow One Step Commands with Repetition Cognitive Comments Cognitive Assessment Comments Pt was able to state that it was the middle of the month but not the specific date. OT- Vision and Hearing OT- Hearing Assessment OT- Hearing Assessment WFL OT- Vision Assessment Visual Acuity Glasses For Reading Visual Attentiveness WFL Occular Pursuits WFL Visual Convergence WFL M7 OT- IP Mobility and Balance Start: 03/09/23 14:12 Freq: Status: Active Protocol: Document 03/09/23 14:13 CGR (Rec: 03/09/23 14:48 CGR [id number]) OT- Bed Mobility Assessment Supine to Sit Supine to Sit Assist Moderate Assistance,Head of Bed Elevated Scooting Scooting to Edge of Bed Moderate Assistance,Head of Bed Elevated,Bedrails OT-Transfer Assessment Sit to and From Stand Sit to and from Stand Minimal Assistance Transfers Transfer Ability Minimal Assistance Technique Transfer Destination Bed,Chair Transfer Technique Stand Step Pivot Devices Transfer Assistive Devices Gait Belt,Front Wheeled Walker Comments Mobility Comments mod a for bed mobility, min a for sit to stand and transfer. Pt with better endurance than expected. OT- Balance Assessment Sitting Balance and Reactions Static Sitting Balance Ability Good Dynamic Sitting Balance Ability Good M8 OT- IP Objective Assessments Start: 03/09/23 14:12 Freq: Status: Active Protocol: Document 03/09/23 14:13 CGR (Rec: 03/09/23 14:48 CGR [id number]) OT Gross Range of Motion Upper Extremity Range of Motion Assessment Within Functional Limits OT Strength Upper Extremity Strength Assessment Bilaterally Impaired Shoulder 3/5 Elbow 3+/5 Hand 3+/5 Comments Strength Comments Pt is grossly weak OT- Coordination Assessment Upper Extremity Finger to Nose Test Within Functional Limits Finger Tapping Test Within Functional Limits OT-Muscle Tone Assessment Muscle Tone WNL Yes OT Sensation Assessment Edema Edema Present Edema Comments BUE moderate swelling M9 OT- IP Assessment and Plan Start: 03/09/23 14:12 Freq: Status: Active Protocol: Document 03/09/23 14:13 CGR (Rec: 03/09/23 14:48 CGR [id number]) OT Summary Assessment and Plan Potential Rehabilitation Potential Good Analytic Complexity at Evaluation Moderate Summary OT Impairments Pain,Strength,Balance, Functional Mobility,Grooming, Dressing,Toileting,Bathing, Toilet Transfers,Shower Transfers,Activity Tolerance Progress Towards Goals Slow Progress due to Activity Tolerance Assessment Summary Pt presents as a moderate complexity eval s/p admit for acute cystitis with hematuria. Pt needed min to mod assist for mobility on this date but was agreeable to all activity. Pt would benefit from SNF at this time d/t poor endurance and strength. Recommendation is for discharge to SNF. Goals Grooming Goal Independent Dressing Goal Independent Toileting Goal Independent Bathing Goal Independent Toilet Transfer Goal Independent Shower Transfer Goal Independent Days to Meet Goals 15 Frequency of Treatment Frequency Of Treatment Once a Day Treatment Plan OT Treatment Plan ADL Training,Functional Mobility,Patient/Family Education,Discharge Planning Other Treatment Recommendations and Next UE therex, energy conservation Treatment Focus , endurance activities. Discharge Recommendations OT Discharge Recommendations SNF Rehab Transportation Needs at Discharge Wheelchair/Cabulance
[2023-03-09 13:48] LABS: Ionized Calcium 4.3 mg/dL (4.5-5.6)
--- NOTE | 2023-03-09 15:55 | CM.DPC ---
DCP Continued: AQUATIC LABORER reviewed EMR. AQUATIC LABORER spoke with spouse in hallway attempting to track down Dr. De León. Spouse concerned about upcoming colonoscopy patient originally had scheduled as well as other medical plans. AQUATIC LABORER updated hospitalist. AQUATIC LABORER entered room and reintroduced self and role. Patient accompanied by spouse and patient at bedside. Patient open to SNF. Patient preference is higher star rating relatively close. Patient insurance is unfamiliar to this author. Sent referral to [facility] for review. Cordelia reports they do not have much bed availability this week but will review. Plan: AQUATIC LABORER will expand SNF search tomorrow. If no SNF availability with patient's insurance, AQUATIC LABORER will inquire about [facility] and maybe [facility]/additional caregivers in the home. CM team will continue to follow closely. LYNN Tam
[2023-03-09] MEDS: OLANZapine 2.5 MG TABLET 5 MG PO (21:26)
[2023-03-09] MEDS: TRAZODONE 50 MG TABLET 100 MG PO (21:27)
[2023-03-10] VITALS (8 sets, daily range): BP systolic 116–133; BP diastolic 69–80; PULSE 96–112; RESP 17–20; TEMP 36.1–36.4; O2SAT 94–97
[2023-03-10] MEDS: metroNIDAZOLE 500 MG/100 ML PIGGYBACK 100 MG IV ×3 (00:28→16:11)
[2023-03-10 05:46] LABS: Add Manual Diff / Slide Review NO; Basophils Absolute Auto 0 /uL (0-100); Basophils Percent Auto 0.1 % (0-2); Eosinophils Absolute Auto 0 /uL (0-450); Hematocrit 30.7 % (36-46); Hemoglobin 9.3 g/dL (12.0-16.0); Lymphocytes Absolute Auto 1300 /uL (1100-4500); Lymphocytes Percent Auto 11.1 % (25-40); Mean Corpuscular HGB Conc 30.2 % (30-36); Mean Corpuscular Hemoglobin 23.4 PG (26-34); Mean Corpuscular Volume 77.4 fL (80-100); Monocytes Absolute Auto 900 /uL (0-900); Monocytes Percent Auto 7.9 % (3-14); Neutrophils Absolute Auto 9200 /uL (1500-7000); Neutrophils Percent Auto 80.9 % (50-75); Platelet Count 676 X10^3/uL (150-400); Red Blood Cell Count 3.97 X10^6/uL (4.0-5.2); White Blood Cell Count 11.4 X10^3/uL (4.5-11.0)
[2023-03-10 05:55] LABS: Alanine Aminotransferase 21 IU/L (<35); Albumin 2.2 g/dL (3.5-5.0); Albumin Globulin Ratio 0.7 (1.0-2.8); Alkaline Phosphatase 157 U/L (38-126); Aspartate Aminotransferase 21 IU/L (14-36); BUN Creatinine Ratio 28.3 (6-22); Bilirubin Total 0.1 mg/dL (0.2-1.3); Blood Urea Nitrogen 13 mg/dL (7-17); Calcium 7.3 mg/dL (8.4-10.2); Carbon Dioxide 33 mmol/L (22-32); Chloride 105 mmol/L (98-107); Estimated Glomerular Filt Rate > 60 mL/min (>60); Globulin 3.1 g/dL (1.7-4.1); Glucose 99 mg/dL (80-110); HEMOLYSIS < 15 (0-50); Magnesium 1.8 mg/dL (1.6-2.3); Potassium 3.2 mmol/L (3.4-5.1); Sodium 140 mmol/L (137-145); Total Protein 5.3 g/dL (6.3-8.2)
[2023-03-10 07:48] LABS: Anisocytosis 1+
[2023-03-10] MEDS: METOPROLOL IR 25 MG TABLET PO (09:08)
[2023-03-10] MEDS: BUSPIRONE 5 MG TABLET PO (09:08)
[2023-03-10] MEDS: ACETAMINOPHEN 325 MG TABLET 650 MG PO (09:08)
[2023-03-10] MEDS: ASPIRIN EC 81 MG TABLET PO (09:08)
[2023-03-10] MEDS: predniSONE 20 MG TABLET 40 MG PO (09:08)
[2023-03-10] MEDS: AMLODIPINE 5 MG TABLET PO ×2 (09:08→20:39)
[2023-03-10] MEDS: cefTRIAXone 1,000 MG in SODIUM CHLORIDE 0.9% 100 ML 200 MG IV (09:09)
[2023-03-10] MEDS: buPROPion SR 150 MG TAB PO ×2 (09:12→20:38)
--- NOTE | 2023-03-10 09:42 | PC.NURSE ---
Addendum entered by Millie Merida R.N. 03/10/23 15:50: Patient may be going to a SNF when discharged. Discharge planning is working on this. Original Note: Patients breath sounds are cta, she is on o2 nc, 90% on 2L. Patient is not sob, she has been incontinent of urine and been changed this morning. She doesnt really follow simple commands when asked to move her leg or lift up the r.leg, which is her good side. Patient had hip surgery for her left hip a year ago and doesnt really move this leg much at all. She is alert and oriented x3, supportive and helpful with care. She ate some at breakfast and is resting now. Tolerating iv antibiotics.
[2023-03-10] MEDS: POTASSIUM CHLORIDE 20 MEQ TAB 40 MEQ PO ×2 (09:54→16:11)
[2023-03-10] MEDS: SODIUM CHLORIDE 0.9% FLUSH 10 ML IV ×2 (09:54→23:25)
[2023-03-10] MEDS: ENOXAPARIN 40 MG/0.4 ML SYRINGE SUBCUT (09:54)
--- NOTE | 2023-03-10 11:15 | PT.IPTN ---
Current Diagnoses Dehydration (03/06/23) Hypokalemia (03/06/23) Essential (primary) hypertension (03/06/23) Heart failure, unspecified (03/06/23) Chronic obstructive pulmonary disease, unspecified (03/06/23) Nausea with vomiting, unspecified (03/06/23) Physical Therapy Treatment Note M2 PT-IP Current Condition Start: 03/08/23 14:29 Freq: NEEDED Status: Active Protocol: Document 03/08/23 14:30 AMB (Rec: 03/08/23 15:02 AMB [id number]) Physical Therapy Current Condition Current Condition Evaluation Date 03/08/23 Treatment Diagnosis Crohn's flare, reduced mobility Onset Date 03/06/23 M3 PT-IP Subjective Start: 03/08/23 14:29 Freq: NEEDED Status: Active Protocol: Document 03/10/23 11:50 TS (Rec: 03/10/23 12:05 TS [id number]) Subjective Physical Therapy Visit Type Type Treatment Note Visit Start Time 11:15 Visit Stop Time 11:49 Total Visit Minutes 34 Notes Spouse present Number of COMMAND POST SUPERINTENDENT Visits 1 Physical Therapy Visit Comments Patient Comments Pt found resting in bed, Spo2 94% on 1L, reports feeling like she's making small imporvements, agreeable to PT. Therapy Pain Assessment Pain When Pain Assessed During Mobility Pain Present Pain Present Pain Reported M4 PT-IP Mobility and Gait Start: 03/08/23 14:29 Freq: NEEDED Status: Active Protocol: Document 03/10/23 11:50 TS (Rec: 03/10/23 12:05 TS [id number]) PT-Bed Mobility Assessment Supine to Sit Supine to Sit Moderate Assistance,1 Person Assistance,Head of Bed Elevated,Bedrails Scooting Scooting to Edge of Bed Moderate Assistance PT-Transfer Assessment Sit to and From Stand Sit to and from Stand Contact Guard Assistance Equipment Transfer Assistive Device Gait Belt,Front Wheeled Walker Orthotic/Prosthetic Devices or Brace: No Comments Mobility Comments Pt found resting in bed, agreeable to PT. BP 130/76 supine, Spo2 94% on 1L. Supine to sit ModA for LLE and uprighting trunk, LLE weakness from prior hip surgery. She scooted to EOB with use of transfer pad and cues for BUE support. She performed sit to stand from bed CGA with use of FWW. Stand step pivot to chair CGA with FWW, pt required cues to keep walker close and to fully turn around before sitting. She performed sit to stand x4 CGA from chair with use of FWW with BUE support pushing from arms of chair. Pt was educated on calf stretch frequency and intensity. She was left in the chair with spouse in room, RN notified. Gait Assessment Gait Gait Assistance Required: Contact Guard Assist Distance (Feet) 2 Assistive Devices Assistive Device Gait Belt,Front Wheeled Walker Orthotic/Prosthetic Devices or Brace: No Gait Deviations General Gait Pattern Antalgic,Decreased Stride Length,Decreased Feet Clearance,Step-to Gait Factors Limiting Gait Function Factors Limiting Gait Function Decreased Activity Tolerance, Decreased Strength, Incoordination,Pain,Poor Balance,Poor Safety Awareness, Respiratory Distress Comments Gait Comments Stand step pivot to chair. Pt refused further ambulation. PT-Balance Assessment Sitting Balance and Reactions Static Sitting Balance Ability Good Dynamic Sitting Balance Ability Good Standing Balance and Reactions Static Standing Balance Ability Good Dynamic Standing Balance Ability Fair Device Used FWW M5 PT-IP Objective Assessments Start: 03/08/23 14:29 Freq: NEEDED Status: Active Protocol: Document 03/08/23 14:30 AMB (Rec: 03/08/23 15:02 AMB [id number]) Orientation Orientation/Cognition Level of Alertness Alert Gross Range of Motion Lower Extremity ROM Assessment Bilaterally Impaired Impairments ankles barely dorsiflex to neutral Strength Lower Extremity Strength Assessment Bilaterally Impaired Hip 2 Knee 3 Ankle 3 Comments Strength Comments Jasmin has been practically bed bound for the past 2 months and has a difficult time moving her legs in the bed to perform bed mobility. M6 PT-IP Treatment Start: 03/08/23 14:29 Freq: NEEDED Status: Active Protocol: Document 03/10/23 11:50 TS (Rec: 03/10/23 12:05 TS [id number]) Physical Therapy Treatment Other Treatments Other Treatment Performed Pt was educated on calf stretch and to continue bed ex . M7 PT-IP Assessment and Plan Start: 03/08/23 14:29 Freq: NEEDED Status: Active Protocol: Document 03/10/23 11:50 TS (Rec: 03/10/23 12:05 TS [id number]) PT Summary Assessment and Plan Potential Rehabilitation Potential Good Summary Impairments Pain,ROM,Strength,Balance,Bed Mobility,Gait,Activity Tolerance Progress Towards Goals Slow Progress due to Medical Issues,Slow Progress due to Activity Tolerance Assessment Summary Jasmin is making some progress with her mobility but continues to be limited by weakness and ongoing medical issues. She is ModA for supine to sit and to scooting to EOB . She performed sit to stand x5 with use of FWW CGA. She continues to perform stand step pivot transfer to chair but refused further ambulation . She is on 1L of o2, Spo2 94% , denied any SOB. PT continues to recommend SNF rehab at this time to progress strength , funcitonal mobility and activity tolerance. Goals Bed Mobility Goal Contact Guard Assistance Transfer Goal Contact Guard Assistance Gait Goal Contact Guard Assistance Gait Distance 100 Days to Meet Goals 7 Frequency of Treatment Frequency Of Treatment Once a Day Treatment Plan Physical Therapy Treatment Plan Bed Mobility Training,Transfer Training,Gait Training, Therapeutic Exercise,Balance Retraining,Neuromuscular Re-ed Other Recommendations and Next Treatment progress to gait with FWW as Focus tolerated Recommendations To Nursing Amount of Assist Needed 1 Person Assist Discharge Recommendations PT Discharge Recommendations SNF Rehab Transportation Needs at Discharge Wheelchair/Cabulance
--- NOTE | 2023-03-10 16:03 | CM.DPC ---
DCP Continued: PACKAGING SUPERVISOR reviewed EMR. Per provider, patient likely able to d/c to SNF once bowel movements are more regular. PACKAGING SUPERVISOR sent SNF referral to following facilities: [facility]: no beds [facility]: unable to accept insurance [facility]: Per Jeannette, clinically looks fine, has beds, pending insurance reviewing [facility]: Reviewing and lvm [facility]: Reviewing and spoke with Sissy, agreed to review and has beds available. PACKAGING SUPERVISOR updated patient with SNF search. Patient appeared appreciative of the information. DCP pending SNF search. Patient preference remains [facility] then [facility]. CM team will continue to follow closely. If no SNF available, likely home with [facility]. CM team will continue to follow closely. LYNN Tam
--- NOTE | 2023-03-10 16:38 | OT.IPNOTE ---
Due to scheduling conflict unable to see pt for OT today, to check on the pt tomorrow.
--- NOTE | 2023-03-10 19:12 | P.PN_ITS ---
Subjective Subjective Date Patient Seen: 03/10/23 Time Patient Seen: 08:00 Interval history: She says her diarrhea is improving. She only has had one bowel movement today that was loose but more formed. Exam Vital Signs (past 8 hours): - 03/10/23 11:54 03/10/23 15:00 Temperature 97.6 F 97.0 F L Pulse Rate 96 H 103 H Respiratory Rate 19 17 Blood Pressure 130/76 116/74 Pulse Oximetry 94 94 Oxygen Flow Rate 2 2 Oxygen Delivery Method Nasal Cannula Oxygen Flow Rate 2 Narrative Exam Narrative: Gen: no acute distress CV: RRR no m/r/g Ext: 1-2+ edema bilateral LE Abd: Soft non-distended, b/l lower quadrant mild tenderness Neuro: alert, no focal deficits. Objective Labs 03/10/23 05:00 03/10/23 05:00 Labs: Laboratory Results - last 24 hr 03/10/23 05:00 WBC 11.4 H RBC 3.97 L Hgb 9.3 L Hct 30.7 L MCV 77.4 L MCH 23.4 L MCHC 30.2 RDW 21.0 H Plt Count 676 H Neut % (Auto) 80.9 H Lymph % (Auto) 11.1 L [place] % (Auto) 7.9 Eos % (Auto) 0.0 L Baso % (Auto) 0.1 Neut # (Auto) 9200 H Lymph # (Auto) 1300 [place] # (Auto) 900 Eos # (Auto) 0 Baso # (Auto) 0 RBC Morphology See below Anisocytosis 1+ H Sodium 140 Potassium 3.2 L Chloride 105 Carbon Dioxide 33 H BUN 13 Creatinine 0.46 L Estimated GFR > 60 BUN/Creatinine Ratio 28.3 H Glucose 99 Calcium 7.3 L Magnesium 1.8 Total Bilirubin 0.1 L AST 21 ALT 21 Alkaline Phosphatase 157 H Total Protein 5.3 L Albumin 2.2 L Globulin 3.1 Albumin/Globulin Ratio 0.7 L PFSH Medical History Colitis Symptomatic anemia Anemia C. difficile colitis Social History household members: spouse Smoking Status: Former smoker alcohol intake: current Assessment & Plan Assessment & Plan narrative: 1) acute cystitis with hematuria - started ceftriaxone 1g q24 hr, UA with >100 WBC and RBC. Continue treatment for complicated UTI x7 days. Possible n/v are related to acute cystitis. Cultures with 2x GNB. 2) Crohn's flare - c. diff testing negative. has recent complex treatment for C. diff with 2 months of antibiotics. - previously on immunomodulator therapy, did discuss with [facility] GI physician polymerization helper. Recommended for treatment with steroids. Added flagyl for 7 days as well based on recommendations. Will continue today. - number of bowel movements has significantly improved 3) HTN - BP normotensive today on home medications so will continue amlodipine and metoprolol 4) CHFpEF - stoped additional IV fluids, some improvement in LE edema today will not additionally diurese for now. Continue to reassess. 5) COPD (chronic obstructive pulmonary disease) without exacerbation but with possible chronic hypoxic respiratory failure - albuterol prn - patient and spouse report possible need for home oxygen. Will see oxygenation requirements after above therapies prior to discharge home. - currently on 1L O2, seems to be self diuresing, no wheezing, will continue to monitor rather than aggressively treat. 6. Hypokalemia, acute, present on admission - secondary to GI losses. Improved with repletion. - continue antiemetic therapy with zofran 7. Hyperglycemia. resolved - checked A1c which was 5.4%, Glucose 207 on AM labs but on D5 infusion at the time. Dispo: medically stable for discharge from the hospital, likely needs snf due to deconditioning Quality VTE Deep Vein Thrombosis/Pulmonary Embolism Present on Admission: No
[2023-03-10] MEDS: metroNIDAZOLE 500 MG TABLET PO (20:38)
[2023-03-10] MEDS: TRAZODONE 50 MG TABLET 100 MG PO (20:38)
[2023-03-10] MEDS: OLANZapine 2.5 MG TABLET 5 MG PO (20:39)
[2023-03-10] MEDS: HYDROMORPHONE 0.5 MG INJ IV (23:24)
[2023-03-11] VITALS (10 sets, daily range): BP systolic 107–147; BP diastolic 71–99; PULSE 105–117; RESP 15–95; TEMP 36–36.6; O2SAT 16–97
--- NOTE | 2023-03-11 00:24 | PC.NURSE ---
Blanchable redness in gi-area; skin is excoriated, appears to be peeling, minor bleeding. Barrier cream applied. 2 open areas in between buttocks.
[2023-03-11 05:06] LABS: Hematocrit 28.3 % (36-46); Hemoglobin 8.8 g/dL (12.0-16.0); Mean Corpuscular Hemoglobin 24.3 PG (26-34); Mean Corpuscular Volume 78.4 fL (80-100); Platelet Count 594 X10^3/uL (150-400); Red Blood Cell Count 3.61 X10^6/uL (4.0-5.2); Red Cell Distribution Width 20.6 % (11.6-14.8); White Blood Cell Count 10.7 X10^3/uL (4.5-11.0)
[2023-03-11 05:16] LABS: BUN Creatinine Ratio 28.6 (6-22); Blood Urea Nitrogen 12 mg/dL (7-17); Calcium 7.6 mg/dL (8.4-10.2); Carbon Dioxide 37 mmol/L (22-32); Chloride 103 mmol/L (98-107); Estimated Glomerular Filt Rate > 60 mL/min (>60); Glucose 122 mg/dL (80-110); HEMOLYSIS < 15 (0-50); Magnesium 1.8 mg/dL (1.6-2.3); Sodium 139 mmol/L (137-145)
[2023-03-11] MEDS: metroNIDAZOLE 500 MG TABLET PO ×3 (08:05→20:14)
[2023-03-11] MEDS: ASPIRIN EC 81 MG TABLET PO (08:05)
[2023-03-11] MEDS: ENOXAPARIN 40 MG/0.4 ML SYRINGE SUBCUT (08:05)
[2023-03-11] MEDS: AMLODIPINE 5 MG TABLET PO ×2 (08:05→20:14)
[2023-03-11] MEDS: predniSONE 20 MG TABLET 40 MG PO (08:05)
[2023-03-11] MEDS: buPROPion SR 150 MG TAB PO (08:05)
[2023-03-11] MEDS: BUSPIRONE 5 MG TABLET PO (08:05)
[2023-03-11] MEDS: cefTRIAXone 1,000 MG in SODIUM CHLORIDE 0.9% 100 ML 200 MG IV (08:06)
[2023-03-11] MEDS: METOPROLOL ER 25 MG TABLET PO (08:11)
[2023-03-11] MEDS: SODIUM CHLORIDE 0.9% FLUSH 10 ML IV ×2 (08:11→20:14)
--- NOTE | 2023-03-11 08:57 | PT-IP ANOTE ---
Pt refused to work with PT this morning, she did not want to get out of bed at this moment. PT will check back in with pt later today.
--- NOTE | 2023-03-11 09:05 | DI.RAD.S_ITS ---
PROCEDURE: XR CHEST 1V INDICATIONS: sob TECHNIQUE: One view of the chest was acquired. COMPARISON: [facility], CR, XR CHEST 1V, 09/02/2022, 11:45. FINDINGS: Surgical changes and devices: None. Lungs and pleura: Advanced centrilobular emphysema is seen. No focal infiltrate. No pleural effusions or pneumothorax. Mediastinum: Mediastinal contours appear normal. Heart size is normal. Bones and chest wall: No suspicious bony lesions. Overlying soft tissues appear unremarkable. IMPRESSION: COPD. No acute cardiopulmonary pathology. Dictated by: Sixto Hood M.D. on 03/11/2023 at 9:28 Approved by: Sixto Hood M.D. on 03/11/2023 at 9:29
[2023-03-11] MEDS: ALBUTEROL 2.5 MG/3 ML NEB (ADULT) INH (10:09)
[2023-03-11 10:23] LABS: D Dimer 1180 ng/ml (<500)
[2023-03-11 10:33] LABS: NT-proBNP (BNP-Adult 18+) 470 pg/mL (<125)
[2023-03-11] MEDS: LIDOCAINE 5% OINT 35 GM 1 APPLIC TOP (10:40)
--- NOTE | 2023-03-11 10:56 | DI.CT.S_ITS ---
PROCEDURE: CT ANGIO CHEST PE PROTOCOL INDICATIONS: tachycardia, short of breath, elevated d-dimer, PE? TECHNIQUE: After the administration of intravenous contrast, 2 mm thick sections acquired from the pulmonary apices to the posterior costophrenic angles. 3-dimensional maximum intensity projection (MIP) coronal and sagittal reformats were then acquired through the thorax. For radiation dose reduction, the following was used: automated exposure control, adjustment of mA and/or kV according to patient size. COMPARISON: [facility], CT, CT ANGIO CHEST PE PROTOCOL, 11/30/2020, 14:31. [facility], CT, CT ANGIO CHEST PE PROTOCOL, 05/26/2022, 20:08. [facility], CT, CT ANGIO CHEST PE PROTOCOL, 09/02/2022, 13:04. [facility], CR, XR CHEST 1V, 03/11/2023, 9:06. FINDINGS: Image quality: Excellent. Pulmonary arteries: Pulmonary arteries are normal in size, and demonstrate no intraluminal filling defects to suggest central pulmonary embolism. Lungs and pleura: Within the right upper lobe, there is a partially spiculated nodule seen that measures up to 14 mm, which is slightly enlarged compared to the prior examination. Likely scarring can be seen involving the left lung apex. Mild emphysematous changes are seen, with bulla formation, particularly within the right upper lobe. No pleural effusions or pneumothorax. Central and peripheral airways are patent. Mediastinum: Heart size is normal, without pericardial effusion. Moderate coronary artery calcification is seen. No mediastinal or hilar adenopathy. Thoracic aorta is normal in caliber and enhancement. Esophagus is normal in caliber, without a significant hiatal hernia. Bones and chest wall: No suspicious bony lesions. Ribs and thoracic spine appear intact throughout. Thyroid gland demonstrates no significant abnormality. No axillary or supraclavicular adenopathy. Abdomen: Visualized upper abdominal solid organs appear normal in the early arterial phase of enhancement. IMPRESSION: Negative for pulmonary embolism. There is a 14 mm partially spiculated nodule seen involving the right upper lobe. Differential diagnosis includes neoplasm. - Please consider a follow-up dedicated PET-CT for further evaluation. Prominent emphysema can be seen, which is worst within the right upper lobe. Dictated by: Alonso Phillip M.D. on 03/11/2023 at 10:35 Approved by: Alonso Phillip M.D. on 03/11/2023 at 10:40
--- NOTE | 2023-03-11 13:50 | PT.IPTN ---
Current Diagnoses Dehydration (03/06/23) Hypokalemia (03/06/23) Essential (primary) hypertension (03/06/23) Heart failure, unspecified (03/06/23) Chronic obstructive pulmonary disease, unspecified (03/06/23) Nausea with vomiting, unspecified (03/06/23) Physical Therapy Treatment Note M2 PT-IP Current Condition Start: 03/08/23 14:29 Freq: NEEDED Status: Active Protocol: Document 03/08/23 14:30 AMB (Rec: 03/08/23 15:02 AMB [id number]) Physical Therapy Current Condition Current Condition Evaluation Date 03/08/23 Treatment Diagnosis Crohn's flare, reduced mobility Onset Date 03/06/23 M3 PT-IP Subjective Start: 03/08/23 14:29 Freq: NEEDED Status: Active Protocol: Document 03/11/23 14:15 TS (Rec: 03/11/23 14:34 TS [id number]) Subjective Physical Therapy Visit Type Type Treatment Note Visit Start Time 13:50 Visit Stop Time 14:15 Total Visit Minutes 25 Notes Spouse present Number of FLAT BED KNITTER Visits 2 Physical Therapy Visit Comments Patient Comments Pt found resting on 1L of o2, SPo2 93%, reports having CT scan earlier today on her lungs, pt agreeable to PT. Patient Goals Would like to go to rehab. M4 PT-IP Mobility and Gait Start: 03/08/23 14:29 Freq: NEEDED Status: Active Protocol: Document 03/11/23 14:15 TS (Rec: 03/11/23 14:34 TS [id number]) PT-Bed Mobility Assessment Supine to Sit Supine to Sit Minimal Assistance,1 Person Assistance,Head of Bed Elevated Scooting Scooting to Edge of Bed Standby Assistance PT-Transfer Assessment Sit to and From Stand Sit to and from Stand Contact Guard Assistance Equipment Transfer Assistive Device Gait Belt,Front Wheeled Walker Orthotic/Prosthetic Devices or Brace: No Comments Mobility Comments Supine to sit HOB elevated Lilli for uprighting trunk, pt was cued for BUE support. She scooted to EOB CGA slowly with BUE support. Sit to stand x3 with FWW CGA, pt uses back of LEs against bed to assist in standing. She ambulated ~ in room ~15'CGA with slow step to gait and with FWW. Pt reported feeling weakness in LEs and requested to sit EOB. Spo2 after mobility 85% on 1L, recovered to 94% after ~ 30secs. Pt was left sitting EOB with nursing staff tending to brief change. Gait Assessment Gait Gait Assistance Required: Contact Guard Assist Distance (Feet) 15 Assistive Devices Assistive Device Gait Belt,Front Wheeled Walker Orthotic/Prosthetic Devices or Brace: No Gait Deviations General Gait Pattern Antalgic,Decreased Stride Length,Decreased Feet Clearance,Step-to Gait Factors Limiting Gait Function Factors Limiting Gait Function Decreased Activity Tolerance, Decreased Strength, Incoordination,Pain,Poor Balance,Poor Safety Awareness, Respiratory Distress Comments Gait Comments See mobility comments. PT-Balance Assessment Sitting Balance and Reactions Static Sitting Balance Ability Good Dynamic Sitting Balance Ability Good Standing Balance and Reactions Static Standing Balance Ability Good Dynamic Standing Balance Ability Fair Device Used FWW M5 PT-IP Objective Assessments Start: 03/08/23 14:29 Freq: NEEDED Status: Active Protocol: Document 03/08/23 14:30 AMB (Rec: 03/08/23 15:02 AMB [id number]) Orientation Orientation/Cognition Level of Alertness Alert Gross Range of Motion Lower Extremity ROM Assessment Bilaterally Impaired Impairments ankles barely dorsiflex to neutral Strength Lower Extremity Strength Assessment Bilaterally Impaired Hip 2 Knee 3 Ankle 3 Comments Strength Comments Jasmin has been practically bed bound for the past 2 months and has a difficult time moving her legs in the bed to perform bed mobility. M6 PT-IP Treatment Start: 03/08/23 14:29 Freq: NEEDED Status: Active Protocol: Document 03/10/23 11:50 TS (Rec: 03/10/23 12:05 TS [id number]) Physical Therapy Treatment Other Treatments Other Treatment Performed Pt was educated on calf stretch and to continue bed ex . M7 PT-IP Assessment and Plan Start: 03/08/23 14:29 Freq: NEEDED Status: Active Protocol: Document 03/11/23 14:15 TS (Rec: 03/11/23 14:34 TS [id number]) PT Summary Assessment and Plan Potential Rehabilitation Potential Good Summary Impairments Pain,ROM,Strength,Balance,Bed Mobility,Gait,Activity Tolerance Progress Towards Goals Slow Progress due to Medical Issues,Slow Progress due to Activity Tolerance Assessment Summary Jasmin continues to make slow progress with her mobility. She is Lilli for supine to sit up to EOB. She performed sit to stand x3 with FWW CGA, has good standing balance with no retroleaning. She progressed her gait to ~15' CGA in room with FWW. She has a very slow step to gait and c/o weakness in LEs. PT continues to recommend SNF rehab at this time to progress strength, functional mobility and activity tolerance. Goals Bed Mobility Goal Contact Guard Assistance Transfer Goal Contact Guard Assistance Gait Goal Contact Guard Assistance Gait Distance 100 Days to Meet Goals 7 Frequency of Treatment Frequency Of Treatment Once a Day Treatment Plan Physical Therapy Treatment Plan Bed Mobility Training,Transfer Training,Gait Training, Therapeutic Exercise,Balance Retraining,Neuromuscular Re-ed Other Recommendations and Next Treatment Progress gait, continue Focus transfers. Recommendations To Nursing Amount of Assist Needed 1 Person Assist Discharge Recommendations PT Discharge Recommendations SNF Rehab Transportation Needs at Discharge Wheelchair/Cabulance
--- NOTE | 2023-03-11 15:11 | OT.IPNOTE ---
Attempted OT treatment and pt just completed PT earlier and sleeping. To check on pt tomorrow.
--- NOTE | 2023-03-11 15:16 | PC.NURSE ---
Day Shift Note Patient alert and oriented x3. Continues on 1L NC, unable to wean to RA, SpO2 decreases to 84%. Reported to Dr. Alejo and orders entered for breathing treatment, CXR, d dimer, BNP, CT scan. Upon further assessment, pt stated that she wears oxygen at home and RT confirmed this reporting she uses [employer] 0.5L to 1L NC. This was reported to MD as well. Pt very fatigued, 2 person assist up to wheelchair for CT scan. Turning q2h in bed. Stools and urine remain incontinent which pt reports is not normal for her, stool frequency has been decreasing throughout shift and blood in stool not visualized. Skin to perineum is macerated with areas of skin erosion and bleeding. Order received for lidocaine ointment to apply to skin, pt reports some improvement in pain after lidocaine applied. Call light within reach, using appropriately to make needs known.
--- NOTE | 2023-03-11 15:18 | CM.DPC ---
Addendum entered by LYNN Tam 03/11/23 15:27: Update from [facility]- from [facility], waiting to hear back from [facility] on an authorization. Jeannette will continue to update with more information as able. Amend from previous note: patient appears to be resting peacefully. RN aware and will continue to monitor. SANGEETHA Original Note: ACADEMIC SUPPORT DIRECTOR reviewed EMR. Per PT/OT, continue to recommend SNF. Update on SNF search [facility]- no beds [facility]- unable to accept insurance [facility]- [id number]. last known update was Thursday, attempting to gain insurance auth [facility]- from [facility], no beds until next week [facility]- From [facility], unable to accept due to not fully covered by insurance ([employer] appears to be primary followed by [facility] Medicaid plan secondary) and no bed availability. Yanely Cárdenas- lvm. ACADEMIC SUPPORT DIRECTOR attempted to speak with patient. Patient resting and nonrousable. DCP pending SNF search. Patient preference remains [facility]. CM team will continue to follow closely. If no SNF available, likely home with [facility] pending their acceptance of [employer]/managed [facility] Medicaid which requires review. CM team will continue to follow closely. LYNN Tam
--- NOTE | 2023-03-11 15:21 | P.PN_ITS ---
Subjective Subjective Date Patient Seen: 03/11/23 Time Patient Seen: 08:00 Interval history: She states she feels short of breath today, her breathing is more difficult. She is tachycardic today. Overnight she had multiple episodes of watery diarrhea with blood at least four times per nursing. Exam Vital Signs (past 8 hours): - 03/11/23 07:22 03/11/23 08:53 03/11/23 10:09 Temperature 97.6 F Pulse Rate 114 H 110 H Respiratory Rate 95 H 18 Blood Pressure 147/99 H Pulse Oximetry 16 L 95 Oxygen Delivery Method Nasal Cannula Nasal Cannula Oxygen Flow Rate 0 1 03/11/23 10:40 03/11/23 10:42 03/11/23 12:12 Temperature 96.8 F L Pulse Rate 111 H Respiratory Rate 16 Blood Pressure 120/74 Pulse Oximetry 84 L 95 91 Oxygen Delivery Method Oxygen Flow Rate 0 1 1 Oxygen Delivery Method Nasal Cannula Oxygen Flow Rate 1 Narrative Exam Narrative: Gen: no acute distress CV: RRR no m/r/g Ext: 1-2+ edema bilateral LE Abd: Soft non-distended, b/l lower quadrant mild tenderness Neuro: alert, no focal deficits. Objective Labs 03/11/23 04:05 03/11/23 04:05 Labs: Laboratory Results - last 24 hr 03/11/23 03/11/23 04:05 09:53 WBC 10.7 RBC 3.61 L Hgb 8.8 L Hct 28.3 L MCV 78.4 L MCH 24.3 L MCHC 31.0 RDW 20.6 H Plt Count 594 H D-Dimer 1180 H Sodium 139 Potassium 4.0 Chloride 103 Carbon Dioxide 37 H BUN 12 Creatinine 0.42 L Estimated GFR > 60 BUN/Creatinine Ratio 28.6 H Glucose 122 H Calcium 7.6 L Magnesium 1.8 NT-Pro-B Natriuret Pep 470 H PFSH Medical History Colitis Symptomatic anemia Anemia C. difficile colitis Social History household members: spouse Smoking Status: Former smoker alcohol intake: current Assessment & Plan Assessment & Plan narrative: 1) acute cystitis with hematuria - started ceftriaxone 1g q24 hr, UA with >100 WBC and RBC. Continue treatment for complicated UTI x7 days. Possible n/v are related to acute cystitis. Cultures with 2x GNB. 2) Crohn's flare, acute - c. diff testing negative. has recent complex treatment for C. diff with 2 months of antibiotics. - previously on immunomodulator therapy, did discuss with [facility] GI physician rehabilitation counsellor. Recommended for treatment with steroids. Added flagyl for 7 days as well based on recommendations. Will continue today. - number of bowel movements has significantly improved 3. Acute on chronic hypoxemic respiratory failure -has known COPD on oxygen (1L) at home -has known CHFpEF -suspect she is mostly volume overloaded given lower extremity edema, BNP not very elevated though -chest xray with no significant edema -will start low dose lasix and see if her respiratory status improves -also encourage more frequent neb use to see if that helps her breathing -CTA showed no PE 4. Spiculated nodule -noted on CTA -will need follow up with possible PET scan 5. BP normotensive today on home medications so will continue amlodipine and metoprolol 6. Hypokalemia, acute, present on admission - secondary to GI losses. Improved with repletion. - continue antiemetic therapy with zofran 7. Hyperglycemia. resolved - checked A1c which was 5.4%, Glucose 207 on AM labs but on D5 infusion at the time. Quality VTE Deep Vein Thrombosis/Pulmonary Embolism Present on Admission: No
[2023-03-11] MEDS: FUROSEMIDE 20 MG/2 ML VIAL IV (15:47)
[2023-03-11] MEDS: HYDROMORPHONE 0.5 MG INJ IV ×2 (20:13→23:29)
[2023-03-11] MEDS: TRAZODONE 50 MG TABLET 100 MG PO (20:14)
[2023-03-11] MEDS: OLANZapine 2.5 MG TABLET 5 MG PO (20:14)
[2023-03-11] MEDS: buPROPion XL 150 MG TAB PO (21:55)
[2023-03-12] VITALS (9 sets, daily range): BP systolic 103–124; BP diastolic 65–86; PULSE 102–119; RESP 16–18; TEMP 36.1–36.8; O2SAT 94–97
[2023-03-12] MEDS: LIDOCAINE 5% OINT 35 GM 1 APPLIC TOP ×3 (00:01→20:23)
[2023-03-12] MEDS: ACETAMINOPHEN 325 MG TABLET 650 MG PO (02:17)
[2023-03-12] MEDS: OXYCODONE IR 5 MG TABLET PO (02:18)
[2023-03-12 05:08] LABS: Hematocrit 25.6 % (36-46); Mean Corpuscular HGB Conc 31.4 % (30-36); Mean Corpuscular Hemoglobin 24.5 PG (26-34); Mean Corpuscular Volume 78.1 fL (80-100); Platelet Count 562 X10^3/uL (150-400); Red Blood Cell Count 3.28 X10^6/uL (4.0-5.2); Red Cell Distribution Width 20.6 % (11.6-14.8); White Blood Cell Count 9.8 X10^3/uL (4.5-11.0)
[2023-03-12 05:23] LABS: BUN Creatinine Ratio 27.3 (6-22); Blood Urea Nitrogen 12 mg/dL (7-17); Calcium 7.5 mg/dL (8.4-10.2); Chloride 98 mmol/L (98-107); Estimated Glomerular Filt Rate > 60 mL/min (>60); Glucose 68 mg/dL (80-110); HEMOLYSIS < 15 (0-50); Potassium 3.7 mmol/L (3.4-5.1); Sodium 138 mmol/L (137-145)
[2023-03-12 05:30] LABS: Carbon Dioxide 39 mmol/L (22-32)
--- NOTE | 2023-03-12 06:04 | PC.NURSE ---
Morning 0420 lab results came back, blood sugar 68. RN rechecked, 71 @ 0545, orange juice given. Patient is alert and states that she feels fine. BG checked again in 15 minutes: 89.
[2023-03-12] MEDS: HYDROMORPHONE 0.5 MG INJ IV ×4 (09:00→20:12)
[2023-03-12] MEDS: ENOXAPARIN 40 MG/0.4 ML SYRINGE SUBCUT (09:04)
[2023-03-12] MEDS: ASPIRIN EC 81 MG TABLET PO (09:04)
[2023-03-12] MEDS: cefTRIAXone 1,000 MG in SODIUM CHLORIDE 0.9% 100 ML 200 MG IV (09:04)
[2023-03-12] MEDS: BUSPIRONE 5 MG TABLET PO (09:04)
[2023-03-12] MEDS: predniSONE 20 MG TABLET 40 MG PO (09:05)
[2023-03-12] MEDS: metroNIDAZOLE 500 MG TABLET PO ×3 (09:05→17:16)
[2023-03-12] MEDS: FUROSEMIDE 20 MG/2 ML VIAL IV (09:05)
[2023-03-12] MEDS: METOPROLOL ER 25 MG TABLET PO (09:05)
[2023-03-12] MEDS: AMLODIPINE 5 MG TABLET PO (09:06)
[2023-03-12] MEDS: SODIUM CHLORIDE 0.9% FLUSH 10 ML IV ×2 (09:07→21:00)
[2023-03-12] MEDS: buPROPion SR 150 MG TAB PO ×2 (09:42→20:23)
--- NOTE | 2023-03-12 11:23 | P.PN_ITS ---
Subjective Subjective Interval history: Very weak, loose stools. Some blood. No chest pain or dyspnea. Exam Vital Signs (past 8 hours): - 03/12/23 04:00 03/12/23 08:00 03/12/23 08:00 Temperature 97.4 F L 98.2 F Pulse Rate 111 H 118 H Respiratory Rate 16 18 Blood Pressure 122/72 124/86 Pulse Oximetry 97 96 Oxygen Delivery Method Nasal Cannula Oxygen Flow Rate 1 1 03/12/23 08:00 03/12/23 09:05 03/12/23 09:55 Temperature Pulse Rate 118 H 119 H Respiratory Rate Blood Pressure 124/86 Pulse Oximetry 96 Oxygen Delivery Method Nasal Cannula Oxygen Flow Rate 1 Oxygen Delivery Method Nasal Cannula Oxygen Flow Rate 1 Narrative Exam Narrative: NAD, listless with a flat affect. Lungs clear with normal effort CV RRR without M/G/R Abdomen Soft, NT/ND No rash No leg edema Objective Labs 03/12/23 04:20 03/12/23 04:20 Labs: Laboratory Results - last 24 hr 03/12/23 04:20 WBC 9.8 RBC 3.28 L Hgb 8.0 L Hct 25.6 L MCV 78.1 L MCH 24.5 L MCHC 31.4 RDW 20.6 H Plt Count 562 H Sodium 138 Potassium 3.7 Chloride 98 Carbon Dioxide 39 H BUN 12 Creatinine 0.44 L Estimated GFR > 60 BUN/Creatinine Ratio 27.3 H Glucose 68 L Calcium 7.5 L PFSH Medical History Colitis Symptomatic anemia Anemia C. difficile colitis Social History household members: spouse Smoking Status: Former smoker alcohol intake: current Assessment & Plan Assessment & Plan narrative: 1) acute cystitis with hematuria, POA and improving. - continue ceftriaxone 1g q24 hr, UA with >100 WBC and RBC. Continue treatment for complicated UTI x7 days. Possible n/v are related to acute cystitis. Culture with E. coli and Klebsiella. 2) Crohn's flare, POA and active. - c. diff testing negative. has recent complex treatment for C. diff with 2 months of antibiotics. - previously on immunomodulator therapy, did discuss with [facility] GI physician insulation sprayer. Recommended for treatment with steroids. Added flagyl for 7 days as well based on recommendations. Will continue today. - number of bowel movements has significantly improved 3. Acute on chronic hypoxemic respiratory failure, POA and active. -has known COPD on oxygen (1L) at home -has known CHFpEF -will start low dose lasix and see if her respiratory status improves -wean O2 as able. -CTA showed no PE 4. Spiculated nodule, POA. -noted on CTA -will need follow up with PCP. 5. Hypertension, POA. - normotensive today on home medications so will continue amlodipine and metoprolol 6. Hypokalemia, acute, present on admission and improved, - secondary to GI losses. Improved with repletion. - continue antiemetic therapy with zofran 7. Hyperglycemia. resolved - checked A1c which was 5.4%, Glucose 207 on AM labs but on D5 infusion at the time. Discharge planning: working towards SNF ([place]) in 2-3 days. Time Spent With Patient Time with patient: 30 to 49 minutes with 50% spent counseling/coordinating care Quality VTE Deep Vein Thrombosis/Pulmonary Embolism Present on Admission: No
--- NOTE | 2023-03-12 11:37 | PC.NURSE ---
Day shift: Notified MD Wellington about patient's consistent tachycardia up to mid 120s all morning. BP WNL. said this may be related to IV lasix and will continue to monitor.
--- NOTE | 2023-03-12 13:00 | PT.IPTN ---
Current Diagnoses Dehydration (03/06/23) Hypokalemia (03/06/23) Essential (primary) hypertension (03/06/23) Heart failure, unspecified (03/06/23) Chronic obstructive pulmonary disease, unspecified (03/06/23) Nausea with vomiting, unspecified (03/06/23) Physical Therapy Treatment Note M2 PT-IP Current Condition Start: 03/08/23 14:29 Freq: NEEDED Status: Active Protocol: Document 03/08/23 14:30 AMB (Rec: 03/08/23 15:02 AMB [id number]) Physical Therapy Current Condition Current Condition Evaluation Date 03/08/23 Treatment Diagnosis Crohn's flare, reduced mobility Onset Date 03/06/23 M3 PT-IP Subjective Start: 03/08/23 14:29 Freq: NEEDED Status: Active Protocol: Document 03/12/23 13:20 TS (Rec: 03/12/23 13:39 TS [id number]) Subjective Physical Therapy Visit Type Type Treatment Note Visit Start Time 13:00 Visit Stop Time 13:19 Notes Spouse present Number of MEDICAL DIRECTOR/HEAD TEAM PHYSICIAN Visits 3 Physical Therapy Visit Comments Patient Comments Pt found resting in bed on 2L of o2, Spo2 96%, pt reports she is feeling better this afternoon and is agreeable to PT. M4 PT-IP Mobility and Gait Start: 03/08/23 14:29 Freq: NEEDED Status: Active Protocol: Document 03/12/23 13:20 TS (Rec: 03/12/23 13:39 TS [id number]) PT-Bed Mobility Assessment Supine to Sit Supine to Sit Minimal Assistance,1 Person Assistance,Head of Bed Elevated Scooting Scooting to Edge of Bed Contact Guard Assistance PT-Transfer Assessment Sit to and From Stand Sit to and from Stand Contact Guard Assistance Equipment Transfer Assistive Device Gait Belt,Front Wheeled Walker Orthotic/Prosthetic Devices or Brace: No Comments Mobility Comments Supine to sit Lilli with handheld assist to upright trunk. She performed sit to stand x1 CGA with FWW, she has good standing balance with no retroleaning. She ambulated in room ~30'CGA/SBA with slow step to gait and with FWW. Pt ambulated back to chair, was left with call light nearby, all needs met, spouse in room. Gait Assessment Gait Gait Assistance Required: Contact Guard Assist Distance (Feet) 30 Assistive Devices Assistive Device Gait Belt,Front Wheeled Walker Orthotic/Prosthetic Devices or Brace: No Gait Deviations General Gait Pattern Antalgic,Decreased Stride Length,Decreased Feet Clearance,Step-to Gait Factors Limiting Gait Function Factors Limiting Gait Function Decreased Activity Tolerance, Decreased Strength, Incoordination,Pain,Poor Balance,Poor Safety Awareness, Respiratory Distress Comments Gait Comments See mobility comments. PT-Balance Assessment Sitting Balance and Reactions Static Sitting Balance Ability Good Dynamic Sitting Balance Ability Fair Standing Balance and Reactions Static Standing Balance Ability Good Dynamic Standing Balance Ability Fair Device Used FWW M5 PT-IP Objective Assessments Start: 03/08/23 14:29 Freq: NEEDED Status: Active Protocol: Document 03/08/23 14:30 AMB (Rec: 03/08/23 15:02 AMB [id number]) Orientation Orientation/Cognition Level of Alertness Alert Gross Range of Motion Lower Extremity ROM Assessment Bilaterally Impaired Impairments ankles barely dorsiflex to neutral Strength Lower Extremity Strength Assessment Bilaterally Impaired Hip 2 Knee 3 Ankle 3 Comments Strength Comments Jasmin has been practically bed bound for the past 2 months and has a difficult time moving her legs in the bed to perform bed mobility. M6 PT-IP Treatment Start: 03/08/23 14:29 Freq: NEEDED Status: Active Protocol: Document 03/10/23 11:50 TS (Rec: 03/10/23 12:05 TS [id number]) Physical Therapy Treatment Other Treatments Other Treatment Performed Pt was educated on calf stretch and to continue bed ex . M7 PT-IP Assessment and Plan Start: 03/08/23 14:29 Freq: NEEDED Status: Active Protocol: Document 03/12/23 13:20 TS (Rec: 03/12/23 13:39 TS [id number]) PT Summary Assessment and Plan Potential Rehabilitation Potential Good Summary Impairments Pain,ROM,Strength,Balance,Bed Mobility,Gait,Activity Tolerance Progress Towards Goals Slow Progress due to Medical Issues,Slow Progress due to Activity Tolerance Assessment Summary Jasmin is making some progress with her mobility but remains limited by her ongoing medical issues and activity tolerance. She required Lilli for bed mobility and uprighting her trunk into a seated position. She progressed her gait to ~30' in room SBA/CGA with FWW, she had no buckling or LOB. She did have some SOB after gait but Spo2 remained in mid 90's throughout treatment on 2L. PT continues to recommend SNF at this time to progress strength, activity tolerance and functional mobility. Goals Bed Mobility Goal Contact Guard Assistance Transfer Goal Contact Guard Assistance Gait Goal Contact Guard Assistance Gait Distance 100 Days to Meet Goals 7 Frequency of Treatment Frequency Of Treatment Once a Day Treatment Plan Physical Therapy Treatment Plan Bed Mobility Training,Transfer Training,Gait Training, Therapeutic Exercise,Balance Retraining,Neuromuscular Re-ed Other Recommendations and Next Treatment Progress gait, continue Focus transfers. Recommendations To Nursing Amount of Assist Needed 1 Person Assist Discharge Recommendations PT Discharge Recommendations SNF Rehab Transportation Needs at Discharge Wheelchair/Cabulance
[2023-03-12 18:52] LABS: HBsAg Screen Negative (Negative); HCV log 10 4.093 (.); Hepatitis A Antibody IgM Negative (Negative); Hepatitis B Core Antibody IgM Negative (Negative); Hepatitis C Antibody Reactive (Non Reactive); Hepatitis C Quant 12400 IU/mL (.)
[2023-03-12] MEDS: TRAZODONE 50 MG TABLET 100 MG PO (20:13)
[2023-03-12] MEDS: OLANZapine 2.5 MG TABLET 5 MG PO (20:13)
[2023-03-13] VITALS (8 sets, daily range): BP systolic 96–130; BP diastolic 59–83; PULSE 90–112; RESP 16–18; TEMP 35.9–36.7; O2SAT 94–98
[2023-03-13] MEDS: OXYCODONE IR 5 MG TABLET PO (00:51)
[2023-03-13] MEDS: ACETAMINOPHEN 325 MG TABLET 650 MG PO (00:52)
[2023-03-13] MEDS: HYDROMORPHONE 0.5 MG INJ IV ×8 (02:51→23:41)
[2023-03-13] MEDS: cefTRIAXone 1,000 MG in SODIUM CHLORIDE 0.9% 100 ML 200 MG IV (07:49)
[2023-03-13] MEDS: metroNIDAZOLE 500 MG TABLET PO ×3 (07:49→16:16)
[2023-03-13] MEDS: ENOXAPARIN 40 MG/0.4 ML SYRINGE SUBCUT (09:28)
[2023-03-13] MEDS: ASPIRIN EC 81 MG TABLET PO (09:28)
[2023-03-13] MEDS: BUSPIRONE 5 MG TABLET PO (09:29)
[2023-03-13] MEDS: AMLODIPINE 5 MG TABLET PO ×2 (09:29→21:18)
[2023-03-13] MEDS: FUROSEMIDE 20 MG/2 ML VIAL IV (09:29)
[2023-03-13] MEDS: buPROPion SR 150 MG TAB PO ×2 (09:29→21:18)
[2023-03-13] MEDS: METOPROLOL ER 25 MG TABLET PO (09:29)
[2023-03-13] MEDS: predniSONE 20 MG TABLET 40 MG PO (09:29)
[2023-03-13] MEDS: SODIUM CHLORIDE 0.9% FLUSH 10 ML IV (09:32)
[2023-03-13] MEDS: LIDOCAINE 5% OINT 35 GM 1 APPLIC TOP ×4 (11:08→18:45)
[2023-03-13 12:08] LABS: BUN Creatinine Ratio 26.1 (6-22); Blood Urea Nitrogen 12 mg/dL (7-17); Calcium 7.9 mg/dL (8.4-10.2); Chloride 91 mmol/L (98-107); Estimated Glomerular Filt Rate > 60 mL/min (>60); Glucose 106 mg/dL (80-110); HEMOLYSIS < 15 (0-50); Potassium 3.8 mmol/L (3.4-5.1); Sodium 134 mmol/L (137-145)
[2023-03-13 12:11] LABS: Add Manual Diff / Slide Review NO; Basophils Absolute Auto 0 /uL (0-100); Basophils Percent Auto 0.1 % (0-2); Eosinophils Absolute Auto 100 /uL (0-450); Eosinophils Percent Auto 0.5 % (2-4); Hematocrit 27.8 % (36-46); Hemoglobin 8.6 g/dL (12.0-16.0); Lymphocytes Absolute Auto 800 /uL (1100-4500); Lymphocytes Percent Auto 4.3 % (25-40); Mean Corpuscular HGB Conc 30.9 % (30-36); Mean Corpuscular Hemoglobin 24.2 PG (26-34); Mean Corpuscular Volume 78.4 fL (80-100); Monocytes Absolute Auto 1000 /uL (0-900); Monocytes Percent Auto 5.8 % (3-14); Neutrophils Absolute Auto 15600 /uL (1500-7000); Neutrophils Percent Auto 89.3 % (50-75); Platelet Count 647 X10^3/uL (150-400); Red Blood Cell Count 3.55 X10^6/uL (4.0-5.2); Red Cell Distribution Width 20.4 % (11.6-14.8); White Blood Cell Count 17.5 X10^3/uL (4.5-11.0)
[2023-03-13 12:18] LABS: Carbon Dioxide 43 mmol/L (22-32)
--- NOTE | 2023-03-13 12:55 | PC.NURSE ---
Day shift: Notified of CO2 lab value 43. MD Wellington said no action needed at this time. Will continue to monitor.
--- NOTE | 2023-03-13 13:11 | PT.IPTN ---
Current Diagnoses Dehydration (03/06/23) Hypokalemia (03/06/23) Essential (primary) hypertension (03/06/23) Heart failure, unspecified (03/06/23) Chronic obstructive pulmonary disease, unspecified (03/06/23) Nausea with vomiting, unspecified (03/06/23) Physical Therapy Treatment Note M2 PT-IP Current Condition Start: 03/08/23 14:29 Freq: NEEDED Status: Active Protocol: Document 03/08/23 14:30 AMB (Rec: 03/08/23 15:02 AMB [id number]) Physical Therapy Current Condition Current Condition Evaluation Date 03/08/23 Treatment Diagnosis Crohn's flare, reduced mobility Onset Date 03/06/23 M3 PT-IP Subjective Start: 03/08/23 14:29 Freq: NEEDED Status: Active Protocol: Document 03/13/23 13:39 TS (Rec: 03/13/23 13:59 TS [id number]) Subjective Physical Therapy Visit Type Type Treatment Note Visit Start Time 13:11 Visit Stop Time 13:37 Total Visit Minutes 26 Notes Spouse present. Number of FREIGHT COORDINATOR Visits 4 Physical Therapy Visit Comments Patient Comments Pt found resting in bed, is agreeable to PT. M4 PT-IP Mobility and Gait Start: 03/08/23 14:29 Freq: NEEDED Status: Active Protocol: Document 03/13/23 13:39 TS (Rec: 03/13/23 13:59 TS [id number]) PT-Bed Mobility Assessment Supine to Sit Supine to Sit Minimal Assistance,1 Person Assistance,Head of Bed Elevated Sit to Supine Sit to Supine Minimal Assistance,1 Person Assistance,Bedrails Scooting Scooting to Edge of Bed Contact Guard Assistance PT-Transfer Assessment Sit to and From Stand Sit to and from Stand Contact Guard Assistance Equipment Transfer Assistive Device Gait Belt,Front Wheeled Walker Orthotic/Prosthetic Devices or Brace: No Comments Mobility Comments Supine to sit Lilli for uprighting trunk and LLE assistance to EOB. She sat EOB CGA/SBA with cues for UE support. She performed seated knee flex/ext x10, seated march x10, seated hip ADD. Sit to stand x2 CGA with FWW, pt is slow to stand, has good standing balance with no retroleaning. Pt reported fatigue and requested back to bed. Sit to supine into bed Lilli for LEs, pt repositioned trunk into bed. She was left in bed, bed alarm on, all needs met, RN notified. Gait Assessment Comments Gait Comments Not this session due to fatigue. PT-Balance Assessment Sitting Balance and Reactions Static Sitting Balance Ability Good Dynamic Sitting Balance Ability Fair Standing Balance and Reactions Static Standing Balance Ability Good Dynamic Standing Balance Ability Fair Device Used FWW M5 PT-IP Objective Assessments Start: 03/08/23 14:29 Freq: NEEDED Status: Active Protocol: Document 03/08/23 14:30 AMB (Rec: 03/08/23 15:02 AMB [id number]) Orientation Orientation/Cognition Level of Alertness Alert Gross Range of Motion Lower Extremity ROM Assessment Bilaterally Impaired Impairments ankles barely dorsiflex to neutral Strength Lower Extremity Strength Assessment Bilaterally Impaired Hip 2 Knee 3 Ankle 3 Comments Strength Comments Jasmin has been practically bed bound for the past 2 months and has a difficult time moving her legs in the bed to perform bed mobility. M6 PT-IP Treatment Start: 03/08/23 14:29 Freq: NEEDED Status: Active Protocol: Document 03/10/23 11:50 TS (Rec: 03/10/23 12:05 TS [id number]) Physical Therapy Treatment Other Treatments Other Treatment Performed Pt was educated on calf stretch and to continue bed ex . M7 PT-IP Assessment and Plan Start: 03/08/23 14:29 Freq: NEEDED Status: Active Protocol: Document 03/13/23 13:39 TS (Rec: 03/13/23 13:59 TS [id number]) PT Summary Assessment and Plan Potential Rehabilitation Potential Good Summary Impairments Pain,ROM,Strength,Balance,Bed Mobility,Gait,Activity Tolerance Progress Towards Goals Slow Progress due to Medical Issues,Slow Progress due to Activity Tolerance Assessment Summary Jasmin is making slow progress with her mobility this session. She requires Lilli for bed mobility in/out of bed due to weakness in her LLE and UE's. She performed sit to stand x2 CGA with FWW, has good balance in standing with no LOB. She did not progress gait this session due to fatigue. PT continues to recommend SNF at this time. Goals Bed Mobility Goal Contact Guard Assistance Transfer Goal Contact Guard Assistance Gait Goal Contact Guard Assistance Gait Distance 100 Days to Meet Goals 7 Frequency of Treatment Frequency Of Treatment Once a Day Treatment Plan Physical Therapy Treatment Plan Bed Mobility Training,Transfer Training,Gait Training, Therapeutic Exercise,Balance Retraining,Neuromuscular Re-ed Other Recommendations and Next Treatment Progress gait, continue Focus transfers. Recommendations To Nursing Amount of Assist Needed 1 Person Assist Discharge Recommendations PT Discharge Recommendations SNF Rehab Transportation Needs at Discharge Wheelchair/Cabulance
[2023-03-13 13:37] LABS: Anisocytosis 1+
--- NOTE | 2023-03-13 13:48 | P.PN_ITS ---
Subjective Subjective Interval history: She had more alert today with physical therapy could move when leg a bit. Her diarrhea continues but is slowly improving since starting on steroids. She feels a little bit less weak today. She is not really been out of bed per se since being admitted. She remains profoundly weak. Updates from social work indicate that her primary insurance is primarily, secondary [facility], and 3rd is Medicaid. Apparently, between all of these plans there is no coverage for long term facility. is quite frustrated by this, and additional information is being given to the patient and him. Guidance for Medicare open enrollment also being given. They live in [facility]. Exam Vital Signs (past 8 hours): - 03/13/23 08:00 03/13/23 08:00 03/13/23 09:29 Temperature 96.7 F L Pulse Rate 109 H 112 H Respiratory Rate 18 Blood Pressure 130/83 130/83 Pulse Oximetry 94 95 Oxygen Delivery Method Nasal Cannula Oxygen Flow Rate 1 1 03/13/23 11:43 Temperature Pulse Rate Respiratory Rate Blood Pressure 130/83 Pulse Oximetry Oxygen Delivery Method Oxygen Flow Rate Oxygen Delivery Method Nasal Cannula Oxygen Flow Rate 1 Narrative Exam Narrative: She is in no acute distress, fluent speech. Pupils symmetric, anicteric sclera. Lungs are clear, normal effort. Abdomen slightly distended, non-tender Extremities are free of edema. Objective Labs 03/13/23 11:44 03/13/23 11:44 Labs: Laboratory Results - last 24 hr 03/06/23 03/13/23 21:03 11:44 WBC 17.5 H D RBC 3.55 L Hgb 8.6 L Hct 27.8 L MCV 78.4 L MCH 24.2 L MCHC 30.9 RDW 20.4 H Plt Count 647 H Neut % (Auto) 89.3 H Lymph % (Auto) 4.3 L [place] % (Auto) 5.8 Eos % (Auto) 0.5 L Baso % (Auto) 0.1 Neut # (Auto) 28801 H Lymph # (Auto) 800 L [place] # (Auto) 1000 H Eos # (Auto) 100 Baso # (Auto) 0 RBC Morphology See below Anisocytosis 1+ H Sodium 134 L Potassium 3.8 Chloride 91 L Carbon Dioxide 43 H* BUN 12 Creatinine 0.46 L Estimated GFR > 60 BUN/Creatinine Ratio 26.1 H Glucose 106 Calcium 7.9 L Hepatitis Panel Comment Hepatitis A IgM Ab Negative Hep Bs Antigen Negative Hep B Core IgM Ab Negative Hepatitis C Antibody Reactive A Hepatitis C RNA Quant 25059 HCV RNA (PCR) log10 4.093 Ref Lab Notation Comment [facility] Medical History Colitis Symptomatic anemia Anemia C. difficile colitis Social History household members: spouse Smoking Status: Former smoker alcohol intake: current Assessment & Plan Assessment & Plan narrative: 1) acute cystitis with hematuria, POA and improving. - continue ceftriaxone 1g q24 hr, UA with >100 WBC and RBC. Continue treatment for complicated UTI x7 days. Possible n/v are related to acute cystitis. Culture with E. coli and Klebsiella. 2) Crohn's flare, POA and active. - c. diff testing negative. has recent complex treatment for C. diff with 2 months of antibiotics. - previously on immunomodulator therapy, did discuss with [facility] GI physician operational risk analyst. Recommended for treatment with steroids. Added flagyl for 7 days as well based on recommendations. Will continue today. - number of bowel movements has significantly improved -the patient is having slow improvement with steroids, however the diarrhea is still significant and she remains volume depleted. 3. Volume depletion with contraction alkalosis, POA and active. -will give IV fluids today. 4. Acute on chronic hypoxemic respiratory failure, POA and active. -has known COPD on oxygen (1L) at home -has known CHFpEF -will start low dose lasix and see if her respiratory status improves -wean O2 as able. -CTA showed no PE 5. Spiculated nodule, POA. -noted on CTA -will need follow up with PCP. 6. Hypertension, POA and stable. - normotensive today on home medications so will continue amlodipine and metoprolol 7. Hypokalemia, acute, present on admission and improved, - secondary to GI losses. Improved with repletion. - continue antiemetic therapy with zofran 8. Hyperglycemia. resolved - checked A1c which was 5.4%, Glucose 207 on AM labs but on D5 infusion at the time. The patient lives in [facility] is very debilitated and really needs long term facility at discharge. Currently they are barriers of no coverage for long term facility. There 3 payors, [employer], [facility], and Medicaid does not cover SNF. They are being guided towards open enrollment for Medicare, however they live at [facility] and will still be out of this coverage possibility until at least May 25. The patient is not medically ready for discharge at this point. Time Spent With Patient Time with patient: 30 to 49 minutes with 50% spent counseling/coordinating care Quality VTE Deep Vein Thrombosis/Pulmonary Embolism Present on Admission: No
[2023-03-13] MEDS: SODIUM CHLORIDE 0.9% 1,000 ML 100 ML IV (13:57)
[2023-03-13] MEDS: SODIUM CHLORIDE 0.9% 1,000 ML 125 ML IV (14:15)
--- NOTE | 2023-03-13 15:12 | CM.DPC ---
DCP Cont. Reviewed chart and team rounds for updates. Met with pt/spouse after having no success in obtaining a SNF rehab primarily due to pt's insurance. Pt continues to be very weak, is starting to improve with IV antibiotics, and was able to make some small progress with PT today. After several calls with admitting here at the hospital, this [employer] explained to pt's spouse that they have [employer] commercial insurance as primary, which he denied, however [employer] explained that it's in fact effective through 05/24/23. Spouse insists that they have Medicaid for pt as primary. Multiple attempts at explaining how this insurance works were not effective in helping him understand their insurance benefits. Per [facility] Admitting, NEWS [employer] left a message for spouse with the phone number to his Medicaid plan to call and discuss his plan with them. Alternative plan for d/c is home with [facility] for OP PT/OT, [facility] is reviewing her insurance, will get back to CM with the ability to accept within the next few days. Pt likely d/c in 2-more days. Will continue to follow and assist as needed.
[2023-03-13] MEDS: TRAZODONE 50 MG TABLET 100 MG PO (21:18)
[2023-03-13] MEDS: OLANZapine 2.5 MG TABLET 5 MG PO (21:18)
[2023-03-14] VITALS (15 sets, daily range): BP systolic 96–135; BP diastolic 60–83; PULSE 94–114; RESP 16–22; TEMP 36.3–36.9; O2SAT 92–98
[2023-03-14] MEDS: HYDROMORPHONE 0.5 MG INJ IV ×7 (01:45→19:57)
[2023-03-14] MEDS: OXYCODONE IR 5 MG TABLET PO ×2 (03:28→21:48)
--- NOTE | 2023-03-14 05:40 | PC.NURSE ---
Pt has been having small bowel movement throughout the night every 2 hours. They are soft in consistency and black/dark red.
--- NOTE | 2023-03-14 08:44 | PM.PN.1 ---
Subjective Subjective Date Patient Seen: 03/14/23 Interval history: She is seen in her room today to follow-up her anemia, elevated white blood count, discuss placement issues and her Crohn's colitis. Skid [employer] Worker are helping family with placement. A chcf facility is under consideration but her has some issues with her insurance. Her hemoglobin has dropped from 8.6 down to 6.8 today. The white blood count has risen from 9.8 up to 17.5. The platelets are up to 647. The BMP is normal with a sodium 134 and creatinine of 0.46. The heart rate is 109. She will receive a blood transfusion today Exam Vital Signs (past 8 hours): - 03/14/23 04:00 03/14/23 07:47 Temperature 97.7 F 98 F Pulse Rate 110 H 109 H Respiratory Rate 18 16 Blood Pressure 130/80 121/75 Pulse Oximetry 94 95 Oxygen Flow Rate 2 1 Oxygen Delivery Method Nasal Cannula Oxygen Flow Rate 1 Narrative Exam Narrative: She is alert and oriented x3, in no apparent distress. Heart is regular rate and rhythm without murmur Lungs are clear to auscultation bilaterally Extremities have no ankle edema Abdomen is soft, mildly tender diffusely, bowel sounds active. Objective Labs 03/14/23 08:30 03/14/23 08:30 Labs: Laboratory Results - last 24 hr 03/13/23 11:44 WBC 17.5 H D RBC 3.55 L Hgb 8.6 L Hct 27.8 L MCV 78.4 L MCH 24.2 L MCHC 30.9 RDW 20.4 H Plt Count 647 H Neut % (Auto) 89.3 H Lymph % (Auto) 4.3 L [place] % (Auto) 5.8 Eos % (Auto) 0.5 L Baso % (Auto) 0.1 Neut # (Auto) 03978 H Lymph # (Auto) 800 L [place] # (Auto) 1000 H Eos # (Auto) 100 Baso # (Auto) 0 RBC Morphology See below Anisocytosis 1+ H Sodium 134 L Potassium 3.8 Chloride 91 L Carbon Dioxide 43 H* BUN 12 Creatinine 0.46 L Estimated GFR > 60 BUN/Creatinine Ratio 26.1 H Glucose 106 Calcium 7.9 L PFSH Medical History Colitis Symptomatic anemia Anemia C. difficile colitis Social History household members: spouse Smoking Status: Former smoker alcohol intake: current Assessment & Plan Assessment & Plan narrative: 1) acute cystitis with hematuria, POA and improving. - continue ceftriaxone 1g q24 hr, UA with >100 WBC and RBC. Continue treatment for complicated UTI x7 days. Possible n/v are related to acute cystitis. Culture with E. coli and Klebsiella. 2) Crohn's flare, POA and active. - c. diff testing negative. has recent complex treatment for C. diff with 2 months of antibiotics. - previously on immunomodulator therapy, did discuss with [facility] GI physician production broaching machine operator. Recommended for treatment with steroids. Added flagyl for 7 days as well based on recommendations. Will continue today. - number of bowel movements has significantly improved -the patient is having slow improvement with steroids, however the diarrhea is still significant and she remains volume depleted. -the anemia is worsening consistent with this condition flaring. Due to a hemoglobin of 6.8 she is receiving transfusion of packed red blood cells on 03/14. 3. Volume depletion with contraction alkalosis, POA and active. -resolved 4. Acute on chronic hypoxemic respiratory failure, POA and active. -has known COPD on oxygen (1L) at home -has known CHFpE -Lasix -wean O2 as able. -CTA showed no PE 5. Spiculated nodule, POA. -noted on CTA -will need follow up with PCP. 6. Hypertension, POA and stable. - normotensive today on home medications so will continue amlodipine and metoprolol 7. Hypokalemia, acute, present on admission and improved, -resolved 8. Hyperglycemia. resolved - checked A1c which was 5.4%, Glucose 207 on AM labs but on D5 infusion at the time. 9. Anemia secondary to Crohn's colitis -hemoglobin 6.8 on 03/14, transfuse with 2 units packed red blood cells and follow The patient lives in [facility], is very debilitated and really needs chcf facility at discharge. Currently they are barriers of no coverage for chcf facility. There 3 payors, [employer], [facility], and Medicaid does not cover SNF. They are being guided towards open enrollment for Medicare, however they live on [facility] and will still be out of this coverage possibility until at least May 25. The patient is not medically ready for discharge at this point. Quality VTE Deep Vein Thrombosis/Pulmonary Embolism Present on Admission: No
[2023-03-14 08:50] LABS: Add Manual Diff / Slide Review NO; Basophils Absolute Auto 0 /uL (0-100); Basophils Percent Auto 0.2 % (0-2); Eosinophils Absolute Auto 100 /uL (0-450); Eosinophils Percent Auto 0.6 % (2-4); Hematocrit 22.3 % (36-46); Lymphocytes Absolute Auto 1500 /uL (1100-4500); Lymphocytes Percent Auto 10.7 % (25-40); Mean Corpuscular HGB Conc 30.4 % (30-36); Mean Corpuscular Hemoglobin 24.1 PG (26-34); Mean Corpuscular Volume 79.3 fL (80-100); Monocytes Absolute Auto 1300 /uL (0-900); Monocytes Percent Auto 9.4 % (3-14); Neutrophils Absolute Auto 11100 /uL (1500-7000); Neutrophils Percent Auto 79.1 % (50-75); Platelet Count 576 X10^3/uL (150-400); Red Blood Cell Count 2.81 X10^6/uL (4.0-5.2); White Blood Cell Count 14.1 X10^3/uL (4.5-11.0)
[2023-03-14 08:53] LABS: Hemoglobin 6.8 g/dL (12.0-16.0)
[2023-03-14 08:57] LABS: BUN Creatinine Ratio 28.6 (6-22); Blood Urea Nitrogen 16 mg/dL (7-17); Calcium 7.7 mg/dL (8.4-10.2); Chloride 96 mmol/L (98-107); Estimated Glomerular Filt Rate > 60 mL/min (>60); Glucose 77 mg/dL (80-110); HEMOLYSIS < 15 (0-50); Sodium 137 mmol/L (137-145)
[2023-03-14 09:13] LABS: Anisocytosis 2+
[2023-03-14 09:14] LABS: Hypochromasia 1+
[2023-03-14] MEDS: predniSONE 20 MG TABLET 40 MG PO (09:20)
[2023-03-14] MEDS: FUROSEMIDE 20 MG/2 ML VIAL IV (09:20)
[2023-03-14] MEDS: METOPROLOL ER 25 MG TABLET PO (09:20)
[2023-03-14] MEDS: buPROPion SR 150 MG TAB PO ×2 (09:21→20:06)
[2023-03-14] MEDS: ASPIRIN EC 81 MG TABLET PO (09:21)
[2023-03-14] MEDS: BUSPIRONE 5 MG TABLET PO (09:21)
[2023-03-14] MEDS: ENOXAPARIN 40 MG/0.4 ML SYRINGE SUBCUT (09:21)
[2023-03-14] MEDS: AMLODIPINE 5 MG TABLET PO ×2 (09:21→20:05)
[2023-03-14] MEDS: SODIUM CHLORIDE 0.9% FLUSH 10 ML IV ×2 (09:38→20:05)
[2023-03-14 09:40] LABS: Carbon Dioxide 42 mmol/L (22-32)
--- NOTE | 2023-03-14 10:53 | CM.DPC ---
DCP Cont. Reviewed EMR and team rounds for updates. Pt not yet medically stable for d/c, plan is to continue ABO's and therapies. Pt is making slow improvement with PT/OT and ABO's. Met w/her bedside to update her on d/c not anticipated for this weekend. Pt expressed feeling somewhat better today, she presents as relaxed and was able to smile, unlike a few days prior. This ELEVATOR INSTALLER APPRENTICE provided her with the [facility] brochure, as well as the expedited [facility] application, and explained how they are eligible to apply for in-home caregiving through the [employer] program, explained how to apply, and what to expect with services. She will discuss this further with her spouse. No further needs indicated for d/c or psychosocial support for today.
--- NOTE | 2023-03-14 13:22 | PT-IP ANOTE ---
Per RN pt is to receive a blood transfusion, will hold PT for today. PT will check back in with pt tomorrow.
--- NOTE | 2023-03-14 16:18 | PC.NURSE ---
Addendum entered by Lizabeth Proctor R.N. 03/14/23 17:52: 1800: requested banana flakes for the frequent loose stools. order received. placed in cold water, she drank 1/2 of it. declined most of dinner, ate desert only. fluids available at bedside. prn dilauded given several times thru the shift for c/o 7/10 pain to gi-area / buttocks prior to care. loose stools are difficult to wash off her skin, she cries out and winces during care for each incontinent episode. Original Note: a/o, voices needs. 1-2 pa w/ ADLs and bed mobility. gi-area very painful due to loose stools. lidocaine applied after brief changed. Hgb 6.8. 1555: blood transfusion started.
--- NOTE | 2023-03-14 19:32 | PC.NURSE ---
1930: 2nd unit of blood transfusing. double check w/ KARIME Harris. patient tolerating.
[2023-03-14] MEDS: OLANZapine 2.5 MG TABLET 5 MG PO (20:05)
[2023-03-14] MEDS: TRAZODONE 50 MG TABLET 100 MG PO (20:06)
[2023-03-14] MEDS: ACETAMINOPHEN 325 MG TABLET 650 MG PO (21:48)
[2023-03-15] VITALS (10 sets, daily range): BP systolic 110–146; BP diastolic 68–92; PULSE 94–117; RESP 18–20; TEMP 36.2–36.8; O2SAT 95–98
[2023-03-15] MEDS: HYDROMORPHONE 0.5 MG INJ IV ×3 (04:13→19:10)
[2023-03-15 05:44] LABS: Mean Corpuscular HGB Conc 32.7 % (30-36); Mean Corpuscular Hemoglobin 26.9 PG (26-34); Mean Corpuscular Volume 82.2 fL (80-100); Platelet Count 455 X10^3/uL (150-400); Red Blood Cell Count 3.71 X10^6/uL (4.0-5.2); White Blood Cell Count 9.9 X10^3/uL (4.5-11.0)
[2023-03-15 05:55] LABS: Hematocrit 30.5 % (36-46)
[2023-03-15] MEDS: FUROSEMIDE 20 MG/2 ML VIAL IV (09:20)
[2023-03-15] MEDS: METOPROLOL ER 25 MG TABLET PO (09:20)
[2023-03-15] MEDS: BUSPIRONE 5 MG TABLET PO (09:21)
[2023-03-15] MEDS: OXYCODONE IR 5 MG TABLET PO ×3 (09:21→20:52)
[2023-03-15] MEDS: predniSONE 20 MG TABLET 40 MG PO (09:21)
[2023-03-15] MEDS: SODIUM CHLORIDE 0.9% FLUSH 10 ML IV ×2 (09:22→20:53)
[2023-03-15] MEDS: AMLODIPINE 5 MG TABLET PO ×2 (09:23→20:52)
[2023-03-15] MEDS: buPROPion SR 150 MG TAB PO ×2 (09:32→20:53)
--- NOTE | 2023-03-15 10:22 | PT.IPTN ---
Current Diagnoses Dehydration (03/06/23) Hypokalemia (03/06/23) Essential (primary) hypertension (03/06/23) Heart failure, unspecified (03/06/23) Chronic obstructive pulmonary disease, unspecified (03/06/23) Crohn's disease, unspecified, without complications (03/06/23) Nausea with vomiting, unspecified (03/06/23) Diarrhea, unspecified (03/06/23) Physical Therapy Treatment Note M2 PT-IP Current Condition Start: 03/08/23 14:29 Freq: NEEDED Status: Active Protocol: Document 03/08/23 14:30 AMB (Rec: 03/08/23 15:02 AMB [id number]) Physical Therapy Current Condition Current Condition Evaluation Date 03/08/23 Treatment Diagnosis Crohn's flare, reduced mobility Onset Date 03/06/23 M3 PT-IP Subjective Start: 03/08/23 14:29 Freq: NEEDED Status: Active Protocol: Document 03/15/23 10:19 KJ (Rec: 03/15/23 10:22 KJ [id number]) Subjective Physical Therapy Visit Type Type Treatment Note Visit Start Time 09:53 Visit Stop Time 10:02 Total Visit Minutes 9 Therapy Pain Assessment Pain When Pain Assessed At Rest Pain Present Pain Present Pain Reported Location Generalized Pain Behaviors Facial Grimacing,Guarding, Wincing Pain Management Techniques Re-positioning M4 PT-IP Mobility and Gait Start: 03/08/23 14:29 Freq: NEEDED Status: Active Protocol: Document 03/15/23 10:19 KJ (Rec: 03/15/23 10:22 KJ [id number]) PT-Bed Mobility Assessment Rolling Type of Rolling Log Rolling,Roll to Right Level of Assist Minimal Assistance M5 PT-IP Objective Assessments Start: 03/08/23 14:29 Freq: NEEDED Status: Active Protocol: Document 03/08/23 14:30 AMB (Rec: 03/08/23 15:02 AMB [id number]) Orientation Orientation/Cognition Level of Alertness Alert Gross Range of Motion Lower Extremity ROM Assessment Bilaterally Impaired Impairments ankles barely dorsiflex to neutral Strength Lower Extremity Strength Assessment Bilaterally Impaired Hip 2 Knee 3 Ankle 3 Comments Strength Comments Jasmin has been practically bed bound for the past 2 months and has a difficult time moving her legs in the bed to perform bed mobility. M6 PT-IP Treatment Start: 03/08/23 14:29 Freq: NEEDED Status: Active Protocol: Document 03/15/23 10:19 KJ (Rec: 03/15/23 10:22 KJ [id number]) Physical Therapy Treatment Exercises Exercises Ankle Pumps,Shoulder Flexion Education Education Provided Safety Other Treatments Other Treatment Performed Assisted pt with rolling in bed. Assisted pt with repositioning. Pt reporting high level of pain in the anal area. She was unable to sit up at edge of bed due to pain. Assisted pt with repositioning on R sit to decrease pressure on painful area. M7 PT-IP Assessment and Plan Start: 03/08/23 14:29 Freq: NEEDED Status: Active Protocol: Document 03/13/23 13:39 TS (Rec: 03/13/23 13:59 TS [id number]) PT Summary Assessment and Plan Potential Rehabilitation Potential Good Summary Impairments Pain,ROM,Strength,Balance,Bed Mobility,Gait,Activity Tolerance Progress Towards Goals Slow Progress due to Medical Issues,Slow Progress due to Activity Tolerance Assessment Summary Jasmin is making slow progress with her mobility this session. She requires Lilli for bed mobility in/out of bed due to weakness in her LLE and UE's. She performed sit to stand x2 CGA with FWW, has good balance in standing with no LOB. She did not progress gait this session due to fatigue. PT continues to recommend SNF at this time. Goals Bed Mobility Goal Contact Guard Assistance Transfer Goal Contact Guard Assistance Gait Goal Contact Guard Assistance Gait Distance 100 Days to Meet Goals 7 Frequency of Treatment Frequency Of Treatment Once a Day Treatment Plan Physical Therapy Treatment Plan Bed Mobility Training,Transfer Training,Gait Training, Therapeutic Exercise,Balance Retraining,Neuromuscular Re-ed Other Recommendations and Next Treatment Progress gait, continue Focus transfers. Recommendations To Nursing Amount of Assist Needed 1 Person Assist Discharge Recommendations PT Discharge Recommendations SNF Rehab Transportation Needs at Discharge Wheelchair/Cabulance
--- NOTE | 2023-03-15 17:34 | CM.DPC ---
DCP continued: WATER PLANT PUMP OPERATOR SUPERVISOR reviewed EMR. Per provider, pending medical stability would like to plan to d/c tomorrow with HH. [facility] continues to review and will not know until Thursday. WATER PLANT PUMP OPERATOR SUPERVISOR unable to meet with patient due to triaging needs. CM team will continue to follow closely in am. Likely will need priority boarding pass for [place]. CM team will continue to follow closely to coordinate d/c plan. LYNN Tam
--- NOTE | 2023-03-15 17:38 | PM.PN.1 ---
Subjective Subjective Interval history: Patient still having diarrhea, up to 5 episodes today. But it is better than before. Anemia improved from 6.8 to 10. They are wanting SNF, however every SNF has denied her insurance thus far. May need to use HH at home. Exam Vital Signs (past 8 hours): - 03/15/23 12:00 03/15/23 16:00 Temperature 98.3 F 97.2 F L Pulse Rate 117 H 109 H Respiratory Rate 18 19 Blood Pressure 124/91 H 110/68 Pulse Oximetry 95 95 Oxygen Flow Rate 2 2 Oxygen Delivery Method Nasal Cannula Oxygen Flow Rate 2 Narrative Exam Narrative: She is alert and oriented x3, in no apparent distress. Heart is regular rate and rhythm without murmur Lungs are clear to auscultation bilaterally Extremities have no ankle edema Abdomen is soft, mildly tender diffusely, bowel sounds active. Objective Labs 03/15/23 04:59 03/14/23 08:30 Labs: Laboratory Results - last 24 hr 03/14/23 03/15/23 11:25 04:59 WBC 9.9 RBC 3.71 L Hgb 10.0 L Hct 30.5 L MCV 82.2 MCH 26.9 MCHC 32.7 RDW 19.0 H Plt Count 455 H Blood Type O Positive Antibody Screen Negative Crossmatch See Detail [facility] Medical History Colitis Symptomatic anemia Anemia C. difficile colitis Social History household members: spouse Smoking Status: Former smoker alcohol intake: current Assessment & Plan Assessment & Plan narrative: 1) acute cystitis with hematuria, POA and improving. - ceftriaxone 1g q24 hr, UA with >100 WBC and RBC. Completed treatment for complicated UTI x7 days. Possible n/v are related to acute cystitis. Culture with E. coli and Klebsiella. 2) Crohn's flare, POA and active. - c. diff testing negative. has recent complex treatment for C. diff with 2 months of antibiotics. - previously on immunomodulator therapy, did discuss with [facility] GI physician conductor/brakeman. Recommended for treatment with steroids. Added flagyl for 7 days as well based on recommendations. Finished course. - number of bowel movements has significantly improved -the patient is having slow improvement with steroids, however the diarrhea is still significant and she remains volume depleted. -the anemia is worsening consistent with this condition flaring. Due to a hemoglobin of 6.8 she is receiving transfusion of packed red blood cells on 03/14. Hgb now 10. 3. Volume depletion with contraction alkalosis, POA and active. -resolved 4. Acute on chronic hypoxemic respiratory failure, POA and active. -has known COPD on oxygen (1L) at home, currently on 2L -has known CHFpE -wean O2 as able. -CTA showed no PE 5. Spiculated nodule, POA. -noted on CTA -will need follow up with PCP. 6. Hypertension, POA and stable. - normotensive on home medications so will continue amlodipine and metoprolol 7. Hypokalemia, acute, present on admission and improved, -resolved 8. Hyperglycemia. resolved -checked A1c which was 5.4%, Glucose 207 on AM labs but on D5 infusion at the time. 9. Anemia secondary to Crohn's colitis -hemoglobin 6.8 on 03/14, transfuse with 2 units packed red blood cells and follow The patient lives in [facility], is very debilitated and really needs senior care facility at discharge. Currently they are barriers of no coverage for senior care facility. There 3 payors, [employer], [facility], and Medicaid does not cover SNF. They are being guided towards open enrollment for Medicare, however they live on [facility] and will still be out of this coverage possibility until at least May 25. Dispo: Home with HH in 1-2 days on steroid taper pending improvement in diarrhea. Quality VTE Deep Vein Thrombosis/Pulmonary Embolism Present on Admission: No
[2023-03-15] MEDS: ACETAMINOPHEN 325 MG TABLET 650 MG PO (20:52)
[2023-03-15] MEDS: TRAZODONE 50 MG TABLET 100 MG PO (20:52)
[2023-03-15] MEDS: OLANZapine 2.5 MG TABLET 5 MG PO (20:52)
[2023-03-16] VITALS (11 sets, daily range): BP systolic 96–149; BP diastolic 65–95; PULSE 104–117; RESP 16–20; TEMP 36.2–36.7; O2SAT 95–98
[2023-03-16] MEDS: SODIUM CHLORIDE 0.9% FLUSH 10 ML IV ×5 (00:49→20:15)
[2023-03-16] MEDS: HYDROMORPHONE 0.5 MG INJ IV ×7 (00:49→19:45)
[2023-03-16] MEDS: ACETAMINOPHEN 325 MG TABLET 650 MG PO ×2 (03:25→12:13)
[2023-03-16] MEDS: OXYCODONE IR 5 MG TABLET PO ×3 (03:25→22:04)
[2023-03-16 05:35] LABS: Add Manual Diff / Slide Review NO; Basophils Absolute Auto 0 /uL (0-100); Basophils Percent Auto 0.4 % (0-2); Eosinophils Absolute Auto 0 /uL (0-450); Eosinophils Percent Auto 0.2 % (2-4); Hematocrit 29.2 % (36-46); Hemoglobin 9.2 g/dL (12.0-16.0); Lymphocytes Absolute Auto 1100 /uL (1100-4500); Lymphocytes Percent Auto 9.5 % (25-40); Mean Corpuscular HGB Conc 31.4 % (30-36); Mean Corpuscular Hemoglobin 25.8 PG (26-34); Mean Corpuscular Volume 82.2 fL (80-100); Monocytes Absolute Auto 1400 /uL (0-900); Monocytes Percent Auto 11.4 % (3-14); Neutrophils Absolute Auto 9300 /uL (1500-7000); Neutrophils Percent Auto 78.5 % (50-75); Platelet Count 453 X10^3/uL (150-400); Red Blood Cell Count 3.56 X10^6/uL (4.0-5.2); Red Cell Distribution Width 18.7 % (11.6-14.8); White Blood Cell Count 11.8 X10^3/uL (4.5-11.0)
[2023-03-16 05:40] LABS: BUN Creatinine Ratio 26.3 (6-22); Blood Urea Nitrogen 15 mg/dL (7-17); Calcium 7.9 mg/dL (8.4-10.2); Chloride 93 mmol/L (98-107); Estimated Glomerular Filt Rate > 60 mL/min (>60); Glucose 91 mg/dL (80-110); HEMOLYSIS < 15 (0-50); Potassium 3.8 mmol/L (3.4-5.1); Sodium 136 mmol/L (137-145)
[2023-03-16 05:53] LABS: Carbon Dioxide 41 mmol/L (22-32)
[2023-03-16 06:24] LABS: INR 0.9 (0.9-1.3); Prothrombin Time 10.2 SECONDS (10.1-12.7)
[2023-03-16 06:27] LABS: PTT Partial Thromboplastin Tim 23 SECONDS (26-36)
--- NOTE | 2023-03-16 09:32 | DI.CT.S_ITS ---
PROCEDURE: CT ABDOMEN PELVIS W CON INDICATIONS: abdominal pain, diarrhea, bloody stool TECHNIQUE: After the administration of intravenous contrast, axial sections acquired from the lung bases to the pubic symphysis. Coronal and sagittal reformats were performed. For radiation dose reduction, the following was used: automated exposure control, adjustment of mA and/or kV according to patient size. COMPARISON: [facility], CT, CT CHEST ABD PEL W CON, 05/26/2022, 18:06. [facility], CT, CT ABDOMEN PELVIS W CON, 09/02/2022, 13:04. [facility], CT, CT ABDOMEN PELVIS W CON, 03/06/2023, 11:54. FINDINGS: Lung bases: No pleural effusion. Emphysema as before. ABDOMEN: Liver: Unremarkable. Gallbladder: Unremarkable. Biliary ducts: Unremarkable. Pancreas: Unremarkable. Spleen: Unremarkable. Adrenal Glands: Redemonstrated 1.4 cm right adrenal nodule. Kidneys and Ureters: No hydronephrosis. Stomach and Bowel: No bowel obstruction. Wall thickening and mucosal hyperenhancement of the rectum present . Appearance of a sinus or fistula tract arising from the right aspect of the anorectal junction, approximately the 9 o'clock position (for example series 2, image 75 and series 4, image 33). This has likely been present previously but appears more conspicuous than before. Colonic wall thickening also present involving the sigmoid and descending colon. Possible segmental/discontinuous involvement of the transverse and ascending colon. Peritoneum: No free air. Trace abdominal free fluid present. Abdominal Nodes: No retroperitoneal or mesenteric adenopathy by size criteria. Vessels: Aorta and inferior vena cava are normal in size. PELVIS: Pelvic Organs: Redemonstrated nonspecific coarse right adnexal calcification. Otherwise unremarkable CT appearance. Bladder: Unremarkable. Pelvic Nodes: No enlarged lymph nodes. Bones: Multilevel degenerative change of the visualized spine. Postoperative changes from left pelvis fixation with several plates and screws present. IMPRESSION: 1. Colorectal wall thickening and mucosal hyperenhancement as above, suspicious for a nonspecific proctocolitis. Correlation for any known history of inflammatory bowel disease may be helpful, infection is also possible. 2. Appearance of a sinus or fistula tract arising from the right aspect of the anorectal junction, could be from the upper anal canal or low rectum. Correlation with proctoscopy may be helpful. Dictated by: Will Coulter M.D. on 03/16/2023 at 10:32 Approved by: Will Coulter M.D. on 03/16/2023 at 10:56
[2023-03-16] MEDS: BUSPIRONE 5 MG TABLET PO (10:11)
[2023-03-16] MEDS: buPROPion SR 150 MG TAB PO ×2 (10:11→20:14)
[2023-03-16] MEDS: METOPROLOL ER 25 MG TABLET PO (10:11)
[2023-03-16] MEDS: predniSONE 20 MG TABLET 40 MG PO (10:11)
[2023-03-16] MEDS: AMLODIPINE 5 MG TABLET PO (10:12)
[2023-03-16 10:51] LABS: C-Reactive Protein Quant 2.1 mg/dL (<1.0)
[2023-03-16 11:33] LABS: Erythrocyte Sedimentation Rate 31 MM/HR (0-20)
--- NOTE | 2023-03-16 13:02 | OT.IPNOTE ---
Chart reviewed and nursing consulted. Pt is currently having bloody diarrhea. Nursing requested that therapy hold for the day. Will hold and continue to follow.
--- NOTE | 2023-03-16 13:03 | PT-IP ANOTE ---
Per conversation with RN and OT, hold treatment today secondary to severe fatigue and continued rectal bleeding. Will follow up as medically indicated. - Mely Buckner, PT, DPT
[2023-03-16 14:13] LABS: Clostridium Difficile Tox PCR Negative for C. diff (Negative)
[2023-03-16 14:33] LABS: Hematocrit 26.8 % (36-46); Hemoglobin 8.5 g/dL (12.0-16.0); Mean Corpuscular HGB Conc 31.9 % (30-36); Mean Corpuscular Hemoglobin 26.2 PG (26-34); Mean Corpuscular Volume 82.2 fL (80-100); Platelet Count 450 X10^3/uL (150-400); Red Blood Cell Count 3.25 X10^6/uL (4.0-5.2)
--- NOTE | 2023-03-16 15:36 | DI.RAD.S_ITS ---
PROCEDURE: XR CHEST 1V INDICATIONS: elevated wbc, infxn? TECHNIQUE: One view of the chest was acquired. COMPARISON: [facility], CR, XR CHEST 1V, 03/11/2023, 9:06. FINDINGS: Surgical changes and devices: None. Lungs and pleura: Hyperexpansion of the lungs with flattening of the diaphragms and emphysematous changes. No focal consolidation. No pleural effusions or pneumothorax. Mediastinum: Mediastinal contours appear normal. Heart size is normal. Aortic arch is calcified, indicating atherosclerosis. Bones and chest wall: No suspicious bony lesions. Overlying soft tissues appear unremarkable. IMPRESSION: 1. No acute cardiopulmonary pathology. Specifically, no focal consolidation. 2. COPD. Dictated by: Ingris Padilla M.D. on 03/16/2023 at 16:51 Approved by: Ingris Padilla M.D. on 03/16/2023 at 16:53
--- NOTE | 2023-03-16 16:23 | CM.DPC ---
DCP Continued: [employer] reviewed EMR. Per provider, patient may need IV antibiotics and therefore would be here for a few more days. Per provider, may need to transfer to a higher level of care. From [facility], able to accept patient. Plan: pending potential transfer to higher level of care. CM team will continue to follow closely. LYNN Tam
[2023-03-16] MEDS: SODIUM CHLORIDE 0.9% 1,000 ML 1000 ML IV (16:32)
[2023-03-16] MEDS: SODIUM CHLORIDE 0.9% 1,000 ML 125 ML IV (16:45)
[2023-03-16] MEDS: PIPERACILLIN/TAZO 4.5 GM in SODIUM CHLORIDE 0.9% 100 ML IV (17:16)
[2023-03-16] MEDS: LACTATED RINGERS 1,000 ML 1000 ML IV (17:29)
[2023-03-16 17:36] LABS: Appearance Urine UA CLEAR; Bilirubin Urine UA NEGATIVE (NEGATIVE); Color Urine UA YELLOW; Glucose Urine UA TRACE g/dL (Negative); Ketones Urine UA NEGATIVE (NEGATIVE); Leukocyte Esterase Urine UA 1+ (NEGATIVE); Nitrite Urine UA NEGATIVE (Negative); Occult Blood Urine UA NEGATIVE (Negative); Protein Urine UA NEGATIVE (Negative); Urobilinogen Urine UA 0.2 E.U./dL (0.2)
[2023-03-16 17:45] LABS: pH Urine UA 6.5 (4.5-8.0)
[2023-03-16 17:46] LABS: WBC Urine 1-5/HPF (0-5/HPF)
[2023-03-16 17:47] LABS: Bacteria Urine Few (2-10); Culture Indicated Urine Specimen Cultured; RBC Urine 0-1/HPF (0-5/HPF); Squamous Epithelial Cell Urine 0-1 /HPF (0-5/HPF)
--- NOTE | 2023-03-16 18:12 | P.PN_ITS ---
Subjective Subjective Date Patient Seen: 03/16/23 Time Patient Seen: 08:00 Interval history: She has significant diarrhea still, with bloody stools. She has not improved with oral steroids. Exam Vital Signs (past 8 hours): - 03/16/23 11:00 03/16/23 15:00 Temperature 97.7 F 97.3 F L Pulse Rate 115 H 117 H Respiratory Rate 20 18 Blood Pressure 142/95 H 149/89 H Pulse Oximetry 98 97 Fraction of Inspired Oxygen 28 SaO2/FiO2 Ratio 342 Oxygen Delivery Method Nasal Cannula Oxygen Flow Rate 2 Narrative Exam Narrative: GEN: no acute distress CV: tachycardic PULM: clear bilaterally EXT: no edema ABD: soft, mildly tender at left lower quardant, no rebound Rectal: tender mucosa, fistula appears near anus Objective Labs 03/16/23 14:20 03/16/23 04:27 Labs: Laboratory Results - last 24 hr 03/16/23 03/16/23 03/16/23 04:27 06:10 09:34 WBC 11.8 H RBC 3.56 L Hgb 9.2 L Hct 29.2 L MCV 82.2 MCH 25.8 L MCHC 31.4 RDW 18.7 H Plt Count 453 H Neut % (Auto) 78.5 H Lymph % (Auto) 9.5 L [place] % (Auto) 11.4 Eos % (Auto) 0.2 L Baso % (Auto) 0.4 Neut # (Auto) 9300 H Lymph # (Auto) 1100 [place] # (Auto) 1400 H Eos # (Auto) 0 Baso # (Auto) 0 ESR PT 10.2 INR 0.9 APTT 23 L Sodium 136 L Potassium 3.8 Chloride 93 L Carbon Dioxide 41 H* BUN 15 Creatinine 0.57 Estimated GFR > 60 BUN/Creatinine Ratio 26.3 H Glucose 91 Calcium 7.9 L C-Reactive Protein 2.1 H Urine Color Urine Appearance Urine pH Ur Specific [place] Urine Protein Urine Glucose (UA) Urine Ketones Urine Occult Blood Urine Nitrate Urine Bilirubin Urine Urobilinogen Ur Leukocyte Esterase Urine RBC Urine WBC Ur Squamous Epith Cells Urine Bacteria Ur Culture Indicated? C. difficile Tox (PCR) Negative for c. diff 03/16/23 03/16/23 03/16/23 10:49 14:20 17:07 WBC 25.0 H D RBC 3.25 L Hgb 8.5 L Hct 26.8 L MCV 82.2 MCH 26.2 MCHC 31.9 RDW 19.0 H Plt Count 450 H Neut % (Auto) Lymph % (Auto) [place] % (Auto) Eos % (Auto) Baso % (Auto) Neut # (Auto) Lymph # (Auto) [place] # (Auto) Eos # (Auto) Baso # (Auto) ESR 31 H PT INR APTT Sodium Potassium Chloride Carbon Dioxide BUN Creatinine Estimated GFR BUN/Creatinine Ratio Glucose Calcium C-Reactive Protein Urine Color Yellow Urine Appearance Clear Urine pH 6.5 Ur Specific [place] 1.010 Urine Protein Negative Urine Glucose (UA) Trace H Urine Ketones Negative Urine Occult Blood Negative Urine Nitrate Negative Urine Bilirubin Negative Urine Urobilinogen 0.2 Ur Leukocyte Esterase 1+ H Urine RBC 0-1/hpf D Urine WBC 1-5/hpf Ur Squamous Epith Cells 0-1 /hpf Urine Bacteria Few (2-10) H Ur Culture Indicated? Specimen cultured C. difficile Tox (PCR) PFS Medical History Colitis Symptomatic anemia Anemia C. difficile colitis Social History household members: spouse Smoking Status: Former smoker alcohol intake: current Assessment & Plan Assessment & Plan narrative: 1. Crohn's flare, acute -has been trialed on oral prednisone with no improvement -repeat CT scan shows concern for fistula which appears consistent with exam -discussed case with GI Dr. Salinas who recommend above treatment if IV antibiotics and steroids (IV solumedrol 60mg dailyi), monitor for 3 days and possible transfer for flex sig and biologic induction -has been having significant bloody stools, did need PRBC on 03/14, monitor hemoglobin closely -has previously been treated with flagyl for 7 days, will order zosyn 2. SIRS -patient with new rise in WBC to 25, and tachycardia -possibly secondary to crohns flare vs superimposed infection -my exam showed no pus from fistula -cxray with no infection -UA with few bacteria and leuk esterase -start treatment with zosyn for concern for superimposed infection on crohns -c diff negative on 03/16 3. Acute cystitis with hematuria, resolving - ceftriaxone 1g q24 hr, UA with >100 WBC and RBC. Completed treatment for complicated UTI x7 days. Possible n/v are related to acute cystitis. Culture with E. coli and Klebsiella. 4. Volume depletion with contraction alkalosis, POA and active. -due to above 5. Acute on chronic hypoxemic respiratory failure, improved -has known COPD on oxygen (1L) at home, currently intermittently on oxygen -has known CHFpE -wean O2 as able. -CTA showed no PE 6. Spiculated nodule, POA. -noted on CTA -will need follow up with PCP. 7. Hypertension, POA and stable. - normotensive on home medications so will continue amlodipine and metoprolol 8. Hypokalemia, acute, present on admission and improved, -resolved 9. Hyperglycemia. resolved -checked A1c which was 5.4%, Glucose 207 on AM labs but on D5 infusion at the time. 10. Anemia secondary to Crohn's colitis -hemoglobin 6.8 on 03/14, transfuse with 2 units packed red blood cells and follow Quality VTE Deep Vein Thrombosis/Pulmonary Embolism Present on Admission: No
[2023-03-16 18:21] LABS: BUN Creatinine Ratio 23.3 (6-22); Blood Urea Nitrogen 14 mg/dL (7-17); Calcium 7.7 mg/dL (8.4-10.2); Chloride 95 mmol/L (98-107); Estimated Glomerular Filt Rate > 60 mL/min (>60); Glucose 205 mg/dL (80-110); HEMOLYSIS < 15 (0-50); Lactate (Lactic Acid) 1.7 mmol/L (0.7-2.1); Potassium 3.7 mmol/L (3.4-5.1); Sodium 135 mmol/L (137-145)
[2023-03-16 18:28] LABS: Carbon Dioxide 38 mmol/L (22-32)
[2023-03-16] MEDS: LACTATED RINGERS 1,000 ML 125 ML IV (18:51)
[2023-03-16] MEDS: PIPERACILLIN/TAZO 3.375 GM in SODIUM CHLORIDE 0.9% 100 ML IV (19:50)
[2023-03-16] MEDS: OLANZapine 2.5 MG TABLET 5 MG PO (20:14)
[2023-03-16] MEDS: TRAZODONE 50 MG TABLET 100 MG PO (20:14)
[2023-03-17] VITALS (16 sets, daily range): BP systolic 128–156; BP diastolic 68–100; PULSE 72–117; RESP 16–19; TEMP 35.9–37; O2SAT 93–97
[2023-03-17] MEDS: HYDROMORPHONE 0.5 MG INJ IV ×6 (00:04→20:39)
[2023-03-17] MEDS: LIDOCAINE 5% OINT 35 GM 1 APPLIC TOP ×2 (00:10→09:51)
[2023-03-17] MEDS: LACTATED RINGERS 1,000 ML 125 ML IV ×2 (02:33→16:57)
[2023-03-17] MEDS: PIPERACILLIN/TAZO 3.375 GM in SODIUM CHLORIDE 0.9% 100 ML IV ×3 (03:37→20:39)
[2023-03-17 06:05] LABS: Hematocrit 21.5 % (36-46); Mean Corpuscular HGB Conc 31.8 % (30-36); Mean Corpuscular Hemoglobin 27.3 PG (26-34); Mean Corpuscular Volume 85.7 fL (80-100); Platelet Count 396 X10^3/uL (150-400); Red Blood Cell Count 2.51 X10^6/uL (4.0-5.2); Red Cell Distribution Width 19.3 % (11.6-14.8); White Blood Cell Count 13.6 X10^3/uL (4.5-11.0)
[2023-03-17 06:14] LABS: Hemoglobin 6.9 g/dL (12.0-16.0)
[2023-03-17 06:29] LABS: BUN Creatinine Ratio 24.1 (6-22); Blood Urea Nitrogen 14 mg/dL (7-17); C-Reactive Protein Quant 3.8 mg/dL (<1.0); Calcium 8.1 mg/dL (8.4-10.2); Carbon Dioxide 39 mmol/L (22-32); Chloride 100 mmol/L (98-107); Estimated Glomerular Filt Rate > 60 mL/min (>60); Glucose 138 mg/dL (80-110); HEMOLYSIS < 15 (0-50); Potassium 4.2 mmol/L (3.4-5.1); Sodium 137 mmol/L (137-145)
[2023-03-17] MEDS: SODIUM CHLORIDE 0.9% FLUSH 10 ML IV ×3 (06:36→22:03)
[2023-03-17 06:37] LABS: Erythrocyte Sedimentation Rate 38 MM/HR (0-20)
--- NOTE | 2023-03-17 06:43 | PC.NURSE ---
Hospitalist Dr. Abrams made aware of pt. critical Hemoglobin value of 6.9. MD message me back no order receive that he will sign out to the oncoming team. Rechecked B/P 139/67 & HR 106, will report today RN.
--- NOTE | 2023-03-17 08:35 | CM.DPC ---
Addendum entered by Di Atkinson R.N. 03/17/23 10:05: Discussed patient during team rounds, patient is getting more blood today, since not improving, may consider transfer to higher level hospital, will continue to follow closely. Addendum entered by Di Atkinson R.N. 03/17/23 09:39: Confirmed with Cordelia delacruz [facility], that they are not contracted with her insurance, patient would have to pay approximately 11,000 dollars up front. At this time, home will be the plan. Original Note: DCP Cont: Patient is getting blood today. Nursing has indicated concerns about spouse being able to care for patient secondary to incontinence issues. It is noted that [employer] application has been expidited. Did leave a message with Cordelia at [facility], for the last time referral was sent, they did not have beds available. Will see if she can re-review. Patient is not yet medically ready for discharge as of yet. P: DCP to continue to follow. [facility] has accepted and has referral, did leave a message with Cordelia delacruz [facility] to see if they may be able to accept. Di Atkinson RN/[employer]
[2023-03-17] MEDS: METOPROLOL ER 25 MG TABLET PO (09:46)
[2023-03-17] MEDS: BUSPIRONE 5 MG TABLET PO (09:47)
[2023-03-17] MEDS: buPROPion SR 150 MG TAB PO ×2 (09:47→20:40)
--- NOTE | 2023-03-17 10:12 | OT.IPNOTE ---
Pt having low HH and to get blood, therefore per hospitalist ok to hold from therapy.
--- NOTE | 2023-03-17 10:35 | PT-IP ANOTE ---
Per hospitalist pt is not appropriate for therapy today due to low H&H and requiring a blood transfusion. PT will check on pt tomorrow.
--- NOTE | 2023-03-17 13:56 | P.PN_ITS ---
Subjective Subjective Date Patient Seen: 03/17/23 Time Patient Seen: 08:00 Interval history: She had many bowel movements with blood yesterday. She was started on IV steroids. Her bowel movements have lessened somewhat today. She feels fatigued, with abdominal cramps. Exam Vital Signs (past 8 hours): - 03/17/23 07:00 03/17/23 09:16 03/17/23 09:24 Temperature 98.2 F 98.6 F Pulse Rate 107 H 107 H Respiratory Rate 19 19 Blood Pressure 142/84 H 142/84 H Pulse Oximetry 94 97 Oxygen Delivery Method Nasal Cannula Oxygen Flow Rate 2 2 03/17/23 09:44 03/17/23 09:46 03/17/23 12:30 Temperature 98.5 F 98.1 F Pulse Rate 117 H 117 H 106 H Respiratory Rate 18 18 Blood Pressure 129/75 129/75 148/85 H Pulse Oximetry Oxygen Delivery Method Oxygen Flow Rate 03/17/23 12:46 03/17/23 13:00 Temperature 98.1 F 98.6 F Pulse Rate 106 H 105 H Respiratory Rate 18 16 Blood Pressure 148/85 H 138/88 Pulse Oximetry Oxygen Delivery Method Oxygen Flow Rate Fraction of Inspired Oxygen 28 SaO2/FiO2 Ratio 342 Oxygen Delivery Method Nasal Cannula Oxygen Flow Rate 2 Narrative Exam Narrative: GEN: no acute distress CV: tachycardic PULM: clear bilaterally EXT: no edema ABD: soft, mildly tender at left lower quardant, no rebound Rectal: tender mucosa, fistula appears near anus Objective Labs 03/17/23 04:42 03/17/23 04:42 Labs: Laboratory Results - last 24 hr 03/14/23 03/16/23 03/16/23 11:25 09:34 14:20 WBC 25.0 H D RBC 3.25 L Hgb 8.5 L Hct 26.8 L MCV 82.2 MCH 26.2 MCHC 31.9 RDW 19.0 H Plt Count 450 H ESR Sodium Potassium Chloride Carbon Dioxide BUN Creatinine Estimated GFR BUN/Creatinine Ratio Glucose Lactate Calcium C-Reactive Protein Urine Color Urine Appearance Urine pH Ur Specific [place] Urine Protein Urine Glucose (UA) Urine Ketones Urine Occult Blood Urine Nitrate Urine Bilirubin Urine Urobilinogen Ur Leukocyte Esterase Urine RBC Urine WBC Ur Squamous Epith Cells Urine Bacteria Ur Culture Indicated? C. difficile Tox (PCR) Negative for c. diff Blood Type O Positive Antibody Screen Negative Crossmatch See Detail 03/16/23 03/16/23 03/17/23 17:07 18:00 04:42 WBC 13.6 H RBC 2.51 L Hgb 6.9 L* Hct 21.5 L MCV 85.7 D MCH 27.3 MCHC 31.8 RDW 19.3 H Plt Count 396 ESR 38 H D Sodium 135 L 137 Potassium 3.7 4.2 Chloride 95 L 100 Carbon Dioxide 38 H 39 H BUN 14 14 Creatinine 0.60 0.58 Estimated GFR > 60 > 60 BUN/Creatinine Ratio 23.3 H 24.1 H Glucose 205 H D 138 H Lactate 1.7 Calcium 7.7 L 8.1 L C-Reactive Protein 3.8 H Urine Color Yellow Urine Appearance Clear Urine pH 6.5 Ur Specific [place] 1.010 Urine Protein Negative Urine Glucose (UA) Trace H Urine Ketones Negative Urine Occult Blood Negative Urine Nitrate Negative Urine Bilirubin Negative Urine Urobilinogen 0.2 Ur Leukocyte Esterase 1+ H Urine RBC 0-1/hpf D Urine WBC 1-5/hpf Ur Squamous Epith Cells 0-1 /hpf Urine Bacteria Few (2-10) H Ur Culture Indicated? Specimen cultured C. difficile Tox (PCR) Blood Type Antibody Screen Crossmatch [facility] Medical History Colitis Symptomatic anemia Anemia C. difficile colitis Social History household members: spouse Smoking Status: Former smoker alcohol intake: current Assessment & Plan Assessment & Plan narrative: 1. Crohn's flare, acute -has been trialed on oral prednisone with no improvement -repeat CT scan shows concern for fistula which appears consistent with exam -discussed case with GI Dr. Salinas who recommend above treatment if IV antibiotics and steroids (IV solumedrol 60mg daily), Day 1 03/16, monitor for 3 days and possible transfer for flex sig and biologic induction -has been having significant bloody stools, did need PRBC on 03/14 -hemoglobin of 6.9 on 03/17 will transfuse 2U PRBC -has previously been treated with flagyl for 7 days, will order zosyn -trend esr/crp daily 2. SIRS -patient with new rise in WBC to 25, and tachycardia -WBC improved from 25->13.6 on 03/17 -possibly secondary to crohns flare vs superimposed infection -my exam showed no pus from fistula -cxray with no infection -UA with few bacteria and leuk esterase -start treatment with zosyn for concern for superimposed infection on crohns -c diff negative on 03/16 3. Acute cystitis with hematuria, resolving - ceftriaxone 1g q24 hr, UA with >100 WBC and RBC. Completed treatment for complicated UTI x7 days. Possible n/v are related to acute cystitis. Culture with E. coli and Klebsiella. 4. Volume depletion with contraction alkalosis, POA and active. -due to above 5. Acute on chronic hypoxemic respiratory failure, improved -has known COPD on oxygen (1L) at home, currently intermittently on oxygen -has known CHFpE -wean O2 as able. -CTA showed no PE 6. Spiculated nodule, POA. -noted on CTA -will need follow up with PCP. 7. Hypertension, POA and stable. - normotensive on home medications so will continue amlodipine and metoprolol 8. Hypokalemia, acute, present on admission and improved, -resolved 9. Hyperglycemia. resolved -checked A1c which was 5.4%, Glucose 207 on AM labs but on D5 infusion at the time. 10. Anemia secondary to Crohn's colitis -hemoglobin 6.8 on 03/14, transfuse with 2 units packed red blood cells and follow 11. Hepatitis C infection -will need follow up with GI for treatment Quality VTE Deep Vein Thrombosis/Pulmonary Embolism Present on Admission: No
[2023-03-17] MEDS: OXYCODONE IR 5 MG TABLET PO ×2 (15:27→22:06)
[2023-03-17] MEDS: ACETAMINOPHEN 325 MG TABLET 650 MG PO (15:27)
[2023-03-17] MEDS: OLANZapine 2.5 MG TABLET 5 MG PO (20:40)
[2023-03-17] MEDS: TRAZODONE 50 MG TABLET 100 MG PO (20:40)
[2023-03-18] VITALS (10 sets, daily range): BP systolic 118–171; BP diastolic 74–107; PULSE 94–108; RESP 17–18; TEMP 36.1–36.4; O2SAT 95–97
[2023-03-18] MEDS: LACTATED RINGERS 1,000 ML 125 ML IV (00:37)
[2023-03-18] MEDS: HYDROMORPHONE 0.5 MG INJ IV ×8 (01:45→23:42)
[2023-03-18] MEDS: PIPERACILLIN/TAZO 3.375 GM in SODIUM CHLORIDE 0.9% 100 ML IV ×3 (04:30→19:52)
[2023-03-18] MEDS: OXYCODONE IR 5 MG TABLET PO ×7 (05:18→23:42)
[2023-03-18 06:03] LABS: Hemoglobin 10.6 g/dL (12.0-16.0); Mean Corpuscular HGB Conc 32.7 % (30-36); Mean Corpuscular Hemoglobin 27.1 PG (26-34); Mean Corpuscular Volume 83.1 fL (80-100); Platelet Count 359 X10^3/uL (150-400); Red Cell Distribution Width 16.7 % (11.6-14.8); White Blood Cell Count 15.8 X10^3/uL (4.5-11.0)
[2023-03-18 06:13] LABS: BUN Creatinine Ratio 22.2 (6-22); Blood Urea Nitrogen 12 mg/dL (7-17); C-Reactive Protein Quant 1.9 mg/dL (<1.0); Calcium 8.4 mg/dL (8.4-10.2); Chloride 100 mmol/L (98-107); Estimated Glomerular Filt Rate > 60 mL/min (>60); Glucose 79 mg/dL (80-110); HEMOLYSIS < 15 (0-50); Potassium 3.7 mmol/L (3.4-5.1); Sodium 138 mmol/L (137-145)
[2023-03-18 06:15] LABS: Hematocrit 32.4 % (36-46)
[2023-03-18 06:18] LABS: Carbon Dioxide 37 mmol/L (22-32)
[2023-03-18 06:34] LABS: Erythrocyte Sedimentation Rate 19 MM/HR (0-20)
[2023-03-18] MEDS: METOPROLOL ER 25 MG TABLET PO (08:16)
[2023-03-18] MEDS: buPROPion SR 150 MG TAB PO ×2 (08:16→20:24)
[2023-03-18] MEDS: BUSPIRONE 5 MG TABLET PO (08:16)
[2023-03-18] MEDS: SODIUM CHLORIDE 0.9% FLUSH 10 ML IV ×2 (08:35→20:25)
--- NOTE | 2023-03-18 10:45 | PT.IPTN ---
Current Diagnoses Dehydration (03/06/23) Hypokalemia (03/06/23) Essential (primary) hypertension (03/06/23) Heart failure, unspecified (03/06/23) Chronic obstructive pulmonary disease, unspecified (03/06/23) Crohn's disease, unspecified, without complications (03/06/23) Nausea with vomiting, unspecified (03/06/23) Diarrhea, unspecified (03/06/23) Physical Therapy Treatment Note M2 PT-IP Current Condition Start: 03/08/23 14:29 Freq: NEEDED Status: Active Protocol: Document 03/08/23 14:30 AMB (Rec: 03/08/23 15:02 AMB [id number]) Physical Therapy Current Condition Current Condition Evaluation Date 03/08/23 Treatment Diagnosis Crohn's flare, reduced mobility Onset Date 03/06/23 M3 PT-IP Subjective Start: 03/08/23 14:29 Freq: NEEDED Status: Active Protocol: Document 03/18/23 11:20 TS (Rec: 03/18/23 11:41 TS [id number]) Subjective Physical Therapy Visit Type Type Treatment Note Visit Start Time 10:45 Visit Stop Time 11:15 Total Visit Minutes 30 Number of BRINE WELL OPERATOR Visits 1 Physical Therapy Visit Comments Patient Comments Pt found resting in bed, is motivated to work with PT this morning. M4 PT-IP Mobility and Gait Start: 03/08/23 14:29 Freq: NEEDED Status: Active Protocol: Document 03/18/23 11:20 TS (Rec: 03/18/23 11:41 TS [id number]) PT-Bed Mobility Assessment Supine to Sit Supine to Sit Minimal Assistance,1 Person Assistance,Head of Bed Elevated Sit to Supine Sit to Supine Minimal Assistance,1 Person Assistance,Bedrails Scooting Scooting to Edge of Bed Minimal Assistance PT-Transfer Assessment Sit to and From Stand Sit to and from Stand Contact Guard Assistance Equipment Transfer Assistive Device Gait Belt,Front Wheeled Walker Orthotic/Prosthetic Devices or Brace: No Comments Mobility Comments Pt found resting in bed, agreeable to PT. Supine to sit Lilli with handheld assist to upright trunk and LLE assistance to EOB. She scooted to EOB with Lilli for L hip forward, maintained sitting balance with BUE support. She performed sit to stand x3 CGA with BUE support on FWW, is slow to stand with some buckling of knees. She ambulated in room with slow step to gait ~30' CGA/SBA with FWW, TTWB on LLE due to leg length discrepancy. Pt sat back EOB, sit to supine Lilli for LEs into bed, waffle cushion placed underneath her. She was left in bed, all needs met, RN notified. Gait Assessment Gait Gait Assistance Required: Standby Assistance,Contact Guard Assist Distance (Feet) 30 Assistive Devices Assistive Device Gait Belt,Front Wheeled Walker Orthotic/Prosthetic Devices or Brace: No Gait Deviations General Gait Pattern Antalgic,Decreased Stride Length,Decreased Feet Clearance,Step-to Gait Factors Limiting Gait Function Factors Limiting Gait Function Decreased Activity Tolerance, Decreased Strength,Poor Balance,Respiratory Distress Comments Gait Comments See mobility commments. PT-Balance Assessment Sitting Balance and Reactions Static Sitting Balance Ability Good Dynamic Sitting Balance Ability Fair Standing Balance and Reactions Static Standing Balance Ability Good Dynamic Standing Balance Ability Fair Device Used FWW M5 PT-IP Objective Assessments Start: 03/08/23 14:29 Freq: NEEDED Status: Active Protocol: Document 03/08/23 14:30 AMB (Rec: 03/08/23 15:02 AMB [id number]) Orientation Orientation/Cognition Level of Alertness Alert Gross Range of Motion Lower Extremity ROM Assessment Bilaterally Impaired Impairments ankles barely dorsiflex to neutral Strength Lower Extremity Strength Assessment Bilaterally Impaired Hip 2 Knee 3 Ankle 3 Comments Strength Comments Jasmin has been practically bed bound for the past 2 months and has a difficult time moving her legs in the bed to perform bed mobility. M6 PT-IP Treatment Start: 03/08/23 14:29 Freq: NEEDED Status: Active Protocol: Document 03/18/23 11:20 TS (Rec: 03/18/23 11:41 TS [id number]) Physical Therapy Treatment Education Education Provided Safety M7 PT-IP Assessment and Plan Start: 03/08/23 14:29 Freq: NEEDED Status: Active Protocol: Document 03/18/23 11:20 TS (Rec: 03/18/23 11:41 TS [id number]) PT Summary Assessment and Plan Potential Rehabilitation Potential Fair Summary Impairments Pain,ROM,Strength,Balance,Bed Mobility,Gait,Activity Tolerance Progress Towards Goals Slow Progress due to Medical Issues,Slow Progress due to Activity Tolerance Assessment Summary Jasmin continues to make slow progress with her mobility. She requires Lilli for all bed mobility and assistance for LLE in/out of bed. She performed sit to stand x3 CGA with FWW, initially felt weak with some buckling in knees when standing. She ambulated ~ 30' CGA/SBA with FWW, is unsteady with gait due to weakness in LLE and TTWB on LLE due to leg length discrepancy. She is slow with all movement and requires extra time to complete mobility tasks. PT continues to recommend SNF at this time. Goals Bed Mobility Goal Contact Guard Assistance Transfer Goal Contact Guard Assistance Gait Goal Contact Guard Assistance Gait Distance 100 Days to Meet Goals 7 Frequency of Treatment Frequency Of Treatment Once a Day Treatment Plan Physical Therapy Treatment Plan Bed Mobility Training,Transfer Training,Gait Training, Therapeutic Exercise,Balance Retraining,Neuromuscular Re-ed Other Recommendations and Next Treatment Progress gait, continue Focus transfers. Recommendations To Nursing Amount of Assist Needed 1 Person Assist Discharge Recommendations PT Discharge Recommendations SNF Rehab Transportation Needs at Discharge Wheelchair/Cabulance
--- NOTE | 2023-03-18 11:50 | CM.DPC ---
DCP Cont. Reviewed EMR and team rounds for status updates. Pt has been started on IV steriods, along with cont. IV ABO's. Pt will be re-evaluated tomorrow for possible transfer due to GI bleed. Cont. to monitor and assist as needed.
--- NOTE | 2023-03-18 14:20 | PM.PN.1 ---
Subjective Subjective Date Patient Seen: 03/18/23 Time Patient Seen: 08:00 Interval history: She still has pain. She is having frequent bloody stools with diarrhea but this is somewhat less than two days ago. Exam Vital Signs (past 8 hours): - 03/18/23 06:24 03/18/23 07:00 03/18/23 07:00 Temperature Pulse Rate 94 H Respiratory Rate Blood Pressure 152/99 H Pulse Oximetry 97 Oxygen Delivery Method Nasal Cannula Nasal Cannula Oxygen Flow Rate 2 03/18/23 07:33 03/18/23 08:16 03/18/23 08:50 Temperature 97.2 F L Pulse Rate 105 H 105 H 108 H Respiratory Rate 18 Blood Pressure 171/107 H 171/107 H 136/90 Pulse Oximetry 97 Oxygen Delivery Method Oxygen Flow Rate 03/18/23 11:32 Temperature 97.3 F L Pulse Rate 96 H Respiratory Rate 18 Blood Pressure 137/96 H Pulse Oximetry 96 Oxygen Delivery Method Oxygen Flow Rate Fraction of Inspired Oxygen 28 SaO2/FiO2 Ratio 342 Oxygen Delivery Method Nasal Cannula Oxygen Flow Rate 2 Narrative Exam Narrative: GEN: no acute distress CV: tachycardic PULM: clear bilaterally EXT: no edema ABD: soft, mildly tender at left lower quardant, no rebound Rectal: tender mucosa, fistula appears near anus Objective Labs 03/18/23 05:39 03/18/23 05:39 Labs: Laboratory Results - last 24 hr 03/14/23 03/18/23 11:25 05:39 WBC 15.8 H RBC 3.90 L Hgb 10.6 L Hct 32.4 L MCV 83.1 MCH 27.1 MCHC 32.7 RDW 16.7 H Plt Count 359 ESR 19 Sodium 138 Potassium 3.7 Chloride 100 Carbon Dioxide 37 H BUN 12 Creatinine 0.54 Estimated GFR > 60 BUN/Creatinine Ratio 22.2 H Glucose 79 L Calcium 8.4 C-Reactive Protein 1.9 H Crossmatch See Detail [facility] Medical History (Updated 03/17/23 @ 18:02 by Mildred Fowler RN) Crohn's disease Colitis Symptomatic anemia Anemia C. difficile colitis Social History household members: spouse Smoking Status: Former smoker alcohol intake: current Assessment & Plan Assessment & Plan narrative: 1. Crohn's flare, acute causing GI bleeding and anemia -has been trialed on oral prednisone with no improvement -repeat CT scan shows concern for fistula which appears consistent with exam -discussed case with GI Dr. Salinas who recommend above treatment if IV antibiotics and steroids (IV solumedrol 60mg daily), Day 1 03/16, monitor for 3 days and possible transfer for flex sig and biologic induction with no change of management recommended due to concern for fistula -has been having significant bloody stools, did need PRBC on 03/14 and had hemoglobin of 6.9 on 03/17 will transfuse 2U PRBC -has previously been treated with flagyl for 7 days, will order zosyn -trend esr/crp daily, CRP and ESR imporving 2. SIRS -patient with new rise in WBC to 25, and tachycardia -WBC improved from 25->13.6 on 03/17 -possibly secondary to crohns flare vs superimposed infection -my exam showed no pus from fistula -cxray with no infection -UA with few bacteria and leuk esterase, but cultures no growth from 03/16 -c diff negative on 03/16 -start treatment with zosyn for concern for superimposed infection on crohns, consider stopping antibiotics if cultures negative 3. Acute cystitis with hematuria, resolved - ceftriaxone 1g q24 hr, UA with >100 WBC and RBC. Completed treatment for complicated UTI x7 days. Possible n/v are related to acute cystitis. Culture with E. coli and Klebsiella from 03/07 4. Volume depletion with contraction alkalosis, POA and active. -due to above 5. Acute on chronic hypoxemic respiratory failure, improved -has known COPD on oxygen (1L) at home, currently intermittently on oxygen -has known CHFpE -wean O2 as able. -CTA showed no PE 6. Spiculated nodule, POA. -noted on CTA -will need follow up with PCP. 7. Hypertension, POA and stable. - normotensive on home medications so will continue amlodipine and metoprolol 8. Hypokalemia, acute, present on admission and improved, -resolved 9. Hyperglycemia. resolved -checked A1c which was 5.4%, Glucose 207 on AM labs but on D5 infusion at the time. 10. Anemia secondary to Crohn's colitis -hemoglobin 6.8 on 03/14, transfuse with 2 units packed red blood cells and follow 11. Hepatitis C infection -will need follow up with GI for treatment Quality VTE Deep Vein Thrombosis/Pulmonary Embolism Present on Admission: No
--- NOTE | 2023-03-18 16:04 | OT.IPNOTE ---
Pt asleep and to check on pt tomorrow.
[2023-03-18] MEDS: ACETAMINOPHEN 325 MG TABLET 650 MG PO (16:33)
[2023-03-18] MEDS: OLANZapine 2.5 MG TABLET 5 MG PO (20:24)
[2023-03-18] MEDS: TRAZODONE 50 MG TABLET 100 MG PO (20:24)
[2023-03-19] VITALS (7 sets, daily range): BP systolic 105–139; BP diastolic 77–92; PULSE 96–107; RESP 16–18; TEMP 36.4–36.9; O2SAT 93–96
[2023-03-19] MEDS: PIPERACILLIN/TAZO 3.375 GM in SODIUM CHLORIDE 0.9% 100 ML IV ×3 (04:20→20:04)
[2023-03-19 05:13] LABS: Hematocrit 31.4 % (36-46); Hemoglobin 10.1 g/dL (12.0-16.0); Mean Corpuscular HGB Conc 32.2 % (30-36); Mean Corpuscular Hemoglobin 27.1 PG (26-34); Mean Corpuscular Volume 84.2 fL (80-100); Platelet Count 343 X10^3/uL (150-400); Red Blood Cell Count 3.73 X10^6/uL (4.0-5.2); Red Cell Distribution Width 17.1 % (11.6-14.8); White Blood Cell Count 13.5 X10^3/uL (4.5-11.0)
[2023-03-19 05:22] LABS: C-Reactive Protein Quant 1.8 mg/dL (<1.0)
[2023-03-19 05:24] LABS: BUN Creatinine Ratio 22.2 (6-22); Blood Urea Nitrogen 12 mg/dL (7-17); Calcium 8.1 mg/dL (8.4-10.2); Carbon Dioxide 36 mmol/L (22-32); Estimated Glomerular Filt Rate > 60 mL/min (>60); Glucose 66 mg/dL (80-110)
[2023-03-19 05:34] LABS: Chloride 100 mmol/L (98-107); HEMOLYSIS 20 (0-50); Potassium 4.1 mmol/L (3.4-5.1); Sodium 137 mmol/L (137-145)
[2023-03-19 05:58] LABS: Erythrocyte Sedimentation Rate 24 MM/HR (0-20)
[2023-03-19] MEDS: HYDROMORPHONE 0.5 MG INJ IV ×7 (06:03→21:39)
[2023-03-19] MEDS: OXYCODONE IR 5 MG TABLET PO ×5 (06:03→18:32)
[2023-03-19 07:38] LABS: Acinetobacter calcoa-baumannii Not Detected (Not Detect); Bacteroides fragilis Not Detected (Not Detect); Candida albicans Not Detected (Not Detect); Candida auris Not Detected (Not Detect); Candida glabrata Not Detected (Not Detect); Candida krusei Not Detected (Not Detect); Candida parapsilosis Not Detected (Not Detect); Candida tropicalis Not Detected (Not Detect); Cryptococcus neoformans/gatti Not Detected (Not Detect); Enterobacter cloacae complex Not Detected (Not Detect); Enterobacterales Not Detected (Not Detect); Enterococcus faecalis Not Detected (Not Detect); Enterococcus faecium Not Detected (Not Detect); Haemophilus influenzae Not Detected (Not Detect); Klebsiella aerogenes Not Detected (Not Detect); Listeria monocytogenes Not Detected (Not Detect); Neisseria meningitidis Not Detected (Not Detect); Proteus species Not Detected (Not Detect); Pseudomonas aeruginosa Not Detected (Not Detect); Salmonella species Not Detected (Not Detect); Serratia marcescens Not Detected (Not Detect); Staphylococcus epidermidis Not Detected (Not Detect); Staphylococcus lugdunensis Not Detected (Not Detect); Staphylococcus species Not Detected (Not Detect); Stenotrophomonas maltophilia Not Detected (Not Detect); Streptococcus agalactiae (Gr B Not Detected (Not Detect); Streptococcus pneumonia Not Detected (Not Detect); Streptococcus pyogenes (Gr A) Not Detected (Not Detect); Streptococcus species Not Detected (Not Detect)
[2023-03-19] MEDS: METOPROLOL ER 25 MG TABLET PO (09:11)
[2023-03-19] MEDS: BUSPIRONE 5 MG TABLET PO (09:11)
[2023-03-19] MEDS: buPROPion SR 150 MG TAB PO ×2 (09:11→20:11)
[2023-03-19] MEDS: ACETAMINOPHEN 325 MG TABLET 650 MG PO ×2 (09:12→18:41)
[2023-03-19] MEDS: SODIUM CHLORIDE 0.9% FLUSH 10 ML IV ×2 (09:25→20:14)
[2023-03-19 10:09] LABS: Magnesium 1.9 mg/dL (1.6-2.3)
--- NOTE | 2023-03-19 10:18 | OT.IP.TRT ---
Current Diagnoses Dehydration (03/06/23) Hypokalemia (03/06/23) Essential (primary) hypertension (03/06/23) Heart failure, unspecified (03/06/23) Chronic obstructive pulmonary disease, unspecified (03/06/23) Crohn's disease, unspecified, without complications (03/06/23) Nausea with vomiting, unspecified (03/06/23) Diarrhea, unspecified (03/06/23) Occupational Therapy Treatment Note M2 OT-IP Current Condition Start: 03/09/23 14:12 Freq: Status: Active Protocol: Document 03/09/23 14:13 CGR (Rec: 03/09/23 14:48 CGR [id number]) Occupational Therapy Current Condition Current Condition Evaluation Date 03/09/23 Treatment Diagnosis acute cystitis with hematuria Diagnosis Onset Date 03/06/23 M3 OT- IP Subjective and Pain Start: 03/09/23 14:12 Freq: Status: Active Protocol: Document 03/19/23 12:37 CGR (Rec: 03/19/23 12:45 CGR [id number]) OT- Subjective Occupational Therapy Visit Type Type Progress Note Visit Start Time 09:55 Visit Stop Time 10:18 Total Visit Minutes 23 Notes Nursing in with patient for peircare when OT entered. M4 OT- IP ADL's Start: 03/09/23 14:12 Freq: Status: Active Protocol: Document 03/19/23 12:37 CGR (Rec: 03/19/23 12:45 CGR [id number]) OT [id number] Comments OT Self-Feeding Comments not meal time OT ADL-Grooming General Evaluation Grooming Ability Standby Assistance Areas Needing Assistance Retrieving/Set-up of Grooming Items,Face Washing Comments OT Grooming Comments set up in bed after activity OT ADL-Oral Care Comments Oral Care Comments not performed OT ADL-Dressing General Eval Lower Body Dressing Ability Total Assistance Areas Needing Assistance Socks OT ADL-Toileting Comments OT Toileting Comments not performed OT ADL-Bathing Comments OT Bathing Comments not performed M5 OT- IP IADL's Start: 03/09/23 14:12 Freq: Status: Active Protocol: Document 03/09/23 14:13 CGR (Rec: 03/09/23 14:48 CGR [id number]) OT-Instrumental Activities of Daily Living Deficits IADL Deficits Identified No Deficits Home Safety Awareness Awareness of Need for Assistance at Home Good Awareness Ability to Problem Solve Emergency Able to Problem Solve Situations Medication Management Medication Management No Deficits Identified Money Management Money Management No Deficits Identified Meal Preparation Meal Preparation Caregiver Provides Assist Dock Boss Dock Boss Caregiver Provides Assist Driving Driving Comments Pt's spouse does the driving. M6 OT- IP Functional Cognition Start: 03/09/23 14:12 Freq: Status: Active Protocol: Document 03/09/23 14:13 CGR (Rec: 03/09/23 14:48 CGR [id number]) Cognitive Factors Limiting Selfcare Function Cognitive Ability Level of Alertness Alert Patient Orientation Name,Age,Birthday,Month,Year, Day of Week,Place,Situation Attention Span Ability Capable of Focused Attention, Capable of Sustained Attention Ability to Follow Commands Able to Follow One Step Commands with Increased Time, Able to Follow One Step Commands with Repetition Cognitive Comments Cognitive Assessment Comments Pt was able to state that it was the middle of the month but not the specific date. OT- Vision and Hearing OT- Hearing Assessment OT- Hearing Assessment WFL OT- Vision Assessment Visual Acuity Glasses For Reading Visual Attentiveness WFL Occular Pursuits WFL Visual Convergence WFL M7 OT- IP Mobility and Balance Start: 03/09/23 14:12 Freq: Status: Active Protocol: Document 03/19/23 12:37 CGR (Rec: 03/19/23 12:45 CGR [id number]) OT- Bed Mobility Assessment Supine to Sit Supine to Sit Assist Moderate Assistance Sit to Supine Sit to Supine Assist Maximum Assistance Scooting Scooting to Edge of Bed Maximum Assistance OT-Transfer Assessment Sit to and From Stand Sit to and from Stand Minimal Assistance Transfers Transfer Ability Minimal Assistance Technique Transfer Destination Bed Transfer Technique Stand Step Pivot Devices Transfer Assistive Devices Gait Belt,Front Wheeled Walker Comments Mobility Comments Pt stood from bed and took steps to HOB. Pt then sat and returned to standing for moving waffle cushion under her. OT- Gait Assessment Comments Gait Ability Comments not performed OT- Balance Assessment Sitting Balance and Reactions Static Sitting Balance Ability Fair Dynamic Sitting Balance Ability Fair M8 OT- IP Objective Assessments Start: 03/09/23 14:12 Freq: Status: Active Protocol: Document 03/09/23 14:13 CGR (Rec: 03/09/23 14:48 CGR [id number]) OT Gross Range of Motion Upper Extremity Range of Motion Assessment Within Functional Limits OT Strength Upper Extremity Strength Assessment Bilaterally Impaired Shoulder 3/5 Elbow 3+/5 Hand 3+/5 Comments Strength Comments Pt is grossly weak OT- Coordination Assessment Upper Extremity Finger to Nose Test Within Functional Limits Finger Tapping Test Within Functional Limits OT-Muscle Tone Assessment Muscle Tone WNL Yes OT Sensation Assessment Edema Edema Present Edema Comments BUE moderate swelling M9 OT- IP Assessment and Plan Start: 03/09/23 14:12 Freq: Status: Active Protocol: Document 03/19/23 12:37 CGR (Rec: 03/19/23 12:45 CGR [id number]) OT Summary Assessment and Plan Potential Rehabilitation Potential Good Analytic Complexity at Evaluation Moderate Summary OT Impairments Pain,Strength,Balance, Functional Mobility,Grooming, Dressing,Toileting,Bathing, Toilet Transfers,Shower Transfers,Activity Tolerance Progress Towards Goals Slow Progress due to Activity Tolerance Assessment Summary Pt presents as a moderate complexity eval s/p admit for acute cystitis with hematuria. Pt needed min to mod assist for mobility on this date but was agreeable to doing some sit to stands. Pt states she feels more fatigued today. Pt would benefit from SNF at this time d/t poor endurance and strength. Recommendation is for discharge to SNF. Goals Grooming Goal Independent Dressing Goal Independent Toileting Goal Independent Bathing Goal Independent Toilet Transfer Goal Independent Shower Transfer Goal Independent Days to Meet Goals 30 Frequency of Treatment Frequency Of Treatment Once a Day Treatment Plan OT Treatment Plan ADL Training,Functional Mobility,Patient/Family Education,Discharge Planning Other Treatment Recommendations and Next UE therex, energy conservation Treatment Focus , endurance activities. Discharge Recommendations OT Discharge Recommendations SNF Rehab Transportation Needs at Discharge Wheelchair/Cabulance
--- NOTE | 2023-03-19 11:22 | CM.DPC ---
DCP Cont. Reviewed EMR and team rounds for status updates. Due to continued diarrhea, possible anal fistula, and not responding well to IV ABO's and steroids. Per Hospitalist, pt will most likely be transferred to a higher level care hospital on 03/20. Cont. to monitor.
--- NOTE | 2023-03-19 12:10 | PT.IPTN ---
Current Diagnoses Dehydration (03/06/23) Hypokalemia (03/06/23) Essential (primary) hypertension (03/06/23) Heart failure, unspecified (03/06/23) Chronic obstructive pulmonary disease, unspecified (03/06/23) Crohn's disease, unspecified, without complications (03/06/23) Nausea with vomiting, unspecified (03/06/23) Diarrhea, unspecified (03/06/23) Physical Therapy Treatment Note M2 PT-IP Current Condition Start: 03/08/23 14:29 Freq: NEEDED Status: Active Protocol: Document 03/08/23 14:30 AMB (Rec: 03/08/23 15:02 AMB [id number]) Physical Therapy Current Condition Current Condition Evaluation Date 03/08/23 Treatment Diagnosis Crohn's flare, reduced mobility Onset Date 03/06/23 M3 PT-IP Subjective Start: 03/08/23 14:29 Freq: NEEDED Status: Active Protocol: Document 03/19/23 13:32 TS (Rec: 03/19/23 13:51 TS [id number]) Subjective Physical Therapy Visit Type Type Treatment Note Visit Start Time 12:10 Visit Stop Time 12:40 Total Visit Minutes 30 Number of PRODUCT ASSEMBLER Visits 2 Physical Therapy Visit Comments Patient Comments Pt found resting in bed, spouse in room, agreeable to PT. M4 PT-IP Mobility and Gait Start: 03/08/23 14:29 Freq: NEEDED Status: Active Protocol: Document 03/19/23 13:32 TS (Rec: 03/19/23 13:51 TS [id number]) PT-Bed Mobility Assessment Supine to Sit Supine to Sit Minimal Assistance,1 Person Assistance,Head of Bed Elevated Sit to Supine Sit to Supine Minimal Assistance,1 Person Assistance,Bedrails Scooting Scooting to Edge of Bed Minimal Assistance PT-Transfer Assessment Sit to and From Stand Sit to and from Stand Contact Guard Assistance Equipment Transfer Assistive Device Gait Belt,Front Wheeled Walker Orthotic/Prosthetic Devices or Brace: No Comments Mobility Comments Pt found resting in bed on RA, agreeable to PT. Supine to sit Lilli for LLE to EOB and assistance uprighting trunk. She scooted to EOB Lilli with use of transfer pad. Sit to stand with FWW CGA, pt is slow to stand. She ambulated ~30' in room SBA/CGA with FWW with slow step to gait, denied any SOB. pt requested back to bed, sit to supine Lilli for LEs into bed. Pt was left in bed with all needs met, spouse in room. Gait Assessment Gait Gait Assistance Required: Standby Assistance,Contact Guard Assist Distance (Feet) 30 Assistive Devices Assistive Device Gait Belt,Front Wheeled Walker Orthotic/Prosthetic Devices or Brace: No Gait Deviations General Gait Pattern Antalgic,Decreased Stride Length,Decreased Feet Clearance,Step-to Gait Factors Limiting Gait Function Factors Limiting Gait Function Decreased Activity Tolerance, Decreased Strength,Poor Balance,Respiratory Distress Comments Gait Comments See mobility comments PT-Balance Assessment Sitting Balance and Reactions Static Sitting Balance Ability Good Dynamic Sitting Balance Ability Fair Standing Balance and Reactions Static Standing Balance Ability Good Dynamic Standing Balance Ability Fair Device Used FWW M5 PT-IP Objective Assessments Start: 03/08/23 14:29 Freq: NEEDED Status: Active Protocol: Document 03/08/23 14:30 AMB (Rec: 03/08/23 15:02 AMB [id number]) Orientation Orientation/Cognition Level of Alertness Alert Gross Range of Motion Lower Extremity ROM Assessment Bilaterally Impaired Impairments ankles barely dorsiflex to neutral Strength Lower Extremity Strength Assessment Bilaterally Impaired Hip 2 Knee 3 Ankle 3 Comments Strength Comments Jasmin has been practically bed bound for the past 2 months and has a difficult time moving her legs in the bed to perform bed mobility. M6 PT-IP Treatment Start: 03/08/23 14:29 Freq: NEEDED Status: Active Protocol: Document 03/19/23 13:32 TS (Rec: 03/19/23 13:51 TS [id number]) Physical Therapy Treatment Education Education Provided Safety M7 PT-IP Assessment and Plan Start: 03/08/23 14:29 Freq: NEEDED Status: Active Protocol: Document 03/19/23 13:32 TS (Rec: 03/19/23 13:51 TS [id number]) PT Summary Assessment and Plan Potential Rehabilitation Potential Fair Summary Impairments Pain,ROM,Strength,Balance,Bed Mobility,Gait,Activity Tolerance Progress Towards Goals Slow Progress due to Medical Issues,Slow Progress due to Activity Tolerance Assessment Summary Jasmin continues to make slow progress with her mobility due to ongoing medical issues and poor activity tolerance. She is Lilli for all bed mobility due to general weakness and poor strength in LLE. She continues to be CGA for sit to stand with FWW and continues to ambulate short distance in room CGA/SBA. PT continues to recommend SNF to progress strength, functional mobility and activity tolerance. Goals Bed Mobility Goal Contact Guard Assistance Transfer Goal Contact Guard Assistance Gait Goal Contact Guard Assistance Gait Distance 100 Days to Meet Goals 7 Frequency of Treatment Frequency Of Treatment Once a Day Treatment Plan Physical Therapy Treatment Plan Bed Mobility Training,Transfer Training,Gait Training, Therapeutic Exercise,Balance Retraining,Neuromuscular Re-ed Other Recommendations and Next Treatment Progress gait, continue Focus transfers. Recommendations To Nursing Amount of Assist Needed 1 Person Assist Discharge Recommendations PT Discharge Recommendations SNF Rehab Transportation Needs at Discharge Wheelchair/Cabulance
[2023-03-19 12:40] LABS: Adenovirus F 40/41 Not Detected (Not Detect); Astrovirus Not Detected (Not Detect); Campylobacter Not Detected (Not Detect); Clostridium difficile toxin AB Not Detected (Not Detect); Cryptosporidium Not Detected (Not Detect); Cyclospora cayetanensis Not Detected (Not Detect); Entamoeba histolytica Not Detected (Not Detect); Enteroaggregative E.coli Not Detected (Not Detect); Enteropathogenic E.coli Not Detected (Not Detect); Enterotoxigenic E.coli It/st Not Detected (Not Detect); Giardia lamblia Not Detected (Not Detect); Norovirus GI/GII Not Detected (Not Detect); Plesiomonsa shigelloides Not Detected (Not Detect); Rotavirus A Not Detected (Not Detect); Salmonella Not Detected (Not Detect); Sapovirus Not Detected (Not Detect); Shiga-like toxin-prod E.coli Not Detected (Not Detect); Shigella/Enteroinvasive E.coli Not Detected (Not Detect); Vibrio Not Detected (Not Detect); Vibrio cholerae Not Detected (Not Detect); Yersinia enterocolitica Not Detected (Not Detect)
--- NOTE | 2023-03-19 15:55 | P.PN_ITS ---
Subjective Subjective Interval history: Patient's diarrhea improved now to only 2 episodes today. She is feeling a bit better overall. GI PCR panel negative. Exam Vital Signs (past 8 hours): - 03/19/23 09:11 03/19/23 12:00 Temperature 97.5 F L Pulse Rate 96 H 101 H Respiratory Rate 18 Blood Pressure 139/87 119/92 H Pulse Oximetry 94 Oxygen Flow Rate 0 Fraction of Inspired Oxygen 28 SaO2/FiO2 Ratio 342 Oxygen Delivery Method Nasal Cannula Oxygen Flow Rate 0 Narrative Exam Narrative: GEN: no acute distress CV: tachycardic PULM: clear bilaterally EXT: no edema ABD: soft, mildly tender at left lower quardant, no rebound Rectal: tender mucosa, fistula appears near anus Objective Labs 03/19/23 04:27 03/19/23 04:27 Labs: Laboratory Results - last 24 hr 03/16/23 03/19/23 03/19/23 18:05 04:27 10:05 WBC 13.5 H RBC 3.73 L Hgb 10.1 L Hct 31.4 L MCV 84.2 MCH 27.1 MCHC 32.2 RDW 17.1 H Plt Count 343 ESR 24 H D Sodium 137 Potassium 4.1 Chloride 100 Carbon Dioxide 36 H BUN 12 Creatinine 0.54 Estimated GFR > 60 BUN/Creatinine Ratio 22.2 H Glucose 66 L Calcium 8.1 L Magnesium 1.9 C-Reactive Protein 1.8 H Stl C. cayetanensis PCR Not detected Stool Rotavirus (PCR) Not detected Stool Adenovirus (PCR) Not detected Stool Astrovirus (PCR) Not detected Stool Cryptosporidium PCR Not detected Stl E.coli Shiga Tox PCR Not detected St Sh/Enteroin Ecoli PCR Not detected Stl Enterotoxigenic E PCR Not detected Stool EPEC (PCR) Not detected Stl E. histolytica PCR Not detected Stool Giardia Lamblia PCR Not detected Stool Sapovirus (PCR) Not detected Stl P. shigelloides PCR Not detected St Y.enterocolitica PCR Not detected Stool Vibrio (PCR) Not detected Stl Vibrio cholerae PCR Not detected Stl Enteroaggr Ecoli PCR Not detected Stl Norovirus GI/GII PCR Not detected A.calcoaceticus-baumannii cmplx PCR Not detected Bacteroides fragilis Not detected Campylobacter (PCR) Not detected Britney albicans (PCR) Not detected Britney auris (PCR) Not detected C. glabrata (PCR) Not detected C. krusei (PCR) Not detected C. parapsilosis (PCR) Not detected C. tropicalis (PCR) Not detected C. difficile Tox (PCR) Not detected C. neoform/gattii (PCR) Not detected Enterobacterales (PCR) Not detected E. cloacae complex PCR Not detected Enterococc faecalis PCR Not detected Enterococc faecium PCR Not detected E. coli (PCR) Not detected H. influenzae (PCR) Not detected Klebsiella aerogenes (PCR) Not detected Klebsiella oxytoca PCR Not detected Klebsiella pneumoniae Not detected List. monocytogenes PCR Not detected N. meningitidis (PCR) Not detected Proteus species (PCR) Not detected Salmonella (PCR) Not detected Salmonella spp. (PCR) Not detected Serratia marcescens PCR Not detected Staphylococcus sp PCR Not detected Staph aureus (PCR) Not detected mecA/C & MREJ Resist Gene Not applicable mecA/C-Methicil Resis Gene Not applicable mcr-1 Colistin Res Gene PCR Not applicable Staph epidermidis (PCR) Not detected Staph lugdunensis PCR Not detected S. maltophilia (PCR) Not detected Streptococcus sp PCR Not detected Group A Strep (PCR) Not detected Strep agalactiae (PCR) Not detected Strep pneumoniae (PCR) Not detected P. aeruginosa (PCR) Not detected Timothy/B-Vanco Res Genes Not applicable blaIMP Car res Gene PCR Not applicable KPC-Carbap Res Gene PCR Not applicable blaNDM Car Res Gene PCR Not applicable OXA-48 Carbapenem Resis Gene (PCR) Not applicable blaVIM Car Res Gene PCR Not applicable CTX-M Gene Resistance (PCR) Not applicable [facility] Medical History (Updated 03/17/23 @ 18:02 by Mildred Fowler RN) Crohn's disease Colitis Symptomatic anemia Anemia C. difficile colitis Social History household members: spouse Smoking Status: Former smoker alcohol intake: current Assessment & Plan Assessment & Plan narrative: 1. Crohn's flare, acute causing GI bleeding and anemia -has been trialed on oral prednisone with no improvement -repeat CT scan shows concern for fistula which appears consistent with exam -discussed case with GI Dr. Salinas who recommend above treatment if IV antibiotics and steroids (IV solumedrol 60mg daily), Day 1 03/16, monitor for 3 days and possible transfer for flex sig and biologic induction with no change of management recommended due to concern for fistula -has been having significant bloody stools, did need PRBC on 03/14 and had hemoglobin of 6.9 on 03/17 will transfuse 2U PRBC -has previously been treated with flagyl for 7 days, will order zosyn -trend esr/crp daily, CRP and ESR imporving -as of 03/19 now down to 2 diarrheas, less bloody -GI PCR negative 2. SIRS, improving -patient with new rise in WBC to 25, and tachycardia -WBC improved from 25->13.6 on 03/17 -possibly secondary to crohns flare vs superimposed infection -my exam showed no pus from fistula -CXR with no infection -UA with few bacteria and leuk esterase, but cultures no growth from 03/16 -c diff negative on 03/16, full GI PCR panel negative on 03/19 -start treatment with zosyn for concern for superimposed infection on crohns, consider stopping antibiotics if cultures negative 3. Acute cystitis with hematuria, resolved - ceftriaxone 1g q24 hr, UA with >100 WBC and RBC. Completed treatment for complicated UTI x7 days. Possible n/v are related to acute cystitis. Culture with E. coli and Klebsiella from 03/07. 4. Volume depletion with contraction alkalosis, POA and active. -due to above 5. Acute on chronic hypoxemic respiratory failure, improved -has known COPD on oxygen (1L) at home, currently intermittently on oxygen -has known CHFpE -wean O2 as able. -CTA showed no PE 6. Spiculated nodule, POA. -noted on CTA -will need follow up with PCP. 7. Hypertension, POA and stable. - normotensive on home medications so will continue amlodipine and metoprolol 8. Hypokalemia, acute, present on admission and improved, -resolved 9. Hyperglycemia. resolved -checked A1c which was 5.4%, Glucose 207 on AM labs but on D5 infusion at the time. 10. Anemia secondary to Crohn's colitis -hemoglobin 6.8 on 03/14, transfuse with 2 units packed red blood cells and follow 11. Hepatitis C infection -will need follow up with GI for treatment Dispo: Home with outpatient GI f/up in 1-2 days. If not improving transfer to [facility] for GI consult. Quality VTE Deep Vein Thrombosis/Pulmonary Embolism Present on Admission: No
[2023-03-19] MEDS: TRAZODONE 50 MG TABLET 100 MG PO (20:11)
[2023-03-19] MEDS: OLANZapine 2.5 MG TABLET 5 MG PO (20:12)
[2023-03-19] MEDS: OXYCODONE IR 10 MG TABLET PO (23:42)
[2023-03-20] VITALS (7 sets, daily range): BP systolic 123–146; BP diastolic 73–83; PULSE 82–109; RESP 17–18; TEMP 36.3–36.6; O2SAT 88–95
[2023-03-20] MEDS: HYDROMORPHONE 0.5 MG INJ IV ×8 (03:10→23:56)
[2023-03-20] MEDS: SODIUM CHLORIDE 0.9% FLUSH 10 ML IV ×3 (03:11→20:17)
[2023-03-20] MEDS: PIPERACILLIN/TAZO 3.375 GM in SODIUM CHLORIDE 0.9% 100 ML IV ×3 (04:15→20:15)
[2023-03-20 05:19] LABS: Add Manual Diff / Slide Review NO; Basophils Absolute Auto 100 /uL (0-100); Basophils Percent Auto 0.4 % (0-2); Eosinophils Absolute Auto 0 /uL (0-450); Eosinophils Percent Auto 0.4 % (2-4); Hematocrit 30.2 % (36-46); Hemoglobin 9.8 g/dL (12.0-16.0); Lymphocytes Absolute Auto 1000 /uL (1100-4500); Lymphocytes Percent Auto 7.7 % (25-40); Mean Corpuscular HGB Conc 32.5 % (30-36); Mean Corpuscular Hemoglobin 27.5 PG (26-34); Mean Corpuscular Volume 84.5 fL (80-100); Monocytes Absolute Auto 1300 /uL (0-900); Monocytes Percent Auto 10.1 % (3-14); Neutrophils Absolute Auto 10200 /uL (1500-7000); Neutrophils Percent Auto 81.4 % (50-75); Platelet Count 377 X10^3/uL (150-400); Red Blood Cell Count 3.58 X10^6/uL (4.0-5.2); White Blood Cell Count 12.6 X10^3/uL (4.5-11.0)
[2023-03-20 05:47] LABS: BUN Creatinine Ratio 32.3 (6-22); Blood Urea Nitrogen 21 mg/dL (7-17); Calcium 8.4 mg/dL (8.4-10.2); Chloride 95 mmol/L (98-107); Estimated Glomerular Filt Rate > 60 mL/min (>60); Glucose 82 mg/dL (80-110); HEMOLYSIS < 15 (0-50); Potassium 4.1 mmol/L (3.4-5.1); Sodium 137 mmol/L (137-145)
[2023-03-20 05:59] LABS: Carbon Dioxide 41 mmol/L (22-32)
[2023-03-20] MEDS: OXYCODONE IR 10 MG TABLET PO ×4 (07:38→20:16)
[2023-03-20] MEDS: METOPROLOL ER 25 MG TABLET PO (08:48)
[2023-03-20] MEDS: buPROPion SR 150 MG TAB PO ×2 (08:48→20:16)
[2023-03-20] MEDS: BUSPIRONE 5 MG TABLET PO (08:49)
--- NOTE | 2023-03-20 11:23 | PT.IPTN ---
Current Diagnoses Dehydration (03/06/23) Hypokalemia (03/06/23) Essential (primary) hypertension (03/06/23) Heart failure, unspecified (03/06/23) Chronic obstructive pulmonary disease, unspecified (03/06/23) Crohn's disease, unspecified, without complications (03/06/23) Nausea with vomiting, unspecified (03/06/23) Diarrhea, unspecified (03/06/23) Physical Therapy Treatment Note M2 PT-IP Current Condition Start: 03/08/23 14:29 Freq: NEEDED Status: Active Protocol: Document 03/08/23 14:30 AMB (Rec: 03/08/23 15:02 AMB [id number]) Physical Therapy Current Condition Current Condition Evaluation Date 03/08/23 Treatment Diagnosis Crohn's flare, reduced mobility Onset Date 03/06/23 M3 PT-IP Subjective Start: 03/08/23 14:29 Freq: NEEDED Status: Active Protocol: Document 03/20/23 12:36 TS (Rec: 03/20/23 12:50 TS [id number]) Subjective Physical Therapy Visit Type Type Treatment Note Visit Start Time 11:23 Visit Stop Time 11:53 Total Visit Minutes 30 Number of SUBASSEMBLIES WIRER Visits 3 Physical Therapy Visit Comments Patient Comments Pt found resting in bed, on 2L of o2, reports pain on buttocks with mobility due to sores, is agreeable to PT. Therapy Pain Assessment Pain When Pain Assessed During Mobility Pain Present Pain Present Pain Reported M4 PT-IP Mobility and Gait Start: 03/08/23 14:29 Freq: NEEDED Status: Active Protocol: Document 03/20/23 12:36 TS (Rec: 03/20/23 12:50 TS [id number]) PT-Bed Mobility Assessment Supine to Sit Supine to Sit Moderate Assistance,1 Person Assistance,Head of Bed Elevated Sit to Supine Sit to Supine Moderate Assistance,1 Person Assistance,Bedrails Scooting Scooting to Edge of Bed Moderate Assistance PT-Transfer Assessment Sit to and From Stand Sit to and from Stand Contact Guard Assistance Equipment Transfer Assistive Device Gait Belt,Front Wheeled Walker Orthotic/Prosthetic Devices or Brace: No Comments Mobility Comments Supine to sit HOB elevated ModA for upirighting trunk and LE assistance to EOB. She scooted to EOB ModA with use of transfer pad, cues were provided for scooting forward with BUE support. Sit to stand x3 CGA with BUE support on FWW, pt is slow to stand, has good standing balance with no retroleaning. She ambulated in room 2x15' SBA/CGA with seated rest break in between. Sit to supine into bed ModA for B LEs into bed, waffle cushion placed underneath her. Pt was left in bed, all needs met, RN notified. Gait Assessment Gait Gait Assistance Required: Standby Assistance,Contact Guard Assist Distance (Feet) 30 Assistive Devices Assistive Device Gait Belt,Front Wheeled Walker Orthotic/Prosthetic Devices or Brace: No Gait Deviations General Gait Pattern Antalgic,Decreased Stride Length,Decreased Feet Clearance,Step-to Gait Factors Limiting Gait Function Factors Limiting Gait Function Decreased Activity Tolerance, Decreased Strength,Poor Balance,Respiratory Distress Comments Gait Comments See mobility comments PT-Balance Assessment Sitting Balance and Reactions Static Sitting Balance Ability Good Dynamic Sitting Balance Ability Fair Standing Balance and Reactions Static Standing Balance Ability Good Dynamic Standing Balance Ability Fair Device Used FWW M5 PT-IP Objective Assessments Start: 03/08/23 14:29 Freq: NEEDED Status: Active Protocol: Document 03/08/23 14:30 AMB (Rec: 03/08/23 15:02 AMB [id number]) Orientation Orientation/Cognition Level of Alertness Alert Gross Range of Motion Lower Extremity ROM Assessment Bilaterally Impaired Impairments ankles barely dorsiflex to neutral Strength Lower Extremity Strength Assessment Bilaterally Impaired Hip 2 Knee 3 Ankle 3 Comments Strength Comments Jasmin has been practically bed bound for the past 2 months and has a difficult time moving her legs in the bed to perform bed mobility. M6 PT-IP Treatment Start: 03/08/23 14:29 Freq: NEEDED Status: Active Protocol: Document 03/20/23 12:36 TS (Rec: 03/20/23 12:50 TS [id number]) Physical Therapy Treatment Education Education Provided Safety M7 PT-IP Assessment and Plan Start: 03/08/23 14:29 Freq: NEEDED Status: Active Protocol: Document 03/20/23 12:36 TS (Rec: 03/20/23 12:50 TS [id number]) PT Summary Assessment and Plan Potential Rehabilitation Potential Fair Summary Impairments Pain,ROM,Strength,Balance,Bed Mobility,Gait,Activity Tolerance Progress Towards Goals Slow Progress due to Medical Issues,Slow Progress due to Activity Tolerance Assessment Summary Jasmin is making slow progress with her mobility. She required increased assist to ModA for supine to sit and sit to supine into bed. She continues to be CGA for sit to stand with FWW. She ambulatd ~30' CGA/SBA with slow step to gait, she fatigues quickly requiring seated rest break. PT continues to recommend SNF rehab at this time to progress bed mobility, transfers and gait. Goals Bed Mobility Goal Contact Guard Assistance Transfer Goal Contact Guard Assistance Gait Goal Contact Guard Assistance Gait Distance 100 Days to Meet Goals 7 Frequency of Treatment Frequency Of Treatment Once a Day Treatment Plan Physical Therapy Treatment Plan Bed Mobility Training,Transfer Training,Gait Training, Therapeutic Exercise,Balance Retraining,Neuromuscular Re-ed Other Recommendations and Next Treatment Progress gait, continue Focus transfers. Recommendations To Nursing Amount of Assist Needed 1 Person Assist Discharge Recommendations PT Discharge Recommendations SNF Rehab Transportation Needs at Discharge Wheelchair/Cabulance
--- NOTE | 2023-03-20 15:02 | CM.DPC ---
DCP Cont: Per MD, pt's stooling seems to have slowed and pt seems more medically stable for plan of discharge with urgent outpt GI f/u appointment with pt's established GI doctor. Spouse was bedside but has left to take ferry back home to [place] and plans to return early in the AM on the earliest ferry. Per PT, still feel pt would benefit from SNF rehab at d/c. SW called [facility] regarding bed availability and currently they have a female bed now that pt has been admitted for many days and willing to review and submit for [employer] auth but will need their billing dept to review to confirm if they could accept as [employer] does not always reimburse etc.. CC Lissa kindly faxed referral for review and [facility] aware that pt may d/c home. SW met bedside with pt and spouse and explained role and inquired about d/c plan and pt feels that since her diarrhea has reduced and only a couple bms a day, she feels that d/c to home with Alpha likely might be a safe d/c option. Pt would be agreeable with SNF if secured and contracted with her insurance but she feels by tomorrow she might be closer to baseline for d/c to home. SW encouraged pt to call her GI doctor now as we are heading into a weekend and assisted her in getting her phone and a pen and paper and pt now calling her GI doctor to attempt getting an urgent outpt appointment next week. 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 LYNN Salguero
--- NOTE | 2023-03-20 15:13 | OT.IP.TRT ---
Current Diagnoses Dehydration (03/06/23) Hypokalemia (03/06/23) Essential (primary) hypertension (03/06/23) Heart failure, unspecified (03/06/23) Chronic obstructive pulmonary disease, unspecified (03/06/23) Crohn's disease, unspecified, without complications (03/06/23) Nausea with vomiting, unspecified (03/06/23) Diarrhea, unspecified (03/06/23) Occupational Therapy Treatment Note M2 OT-IP Current Condition Start: 03/09/23 14:12 Freq: Status: Active Protocol: Document 03/09/23 14:13 CGR (Rec: 03/09/23 14:48 CGR [id number]) Occupational Therapy Current Condition Current Condition Evaluation Date 03/09/23 Treatment Diagnosis acute cystitis with hematuria Diagnosis Onset Date 03/06/23 M3 OT- IP Subjective and Pain Start: 03/09/23 14:12 Freq: Status: Active Protocol: Document 03/20/23 15:17 CCC (Rec: 03/20/23 15:29 CCC [id number]) OT- Subjective Occupational Therapy Visit Type Type Treatment Note Visit Start Time 15:07 Visit Stop Time 15:15 Total Visit Minutes 8 Occupational Therapy Visit Comments Patient Comments Pt is bed and willing to go over stress management and energy conservations techniques to try to follow at home. Patient/Caregiver Goals To go home. M4 OT- IP ADL's Start: 03/09/23 14:12 Freq: Status: Active Protocol: Document 03/19/23 12:37 CGR (Rec: 03/19/23 12:45 CGR [id number]) OT [id number] Comments OT Self-Feeding Comments not meal time OT ADL-Grooming General Evaluation Grooming Ability Standby Assistance Areas Needing Assistance Retrieving/Set-up of Grooming Items,Face Washing Comments OT Grooming Comments set up in bed after activity OT ADL-Oral Care Comments Oral Care Comments not performed OT ADL-Dressing General Eval Lower Body Dressing Ability Total Assistance Areas Needing Assistance Socks OT ADL-Toileting Comments OT Toileting Comments not performed OT ADL-Bathing Comments OT Bathing Comments not performed M5 OT- IP IADL's Start: 03/09/23 14:12 Freq: Status: Active Protocol: Document 03/09/23 14:13 CGR (Rec: 03/09/23 14:48 CGR [id number]) OT-Instrumental Activities of Daily Living Deficits IADL Deficits Identified No Deficits Home Safety Awareness Awareness of Need for Assistance at Home Good Awareness Ability to Problem Solve Emergency Able to Problem Solve Situations Medication Management Medication Management No Deficits Identified Money Management Money Management No Deficits Identified Meal Preparation Meal Preparation Caregiver Provides Assist Pulverizer Operator Pulverizer Operator Caregiver Provides Assist Driving Driving Comments Pt's spouse does the driving. M6 OT- IP Functional Cognition Start: 03/09/23 14:12 Freq: Status: Active Protocol: Document 03/20/23 15:17 [facility] (Rec: 03/20/23 15:29 [facility] [id number]) Cognitive Factors Limiting Selfcare Function Cognitive Ability Level of Alertness Alert Patient Orientation Name,Age,Birthday,Month,Year, Day of Week,Place,Situation Attention Span Ability Capable of Focused Attention, Capable of Sustained Attention Ability to Follow Commands Able to Follow Multi-Step Commands Cognitive Comments Cognitive Assessment Comments Pt able to states good understanding for all energy conservation and stress management suggestions for pt to incorporate at home. M7 OT- IP Mobility and Balance Start: 03/09/23 14:12 Freq: Status: Active Protocol: Document 03/19/23 12:37 CGR (Rec: 03/19/23 12:45 CGR [id number]) OT- Bed Mobility Assessment Supine to Sit Supine to Sit Assist Moderate Assistance Sit to Supine Sit to Supine Assist Maximum Assistance Scooting Scooting to Edge of Bed Maximum Assistance OT-Transfer Assessment Sit to and From Stand Sit to and from Stand Minimal Assistance Transfers Transfer Ability Minimal Assistance Technique Transfer Destination Bed Transfer Technique Stand Step Pivot Devices Transfer Assistive Devices Gait Belt,Front Wheeled Walker Comments Mobility Comments Pt stood from bed and took steps to HOB. Pt then sat and returned to standing for moving waffle cushion under her. OT- Gait Assessment Comments Gait Ability Comments not performed OT- Balance Assessment Sitting Balance and Reactions Static Sitting Balance Ability Fair Dynamic Sitting Balance Ability Fair M8 OT- IP Objective Assessments Start: 03/09/23 14:12 Freq: Status: Active Protocol: Document 03/09/23 14:13 CGR (Rec: 03/09/23 14:48 CGR [id number]) OT Gross Range of Motion Upper Extremity Range of Motion Assessment Within Functional Limits OT Strength Upper Extremity Strength Assessment Bilaterally Impaired Shoulder 3/5 Elbow 3+/5 Hand 3+/5 Comments Strength Comments Pt is grossly weak OT- Coordination Assessment Upper Extremity Finger to Nose Test Within Functional Limits Finger Tapping Test Within Functional Limits OT-Muscle Tone Assessment Muscle Tone WNL Yes OT Sensation Assessment Edema Edema Present Edema Comments BUE moderate swelling M9 OT- IP Assessment and Plan Start: 03/09/23 14:12 Freq: Status: Active Protocol: Document 03/20/23 15:17 [facility] (Rec: 03/20/23 15:29 [facility] [id number]) OT Summary Assessment and Plan Potential Rehabilitation Potential Good Analytic Complexity at Evaluation Moderate Summary OT Impairments Pain,Strength,Balance, Functional Mobility,Grooming, Dressing,Toileting,Bathing, Toilet Transfers,Shower Transfers,Activity Tolerance Assessment Summary Pt looking to go home now. Pt will benefit from home health. Goals Grooming Goal Independent Dressing Goal Independent Toileting Goal Independent Bathing Goal Independent Toilet Transfer Goal Independent Shower Transfer Goal Independent Days to Meet Goals 29 Treatment Plan OT Treatment Plan ADL Training,Functional Mobility,Patient/Family Education,Discharge Planning Discharge Recommendations OT Discharge Recommendations Home with / Assist Available,Home Health versus SNF Transportation Needs at Discharge Private Vehicle
--- NOTE | 2023-03-20 17:34 | P.PN_ITS ---
Subjective Subjective Interval history: Had 4 episodes of diarrhea today. Working on getting outpatient GI f/up and awaiting a call back from the GI clinic. Exam Vital Signs (past 8 hours): - 03/20/23 14:00 Temperature 98 F Pulse Rate 82 Respiratory Rate 18 Blood Pressure 130/73 Pulse Oximetry 95 Oxygen Flow Rate 1 Fraction of Inspired Oxygen 28 SaO2/FiO2 Ratio 342 Oxygen Delivery Method Nasal Cannula Oxygen Flow Rate 1 Narrative Exam Narrative: GEN: no acute distress CV: tachycardic PULM: clear bilaterally EXT: no edema ABD: soft, mildly tender at left lower quardant, no rebound Rectal: tender mucosa, fistula appears near anus Objective Labs 03/20/23 04:20 03/20/23 04:20 Labs: Laboratory Results - last 24 hr 03/20/23 04:20 WBC 12.6 H RBC 3.58 L Hgb 9.8 L Hct 30.2 L MCV 84.5 MCH 27.5 MCHC 32.5 RDW 17.0 H Plt Count 377 Neut % (Auto) 81.4 H Lymph % (Auto) 7.7 L [place] % (Auto) 10.1 Eos % (Auto) 0.4 L Baso % (Auto) 0.4 Neut # (Auto) 72059 H Lymph # (Auto) 1000 L [place] # (Auto) 1300 H Eos # (Auto) 0 Baso # (Auto) 100 Sodium 137 Potassium 4.1 Chloride 95 L Carbon Dioxide 41 H* BUN 21 H Creatinine 0.65 Estimated GFR > 60 BUN/Creatinine Ratio 32.3 H Glucose 82 Calcium 8.4 PFSH Medical History (Updated 03/17/23 @ 18:02 by Mildred Fowler RN) Crohn's disease Colitis Symptomatic anemia Anemia C. difficile colitis Social History household members: spouse Smoking Status: Former smoker alcohol intake: current Assessment & Plan Assessment & Plan narrative: 1. Crohn's flare, acute causing GI bleeding and anemia -has been trialed on oral prednisone with no improvement -repeat CT scan shows concern for fistula which appears consistent with exam -discussed case with GI Dr. Salinas who recommend above treatment if IV antibiotics and steroids (IV solumedrol 60mg daily), Day 1 03/16, monitor for 3 days and possible transfer for flex sig and biologic induction with no change of management recommended due to concern for fistula -has been having significant bloody stools, did need PRBC on 03/14 and had hemoglobin of 6.9 on 03/17 will transfuse 2U PRBC -has previously been treated with flagyl for 7 days, will order zosyn -trend esr/crp daily, CRP and ESR imporving -as of 03/19 now down to 4 diarrheas, less bloody -GI PCR negative -03/20 with 4 diarrhea episodes 2. SIRS, improving -patient with new rise in WBC to 25, and tachycardia -WBC improved from 25->13.6 on 03/17 -possibly secondary to crohns flare vs superimposed infection -my exam showed no pus from fistula -CXR with no infection -UA with few bacteria and leuk esterase, but cultures no growth from 03/16 -c diff negative on 03/16, full GI PCR panel negative on 03/19 -start treatment with zosyn for concern for superimposed infection on crohns, consider stopping antibiotics if cultures negative 3. Acute cystitis with hematuria, resolved - ceftriaxone 1g q24 hr, UA with >100 WBC and RBC. Completed treatment for complicated UTI x7 days. Possible n/v are related to acute cystitis. Culture with E. coli and Klebsiella from 03/07. 4. Volume depletion with contraction alkalosis, POA and active. -due to above 5. Acute on chronic hypoxemic respiratory failure, improved -has known COPD on oxygen (1L) at home, currently intermittently on oxygen -has known CHFpE -wean O2 as able. -CTA showed no PE 6. Spiculated nodule, POA. -noted on CTA -will need follow up with PCP. 7. Hypertension, POA and stable. - normotensive on home medications so will continue amlodipine and metoprolol 8. Hypokalemia, acute, present on admission and improved, -resolved 9. Hyperglycemia. resolved -checked A1c which was 5.4%, Glucose 207 on AM labs but on D5 infusion at the time. 10. Anemia secondary to Crohn's colitis -hemoglobin 6.8 on 03/14, transfuse with 2 units packed red blood cells and follow 11. Hepatitis C infection -will need follow up with GI for treatment Dispo: Home with outpatient GI f/up in 1-2 days. If not improving transfer to [facility] for GI consult. Quality VTE Deep Vein Thrombosis/Pulmonary Embolism Present on Admission: No
[2023-03-20] MEDS: TRAZODONE 50 MG TABLET 100 MG PO (20:16)
[2023-03-20] MEDS: OLANZapine 2.5 MG TABLET 5 MG PO (20:16)
[2023-03-21] VITALS (7 sets, daily range): BP systolic 120–152; BP diastolic 71–93; PULSE 99–110; RESP 16; TEMP 36.7; O2SAT 91–97
[2023-03-21] MEDS: PIPERACILLIN/TAZO 3.375 GM in SODIUM CHLORIDE 0.9% 100 ML IV ×3 (04:11→20:36)
[2023-03-21] MEDS: HYDROMORPHONE 0.5 MG INJ IV ×8 (04:46→21:37)
[2023-03-21] MEDS: SODIUM CHLORIDE 0.9% FLUSH 10 ML IV ×3 (04:47→21:38)
--- NOTE | 2023-03-21 05:19 | PC.NURSE ---
Addendum entered by Cehrise Mathur R.N. 03/21/23 05:50: Correction 4 loose BM. 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 Pt medicated with IV pain meds per MAR prior to brief changes. Dressing changed @ 0520. Pt tolerated dressing and brief change well. Call light within reach.
[2023-03-21] MEDS: OXYCODONE IR 10 MG TABLET PO ×5 (06:03→20:37)
--- NOTE | 2023-03-21 06:06 | PC.NURSE ---
Addendum entered by Cherise Mathur R.N. 03/21/23 06:47: Patient had one more BM, for a total of 6 BM medium sized watery movements, Last BM had bright red streaks and dark tar consistency. 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 Pt medicated with IV pain meds per MAR prior to brief changes. Dressing changed @ 0520. Pt tolerated dressing and brief change well. Call light within reach.
[2023-03-21 07:29] LABS: Add Manual Diff / Slide Review NO; Basophils Absolute Auto 100 /uL (0-100); Basophils Percent Auto 0.7 % (0-2); Eosinophils Absolute Auto 100 /uL (0-450); Eosinophils Percent Auto 0.6 % (2-4); Lymphocytes Absolute Auto 1200 /uL (1100-4500); Lymphocytes Percent Auto 9.2 % (25-40); Mean Corpuscular HGB Conc 32.4 % (30-36); Mean Corpuscular Hemoglobin 27.6 PG (26-34); Mean Corpuscular Volume 85.2 fL (80-100); Monocytes Absolute Auto 1100 /uL (0-900); Monocytes Percent Auto 8.5 % (3-14); Neutrophils Absolute Auto 10800 /uL (1500-7000); Platelet Count 391 X10^3/uL (150-400); Red Blood Cell Count 3.64 X10^6/uL (4.0-5.2); Red Cell Distribution Width 17.4 % (11.6-14.8); White Blood Cell Count 13.3 X10^3/uL (4.5-11.0)
[2023-03-21] MEDS: METOPROLOL ER 25 MG TABLET PO (08:41)
[2023-03-21] MEDS: buPROPion SR 150 MG TAB PO ×2 (08:42→20:37)
[2023-03-21] MEDS: BUSPIRONE 5 MG TABLET PO (08:42)
[2023-03-21 08:48] LABS: BUN Creatinine Ratio 33.3 (6-22); Blood Urea Nitrogen 19 mg/dL (7-17); Calcium 8.8 mg/dL (8.4-10.2); Carbon Dioxide 39 mmol/L (22-32); Chloride 95 mmol/L (98-107); Estimated Glomerular Filt Rate > 60 mL/min (>60); Glucose 86 mg/dL (80-110); HEMOLYSIS < 15 (0-50); Potassium 4.4 mmol/L (3.4-5.1); Sodium 135 mmol/L (137-145)
--- NOTE | 2023-03-21 10:39 | PT-IP ANOTE ---
Per nursing pt is not appropriate for PT at this time due to frequent diarrhea, pain and would like to rest.
--- NOTE | 2023-03-21 10:43 | CM.DPC ---
DCP Cont. Reviewed EMR for status updates. Met with pt at bedside, she was found to be crying, expressing feeling hopeless and frustrated that her diarrhea has worsening again, stating as soon as the nurse leaves the room I've already pooped my pants again. Met with Dr. Finnegan to discuss d/c plan, which was either home with this am, or d/c to . Due to the intractable diarrhea, he is consulting with Gastro re: plan to titrate up on the steriods, or possibly transfer. Plan is pending how she does with increased steroids. Monitor closely.
[2023-03-21] MEDS: methylPREDNISolone 125 MG/2 ML VIAL 65 MG IV (10:57)
[2023-03-21] MEDS: LIDOCAINE 5% OINT 35 GM 1 APPLIC TOP (13:48)
[2023-03-21] MEDS: ZINC OXIDE OINT 60 GM 1 APPLIC TOP (13:49)
[2023-03-21] MEDS: ACETAMINOPHEN 325 MG TABLET 650 MG PO ×2 (14:33→22:07)
[2023-03-21] MEDS: methylPREDNISolone 125 MG/2 ML VIAL IV ×2 (15:54→22:10)
--- NOTE | 2023-03-21 17:08 | PM.PN.1 ---
Subjective Subjective Interval history: Patient having increased diarrhea, abd pain and rectal pain today. Spoke with Dr. Donald SHELL at [facility] who recommended higher pulse dose IV steroids and if no change in stool consistency, less blood or pt not feeling better will transfer on Thursday. Exam Vital Signs (past 8 hours): - 03/21/23 10:21 03/21/23 10:22 03/21/23 12:00 Temperature 98.1 F Pulse Rate 104 H Respiratory Rate 16 Blood Pressure 120/71 Pulse Oximetry 97 93 93 Oxygen Delivery Method Nasal Cannula Room Air Oxygen Flow Rate 2 Fraction of Inspired Oxygen 28 SaO2/FiO2 Ratio 342 Oxygen Delivery Method Room Air Oxygen Flow Rate 2 Narrative Exam Narrative: GEN: no acute distress CV: tachycardic PULM: clear bilaterally EXT: no edema ABD: soft, increased tenderness at left lower quardant, no rebound Rectal: tender mucosa, fistula appears near anus Objective Labs 03/21/23 07:12 03/21/23 08:25 Labs: Laboratory Results - last 24 hr 03/21/23 03/21/23 07:12 08:25 WBC 13.3 H RBC 3.64 L Hgb 10.0 L Hct 31.0 L MCV 85.2 MCH 27.6 MCHC 32.4 RDW 17.4 H Plt Count 391 Neut % (Auto) 81.0 H Lymph % (Auto) 9.2 L [place] % (Auto) 8.5 Eos % (Auto) 0.6 L Baso % (Auto) 0.7 Neut # (Auto) 79719 H Lymph # (Auto) 1200 [place] # (Auto) 1100 H Eos # (Auto) 100 Baso # (Auto) 100 Sodium 135 L Potassium 4.4 Chloride 95 L Carbon Dioxide 39 H BUN 19 H Creatinine 0.57 Estimated GFR > 60 BUN/Creatinine Ratio 33.3 H Glucose 86 Calcium 8.8 PFSH Medical History (Updated 03/17/23 @ 18:02 by Mildred Fowler RN) Crohn's disease Colitis Symptomatic anemia Anemia C. difficile colitis Social History household members: spouse Smoking Status: Former smoker alcohol intake: current Assessment & Plan Assessment & Plan narrative: 1. Crohn's flare, acute causing GI bleeding and anemia -has been trialed on oral prednisone with no improvement -repeat CT scan shows concern for fistula which appears consistent with exam -discussed case with GI Dr. Salinas who recommend above treatment if IV antibiotics and steroids (IV solumedrol 60mg daily), Day 1 03/16, monitor for 3 days and possible transfer for flex sig and biologic induction with no change of management recommended due to concern for fistula -has been having significant bloody stools, did need PRBC on 03/14 and had hemoglobin of 6.9 on 03/17 will transfuse 2U PRBC -has previously been treated with flagyl for 7 days, will order zosyn -trend esr/crp daily, CRP and ESR imporving -as of 03/19 now down to 4 diarrheas, less bloody -GI PCR negative -03/20 with 4 diarrhea episodes -started having worsened bloody diarrhea, abd pain, rectal pain on 03/21 -spoke with Dr. Donald SHELL at [facility] who recommended pulse dose steroids and transfer if not better in 1-2 days for IV remicade -IV solumedrol 125 q6h ordered 2. SIRS, improving -patient with new rise in WBC to 25, and tachycardia -WBC improved from 25->13.6 on 03/17 -possibly secondary to crohns flare vs superimposed infection -my exam showed no pus from fistula -CXR with no infection -UA with few bacteria and leuk esterase, but cultures no growth from 03/16 -c diff negative on 03/16, full GI PCR panel negative on 03/19 -start treatment with zosyn for concern for superimposed infection on crohns, consider stopping antibiotics if cultures negative 3. Acute cystitis with hematuria, resolved - ceftriaxone 1g q24 hr, UA with >100 WBC and RBC. Completed treatment for complicated UTI x7 days. Possible n/v are related to acute cystitis. Culture with E. coli and Klebsiella from 03/07. 4. Volume depletion with contraction alkalosis, POA and active. -due to above 5. Acute on chronic hypoxemic respiratory failure, improved -has known COPD on oxygen (1L) at home, currently intermittently on oxygen -has known CHFpE -wean O2 as able. -CTA showed no PE 6. Spiculated nodule, POA. -noted on CTA -will need follow up with PCP. 7. Hypertension, POA and stable. - normotensive on home medications so will continue amlodipine and metoprolol 8. Hypokalemia, acute, present on admission and improved, -resolved 9. Hyperglycemia. resolved -checked A1c which was 5.4%, Glucose 207 on AM labs but on D5 infusion at the time. 10. Anemia secondary to Crohn's colitis -hemoglobin 6.8 on 03/14, transfuse with 2 units packed red blood cells and follow 11. Hepatitis C infection -will need follow up with GI for treatment Dispo: Pending improvement with high dose IV steroids. If not better in 2 days will transfer to [facility] for IV remicade. Quality VTE Deep Vein Thrombosis/Pulmonary Embolism Present on Admission: No
[2023-03-21] MEDS: TRAZODONE 50 MG TABLET 100 MG PO (20:37)
[2023-03-21] MEDS: OLANZapine 2.5 MG TABLET 5 MG PO (20:38)
[2023-03-22] VITALS (10 sets, daily range): BP systolic 124–138; BP diastolic 61–91; PULSE 86–108; RESP 16–18; TEMP 36.1–37.4; O2SAT 91–96
[2023-03-22] MEDS: OXYCODONE IR 10 MG TABLET PO ×6 (01:54→21:01)
[2023-03-22] MEDS: PIPERACILLIN/TAZO 3.375 GM in SODIUM CHLORIDE 0.9% 100 ML IV ×3 (03:44→20:06)
[2023-03-22] MEDS: methylPREDNISolone 125 MG/2 ML VIAL IV ×4 (03:44→21:39)
[2023-03-22 04:40] LABS: Add Manual Diff / Slide Review NO; Basophils Absolute Auto 0 /uL (0-100); Basophils Percent Auto 0.2 % (0-2); Eosinophils Absolute Auto 0 /uL (0-450); Hematocrit 28.5 % (36-46); Hemoglobin 9.2 g/dL (12.0-16.0); Lymphocytes Absolute Auto 500 /uL (1100-4500); Lymphocytes Percent Auto 4.2 % (25-40); Mean Corpuscular HGB Conc 32.2 % (30-36); Mean Corpuscular Hemoglobin 27.2 PG (26-34); Mean Corpuscular Volume 84.3 fL (80-100); Monocytes Absolute Auto 300 /uL (0-900); Monocytes Percent Auto 2.1 % (3-14); Neutrophils Absolute Auto 11200 /uL (1500-7000); Neutrophils Percent Auto 93.5 % (50-75); Platelet Count 385 X10^3/uL (150-400); Red Blood Cell Count 3.38 X10^6/uL (4.0-5.2); Red Cell Distribution Width 17.3 % (11.6-14.8); White Blood Cell Count 11.9 X10^3/uL (4.5-11.0)
[2023-03-22 04:47] LABS: BUN Creatinine Ratio 46.3 (6-22); Blood Urea Nitrogen 25 mg/dL (7-17); Calcium 8.7 mg/dL (8.4-10.2); Carbon Dioxide 35 mmol/L (22-32); Chloride 98 mmol/L (98-107); Estimated Glomerular Filt Rate > 60 mL/min (>60); Glucose 158 mg/dL (80-110); HEMOLYSIS < 15 (0-50); Potassium 4.5 mmol/L (3.4-5.1); Sodium 133 mmol/L (137-145)
[2023-03-22] MEDS: HYDROMORPHONE 0.5 MG INJ IV ×5 (05:34→19:49)
[2023-03-22] MEDS: buPROPion SR 150 MG TAB PO ×2 (08:33→20:07)
[2023-03-22] MEDS: METOPROLOL ER 25 MG TABLET PO (08:33)
[2023-03-22] MEDS: BUSPIRONE 5 MG TABLET PO (08:33)
[2023-03-22] MEDS: SODIUM CHLORIDE 0.9% FLUSH 10 ML IV ×3 (08:34→21:39)
--- NOTE | 2023-03-22 11:14 | CM.DPC ---
DCP Cont: Discussed patient during team rounds, hospitalist indicated that her steroids have been increased, and if no improvement by later today, will consider transfer on Thursday. It is noted that a referral was sent over to [facility]. Went ahead and called them to see if they reviewed patient, and/or if they accept her insurance. Darlyn answered, Nadine is not in today, but she will leave Nadine in admissions a message. At this time, is unclear if she will be transferred out', but sent this referral as back up. The main barrier for patient is her frequent loose stools, and spouse being able to manage at home. P: DCP to continue to follow closely. Plan is either home with [facility], if she improves, [facility] as possibility for back up. or transfer to [facility] if no improvement. Di Atkinson, RN/Etymology Professor
--- NOTE | 2023-03-22 12:08 | PT-IP ANOTE ---
Pt refused PT this afternoon due to increased abdominal pain. Agreeable to try PT tomorrow.
--- NOTE | 2023-03-22 17:14 | P.PN_ITS ---
Subjective Subjective Interval history: Only had 2 diarrhea episodes overnight and were more formed. Continuing IV steroids. Exam Vital Signs (past 8 hours): - 03/22/23 09:19 03/22/23 10:35 Temperature 99.4 F Pulse Rate 108 H 100 H Respiratory Rate 16 Blood Pressure 124/79 Pulse Oximetry 93 Fraction of Inspired Oxygen 28 SaO2/FiO2 Ratio 342 Oxygen Delivery Method Nasal Cannula Oxygen Flow Rate 1 Narrative Exam Narrative: GEN: no acute distress CV: tachycardic PULM: clear bilaterally EXT: no edema ABD: soft, diffuse tenderness to palpation, guarding, no rebound Rectal: tender mucosa, fistula appears near anus Objective Labs 03/22/23 03:58 03/22/23 03:58 Labs: Laboratory Results - last 24 hr 03/22/23 03:58 WBC 11.9 H RBC 3.38 L Hgb 9.2 L Hct 28.5 L MCV 84.3 MCH 27.2 MCHC 32.2 RDW 17.3 H Plt Count 385 Neut % (Auto) 93.5 H Lymph % (Auto) 4.2 L [place] % (Auto) 2.1 L Eos % (Auto) 0.0 L Baso % (Auto) 0.2 Neut # (Auto) 73323 H Lymph # (Auto) 500 L [place] # (Auto) 300 Eos # (Auto) 0 Baso # (Auto) 0 Sodium 133 L Potassium 4.5 Chloride 98 Carbon Dioxide 35 H BUN 25 H Creatinine 0.54 Estimated GFR > 60 BUN/Creatinine Ratio 46.3 H Glucose 158 H Calcium 8.7 PFSH Medical History (Updated 03/17/23 @ 18:02 by Mildred Fowler RN) Crohn's disease Colitis Symptomatic anemia Anemia C. difficile colitis Social History household members: spouse Smoking Status: Former smoker alcohol intake: current Assessment & Plan Assessment & Plan narrative: 1. Crohn's flare, acute causing GI bleeding and anemia -has been trialed on oral prednisone with no improvement -repeat CT scan shows concern for fistula which appears consistent with exam -discussed case with GI Dr. Salinas who recommend above treatment if IV antibiotics and steroids (IV solumedrol 60mg daily), Day 1 03/16, monitor for 3 days and possible transfer for flex sig and biologic induction with no change of management recommended due to concern for fistula -has been having significant bloody stools, did need PRBC on 03/14 and had hemoglobin of 6.9 on 03/17 will transfuse 2U PRBC -has previously been treated with flagyl for 7 days, will order zosyn -trend esr/crp daily, CRP and ESR imporving -as of 03/19 now down to 4 diarrheas, less bloody -GI PCR negative -03/20 with 4 diarrhea episodes -started having worsened bloody diarrhea, abd pain, rectal pain on 03/21 -spoke with Dr. Donald SHELL at [facility] who recommended pulse dose steroids and transfer if not better in 1-2 days for IV remicade. If improves rec daily 60 po prednisone until follow-up with GI, no taper needed. -IV solumedrol 125 q6h ordered, seems to have led to improvement 2. SIRS, improving -patient with new rise in WBC to 25, and tachycardia -WBC improved from 25->13.6 on 03/17 -possibly secondary to crohns flare vs superimposed infection -my exam showed no pus from fistula -CXR with no infection -UA with few bacteria and leuk esterase, but cultures no growth from 03/16 -c diff negative on 03/16, full GI PCR panel negative on 03/19 -start treatment with zosyn for concern for superimposed infection on crohns, consider stopping antibiotics if cultures negative 3. Acute cystitis with hematuria, resolved - ceftriaxone 1g q24 hr, UA with >100 WBC and RBC. Completed treatment for complicated UTI x7 days. Possible n/v are related to acute cystitis. Culture with E. coli and Klebsiella from 03/07. 4. Volume depletion with contraction alkalosis, POA and active. -due to above 5. Acute on chronic hypoxemic respiratory failure, improved -has known COPD on oxygen (1L) at home, currently intermittently on oxygen -has known CHFpE -wean O2 as able. -CTA showed no PE 6. Spiculated nodule, POA. -noted on CTA -will need follow up with PCP. 7. Hypertension, POA and stable. - normotensive on home medications so will continue amlodipine and metoprolol 8. Hypokalemia, acute, present on admission and improved, -resolved 9. Hyperglycemia. resolved -checked A1c which was 5.4%, Glucose 207 on AM labs but on D5 infusion at the time. 10. Anemia secondary to Crohn's colitis -hemoglobin 6.8 on 03/14, transfuse with 2 units packed red blood cells and follow 11. Hepatitis C infection -will need follow up with GI for treatment Dispo: Pending improvement with high dose IV steroids. If not better in 1-2 days will transfer to [facility] for IV remicade. Quality VTE Deep Vein Thrombosis/Pulmonary Embolism Present on Admission: No
[2023-03-22] MEDS: TRAZODONE 50 MG TABLET 100 MG PO (20:07)
[2023-03-22] MEDS: OLANZapine 2.5 MG TABLET 5 MG PO (20:07)
[2023-03-22] MEDS: ZINC OXIDE OINT 60 GM 1 APPLIC TOP (20:11)
[2023-03-22] MEDS: LIDOCAINE 5% OINT 35 GM 1 APPLIC TOP (20:11)
[2023-03-23] MEDS: OXYCODONE IR 10 MG TABLET PO ×5 (01:16→18:05)
[2023-03-23] MEDS: PIPERACILLIN/TAZO 3.375 GM in SODIUM CHLORIDE 0.9% 100 ML IV ×2 (03:13→11:14)
[2023-03-23] MEDS: methylPREDNISolone 125 MG/2 ML VIAL IV ×3 (03:14→15:15)
[2023-03-23 05:21] LABS: Add Manual Diff / Slide Review NO; Basophils Absolute Auto 100 /uL (0-100); Basophils Percent Auto 0.4 % (0-2); Eosinophils Absolute Auto 0 /uL (0-450); Hematocrit 26.9 % (36-46); Hemoglobin 8.8 g/dL (12.0-16.0); Lymphocytes Absolute Auto 400 /uL (1100-4500); Lymphocytes Percent Auto 2.8 % (25-40); Mean Corpuscular HGB Conc 32.6 % (30-36); Mean Corpuscular Hemoglobin 27.8 PG (26-34); Mean Corpuscular Volume 85.4 fL (80-100); Monocytes Absolute Auto 400 /uL (0-900); Monocytes Percent Auto 2.4 % (3-14); Neutrophils Absolute Auto 14200 /uL (1500-7000); Neutrophils Percent Auto 94.4 % (50-75); Platelet Count 399 X10^3/uL (150-400); Red Blood Cell Count 3.15 X10^6/uL (4.0-5.2); Red Cell Distribution Width 17.9 % (11.6-14.8); White Blood Cell Count 15.1 X10^3/uL (4.5-11.0)
[2023-03-23] MEDS: HYDROMORPHONE 0.5 MG INJ IV ×5 (05:23→15:57)
[2023-03-23 05:35] LABS: Blood Urea Nitrogen 30 mg/dL (7-17); Calcium 8.8 mg/dL (8.4-10.2); Carbon Dioxide 35 mmol/L (22-32); Chloride 99 mmol/L (98-107); Estimated Glomerular Filt Rate > 60 mL/min (>60); Glucose 158 mg/dL (80-110); HEMOLYSIS < 15 (0-50); Potassium 4.3 mmol/L (3.4-5.1); Sodium 136 mmol/L (137-145)
[2023-03-23 05:59] VITALS: BP 150/91; PULSE 88; RESP 18; TEMP 36.2; O2SAT 95
--- NOTE | 2023-03-23 06:50 | PC.NURSE ---
Patient had 2 soft, brown BMs overnight, appears more formed than previous night. Lou-area red and tender, open areas in between buttocks, lidocaine ointment & zinc cream applied. Q2 turns in place. Receiving IV Dilaudid and Oxycodone as ordered for pain.
[2023-03-23 07:33] VITALS: BP 165/100; PULSE 85; RESP 18; TEMP 36.2; O2SAT 96
[2023-03-23 08:18] VITALS: BP 165/100
[2023-03-23] MEDS: SODIUM CHLORIDE 0.9% FLUSH 10 ML IV (08:18)
[2023-03-23] MEDS: METOPROLOL ER 25 MG TABLET PO (08:18)
[2023-03-23] MEDS: buPROPion SR 150 MG TAB PO (08:18)
[2023-03-23] MEDS: BUSPIRONE 5 MG TABLET PO (08:18)
[2023-03-23 08:30] VITALS: O2SAT 97
[2023-03-23 09:00] VITALS: PULSE 83
[2023-03-23 12:00] VITALS: BP 134/86; PULSE 106; RESP 18; TEMP 36.2; O2SAT 93
--- NOTE | 2023-03-23 14:10 | CM.DPC ---
DCP Cont. Reviewed EMR for status updates. Per Hospitalist, pt will be transferred to [facility] pending an available bed due to very little improvement with current inpt plan w/increased steroids. Cont. to monitor for any additional needs until time of transfer.
--- NOTE | 2023-03-23 14:42 | PT-IP ANOTE ---
Hold PT treatment secondary to pending transfer. Will follow up 03/24 if pt remains in house.
--- NOTE | 2023-03-23 15:43 | PM.DS.1 ---
History of Present Illness History of Present Illness Chief complaint: can't keep meds or food down/fever/D Narrative: 62F with history of hypertension, CHF, COPD, ex-smoker, Crohn's disease previously on immunomodulators presented to the ER with several days of nausea vomiting, abdominal pain and diarrhea in the last 8 months. Unable to keep up her medications down in the last several days and lost few pounds. Feels quite dehydrated, dizzy, weak and fatigues. Her abdominal pain is in the lower quadrants, waning and waxing, not relieved by bowel movement, aggravated by movement. Denies any fever, shortness of breath, chest pain, hematemesis or melena. She has appointment to see her order entry next week. She had been chronically using opioids for 6-8 years and stopped taking them about 3 or 4 days ago as well. Discharge Providers Provider Date of admission: 03/06/23 19:14 Discharge Date: 03/23/23 Primary care physician: Bessie Lindsay PA-C Consults: 03/08/23 09:13 Consult to Occupational Therapy Evaluate & Treat Comment: Physician Instructions: Evaluate and treat Consult to Physical Therapy Evaluate & Treat Comment: Physician Instructions: Evaluate and Treat 03/13/23 13:19 Consult to Occupational Therapy Evaluate & Treat Comment: OT/PT Physician Instructions: Evaluate and treat Consult to Physical Therapy Evaluate & Treat Comment: Physician Instructions: Evaluate and Treat 03/21/23 19:14 Consult to Dietitian, Adult Routine Comment: Reason For Exam: crohns diet education Discharge provider: Frank Alejo MD Summary Hospital Course Discharge Diagnosis: 1. Acute crohns flare 2. Concern for anorectal fistula, possibly infected 3. Acute blood loss anemia, resolving 4. Chronic COPD on chronic home o2 5. Acute cystitis, treated 6. Spiculated nodule 7. Hypertension 8. Hypokalemia, resolved 9. Hepatitis C infection 10. History of Infected left hip hardware 11. History of C diff infection Hospital Course: Ms. Swan was admitted to the hospital with abdominal pain and diarrhea. She had a prolonged course in the hospital. She was initially ruled out for infection with a negative C diff on admission on 03/07. She did have CT scan which showed inflammation in the colon concerning for Crohn's flare. Once c diff infection was ruled out she was started initially on oral steroids daily per recs of gastroenterology at [facility]. The patient's symptoms waxed and wanted but she consistently had bloody bowel movements. On 03/14 she had a low hemoglobin due to blood loss and was given one unit of blood. On 03/16 further discussion was had with gastroenterology at [facility] as she had not had good improvement. They recommended three days of IV steroids 60mg daily, instead of oral steroids. She needed transfusion again for a hemoglobin of 6.9 on 03/17. She continued on IV steroids with again waxing and waning symptoms, but in general continued multiple bloody stools. However, she has not required PRBC since 03/17. On 03/21 further discussion was had with gastroenterology who recommended IV solumedrol 125 q6 for two days. On 03/23 rediscussion with gastroenterology was had as she continued to have pain, 4-6 bowel movements daily. GI recommended transfer. Of note during her stay she had multiple additional labs checked for C diff which were negative on 03/17 and 03/19. She had a UTI that was positive on 03/07 for E. coli and Klebsiella that was treated with a course of IV ceftriaxone. Of note on 03/16 she was noted to have worsening rectal pain, her white count spiked in one day from 11.[address] scan showed continued inflammation in the bowel and concern for fistula, which fistula was noted to be questionable for infection. GI was notified and recommended continued treatment with steroids. She was also started on zosyn at that time for concern for possible infection. At baseline she has COPD and is usually on 1L of oxygen. She also has infected left hip hardware. I spoke with Yarelis Lopez her infectious disease provider at [facility]. She noted that patient is on probable lifelong suppressive treatment with penicillin PO 500 BID which had been stopped while she was on IV antibiotics for the treatment above. This was due to a clostridium infection. Dr. Lopez also noted that she had spoken with gastroenterology before regarding her care and noted that there is no surgical plan for this patient to have further hardware removal. She noted that Entyvio was likely a reasonable option to try the patient on for a Crohn's flare, which she states she has discussed with gastroenterology previously. Other findings of note include a spiculated right lung nodule, in this history of patient who smoked. She was notified of this and notified she should get PET-CT nonemergently. She also had noted in her chart a positive hepatitis C antibody [place] [id number], and she does not believe she has ever been treated for this. She was quite weak with working with PT and potentially would need SNF when medically stable. She was transferred to [facility] for higher level of care for gastroenterology evaluation and failure to fully respond to treatment with IV steroids. Exam Vital Signs (past 8 hours): - 03/23/23 08:18 03/23/23 08:30 03/23/23 09:00 Temperature Pulse Rate 83 Respiratory Rate Blood Pressure 165/100 H Pulse Oximetry 97 Oxygen Delivery Method Nasal Cannula Oxygen Flow Rate 1 03/23/23 12:00 Temperature 97.1 F L Pulse Rate 106 H Respiratory Rate 18 Blood Pressure 134/86 Pulse Oximetry 93 Oxygen Delivery Method Oxygen Flow Rate 1 Fraction of Inspired Oxygen 28 SaO2/FiO2 Ratio 342 Oxygen Delivery Method Nasal Cannula Oxygen Flow Rate 1 Narrative Exam Narrative: GEN: no acute distress CV: tachycardic PULM: clear bilaterally EXT: no edema ABD: soft, diffuse tenderness to palpation, guarding, no rebound Rectal: tender mucosa, fistula appears near anus Objective Labs 03/23/23 04:40 03/23/23 04:40 Labs: Laboratory Results - last 24 hr 03/23/23 04:40 WBC 15.1 H RBC 3.15 L Hgb 8.8 L Hct 26.9 L MCV 85.4 MCH 27.8 MCHC 32.6 RDW 17.9 H Plt Count 399 Neut % (Auto) 94.4 H Lymph % (Auto) 2.8 L [place] % (Auto) 2.4 L Eos % (Auto) 0.0 L Baso % (Auto) 0.4 Neut # (Auto) 09986 H Lymph # (Auto) 400 L [place] # (Auto) 400 Eos # (Auto) 0 Baso # (Auto) 100 Sodium 136 L Potassium 4.3 Chloride 99 Carbon Dioxide 35 H BUN 30 H Creatinine 0.60 Estimated GFR > 60 BUN/Creatinine Ratio 50.0 H Glucose 158 H Calcium 8.8 PFSH Medical History (Updated 03/17/23 @ 18:02 by Mildred Fowler RN) Crohn's disease Colitis Symptomatic anemia Anemia C. difficile colitis Social History household members: spouse Smoking Status: Former smoker alcohol intake: current Discharge Plan Discharge Plan Patient Disposition: [facility] Under care of provider: Dr. Bennett Provider Discharge Comment: transfer to higher level of care with gastroenterology Diet/Activity/Treatments Diet: Regular Discharge Data Primary Care Provider: Bessie Lindsay VTE Deep Vein Thrombosis/Pulmonary Embolism Present on Admission: No
--- NOTE | 2023-03-23 16:27 | OT.IPNOTE ---
Pt planned for transfer to another facility. Will hold for transfer.
--- NOTE | 2023-03-23 18:53 | PC.NURSE ---
Transfer Note Patient A&O, VSS, RA, patient premedicated prior to transfer. Patient agreeable to discharge plan. Patient assisted with packing of belongings, no medications stored in pharmacy or valuables in safe. Midline placed today and saline locked. Report given to receiving RN, all questions/concerns addressed. Report and packet given to BLS transport all questions/concerns addressed. Patient left unit via stretcher accompanied by BLS team.
== END 2023-03-23 18:00 | disposition short-term general hospital (02) | DRG 385 ==
LOC: ED 19:13 → AC 03-07 11:58
PROVIDERS: Emergency Medicine; Family Medicine; Hospitalist; Internal Medicine; Student in an Organized Health Care Education/Training Program; Admitting Provider Internal Medicine; Emergency Provider Emergency Medicine; PCP Student in an Organized Health Care Education/Training Program; Referring Provider Emergency Medicine; Visit Provider Internal Medicine
DX: K50.911 Crohn's disease, unspecified, with rectal bleeding (principal); I50.31 Acute diastolic (congestive) heart failure; J96.21 Acute and chronic respiratory failure with hypoxia; N30.01 Acute cystitis with hematuria; E87.3 Alkalosis; D62 Acute posthemorrhagic anemia; E87.6 Hypokalemia; E86.0 Dehydration; J44.9 Chronic obstructive pulmonary disease, unspecified; I11.0 Hypertensive heart disease with heart failure; E86.9 Volume depletion, unspecified; B96.20 Unspecified Escherichia coli [E. coli] as the cause of diseases classified elsewhere; B96.1 Klebsiella pneumoniae [K. pneumoniae] as the cause of diseases classified elsewhere; K60.5 Anorectal fistula; B19.20 Unspecified viral hepatitis C without hepatic coma; Z99.81 Dependence on supplemental oxygen; Z86.19 Personal history of other infectious and parasitic diseases; Z87.891 Personal history of nicotine dependence
CPT/HCPCS: 0241U; 36415; 36430; 71045; 71275; 74022; 74177; 80048; 80053; 80074; 81001; 82330; 83036; 83605; 83690; 83735; 83880; 85025; 85027; 85379; 85610; 85651; 85730; 86140; 86850; 86900; 86901; 87040; 87077; 87086; 87154; 87186; 87493; 87507; 93005; 94640; 94760; 96374; 96375; 97110; 97116; 97162; 97166; 97530; 97535; 99285; P9016; C9113; J0696; J1170; J1650; J1940; J2405; J2543; J2765; J2920; J2930; J7613; Q9967

== ENCOUNTER 2023-07-14 08:55 | Emergency (ER) | payer OTHER, MEDICAID, SELFPAY ==
[2023-03-06 20:47] VITALS: BMI 21.1
[2023-07-14] VITALS (155 sets, daily range): BP systolic 75–116; BP diastolic 48–68; PULSE 61–108; RESP 9–33; TEMP 35.9–36.8; O2SAT 77–100; BMI 18.3
--- NOTE | 2023-07-14 09:08 | ED.GIBLEED ---
HPI - GI Bleed <Macarena Us, DO - Last Filed: 07/17/23 18:12> General Chief complaint: GI Bleed Stated complaint: bleeding,colitis flare-up symptoms Time Seen by Provider: 07/14/23 09:08 Source: patient, family, RN notes reviewed and old records reviewed Mode of arrival: Wheelchair Limitations: no limitations History of Present Illness HPI Narrative: 62-year-old smoker with history of ulcerative colitis, prior GI bleed requiring transfusion, COPD with PRN O2 depression, hypertension presents with complaint of rectal bleeding with dark blood for the past month but increased bleeding over the past several days 9 or 10 times yesterday and a large amount of bright red blood this morning. Patient state that she was seen here in March was here in the hospital had scope and ultimately transferred to [place] where she had what sounds like a video. Unclear if they found source of bleeding but patient does have known ulcerative colitis and states that she also had and fusion 2 or 3 weeks ago with her gastroenterology team who she follows through [place]. Patient presents today she has had increasing bleeding. She states she does have abdominal pain. This is new. No fevers or chills. She has felt a little off balance but no syncope. Patient denies chest pain, no shortness of breath. Denies any nausea or vomiting. States stools have been diarrhea like. No urinary symptoms. She has had some mild edema in her feet. Patient has been taking her medications including her blood pressure medication regularly. She does use home O2 intermittently. She states no known drug allergies. Former smoker, occasional alcohol, no recreational drugs. She is accompanied by her . Related Data Home Medications Medication Instructions Recorded Confirmed amlodipine 5 mg tablet 5 mg PO BID 11/30/20 03/06/23 bupropion HCl 150 mg tablet,12 hr 150 mg PO BID 11/30/20 03/06/23 sustained-release buspirone 5 mg tablet 5 mg PO DAILY 11/30/20 03/06/23 metoprolol tartrate 25 mg tablet 25 mg PO DAILY 11/30/20 03/06/23 olanzapine 5 mg tablet 5 mg PO BEDTIME 11/30/20 03/06/23 duloxetine 60 mg capsule,delayed 120 mg PO DAILY 03/06/23 03/06/23 release mesalamine 800 mg tablet,delayed 800 mg PO BID 03/06/23 03/06/23 release penicillin V potassium 500 mg 500 mg PO BID 03/06/23 03/06/23 tablet trazodone 50 mg tablet 100 mg PO BEDTIME 03/06/23 03/06/23 Allergies Allergy/AdvReac Type Severity Reaction Status Date / Time No Known Drug Allergies Allergy Verified 07/14/23 09:05 Review of Systems <Macarena Us DO - Last Filed: 07/17/23 18:12> Review of Systems ROS Unobtainable: All systems reviewed & are unremarkable except as noted in HPI and below Patient History <Macarena Us DO - Last Filed: 07/17/23 18:12> Medical History Crohn's disease Colitis Symptomatic anemia Anemia C. difficile colitis Social History household members: spouse Smoking Status: Former smoker alcohol intake: current Smoking Status: Former smoker alcohol intake frequency: a few times a week Substance Use Type: does not use Exam <Macarena Us DO - Last Filed: 07/17/23 18:12> Narrative Exam Narrative: GENERAL: Alert and oriented x three, pale female in mild distress. HEENT: Head normocephalic, atraumatic, EOMI, pale conjunctiva, pupils reactive, face symmetric, moist mucous membranes NECK: Supple, full range of motion CARDIOVASCULAR: Tachycardic but regular rate and rhythm without murmurs, rubs or gallops. No JVD. Patient has pedal edema bilaterally. RESPIRATORY: Breath sounds equal bilaterally, no wheezes rales or rhonchi. No tachypnea accessory muscle use. ABDOMEN: Soft, generalized tenderness. Normoactive bowel sounds all 4 quadrants. No guarding or rebound, rigidity, no mass : No CVA tenderness EXTREMITIES: Normal range of motion, no clubbing. Neurovascularly intact NEUROLOGICAL: Cranial nerves II through XII grossly intact. Moving all extremities SKIN: Warm, dry, no petechiae, no rashes or lesions. Initial Vital Signs Initial Vital Signs: Vital Signs Temperature 96.7 F L 07/14/23 09:03 Pulse Rate 107 H 07/14/23 09:03 Respiratory Rate 18 07/14/23 09:03 Blood Pressure 78/58 L 02/20/24 09:03 Pulse Oximetry 82 L 07/14/23 09:03 Oxygen Delivery Method Room Air 07/14/23 09:03 <Wil Castrejon MD - Last Filed: 07/15/23 07:25> Initial Vital Signs Initial Vital Signs: Vital Signs Temperature 96.7 F L 07/14/23 09:03 Pulse Rate 107 H 07/14/23 09:03 Respiratory Rate 18 07/14/23 09:03 Blood Pressure 78/58 L 07/14/23 09:03 Pulse Oximetry 82 L 07/14/23 09:03 Oxygen Delivery Method Room Air 07/14/23 09:03 Course <Macarena Us DO - Last Filed: 07/17/23 18:12> Orders Ordered: Discontinued Medications Diphenhydramine HCl (Diphenhydramine 50 Mg/Ml Vial) 25 mg IV NOW ONE Stop: 07/14/23 11:33 Last Admin: 07/14/23 11:45 Dose: 25 mg Documented By: AKBAR Fentanyl (Fentanyl 100 Mcg/2 Ml Inj) 25 mcg IV NOW ONE Stop: 07/14/23 10:18 Last Admin: 07/14/23 10:27 Dose: 25 mcg Documented By: AKBAR Sodium Chloride (Normal Saline 0.9%) 1,000 mls @ 1,000 mls/hr IV BOLUS ONE Stop: 07/14/23 11:40 Last Infusion: 07/14/23 13:15 Dose: Infused Documented By: AKBAR(2) Admin: 07/14/23 11:09 Dose: 1,000 mls/hr Documented By: AKBAR Ciprofloxacin (Cipro) 400 mg in 200 mls @ 200 mls/hr IV NOW ONE Stop: 07/14/23 11:40 Last Infusion: 07/14/23 11:31 Dose: Infused Documented By: AKBAR(2) Admin: 07/14/23 10:57 Dose: 200 mls/hr Documented By: AKBAR Metronidazole (Flagyl) 500 mg in 100 mls @ 100 mls/hr IV NOW ONE Stop: 07/14/23 11:40 Last Infusion: 07/14/23 14:10 Dose: Infused Documented By: Admin: 07/14/23 13:00 Dose: 100 mls/hr Documented By: AKBAR(2) Sodium Chloride (Normal Saline 0.9%) 1,000 mls @ 200 mls/hr IV CONT DOROTHY Last Infusion: 07/14/23 15:10 Dose: Infused Documented By: Admin: 07/14/23 14:05 Dose: 200 mls/hr Documented By: AKBAR NOREPINEPHRINE BITARTRATE/D5W (Levophed) 4 mg in 250 mls @ 18.711 mls/hr IV TITRATE DOROTHY; Protocol Last Titration: 07/15/23 07:13 Dose: 0.15 mcg/kg/min, 28.066 mls/hr Documented By: Titration: 07/15/23 06:58 Dose: 0.1 mcg/kg/min, 18.711 mls/hr Documented By: Titration: 07/15/23 06:47 Dose: 0.07 mcg/kg/min, 13.097 mls/hr Documented By: Titration: 07/15/23 00:46 Dose: 0.05 mcg/kg/min, 9.355 mls/hr Documented By: Titration: 07/14/23 20:13 Dose: 0.075 mcg/kg/min, 14.033 mls/hr Documented By: Titration: 07/14/23 17:56 Dose: 0.05 mcg/kg/min, 9.355 mls/hr Documented By: Admin: 07/14/23 15:06 Dose: 0.025 mcg/kg/min, 4.678 mls/hr Documented By: AKBAR Sodium Chloride (Normal Saline 0.9%) 1,000 mls @ 1,000 mls/hr IV BOLUS ONE Stop: 07/14/23 15:59 Last Infusion: 07/14/23 16:27 Dose: Infused Documented By: Admin: 07/14/23 15:17 Dose: 1,000 mls/hr Documented By: AKBAR Piperacillin Sod/Tazobactam (Sod 4.5 gm/ Sodium Chloride) 100 mls @ 200 mls/hr IV NOW ONE Stop: 07/14/23 15:19 Last Infusion: 07/14/23 16:36 Dose: Infused Documented By: Admin: 07/14/23 15:50 Dose: 200 mls/hr Documented By: AKBAR Piperacillin Sod/Tazobactam (Sod 3.375 gm/ Sodium Chloride) 100 mls @ 25 mls/hr IV Q8H DOROTHY Last Infusion: 07/15/23 07:07 Dose: Infused Documented By: Admin: 07/15/23 03:04 Dose: 25 mls/hr Documented By: Infusion: 07/14/23 23:28 Dose: Infused Documented By: Admin: 07/14/23 19:31 Dose: 25 mls/hr Documented By: VANNESSA Lactated Ringer's (Lactated Ringers) 1,000 mls @ 200 mls/hr IV CONT DOROTHY Last Admin: 07/15/23 06:03 Dose: 200 mls/hr Documented By: Infusion: 07/15/23 05:44 Dose: Infused Documented By: Admin: 07/15/23 00:36 Dose: 200 mls/hr Documented By: Infusion: 07/15/23 00:35 Dose: Infused Documented By: Admin: 07/14/23 19:31 Dose: 200 mls/hr Documented By: VANNESSA Methylprednisolone (Methylprednisolone 125 Mg/2 Ml Vial) 125 mg IV NOW ONE Stop: 07/14/23 10:42 Last Admin: 07/14/23 10:50 Dose: 125 mg Documented By: AKBAR Ondansetron HCl (Ondansetron 4 Mg/2 Ml Inj) 4 mg IV NOW PRN PRN Reason: Nausea And Vomiting Ondansetron HCl (Ondansetron 4 Mg Odt) 4 mg SL NOW PRN PRN Reason: Nausea And Vomiting Ondansetron HCl (Ondansetron 4 Mg/2 Ml Inj) 4 mg IV NOW ONE Stop: 07/15/23 07:32 Oxycodone/Acetaminophen (Oxycodone/Acetaminophen 5/325 Tablet) 2 tab PO NOW PRN PRN Reason: Pain, Moderate (4-6) Last Admin: 07/14/23 19:23 Dose: 2 tab Documented By: AKBAR Oxycodone/Acetaminophen (Oxycodone/Acetaminophen 5/325 Tablet) 2 tab PO Q6H PRN PRN Reason: Pain, Moderate (4-6) Last Admin: 07/15/23 05:33 Dose: 2 tab Documented By: EMMANUEL Pantoprazole Sodium (Pantoprazole 40 Mg Vial) 80 mg IV NOW ONE Stop: 07/14/23 09:06 Last Admin: 07/14/23 09:31 Dose: 80 mg Documented By: CTS Vital Signs Vital signs: Vital Signs - 8 hr 07/14/23 23:30 07/14/23 23:31 07/14/23 23:31 Temperature Pulse Rate 61 62 Respiratory Rate 12 12 Blood Pressure 96/53 L Pulse Oximetry 97 97 Oxygen Delivery Method Nasal Cannula Oxygen Flow Rate 2 07/14/23 23:40 07/14/23 23:40 07/14/23 23:50 Temperature Pulse Rate 62 Respiratory Rate 10 L Blood Pressure 94/58 L 99/57 L Pulse Oximetry 97 Oxygen Delivery Method Oxygen Flow Rate 07/14/23 23:50 07/15/23 00:00 07/15/23 00:10 Temperature Pulse Rate 62 68 71 Respiratory Rate 9 L 15 16 Blood Pressure Pulse Oximetry 98 98 98 Oxygen Delivery Method Oxygen Flow Rate 07/15/23 00:10 07/15/23 00:20 07/15/23 00:20 Temperature Pulse Rate 71 Respiratory Rate 21 Blood Pressure 124/67 118/69 Pulse Oximetry 98 Oxygen Delivery Method Oxygen Flow Rate 07/15/23 00:30 07/15/23 00:30 07/15/23 00:40 Temperature Pulse Rate 74 72 Respiratory Rate 17 16 Blood Pressure 126/75 Pulse Oximetry 96 97 Oxygen Delivery Method Oxygen Flow Rate 07/15/23 00:40 07/15/23 00:51 07/15/23 00:51 Temperature Pulse Rate 77 Respiratory Rate 11 L Blood Pressure 125/75 111/82 Pulse Oximetry 94 Oxygen Delivery Method Oxygen Flow Rate 07/15/23 01:00 07/15/23 01:00 07/15/23 01:10 Temperature Pulse Rate 75 Respiratory Rate 14 Blood Pressure 110/65 109/66 Pulse Oximetry 96 Oxygen Delivery Method Oxygen Flow Rate 07/15/23 01:10 07/15/23 01:20 07/15/23 01:20 Temperature Pulse Rate 77 75 Respiratory Rate 13 12 Blood Pressure 94/54 L Pulse Oximetry 94 98 Oxygen Delivery Method Nasal Cannula Oxygen Flow Rate 2 07/15/23 01:30 07/15/23 01:30 07/15/23 01:40 Temperature Pulse Rate 72 Respiratory Rate 12 Blood Pressure 90/54 L 85/55 L Pulse Oximetry 98 Oxygen Delivery Method Nasal Cannula Oxygen Flow Rate 2 07/15/23 01:40 07/15/23 01:50 07/15/23 01:50 Temperature Pulse Rate 72 70 Respiratory Rate 9 L 8 L Blood Pressure 86/52 L Pulse Oximetry 97 98 Oxygen Delivery Method Nasal Cannula Nasal Cannula Oxygen Flow Rate 2 2 07/15/23 02:00 07/15/23 02:00 07/15/23 02:10 Temperature Pulse Rate 69 67 Respiratory Rate 9 L 8 L Blood Pressure 88/52 L Pulse Oximetry 98 98 Oxygen Delivery Method Nasal Cannula Nasal Cannula Oxygen Flow Rate 2 2 07/15/23 02:10 07/15/23 02:20 07/15/23 02:20 Temperature Pulse Rate 67 Respiratory Rate 9 L Blood Pressure 89/52 L 86/54 L Pulse Oximetry 97 Oxygen Delivery Method Nasal Cannula Oxygen Flow Rate 2 07/15/23 02:30 07/15/23 02:30 07/15/23 02:40 Temperature Pulse Rate 66 68 Respiratory Rate 9 L 14 Blood Pressure 91/53 L Pulse Oximetry 97 98 Oxygen Delivery Method Nasal Cannula Nasal Cannula Oxygen Flow Rate 2 2 07/15/23 02:40 07/15/23 02:50 07/15/23 02:50 Temperature Pulse Rate 72 Respiratory Rate 17 Blood Pressure 113/65 122/74 Pulse Oximetry 98 Oxygen Delivery Method Nasal Cannula Oxygen Flow Rate 2 07/15/23 03:00 07/15/23 03:00 07/15/23 03:10 Temperature Pulse Rate 75 Respiratory Rate 16 Blood Pressure 111/66 108/60 Pulse Oximetry 98 Oxygen Delivery Method Nasal Cannula Oxygen Flow Rate 2 07/15/23 03:10 07/15/23 03:15 07/15/23 03:15 Temperature Pulse Rate 74 76 Respiratory Rate 13 10 L Blood Pressure 110/64 Pulse Oximetry 98 98 Oxygen Delivery Method Nasal Cannula Nasal Cannula Oxygen Flow Rate 2 2 07/15/23 03:30 07/15/23 03:30 07/15/23 03:45 Temperature Pulse Rate 78 76 Respiratory Rate 18 20 Blood Pressure 110/63 Pulse Oximetry 97 95 Oxygen Delivery Method Nasal Cannula Nasal Cannula Oxygen Flow Rate 2 2 07/15/23 03:45 07/15/23 04:00 07/15/23 04:00 Temperature Pulse Rate 77 Respiratory Rate 17 Blood Pressure 115/65 104/65 Pulse Oximetry 97 Oxygen Delivery Method Nasal Cannula Oxygen Flow Rate 2 07/15/23 04:16 07/15/23 04:16 07/15/23 04:30 Temperature Pulse Rate 76 77 Respiratory Rate 15 14 Blood Pressure 120/72 Pulse Oximetry 96 96 Oxygen Delivery Method Oxygen Flow Rate 07/15/23 04:30 07/15/23 04:46 07/15/23 04:46 Temperature Pulse Rate 76 Respiratory Rate 17 Blood Pressure 117/70 115/68 Pulse Oximetry 97 Oxygen Delivery Method Oxygen Flow Rate 07/15/23 05:00 07/15/23 05:00 07/15/23 05:20 Temperature Pulse Rate 78 79 Respiratory Rate 20 21 Blood Pressure 116/70 Pulse Oximetry 95 77 L Oxygen Delivery Method Oxygen Flow Rate 07/15/23 05:20 07/15/23 05:30 07/15/23 05:31 Temperature Pulse Rate 79 79 Respiratory Rate 10 L 9 L Blood Pressure 127/63 Pulse Oximetry 96 97 Oxygen Delivery Method Oxygen Flow Rate 07/15/23 05:31 07/15/23 06:00 07/15/23 06:00 Temperature Pulse Rate 82 Respiratory Rate 16 Blood Pressure 127/81 94/53 L Pulse Oximetry 95 Oxygen Delivery Method Oxygen Flow Rate 07/15/23 06:15 07/15/23 06:15 07/15/23 06:30 Temperature Pulse Rate 85 Respiratory Rate 11 L Blood Pressure 99/63 72/55 L Pulse Oximetry 94 Oxygen Delivery Method Oxygen Flow Rate 07/15/23 06:30 07/15/23 06:45 07/15/23 06:45 Temperature Pulse Rate 91 H 92 H Respiratory Rate 13 16 Blood Pressure 75/55 L Pulse Oximetry 95 95 Oxygen Delivery Method Oxygen Flow Rate 07/15/23 06:52 07/15/23 06:52 07/15/23 06:52 Temperature 97.5 F L Pulse Rate 93 H 93 H Respiratory Rate 16 14 Blood Pressure 81/54 L 81/54 L Pulse Oximetry 95 Oxygen Delivery Method Oxygen Flow Rate 07/15/23 06:55 07/15/23 06:55 07/15/23 07:00 Temperature Pulse Rate 94 H 94 H Respiratory Rate 17 17 Blood Pressure 77/49 L Pulse Oximetry 94 95 Oxygen Delivery Method Oxygen Flow Rate 07/15/23 07:01 07/15/23 07:01 07/15/23 07:05 Temperature Pulse Rate 93 H 93 H Respiratory Rate 15 14 Blood Pressure 65/49 L Pulse Oximetry 95 95 Oxygen Delivery Method Oxygen Flow Rate 07/15/23 07:05 Temperature Pulse Rate Respiratory Rate Blood Pressure 69/50 L Pulse Oximetry Oxygen Delivery Method Oxygen Flow Rate <Wil Castrejon MD - Last Filed: 07/15/23 07:25> Orders Ordered: Discontinued Medications Diphenhydramine HCl (Diphenhydramine 50 Mg/Ml Vial) 25 mg IV NOW ONE Stop: 07/14/23 11:33 Last Admin: 07/14/23 11:45 Dose: 25 mg Documented By: AKBAR Fentanyl (Fentanyl 100 Mcg/2 Ml Inj) 25 mcg IV NOW ONE Stop: 07/14/23 10:18 Last Admin: 07/14/23 10:27 Dose: 25 mcg Documented By: AKBAR Sodium Chloride (Normal Saline 0.9%) 1,000 mls @ 1,000 mls/hr IV BOLUS ONE Stop: 07/14/23 11:40 Last Infusion: 07/14/23 13:15 Dose: Infused Documented By: AKBAR(2) Admin: 07/14/23 11:09 Dose: 1,000 mls/hr Documented By: AKBAR Ciprofloxacin (Cipro) 400 mg in 200 mls @ 200 mls/hr IV NOW ONE Stop: 07/14/23 11:40 Last Infusion: 07/14/23 11:31 Dose: Infused Documented By: AKBAR(2) Admin: 07/14/23 10:57 Dose: 200 mls/hr Documented By: AKBAR Metronidazole (Flagyl) 500 mg in 100 mls @ 100 mls/hr IV NOW ONE Stop: 07/14/23 11:40 Last Infusion: 07/14/23 14:10 Dose: Infused Documented By: Admin: 07/14/23 13:00 Dose: 100 mls/hr Documented By: AKBAR(2) Sodium Chloride (Normal Saline 0.9%) 1,000 mls @ 200 mls/hr IV CONT DOROTHY Last Infusion: 07/14/23 15:10 Dose: Infused Documented By: Admin: 07/14/23 14:05 Dose: 200 mls/hr Documented By: AKBAR NOREPINEPHRINE BITARTRATE/D5W (Levophed) 4 mg in 250 mls @ 18.711 mls/hr IV TITRATE DOROTHY; Protocol Last Titration: 07/15/23 07:13 Dose: 0.15 mcg/kg/min, 28.066 mls/hr Documented By: Titration: 07/15/23 06:58 Dose: 0.1 mcg/kg/min, 18.711 mls/hr Documented By: Titration: 07/15/23 06:47 Dose: 0.07 mcg/kg/min, 13.097 mls/hr Documented By: Titration: 07/15/23 00:46 Dose: 0.05 mcg/kg/min, 9.355 mls/hr Documented By: Titration: 07/14/23 20:13 Dose: 0.075 mcg/kg/min, 14.033 mls/hr Documented By: Titration: 07/14/23 17:56 Dose: 0.05 mcg/kg/min, 9.355 mls/hr Documented By: Admin: 07/14/23 15:06 Dose: 0.025 mcg/kg/min, 4.678 mls/hr Documented By: AKBAR Sodium Chloride (Normal Saline 0.9%) 1,000 mls @ 1,000 mls/hr IV BOLUS ONE Stop: 07/14/23 15:59 Last Infusion: 07/14/23 16:27 Dose: Infused Documented By: Admin: 07/14/23 15:17 Dose: 1,000 mls/hr Documented By: AKBAR Piperacillin Sod/Tazobactam (Sod 4.5 gm/ Sodium Chloride) 100 mls @ 200 mls/hr IV NOW ONE Stop: 07/14/23 15:19 Last Infusion: 07/14/23 16:36 Dose: Infused Documented By: Admin: 07/14/23 15:50 Dose: 200 mls/hr Documented By: AKBAR Piperacillin Sod/Tazobactam (Sod 3.375 gm/ Sodium Chloride) 100 mls @ 25 mls/hr IV Q8H DOROTHY Last Infusion: 07/15/23 07:07 Dose: Infused Documented By: Admin: 07/15/23 03:04 Dose: 25 mls/hr Documented By: Infusion: 07/14/23 23:28 Dose: Infused Documented By: Admin: 07/14/23 19:31 Dose: 25 mls/hr Documented By: VANNESSA Lactated Ringer's (Lactated Ringers) 1,000 mls @ 200 mls/hr IV CONT DOROTHY Last Admin: 07/15/23 06:03 Dose: 200 mls/hr Documented By: Infusion: 07/15/23 05:44 Dose: Infused Documented By: Admin: 07/15/23 00:36 Dose: 200 mls/hr Documented By: Infusion: 07/15/23 00:35 Dose: Infused Documented By: Admin: 07/14/23 19:31 Dose: 200 mls/hr Documented By: VANNESSA Methylprednisolone (Methylprednisolone 125 Mg/2 Ml Vial) 125 mg IV NOW ONE Stop: 07/14/23 10:42 Last Admin: 07/14/23 10:50 Dose: 125 mg Documented By: AKBAR Ondansetron HCl (Ondansetron 4 Mg/2 Ml Inj) 4 mg IV NOW PRN PRN Reason: Nausea And Vomiting Ondansetron HCl (Ondansetron 4 Mg Odt) 4 mg SL NOW PRN PRN Reason: Nausea And Vomiting Ondansetron HCl (Ondansetron 4 Mg/2 Ml Inj) 4 mg IV NOW ONE Stop: 07/15/23 07:32 Oxycodone/Acetaminophen (Oxycodone/Acetaminophen 5/325 Tablet) 2 tab PO NOW PRN PRN Reason: Pain, Moderate (4-6) Last Admin: 07/14/23 19:23 Dose: 2 tab Documented By: AKBAR Oxycodone/Acetaminophen (Oxycodone/Acetaminophen 5/325 Tablet) 2 tab PO Q6H PRN PRN Reason: Pain, Moderate (4-6) Last Admin: 07/15/23 05:33 Dose: 2 tab Documented By: EMMANUEL Pantoprazole Sodium (Pantoprazole 40 Mg Vial) 80 mg IV NOW ONE Stop: 07/14/23 09:06 Last Admin: 07/14/23 09:31 Dose: 80 mg Documented By: SHANA Vital Signs Vital signs: Vital Signs - 8 hr 07/14/23 23:30 07/14/23 23:31 07/14/23 23:31 Temperature Pulse Rate 61 62 Respiratory Rate 12 12 Blood Pressure 96/53 L Pulse Oximetry 97 97 Oxygen Delivery Method Nasal Cannula Oxygen Flow Rate 2 07/14/23 23:40 07/14/23 23:40 07/14/23 23:50 Temperature Pulse Rate 62 Respiratory Rate 10 L Blood Pressure 94/58 L 99/57 L Pulse Oximetry 97 Oxygen Delivery Method Oxygen Flow Rate 07/14/23 23:50 07/15/23 00:00 07/15/23 00:10 Temperature Pulse Rate 62 68 71 Respiratory Rate 9 L 15 16 Blood Pressure Pulse Oximetry 98 98 98 Oxygen Delivery Method Oxygen Flow Rate 07/15/23 00:10 07/15/23 00:20 07/15/23 00:20 Temperature Pulse Rate 71 Respiratory Rate 21 Blood Pressure 124/67 118/69 Pulse Oximetry 98 Oxygen Delivery Method Oxygen Flow Rate 07/15/23 00:30 07/15/23 00:30 07/15/23 00:40 Temperature Pulse Rate 74 72 Respiratory Rate 17 16 Blood Pressure 126/75 Pulse Oximetry 96 97 Oxygen Delivery Method Oxygen Flow Rate 07/15/23 00:40 07/15/23 00:51 07/15/23 00:51 Temperature Pulse Rate 77 Respiratory Rate 11 L Blood Pressure 125/75 111/82 Pulse Oximetry 94 Oxygen Delivery Method Oxygen Flow Rate 07/15/23 01:00 07/15/23 01:00 07/15/23 01:10 Temperature Pulse Rate 75 Respiratory Rate 14 Blood Pressure 110/65 109/66 Pulse Oximetry 96 Oxygen Delivery Method Oxygen Flow Rate 07/15/23 01:10 07/15/23 01:20 07/15/23 01:20 Temperature Pulse Rate 77 75 Respiratory Rate 13 12 Blood Pressure 94/54 L Pulse Oximetry 94 98 Oxygen Delivery Method Nasal Cannula Oxygen Flow Rate 2 07/15/23 01:30 07/15/23 01:30 07/15/23 01:40 Temperature Pulse Rate 72 Respiratory Rate 12 Blood Pressure 90/54 L 85/55 L Pulse Oximetry 98 Oxygen Delivery Method Nasal Cannula Oxygen Flow Rate 2 07/15/23 01:40 07/15/23 01:50 07/15/23 01:50 Temperature Pulse Rate 72 70 Respiratory Rate 9 L 8 L Blood Pressure 86/52 L Pulse Oximetry 97 98 Oxygen Delivery Method Nasal Cannula Nasal Cannula Oxygen Flow Rate 2 2 07/15/23 02:00 07/15/23 02:00 07/15/23 02:10 Temperature Pulse Rate 69 67 Respiratory Rate 9 L 8 L Blood Pressure 88/52 L Pulse Oximetry 98 98 Oxygen Delivery Method Nasal Cannula Nasal Cannula Oxygen Flow Rate 2 2 07/15/23 02:10 07/15/23 02:20 07/15/23 02:20 Temperature Pulse Rate 67 Respiratory Rate 9 L Blood Pressure 89/52 L 86/54 L Pulse Oximetry 97 Oxygen Delivery Method Nasal Cannula Oxygen Flow Rate 2 07/15/23 02:30 07/15/23 02:30 07/15/23 02:40 Temperature Pulse Rate 66 68 Respiratory Rate 9 L 14 Blood Pressure 91/53 L Pulse Oximetry 97 98 Oxygen Delivery Method Nasal Cannula Nasal Cannula Oxygen Flow Rate 2 2 07/15/23 02:40 07/15/23 02:50 07/15/23 02:50 Temperature Pulse Rate 72 Respiratory Rate 17 Blood Pressure 113/65 122/74 Pulse Oximetry 98 Oxygen Delivery Method Nasal Cannula Oxygen Flow Rate 2 07/15/23 03:00 07/15/23 03:00 07/15/23 03:10 Temperature Pulse Rate 75 Respiratory Rate 16 Blood Pressure 111/66 108/60 Pulse Oximetry 98 Oxygen Delivery Method Nasal Cannula Oxygen Flow Rate 2 07/15/23 03:10 07/15/23 03:15 07/15/23 03:15 Temperature Pulse Rate 74 76 Respiratory Rate 13 10 L Blood Pressure 110/64 Pulse Oximetry 98 98 Oxygen Delivery Method Nasal Cannula Nasal Cannula Oxygen Flow Rate 2 2 07/15/23 03:30 07/15/23 03:30 07/15/23 03:45 Temperature Pulse Rate 78 76 Respiratory Rate 18 20 Blood Pressure 110/63 Pulse Oximetry 97 95 Oxygen Delivery Method Nasal Cannula Nasal Cannula Oxygen Flow Rate 2 2 07/15/23 03:45 07/15/23 04:00 07/15/23 04:00 Temperature Pulse Rate 77 Respiratory Rate 17 Blood Pressure 115/65 104/65 Pulse Oximetry 97 Oxygen Delivery Method Nasal Cannula Oxygen Flow Rate 2 07/15/23 04:16 07/15/23 04:16 07/15/23 04:30 Temperature Pulse Rate 76 77 Respiratory Rate 15 14 Blood Pressure 120/72 Pulse Oximetry 96 96 Oxygen Delivery Method Oxygen Flow Rate 07/15/23 04:30 07/15/23 04:46 07/15/23 04:46 Temperature Pulse Rate 76 Respiratory Rate 17 Blood Pressure 117/70 115/68 Pulse Oximetry 97 Oxygen Delivery Method Oxygen Flow Rate 07/15/23 05:00 07/15/23 05:00 07/15/23 05:20 Temperature Pulse Rate 78 79 Respiratory Rate 20 21 Blood Pressure 116/70 Pulse Oximetry 95 77 L Oxygen Delivery Method Oxygen Flow Rate 07/15/23 05:20 07/15/23 05:30 07/15/23 05:31 Temperature Pulse Rate 79 79 Respiratory Rate 10 L 9 L Blood Pressure 127/63 Pulse Oximetry 96 97 Oxygen Delivery Method Oxygen Flow Rate 07/15/23 05:31 07/15/23 06:00 07/15/23 06:00 Temperature Pulse Rate 82 Respiratory Rate 16 Blood Pressure 127/81 94/53 L Pulse Oximetry 95 Oxygen Delivery Method Oxygen Flow Rate 07/15/23 06:15 07/15/23 06:15 07/15/23 06:30 Temperature Pulse Rate 85 Respiratory Rate 11 L Blood Pressure 99/63 72/55 L Pulse Oximetry 94 Oxygen Delivery Method Oxygen Flow Rate 07/15/23 06:30 07/15/23 06:45 07/15/23 06:45 Temperature Pulse Rate 91 H 92 H Respiratory Rate 13 16 Blood Pressure 75/55 L Pulse Oximetry 95 95 Oxygen Delivery Method Oxygen Flow Rate 07/15/23 06:52 07/15/23 06:52 07/15/23 06:52 Temperature 97.5 F L Pulse Rate 93 H 93 H Respiratory Rate 16 14 Blood Pressure 81/54 L 81/54 L Pulse Oximetry 95 Oxygen Delivery Method Oxygen Flow Rate 07/15/23 06:55 07/15/23 06:55 07/15/23 07:00 Temperature Pulse Rate 94 H 94 H Respiratory Rate 17 17 Blood Pressure 77/49 L Pulse Oximetry 94 95 Oxygen Delivery Method Oxygen Flow Rate 07/15/23 07:01 07/15/23 07:01 07/15/23 07:05 Temperature Pulse Rate 93 H 93 H Respiratory Rate 15 14 Blood Pressure 65/49 L Pulse Oximetry 95 95 Oxygen Delivery Method Oxygen Flow Rate 07/15/23 07:05 Temperature Pulse Rate Respiratory Rate Blood Pressure 69/50 L Pulse Oximetry Oxygen Delivery Method Oxygen Flow Rate MDM - GI Bleed <Macarena Us, - Last Filed: 07/17/23 18:12> Lab Data 07/15/23 06:13 07/15/23 06:13 Labs: Lab Results 07/14/23 07/14/23 07/14/23 Range/Units 09:10 13:45 19:40 WBC 22.0 H (4.5-11.0) X10^3/uL RBC 3.64 L (4.0-5.2) X10^6/uL Hgb 8.5 L 9.4 L (12.0-16.0) g/dL Hct 27.6 L 30.0 L (36-46) % MCV 75.8 L (80-100) fL MCH 23.3 L (26-34) PG MCHC 30.7 (30-36) % RDW 18.2 H (11.6-14.8) % Plt Count 830 H (150-400) X10^3/uL Neut % (Auto) 84.7 H (50-75) % Lymph % (Auto) 6.6 L (25-40) % [place] % (Auto) 6.9 (3-14) % Eos % (Auto) 1.2 L (2-4) % Baso % (Auto) 0.6 (0-2) % Neut # (Auto) 05381 H (6520-9691) /uL Lymph # (Auto) 1500 (3581-5757) /uL [place] # (Auto) 1500 H (0-900) /uL Eos # (Auto) 300 (0-450) /uL Baso # (Auto) 100 (0-100) /uL Platelet Estimate Increased on smear RBC Morphology Not Reportable PT 14.1 H (9.4-12.5) SECONDS INR 1.2 (0.9-1.3) APTT 29 (25.1-36.5) SECONDS Sodium 134 L (137-145) mmol/L Potassium 4.3 (3.4-5.1) mmol/L Chloride 97 L (98-107) mmol/L Carbon Dioxide 31 (22-32) mmol/L BUN 18 H (7-17) mg/dL Creatinine 0.64 (0.52-1.04) mg/dL Estimated GFR > 60 (>60) mL/min BUN/Creatinine Ratio 28.1 H (6-22) Glucose 115 H (80-110) mg/dL Lactate 1.7 1.4 (0.7-2.1) mmol/L Calcium 8.1 L (8.4-10.2) mg/dL Total Bilirubin 0.3 (0.2-1.3) mg/dL AST 18 (14-36) IU/L ALT 12 (<35) IU/L Alkaline Phosphatase 135 H (38-126) U/L Total Protein 6.5 (6.3-8.2) g/dL Albumin 2.5 L (3.5-5.0) g/dL Globulin 4.0 (1.7-4.1) g/dL Albumin/Globulin Ratio 0.6 L (1.0-2.8) Lipase (23-300) U/L Procalcitonin 0.19 (<0.5) ng/mL Urine Color Yellow Urine Appearance Sl cloudy Urine pH 5.0 (4.5-8.0) Ur Specific [place] 1.015 (1.000-1.035) Urine Protein Trace H (Negative) Urine Glucose (UA) Negative (Negative) g/dL Urine Ketones Negative (NEGATIVE) Urine Occult Blood 3+ H (Negative) Urine Nitrate Negative (Negative) Urine Bilirubin Negative (NEGATIVE) Urine Urobilinogen 0.2 (0.2) E.U./dL Ur Leukocyte Esterase 1+ H (NEGATIVE) Urine RBC 5-10/hpf H (0-5/HPF) Urine WBC 10-30/hpf H (0-5/HPF) Ur Squamous Epith Cells 0-1 /hpf (0-5/HPF) Urine Bacteria Few (2-10) H (None) Ur Culture Indicated? Specimen cultured Vol Urine Centrifuged 10ml (spun) SARS-CoV-2 (PCR) (Negative) Blood Type O Positive Antibody Screen Negative Crossmatch See Detail 07/15/23 07/15/23 Range/Units 04:12 06:13 WBC 15.4 H (4.5-11.0) X10^3/uL RBC 2.93 L (4.0-5.2) X10^6/uL Hgb 7.3 L (12.0-16.0) g/dL Hct 23.0 L (36-46) % MCV 78.5 L (80-100) fL MCH 24.8 L (26-34) PG MCHC 31.6 (30-36) % RDW 18.7 H (11.6-14.8) % Plt Count 607 H (150-400) X10^3/uL Neut % (Auto) 87.2 H (50-75) % Lymph % (Auto) 6.6 L (25-40) % [place] % (Auto) 6.0 (3-14) % Eos % (Auto) 0.0 L (2-4) % Baso % (Auto) 0.2 (0-2) % Neut # (Auto) 57906 H (1421-3497) /uL Lymph # (Auto) 1000 L (0570-0880) /uL [place] # (Auto) 900 (0-900) /uL Eos # (Auto) 0 (0-450) /uL Baso # (Auto) 0 (0-100) /uL Platelet Estimate RBC Morphology PT (9.4-12.5) SECONDS INR (0.9-1.3) APTT (25.1-36.5) SECONDS Sodium 136 L (137-145) mmol/L Potassium 4.4 (3.4-5.1) mmol/L Chloride 106 (98-107) mmol/L Carbon Dioxide 27 (22-32) mmol/L BUN 16 (7-17) mg/dL Creatinine 0.58 (0.52-1.04) mg/dL Estimated GFR > 60 (>60) mL/min BUN/Creatinine Ratio 27.6 H (6-22) Glucose 123 H (80-110) mg/dL Lactate (0.7-2.1) mmol/L Calcium 7.2 L (8.4-10.2) mg/dL Total Bilirubin 0.2 (0.2-1.3) mg/dL AST 16 (14-36) IU/L ALT 8 (<35) IU/L Alkaline Phosphatase 84 D (38-126) U/L Total Protein 5.0 L (6.3-8.2) g/dL Albumin 1.8 L (3.5-5.0) g/dL Globulin 3.2 (1.7-4.1) g/dL Albumin/Globulin Ratio 0.6 L (1.0-2.8) Lipase < 10 L (23-300) U/L Procalcitonin (<0.5) ng/mL Urine Color Urine Appearance Urine pH (4.5-8.0) Ur Specific [place] (1.000-1.035) Urine Protein (Negative) Urine Glucose (UA) (Negative) g/dL Urine Ketones (NEGATIVE) Urine Occult Blood (Negative) Urine Nitrate (Negative) Urine Bilirubin (NEGATIVE) Urine Urobilinogen (0.2) E.U./dL Ur Leukocyte Esterase (NEGATIVE) Urine RBC (0-5/HPF) Urine WBC (0-5/HPF) Ur Squamous Epith Cells (0-5/HPF) Urine Bacteria (None) Ur Culture Indicated? Vol Urine Centrifuged SARS-CoV-2 (PCR) Negative (Negative) Blood Type Antibody Screen Crossmatch Imaging Data CT scan - abdomen/pelvis: Radiologist's Impression: [address] [address] [address] Scan Report Signed Patient: Jasmin Swan MR#: [id number] : 1960 Acct:[id number] Age/Sex: 62 / F Date of Service: 07/14/23 Loc: ED Accession Number: [id number] Procedure: CT abdomen pelvis w con Ordering Provider: Macarena Us D.O. PROCEDURE: CT ABDOMEN PELVIS W CON INDICATIONS: gi bleeding, 1 month, abd pain, hx Ulcerative colitis TECHNIQUE: After the administration of intravenous contrast, axial sections acquired from the lung bases to the pubic symphysis. Coronal and sagittal reformats were performed. For radiation dose reduction, the following was used: automated exposure control, adjustment of mA and/or kV according to patient size. COMPARISON: [facility], CT, CT ABDOMEN PELVIS W CON, 03/16/2023, 9:55. FINDINGS: Image quality: Diagnostic. Lower Chest: Emphysematous changes are redemonstrated. ABDOMEN: Liver: No solid mass. Gallbladder: No radiopaque gallstones or wall thickening. Biliary ducts: No biliary dilation. Pancreas: No ductal dilation. Spleen: Size is within normal limits. Splenic simple appearing cyst is noted. Adrenal Glands: No adrenal nodules. Kidneys and Ureters: No hydronephrosis. No solid mass. No complex renal cystic lesion which requires follow up. Stomach and Bowel: Diffuse colonic wall thickening and hyperemia throughout the entirety of the colon is progressed compared to prior. Again seen sinus or fistula tract arising from the right aspect of the anorectal junction, approximately 9 o'clock position (). This is similar appearance to prior. Peritoneum: No abnormal intraperitoneal fluid. No free air. Ventral Wall: No significant ventral hernia. Abdominal Nodes: No retroperitoneal or mesenteric adenopathy by size criteria. Vessels: Aorta and inferior vena cava are normal in size. Extensive atherosclerotic vascular calcifications. PELVIS: Streak artifact from left pelvic hardware limits evaluation. Pelvic Organs: Unremarkable. Bladder: No bladder wall thickening, accounting for underdistention. Pelvic Nodes: No enlarged lymph nodes. Miscellaneous: No inguinal hernias are seen. Bones: No aggressive osseous abnormality. Left pelvic hardware. Degenerative changes of the spine. IMPRESSION: 1. Diffuse colonic wall thickening and hyperemia extending the entire length of the colon is increased compared to prior. Correlate with ulcerative colitis flare. 2. Redemonstration of sinus tract or fistula tract arising from the right aspect of the in rectal junction, similar appearance to prior. Dictated by: Davi Lucas M.D. on 07/14/2023 at 10:17 Approved by: Davi Lucas M.D. on 07/14/2023 at 10:22 ECG Data Attestation: I personally reviewed and interpreted this ECG as follows: Interpretation: Rate of 98 QRS is 76 QTC 464. Atrial versus junctional rhythm, appears regular. Nonspecific ST change. MDM Narrative Medical decision making narrative: 62-year-old female with history of known GI bleed, known Crohn's disease who had recent hospitalization in March ultimately transfer for GI bleed. Patient comes in tachycardic, hypotensive quite pale. She is hypoxic but states she does use home O2 PRN. Labs, patient was type and screen 2 units were ordered. Patient placed on O2 CT abdomen pelvis to evaluate for ulcerative colitis flare versus other as patient is quite tender on exam. This shows diffuse colonic wall thickening and hyperemia to along the entire length of the colon increased compared to prior, redemonstrated sinus tract or fistula right aspect of the rectal junction. Labs show white count of 22 hemoglobin is only 8.5 patient was transfused 1 unit she was quite pale mother can be a lag she did have a large amount of bloody stool today but has not had persistent in the department platelets are 830. Coags are negative, sodium is 134 chloride 97 potassium 4 3 BUN 18 with a CO2 of 31 normal creatinine glucose of 115, LFTs are negative alk-phos is 135 protocol is 1.19 with a lactate of 1.7 Patient had IV antibiotics ordered, normal saline and 1 unit packed red blood cells. Patient has been persistently hypotensive. Has required O2 but this is normal baseline for patient. Patient was given Cipro started to have some itching and redness in her IV site so this was stopped given a dose of Benadryl. Consult with gastroenterology at [facility]. Spoke with Dr. Phillips. She is familiar with patient, states that patient has been failing her infusions in his developed fistula is in his now declared herself more as Crohn's/entero colitis rather than ulcerative colitis. They only have a colorectal surgeon intermittently and really only as an outpatient which is what she feels as patient needs so would recommend transfer to other facility such as you did, [facility] for GI that does IBD, as colorectal surgeon after failing to biologics she does recommend broad-spectrum antibiotics agreeable with steroids and continuing to monitor hemoglobin and transfuse as needed. Spoke with Dr. Hahn colorectal fellow at [facility], recommends continue antibiotics would feel that Zosyn as appropriate continue as Solu coverage, would not do any additional doses of steroids continue with fluid resuscitation. Patient has had 1.5L NS + 1unit PRBC. for 30cc/kg bolus. Will given additional liter. PICC line was placed and CXR checked, okay to use. MAP has been 65 range but systolic pressure has been in the 90s. We will continue with fluid resuscitation but started on norepinephrine. Spoke with Dr. Steele, walking dragline oiler at [facility], recommended to continue with fluid resuscitation, current course of plan and accepts but no current beds available. <Wil Castrejon MD - Last Filed: 07/15/23 07:25> Lab Data Labs: Lab Results 07/14/23 07/14/23 07/14/23 Range/Units 09:10 13:45 19:40 WBC 22.0 H (4.5-11.0) X10^3/uL RBC 3.64 L (4.0-5.2) X10^6/uL Hgb 8.5 L 9.4 L (12.0-16.0) g/dL Hct 27.6 L 30.0 L (36-46) % MCV 75.8 L (80-100) fL MCH 23.3 L (26-34) PG MCHC 30.7 (30-36) % RDW 18.2 H (11.6-14.8) % Plt Count 830 H (150-400) X10^3/uL Neut % (Auto) 84.7 H (50-75) % Lymph % (Auto) 6.6 L (25-40) % [place] % (Auto) 6.9 (3-14) % Eos % (Auto) 1.2 L (2-4) % Baso % (Auto) 0.6 (0-2) % Neut # (Auto) 59829 H (8496-8650) /uL Lymph # (Auto) 1500 (2074-6697) /uL [place] # (Auto) 1500 H (0-900) /uL Eos # (Auto) 300 (0-450) /uL Baso # (Auto) 100 (0-100) /uL Platelet Estimate Increased on smear RBC Morphology Not Reportable PT 14.1 H (9.4-12.5) SECONDS INR 1.2 (0.9-1.3) APTT 29 (25.1-36.5) SECONDS Sodium 134 L (137-145) mmol/L Potassium 4.3 (3.4-5.1) mmol/L Chloride 97 L (98-107) mmol/L Carbon Dioxide 31 (22-32) mmol/L BUN 18 H (7-17) mg/dL Creatinine 0.64 (0.52-1.04) mg/dL Estimated GFR > 60 (>60) mL/min BUN/Creatinine Ratio 28.1 H (6-22) Glucose 115 H (80-110) mg/dL Lactate 1.7 1.4 (0.7-2.1) mmol/L Calcium 8.1 L (8.4-10.2) mg/dL Total Bilirubin 0.3 (0.2-1.3) mg/dL AST 18 (14-36) IU/L ALT 12 (<35) IU/L Alkaline Phosphatase 135 H (38-126) U/L Total Protein 6.5 (6.3-8.2) g/dL Albumin 2.5 L (3.5-5.0) g/dL Globulin 4.0 (1.7-4.1) g/dL Albumin/Globulin Ratio 0.6 L (1.0-2.8) Lipase (23-300) U/L Procalcitonin 0.19 (<0.5) ng/mL Urine Color Yellow Urine Appearance Sl cloudy Urine pH 5.0 (4.5-8.0) Ur Specific [place] 1.015 (1.000-1.035) Urine Protein Trace H (Negative) Urine Glucose (UA) Negative (Negative) g/dL Urine Ketones Negative (NEGATIVE) Urine Occult Blood 3+ H (Negative) Urine Nitrate Negative (Negative) Urine Bilirubin Negative (NEGATIVE) Urine Urobilinogen 0.2 (0.2) E.U./dL Ur Leukocyte Esterase 1+ H (NEGATIVE) Urine RBC 5-10/hpf H (0-5/HPF) Urine WBC 10-30/hpf H (0-5/HPF) Ur Squamous Epith Cells 0-1 /hpf (0-5/HPF) Urine Bacteria Few (2-10) H (None) Ur Culture Indicated? Specimen cultured Vol Urine Centrifuged 10ml (spun) SARS-CoV-2 (PCR) (Negative) Blood Type O Positive Antibody Screen Negative Crossmatch See Detail 07/15/23 07/15/23 Range/Units 04:12 06:13 WBC 15.4 H (4.5-11.0) X10^3/uL RBC 2.93 L (4.0-5.2) X10^6/uL Hgb 7.3 L (12.0-16.0) g/dL Hct 23.0 L (36-46) % MCV 78.5 L (80-100) fL MCH 24.8 L (26-34) PG MCHC 31.6 (30-36) % RDW 18.7 H (11.6-14.8) % Plt Count 607 H (150-400) X10^3/uL Neut % (Auto) 87.2 H (50-75) % Lymph % (Auto) 6.6 L (25-40) % [place] % (Auto) 6.0 (3-14) % Eos % (Auto) 0.0 L (2-4) % Baso % (Auto) 0.2 (0-2) % Neut # (Auto) 24896 H (7775-4906) /uL Lymph # (Auto) 1000 L (0272-7609) /uL [place] # (Auto) 900 (0-900) /uL Eos # (Auto) 0 (0-450) /uL Baso # (Auto) 0 (0-100) /uL Platelet Estimate RBC Morphology PT (9.4-12.5) SECONDS INR (0.9-1.3) APTT (25.1-36.5) SECONDS Sodium 136 L (137-145) mmol/L Potassium 4.4 (3.4-5.1) mmol/L Chloride 106 (98-107) mmol/L Carbon Dioxide 27 (22-32) mmol/L BUN 16 (7-17) mg/dL Creatinine 0.58 (0.52-1.04) mg/dL Estimated GFR > 60 (>60) mL/min BUN/Creatinine Ratio 27.6 H (6-22) Glucose 123 H (80-110) mg/dL Lactate (0.7-2.1) mmol/L Calcium 7.2 L (8.4-10.2) mg/dL Total Bilirubin 0.2 (0.2-1.3) mg/dL AST 16 (14-36) IU/L ALT 8 (<35) IU/L Alkaline Phosphatase 84 D (38-126) U/L Total Protein 5.0 L (6.3-8.2) g/dL Albumin 1.8 L (3.5-5.0) g/dL Globulin 3.2 (1.7-4.1) g/dL Albumin/Globulin Ratio 0.6 L (1.0-2.8) Lipase < 10 L (23-300) U/L Procalcitonin (<0.5) ng/mL Urine Color Urine Appearance Urine pH (4.5-8.0) Ur Specific [place] (1.000-1.035) Urine Protein (Negative) Urine Glucose (UA) (Negative) g/dL Urine Ketones (NEGATIVE) Urine Occult Blood (Negative) Urine Nitrate (Negative) Urine Bilirubin (NEGATIVE) Urine Urobilinogen (0.2) E.U./dL Ur Leukocyte Esterase (NEGATIVE) Urine RBC (0-5/HPF) Urine WBC (0-5/HPF) Ur Squamous Epith Cells (0-5/HPF) Urine Bacteria (None) Ur Culture Indicated? Vol Urine Centrifuged SARS-CoV-2 (PCR) Negative (Negative) Blood Type Antibody Screen Crossmatch MDM Narrative Medical decision making narrative: 62-year-old female with history of known GI bleed, known Crohn's disease who had recent hospitalization in March ultimately transfer for GI bleed. Patient comes in tachycardic, hypotensive quite pale. She is hypoxic but states she does use home O2 PRN. Labs, patient was type and screen 2 units were ordered. Patient placed on O2 CT abdomen pelvis to evaluate for ulcerative colitis flare versus other as patient is quite tender on exam. This shows diffuse colonic wall thickening and hyperemia to along the entire length of the colon increased compared to prior, redemonstrated sinus tract or fistula right aspect of the rectal junction. Labs show white count of 22 hemoglobin is only 8.5 patient was transfused 1 unit she was quite pale mother can be a lag she did have a large amount of bloody stool today but has not had persistent in the department platelets are 830. Coags are negative, sodium is 134 chloride 97 potassium 4 3 BUN 18 with a CO2 of 31 normal creatinine glucose of 115, LFTs are negative alk-phos is 135 protocol is 1.19 with a lactate of 1.7 Patient had IV antibiotics ordered, normal saline and 1 unit packed red blood cells. Patient has been persistently hypotensive. Has required O2 but this is normal baseline for patient. Patient was given Cipro started to have some itching and redness in her IV site so this was stopped given a dose of Benadryl. Consult with gastroenterology at [facility]. Spoke with Dr. Phillips. She is familiar with patient, states that patient has been failing her infusions in his developed fistula is in his now declared herself more as Crohn's/entero colitis rather than ulcerative colitis. They only have a colorectal surgeon intermittently and really only as an outpatient which is what she feels as patient needs so would recommend transfer to other facility such as you did, , [facility] for GI that does IBD, as colorectal surgeon after failing to biologics she does recommend broad-spectrum antibiotics agreeable with steroids and continuing to monitor hemoglobin and transfuse as needed. Spoke with Dr. Hahn colorectal fellow at [facility], recommends continue antibiotics would feel that Zosyn as appropriate continue as Solu coverage, would not do any additional doses of steroids continue with fluid resuscitation. Patient has had 1.5L NS + 1unit PRBC. for 30cc/kg bolus. Will given additional liter. PICC line was placed and CXR checked, okay to use. MAP has been 65 range but systolic pressure has been in the 90s. We will continue with fluid resuscitation but started on norepinephrine. Spoke with Dr. Steele, walking dragline oiler at [facility], recommended to continue with fluid resuscitation, current course of plan and accepts but no current beds available. 0545 07/15/23 I , Wil Castrejon MD, Assumed care of this patient from Dr. Us at approximately 6:00 p.m. on the . The patient has been stable overnight. We finally found a facility that has capacity to take her. I spoke to Dr. Jones from ICU service at [facility] anticipate she will be transferred there. Patient had a large bowel movement of formed bloody stool. I suspect this is a large blood clot that had been accumulating overnight. This is her 1st passage of blood. This is at about 6:30 a.m.. The additional unit of crossmatched red cells was transfused just prior to transfer. Critical Care Time <Macarena Us DO - Last Filed: 07/17/23 18:12> Critical Care Time Critical Care Time: Yes Attestation: The high probability of a clinically significant, sudden or life threatening deterioration of the [cardiac, nephro] system(s) required my full and direct attention, intervention and personal management. The aggregate critical care time was [] minutes. This time is in addition to time spent performing reported procedures but includes the following: [x] Data Review and interpretation [x] Patient assessment and monitoring of vital signs [x] Documentation [x] Medication orders and management <Wil Castrejon MD - Last Filed: 07/15/23 07:25> Critical Care Time Total Critical Care Time: 45 Discharge Plan Departure Patient Disposition: [facility] Clinical Impression: Acute Crohn's disease with fistula, Sepsis, Anemia, GI bleed Prescriptions: No Action buspirone 5 mg Tablet 5 mg PO DAILY bupropion HCl 150 mg Tablet Sustained-Release 12 Hr 150 mg PO BID olanzapine 5 mg Tablet 5 mg PO BEDTIME amlodipine 5 mg Tablet 5 mg PO BID metoprolol tartrate 25 mg Tablet 25 mg PO DAILY trazodone 50 mg tablet 100 mg PO BEDTIME duloxetine 60 mg capsule,delayed release(DR/EC) 120 mg PO DAILY mesalamine 800 mg tablet,delayed release (DR/EC) 800 mg PO BID penicillin V potassium 500 mg tablet 500 mg PO BID Referrals: Bessie Lindsay PA-C [Primary Care Provider] -
--- NOTE | 2023-07-14 09:29 | DI.CT.S_ITS ---
PROCEDURE: CT ABDOMEN PELVIS W CON INDICATIONS: gi bleeding, 1 month, abd pain, hx Ulcerative colitis TECHNIQUE: After the administration of intravenous contrast, axial sections acquired from the lung bases to the pubic symphysis. Coronal and sagittal reformats were performed. For radiation dose reduction, the following was used: automated exposure control, adjustment of mA and/or kV according to patient size. COMPARISON: [facility], CT, CT ABDOMEN PELVIS W CON, 03/16/2023, 9:55. FINDINGS: Image quality: Diagnostic. Lower Chest: Emphysematous changes are redemonstrated. ABDOMEN: Liver: No solid mass. Gallbladder: No radiopaque gallstones or wall thickening. Biliary ducts: No biliary dilation. Pancreas: No ductal dilation. Spleen: Size is within normal limits. Splenic simple appearing cyst is noted. Adrenal Glands: No adrenal nodules. Kidneys and Ureters: No hydronephrosis. No solid mass. No complex renal cystic lesion which requires follow up. Stomach and Bowel: Diffuse colonic wall thickening and hyperemia throughout the entirety of the colon is progressed compared to prior. Again seen sinus or fistula tract arising from the right aspect of the anorectal junction, approximately 9 o'clock position (). This is similar appearance to prior. Peritoneum: No abnormal intraperitoneal fluid. No free air. Ventral Wall: No significant ventral hernia. Abdominal Nodes: No retroperitoneal or mesenteric adenopathy by size criteria. Vessels: Aorta and inferior vena cava are normal in size. Extensive atherosclerotic vascular calcifications. PELVIS: Streak artifact from left pelvic hardware limits evaluation. Pelvic Organs: Unremarkable. Bladder: No bladder wall thickening, accounting for underdistention. Pelvic Nodes: No enlarged lymph nodes. Miscellaneous: No inguinal hernias are seen. Bones: No aggressive osseous abnormality. Left pelvic hardware. Degenerative changes of the spine. IMPRESSION: 1. Diffuse colonic wall thickening and hyperemia extending the entire length of the colon is increased compared to prior. Correlate with ulcerative colitis flare. 2. Redemonstration of sinus tract or fistula tract arising from the right aspect of the in rectal junction, similar appearance to prior. Dictated by: Davi Lucas M.D. on 07/14/2023 at 10:17 Approved by: Davi Lucas M.D. on 07/14/2023 at 10:22
[2023-07-14 09:30] LABS: Add Manual Diff / Slide Review NO; Basophils Absolute Auto 100 /uL (0-100); Basophils Percent Auto 0.6 % (0-2); Eosinophils Absolute Auto 300 /uL (0-450); Eosinophils Percent Auto 1.2 % (2-4); Hematocrit 27.6 % (36-46); Hemoglobin 8.5 g/dL (12.0-16.0); Lymphocytes Absolute Auto 1500 /uL (1100-4500); Lymphocytes Percent Auto 6.6 % (25-40); Mean Corpuscular HGB Conc 30.7 % (30-36); Mean Corpuscular Hemoglobin 23.3 PG (26-34); Mean Corpuscular Volume 75.8 fL (80-100); Monocytes Absolute Auto 1500 /uL (0-900); Monocytes Percent Auto 6.9 % (3-14); Neutrophils Absolute Auto 18600 /uL (1500-7000); Neutrophils Percent Auto 84.7 % (50-75); Platelet Count 830 X10^3/uL (150-400); Red Blood Cell Count 3.64 X10^6/uL (4.0-5.2); Red Cell Distribution Width 18.2 % (11.6-14.8)
[2023-07-14] MEDS: PANTOPRAZOLE 40 MG VIAL 80 MG IV (09:31)
[2023-07-14 09:40] LABS: Alanine Aminotransferase 12 IU/L (<35); Albumin 2.5 g/dL (3.5-5.0); Albumin Globulin Ratio 0.6 (1.0-2.8); Alkaline Phosphatase 135 U/L (38-126); Aspartate Aminotransferase 18 IU/L (14-36); BUN Creatinine Ratio 28.1 (6-22); Bilirubin Total 0.3 mg/dL (0.2-1.3); Blood Urea Nitrogen 18 mg/dL (7-17); Calcium 8.1 mg/dL (8.4-10.2); Carbon Dioxide 31 mmol/L (22-32); Chloride 97 mmol/L (98-107); Estimated Glomerular Filt Rate > 60 mL/min (>60); Glucose 115 mg/dL (80-110); HEMOLYSIS < 15 (0-50); Platelet Estimate Increased on smear; Potassium 4.3 mmol/L (3.4-5.1); Sodium 134 mmol/L (137-145); Total Protein 6.5 g/dL (6.3-8.2)
[2023-07-14 09:43] LABS: INR 1.2 (0.9-1.3); Prothrombin Time 14.1 SECONDS (9.4-12.5)
[2023-07-14 09:45] LABS: PTT Partial Thromboplastin Tim 29 SECONDS (25.1-36.5)
[2023-07-14] MEDS: fentaNYL 100 MCG/2 ML INJ 25 MCG IV (10:27)
[2023-07-14] MEDS: methylPREDNISolone 125 MG/2 ML VIAL IV (10:50)
[2023-07-14] MEDS: CIPROFLOXACIN 400 MG/200 ML PIGGYBACK 200 MG IV (10:57)
[2023-07-14 11:08] LABS: Lactate (Lactic Acid) 1.7 mmol/L (0.7-2.1)
[2023-07-14] MEDS: SODIUM CHLORIDE 0.9% 1,000 ML 1000 ML IV ×2 (11:09→15:17)
[2023-07-14 11:25] LABS: Procalcitonin 0.19 ng/mL (<0.5)
--- NOTE | 2023-07-14 11:31 | PC.NURSE ---
Pts right arm became red at the IV site and her arm is very itchy. No signs of respiratory distress. Dr Us aware,ordered cipro stopped and IV benadryl.
[2023-07-14] MEDS: diphenhydrAMINE 50 MG/ML VIAL 25 MG IV (11:45)
--- NOTE | 2023-07-14 12:27 | PC.NURSE ---
Second unit of blood cancelled per physician RM. Charge aware.
[2023-07-14] MEDS: metroNIDAZOLE 500 MG/100 ML PIGGYBACK 100 MG IV (13:00)
--- NOTE | 2023-07-14 13:47 | DI.RAD.S_ITS ---
PROCEDURE: XR CHEST FOR PICC 1V INDICATIONS: picc placement COMPARISON: [facility], , XR CHEST 1V, 03/16/2023, 15:53. FINDINGS: PICC was placed by the intravenous therapy team from the right side. Fluoroscopic spot film demonstrates the tip of PICC projecting to the area of mid SVC. IMPRESSION: Tip of PICC projects to the area of mid SVC. Dictated by: Nayeli Licona MD, PhD on 07/14/2023 at 15:41 Approved by: Nayeli Licona MD, PhD on 07/14/2023 at 15:42
[2023-07-14 13:54] LABS: Hemoglobin 9.4 g/dL (12.0-16.0)
[2023-07-14] MEDS: SODIUM CHLORIDE 0.9% 1,000 ML 200 ML IV (14:05)
[2023-07-14 14:08] LABS: Lactate (Lactic Acid) 1.4 mmol/L (0.7-2.1)
--- NOTE | 2023-07-14 14:35 | PC.NURSE ---
Pt hypotensive through today's visit, physician aware. Patient verbalized to physician DNI/DNR. at bedside.
--- NOTE | 2023-07-14 15:03 | PC.NURSE ---
called [facility] spoke to neftali. pt normally sees GI doc there; doc's spoke and they are unable to take pt because they have no colon rectal surgeon. called [facility] spoke to [facility] they are at capacity but they still took pt info down. called [facility] spoke to sonia who said they are quite full. Sonia took info down and told me she'll try her best but to please keep looking. called [facility] and got a voicemail L/M to please give us a call back called [facility] spoke to Colleen who said no beds called [facility] spoke to side seam machine operator who put me on hold to connect me with the housekeeper/laundry assistant, never got connected instead side seam machine operator told me sorry she said no we are very full
[2023-07-14] MEDS: NOREPINEPHRINE BITARTRATE/D5W 4 MG/250 ML PLAST..BAG 4.678 MG IV (15:06)
[2023-07-14] MEDS: PIPERACILLIN/TAZO 4.5 GM in SODIUM CHLORIDE 0.9% 100 ML IV (15:50)
--- NOTE | 2023-07-14 18:45 | PC.NURSE ---
pt was accepted at [facility] was told it could be a 24 hour wait pt aware of the wait. Received call back from ; pt declined to go to , [facility] is their hospital of choice. We also received a call back from and informed them they would like to go to [facility]. Transfer center at said if pt does not get a bed at midnight to call them back.
[2023-07-14] MEDS: OXYCODONE/ACETAMINOPHEN 5/325 TABLET 2 TAB PO (19:23)
[2023-07-14] MEDS: PIPERACILLIN/TAZO 3.375 GM in SODIUM CHLORIDE 0.9% 100 ML IV (19:31)
[2023-07-14] MEDS: LACTATED RINGERS 1,000 ML 200 ML IV (19:31)
[2023-07-14 19:45] LABS: Appearance Urine UA SL CLOUDY; Bilirubin Urine UA NEGATIVE (NEGATIVE); Color Urine UA YELLOW; Glucose Urine UA NEGATIVE (Negative); Ketones Urine UA NEGATIVE (NEGATIVE); Leukocyte Esterase Urine UA 1+ (NEGATIVE); Nitrite Urine UA NEGATIVE (Negative); Occult Blood Urine UA 3+ (Negative); Protein Urine UA TRACE (Negative); Specific Gravity Urine UA 1.015 (1.000-1.035); Urobilinogen Urine UA 0.2 E.U./dL (0.2)
[2023-07-14 19:52] LABS: Bacteria Urine Few (2-10); Culture Indicated Urine Specimen Cultured; RBC Urine 5-10/HPF (0-5/HPF); Squamous Epithelial Cell Urine 0-1 /HPF (0-5/HPF); Urine Volume 10mL (spun); WBC Urine 10-30/HPF (0-5/HPF)
--- NOTE | 2023-07-14 20:54 | PC.NURSE ---
Pt palced on a hospital/in-patient bed for comfort. Pt denies any complaints at this time and says the bed is much more comfortable.
[2023-07-15] VITALS (42 sets, daily range): BP systolic 65–127; BP diastolic 49–82; PULSE 66–94; RESP 8–21; TEMP 36.4; O2SAT 77–98
[2023-07-15] MEDS: LACTATED RINGERS 1,000 ML 200 ML IV ×2 (00:36→06:03)
[2023-07-15] MEDS: PIPERACILLIN/TAZO 3.375 GM in SODIUM CHLORIDE 0.9% 100 ML IV (03:04)
[2023-07-15 04:30] LABS: COVID19 -Nasal RAPID Negative (Negative)
[2023-07-15] MEDS: OXYCODONE/ACETAMINOPHEN 5/325 TABLET 2 TAB PO (05:33)
[2023-07-15 06:30] LABS: Add Manual Diff / Slide Review NO; Basophils Absolute Auto 0 /uL (0-100); Basophils Percent Auto 0.2 % (0-2); Eosinophils Absolute Auto 0 /uL (0-450); Hemoglobin 7.3 g/dL (12.0-16.0); Lymphocytes Absolute Auto 1000 /uL (1100-4500); Lymphocytes Percent Auto 6.6 % (25-40); Mean Corpuscular HGB Conc 31.6 % (30-36); Mean Corpuscular Hemoglobin 24.8 PG (26-34); Mean Corpuscular Volume 78.5 fL (80-100); Monocytes Absolute Auto 900 /uL (0-900); Neutrophils Absolute Auto 13400 /uL (1500-7000); Neutrophils Percent Auto 87.2 % (50-75); Platelet Count 607 X10^3/uL (150-400); Red Blood Cell Count 2.93 X10^6/uL (4.0-5.2); Red Cell Distribution Width 18.7 % (11.6-14.8); White Blood Cell Count 15.4 X10^3/uL (4.5-11.0)
--- NOTE | 2023-07-15 06:35 | PC.NURSE ---
Pt had 3 major, bloody stools with softball sized blood clots. Pt is more pale at this time. MD Castrejon at bedside and aware. Pt cleaned up.
--- NOTE | 2023-07-15 06:39 | PC.NURSE ---
Accepted at [facility]. . ICU [id number] Report:[phone]
[2023-07-15 06:41] LABS: Alanine Aminotransferase 8 IU/L (<35); Albumin 1.8 g/dL (3.5-5.0); Albumin Globulin Ratio 0.6 (1.0-2.8); Alkaline Phosphatase 84 U/L (38-126); Aspartate Aminotransferase 16 IU/L (14-36); BUN Creatinine Ratio 27.6 (6-22); Bilirubin Total 0.2 mg/dL (0.2-1.3); Blood Urea Nitrogen 16 mg/dL (7-17); Calcium 7.2 mg/dL (8.4-10.2); Carbon Dioxide 27 mmol/L (22-32); Chloride 106 mmol/L (98-107); Estimated Glomerular Filt Rate > 60 mL/min (>60); Globulin 3.2 g/dL (1.7-4.1); Glucose 123 mg/dL (80-110); HEMOLYSIS < 15 (0-50); Lipase < 10 U/L (23-300); Potassium 4.4 mmol/L (3.4-5.1); Sodium 136 mmol/L (137-145)
--- NOTE | 2023-07-15 07:20 | PC.NURSE ---
Report given to transport nurse. Pt is more pale at this point. Pt is slightly nauseated. Pt is AAOx4, but when no one is speaking to her she says odd statements like did you fill up the paper and then when you ask the pt she is not sure what you are saying. She also said you guys throw away everything except for the things you need to throw away, when asked what the patient was talking about, she said she wasn't sure. Pt has been joking with staff and having general conversations normally up to this point. Since the large bloody stools is when this slight change in mentation happened.
[2023-07-15] MEDS: ONDANSETRON 4 MG/2 ML INJ (07:32)
== END 2023-07-15 07:40 | disposition short-term general hospital (02) ==
PROVIDERS: Emergency Medicine; Emergency Provider Family Medicine Addiction Medicine; PCP Student in an Organized Health Care Education/Training Program
DX: K50.913 Crohn's disease, unspecified, with fistula (principal); A41.9 Sepsis, unspecified organism; D64.9 Anemia, unspecified; R00.0 Tachycardia, unspecified; K92.2 Gastrointestinal hemorrhage, unspecified; Z20.822 Contact with and (suspected) exposure to COVID-19
CPT/HCPCS: 36415; 36430; 36569; 74177; 80053; 81001; 83605; 83690; 84145; 85014; 85018; 85025; 85610; 85730; 86850; 86900; 86901; 87040; 87086; 87635; 93005; 96365; 96366; 96367; 96368; 96375; 99285; 99291; P9016; C9113; J0744; J1200; J2405; J2543; J2930; J3010; Q9967